=== PATIENT | male | born 1950 | race African-American/Black ===

== ENCOUNTER 2017-03-28 00:32 | Emergency (ER) | payer MEDICARE, MEDICAID ==
[2017-03-28 00:54] LABS: Base Excess-Venous 2.8 mmol/L (-30.0-30.0); Bicarbonate (HCO3v) 31.2 mmol/L (1.0-85.0); CO2 Tension (PvCO2) 63.6 mmHg (41.0-51.0); Calcium, Ionized 1.19 mmol/L (1.12-1.32); Hemoglobin - Calc 14.2 g/dL (12.0-18.0); O2 Tension (PvO2) 17.6 mmHg (35.0-45.0); Potassium 4.2 mmol/L (3.4-4.7); T. Carbon Dioxide 33.1 mmol/L (1.0-85.0); pH (Venous) 7.299 (7.35-7.45); vO2 Saturation-calc 20.4 % (0.0-100.0)
[2017-03-28 01:37] LABS: Eosinophils 2 % (0-10); Hemoglobin 12.5 g/dL (14.0-18.0); Lymphocytes 42 % (21-51); MDiff Complete? YES; Mean Corpuscular HGB CONC 32.1 g/dL (32.0-36.0); Mean Corpuscular Hemoglobin 32.5 pg (27.0-31.0); Mean Platelet Volume 7.3 fL (7.4-10.4); Monocytes 9 % (0-10); Neutrophil 42 % (42-75); PLT Morphology Comment Appears Adequate; Platelet Count 248 thou/uL (130-400); RBC Distribution Width 12.3 % (11.5-14.5); Reactive Lymphocytes 3 % (0-10); Red Blood Cell (RBC) Count 3.85 mill/uL (4.70-6.10); White Blood Cell (WBC) Count 5.9 thou/uL (4.8-10.8)
[2017-03-28 01:38] LABS: ALT (SGPT) 12 U/L (8-55); AST (SGOT) 29 U/L (5-34); Albumin 3.7 g/dL (3.4-4.8); Alkaline Phosphatase 58 U/L (40-150); Anion Gap 12 mmol/L (10-20); BUN (Urea Nitrogen) 11 mg/dL (8.4-25.7); Bilirubin, Total 0.3 mg/dL (0.2-1.2); Calc. Creatinine Clearance 0 mL/min (70-130); Calcium 9.3 mg/dL (7.8-10.44); Carbon Dioxide 26 mmol/L (23-31); Chloride 105 mmol/L (98-107); Estimated GFR-MDRD 77; Glucose 117 mg/dL (80-115); Potassium 4.9 mmol/L (3.5-5.1); Protein, Total 7.7 g/dL (5.8-8.1); Sodium 138 mmol/L (136-145)
[2017-03-28 03:07] LABS: Calcium, Ionized 1.2 mmol/L (1.12-1.30)
[2017-03-28 03:43] LABS: CO2 Tension 47.3 mmHg (35.0-45.0); pH, Arterial 7.38 (7.35-7.45)
[2017-03-28 03:44] LABS: Actual Bicarbonate (HCO3a) 27.4 mEq/L (22-26); Base Excess (BEa) 1.8 mEq/L (0 (+/-) 2.5); Hematocrit-ABG 36.9 % (42.0-52.0); Hemoglobin (Hb) 11.3 g/dL (14.0-18.0)
[2017-03-28 03:45] LABS: ALV-art Gradient 23.555 (0-20); Analyzer IN Cardio ER; Puncture Site RRA
--- NOTE | 2017-03-28 08:23 | RAD ---
FRONTAL AND LATERAL IMAGING OF THE CHEST: Date: 03-28-17 Comparison: 01-07-12 History: Coughing, wheezing. FINDINGS: Mild increased linear interstitial densities are noted, stable. There is mild blunting of the costoph renic angle on the left suggesting small volume pleural fluid and/or pleural scar, a chronic stable f inding. No lobar consolidation or alveolar edema. IMPRESSION: No acute findings. POS: [facility]
== END 2017-03-28 05:37 | disposition home or self-care (01) ==
LOC: ERS 00:32
DX: T59.811A Toxic effect of smoke, accidental (unintentional), initial encounter (principal); J68.9 Unspecified respiratory condition due to chemicals, gases, fumes and vapors; F17.210 Nicotine dependence, cigarettes, uncomplicated
CPT/HCPCS: 71046; 80053; 82330; 82375; 82803; 82805; 85025; 94760; 99406

== ENCOUNTER → 2017-10-12 | Day surgery (SDC) | payer MEDICARE, MEDICAID ==
[2017-10-11 13:11] VITALS: BMI 22.5
[~2017-10-12] MED LIST: EPINEPHrine 1 MG/ML AMP ONE
[2017-10-12 13:53] LABS: Hemoglobin 11.4 g/dL (14.0-18.0)
[2017-10-12 14:09] LABS: Anion Gap 11 mmol/L (10-20); BUN (Urea Nitrogen) 9 mg/dL (8.4-25.7); Calc. Creatinine Clearance 84 mL/min (70-130); Calcium 8.7 mg/dL (7.8-10.44); Carbon Dioxide 25 mmol/L (23-31); Chloride 108 mmol/L (98-107); Estimated GFR-MDRD 90; Glucose 94 mg/dL (80-115); Potassium 3.9 mmol/L (3.5-5.1); Sodium 140 mmol/L (136-145)
--- NOTE | 2017-10-15 23:12 | EKG ---
Test Reason : PREOP Blood Pressure : / mmHG Vent. Rate : 056 BPM Atrial Rate : 056 BPM P-R Int : 238 ms QRS Dur : 100 ms QT Int : 432 ms P-R-T Axes : 030 058 048 degrees QTc Int : 416 ms Sinus bradycardia with 1st degree A-V block Otherwise normal ECG When compared with ECG of 05-NOV-2015 18:44, WI interval has increased Vent. rate has decreased BY 81 BPM QRS duration has increased T wave amplitude has increased in Lateral leads Confirmed by Elsa FERNANDES ([id number]) on 10/15/2017 11:12:17 PM Referred By: VIJI Confirmed By:Elsa FERNANDES
== END ==
LOC: SDC 13:07
PROVIDERS: ATTEND Specialist
DX: J38.3 Other diseases of vocal cords (principal); Z53.09 Procedure and treatment not carried out because of other contraindication
CPT/HCPCS: 80048; 85014; 85018; 93005; 93010; J0171

== ENCOUNTER 2017-10-19 10:53 | Day surgery (SDC) | payer MEDICARE, MEDICAID ==
[2017-10-19] MEDS ORDERED: EPINEPHrine 1 MG/ML AMP ONE (14:07)
[2017-10-19] MEDS ORDERED: Fentanyl 100 MCG/2 ML VIAL ONE (14:15)
[2017-10-19] MEDS ORDERED: PROPOFOL 200 MG/20 ML VIAL ONE (14:19)
[2017-10-19] MEDS ORDERED: Ondansetron HCl/PF 4 MG/2 ML Vial ONE (14:19)
[2017-10-19] MEDS ORDERED: Lidocaine 1% PF 5 ML VIAL ONE (14:19)
--- NOTE | 2017-10-19 14:57 | OP ---
PREOPERATIVE DIAGNOSIS: Right true vocal cord lesion. POSTOPERATIVE DIAGNOSIS: Right true vocal cord lesion. PROCEDURE PERFORMED: Microsuspension laryngoscopy with right true vocal cord biopsy using binocular microscopy. PROCEDURE IN DETAIL: After consent was obtained, the patient was identified, brought to the operatin g room, and placed on the operating table in supine position. The larynx was visualized using an ope rating laryngoscope and the operative microscope was brought into place. Pictures were obtained of t he lesion and biopsy was obtained of the right true vocal cord and sent for permanent histologic eval uation. Topical adrenalin and lidocaine were applied. The patient was awakened, extubated, and take n to recovery room in stable condition prior to discharge home.
== END 2017-10-19 16:26 | disposition home or self-care (01) ==
LOC: SDC 10:53
PROVIDERS: ATTEND Specialist
PROC: 0CBT8ZX Excision of Right Vocal Cord, Via Natural or Artificial Opening Endoscopic, Diagnostic (ICD-10-PCS; principal; 2017-10-19)
DX: D02.0 Carcinoma in situ of larynx (principal); F17.210 Nicotine dependence, cigarettes, uncomplicated; J35.1 Hypertrophy of tonsils
CPT/HCPCS: 88305; 88341; 88342; J0171; J2001; J2405; J2704; J3010

== ENCOUNTER 2018-07-13 08:14 | Outpatient (CLI) | payer MEDICARE, MEDICAID ==
--- NOTE | 2018-07-13 09:02 | CT ---
LOW DOSE CT PULMONARY LUNG SCAN WITHOUT CONTRAST: CLINICAL HISTORY: Nicotine dependence. COMPARISON: Reference is made to an 11/06/2015 exam. FINDINGS: There is multifocal, linear, bilateral parenchymal density of the lungs, most notable within the left lower lobe, which is at the site of the prior area of prominent consolidation on the 11/06/2015 exam, indicative of residual scarring from the prior infectious/inflammatory event. A mild component of nodularity does remain, with a diameter of approximately 2.5 cm, with an ill-defined, irregular margin. Incidental note of hypodensities of the partially imaged left kidney, incompletely evaluated. IMPRESSION: 1. Lung-RADS primary category 3; probably benign. 2. Linear and nodular density of the left lower lobe is favored to reflect residual scar from prior area of pneumonia. 3. Six-month low-dose CT is recommended for continued evaluation. Transcribed Date/Time: 07/13/2018 9:32 AM
== END 2018-07-13 08:15 | disposition home or self-care (01) ==
LOC: CT 08:14
PROVIDERS: ATTEND Internal Medicine Hematology & Oncology
DX: F17.210 Nicotine dependence, cigarettes, uncomplicated (principal)
CPT/HCPCS: G0297

== ENCOUNTER 2018-12-14 10:49 | Outpatient (CLI) | payer MEDICARE, MEDICAID ==
--- NOTE | 2018-12-14 13:36 | RAD ---
2 VIEWS CHEST: Date: 12/14/18 PROVIDED CLINICAL HISTORY: Shortness of breath. FINDINGS: Comparison with 03/28/17. Cardiac and mediastinal silhouette unchanged in appearance. Blunting of left lateral costophrenic ang le appears stable with respect to prior. No focal consolidation, pneumothorax, or right pleural fluid evident. IMPRESSION: Stable radiographic appearance of the chest. POS: [facility]
== END 2018-12-14 10:50 | disposition home or self-care (01) ==
LOC: BICRAD 10:49
PROVIDERS: ATTEND Radiology Radiation Oncology
DX: C32.0 Malignant neoplasm of glottis (principal); R06.02 Shortness of breath
CPT/HCPCS: 71046

== ENCOUNTER 2019-06-19 19:17 | Inpatient (IN) | payer MEDICARE, MEDICAID, OTHER ==
[2019-06-19] MEDS ORDERED: Fentanyl 100 MCG/2 ML VIAL ONE ×2 (19:22→19:59)
[2019-06-19] MEDS ORDERED: Magnesium 2 GM/50 ML BAG (IN WATER) ONE (19:22)
[2019-06-19] MEDS ORDERED: Propofol 1,000 MG/100 ML VIAL IV ONE (19:23)
[2019-06-19] MEDS ORDERED: fentaNYL Citrate/PF 2,000 MCG in Sodium Chloride 0.9% 60 ML IV SCH (19:45)
--- NOTE | 2019-06-19 19:46 | RAD ---
PORTABLE CHEST 06/19/19 PROVIDED CLINICAL HISTORY: Dyspnea. FINDINGS: Comparison is made with the study dated 12/14/18. Cardiac and mediastinal silhouette is within normal limits. Endotracheal tube is noted, the tip of which projects in the region of the thoracic inlet. En teric catheter is noted, the tip of which is not visualized but is below the diaphragm. No focal cons olidation evident. Evaluation for pleural fluid and pneumothorax is limited given the supine nature o f the study, without gross evidence for such. IMPRESSION: 1. Support apparatus as described. 2. No evidence for an acute cardiopulmonary process. POS: [facility]
[2019-06-19 19:49] LABS: Actual Bicarbonate (HCO3a) 26.1 mEq/L (22-28); Analyzer IN Cardio ER; Base Excess (BEa) -0.9 mEq/L (-2.0 to +3.0); CO2 Tension 53.9 mmHg (35.0-45.0); Calcium, Ionized 1.15 mmol/L (1.12-1.30); Carboxyhemoglobin (COHb) 0.5 gm% (0.0-3.0); Hemoglobin (Hb) 11.6 g/dL (14.0-18.0); O2 Tension (PaO2), arterial 463.7 mmHg (> 80.0); Potassium - ABG Lab 3.74 mmol/L (3.70-5.30)
[2019-06-19 19:53] LABS: #Basophils 0.1 thou/uL (0.0-0.2); #Eosinphils 0.2 thou/uL (0.0-0.7); #Lymphocytes 2.8 thou/uL (1.20-3.40); #Monocytes 1.2 thou/uL (0.11-0.59); #Neutrophils 3.9 thou/uL (1.40-6.50); %Basophils 0.9 % (0.0-1.0); %Eosinophils 2.9 % (0.0-10.0); %Lymphocytes 33.8 % (21.0-51.0); %Monocytes 14.4 % (0.0-10.0); %Neutrophils 47.8 % (42.0-75.0); Hemoglobin 12.1 g/dL (14.0-18.0); Mean Corpuscular HGB CONC 31.6 g/dL (32.0-36.0); Mean Corpuscular Hemoglobin 31.3 pg (27.0-31.0); Mean Corpuscular Volume 99.1 fL (78.0-98.0); Mean Platelet Volume 7.2 fL (7.4-10.4); Platelet Count 262 thou/uL (130-400); RBC Distribution Width 12.3 % (11.5-14.5); Red Blood Cell (RBC) Count 3.85 mill/uL (4.70-6.10); White Blood Cell (WBC) Count 8.2 thou/uL (4.8-10.8)
[2019-06-19 19:56] LABS: Puncture Site RRA
[2019-06-19 19:57] LABS: ALV-art Gradient 181.925 (0-20)
[2019-06-19 19:57] LABS: Bacteria/HPF None Seen HPF (None Seen); Bilirubin Negative (Negative); Blood, Urine 1+ (Negative); Clarity Clear (Clear); Glucose, Urine (Dipstick) Normal (Negative); Leukocyte Negative Leu/uL (Negative); Mucous/LPF Rare LPF (<2+); Nitrite Negative (Negative); Protein, Urine (Dipstick) Negative (Neg-Trace); RBC/HPF 0-3 HPF (0-3); Squamous Epithelial 0-3 HPF (0-3); Urobilinogen Normal mg/dL (Less than 2); WBC/HPF 0-3 HPF (0-3)
[2019-06-19 20:15] LABS: ALT (SGPT) 13 U/L (8-55); AST (SGOT) 17 U/L (5-34); Albumin 3.7 g/dL (3.4-4.8); Alkaline Phosphatase 69 U/L (40-110); Anion Gap 10 mmol/L (10-20); BUN (Urea Nitrogen) 12 mg/dL (8.4-25.7); Bilirubin, Total 0.4 mg/dL (0.2-1.2); Calc. Creatinine Clearance 0 mL/min (70-130); Calcium 8.7 mg/dL (7.8-10.44); Carbon Dioxide 29 mmol/L (23-31); Chloride 102 mmol/L (98-107); Estimated GFR-MDRD 79; Glucose 198 mg/dL (80-115); Potassium 4.1 mmol/L (3.5-5.1); Protein, Total 7.7 g/dL (5.8-8.1); Sodium 137 mmol/L (136-145)
--- NOTE | 2019-06-19 20:43 | CT ---
CT BRAIN 06/19/19 PROVIDED CLINICAL HISTORY: Altered mental status. FINDINGS: The ventricular system appears normal in size and morphology. There is no evidence for intracranial h emorrhage or mass effect. There is a right frontal scalp lipoma. There is material of heterogeneous d ensity within the visualized portions of the nasopharynx. IMPRESSION: No evidence for intracranial hemorrhage or mass effect. POS: [facility]
[2019-06-19] MEDS ORDERED: methylPREDNISolone Sod Succ/PF 125 MG/2 ML VIAL ONE (20:53)
[2019-06-19] MEDS ORDERED: Acetaminophen 650 MG Suppository PR PRN (21:26)
[2019-06-19] MEDS ORDERED: PROVENTIL INHALER 6.7 G (200 INHALATIONS) INH PRN (21:26)
[2019-06-19] MEDS ORDERED: Ondansetron ODT 4 MG TAB PO PRN (21:26)
[2019-06-19] MEDS ORDERED: Ipratropium Oral Inhaler INH PRN (21:26)
[2019-06-19] MEDS ORDERED: Ondansetron PF 4 MG/2 ML Vial IVP PRN (21:26)
[2019-06-19] MEDS ORDERED: Albuterol 200 PUFF (6.7GM INHALER) INH PRN (21:45)
--- NOTE | 2019-06-19 22:42 | HP ---
PRIMARY CARE PHYSICIAN: Previously, Dr. Aguirre. CHIEF COMPLAINT: Respiratory distress. 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 The patient was reportedly per his sister has started having some increased shortness of breath 4 days ago. Normally, he does not have respiratory symptoms and has never had COPD or been on inhalers or oxygen. This progressed over the last 4 days. No known fever. No COVID contacts. The patient called EMS today. On arrival, EMS noted the patient to be in severe respiratory distress with diffuse wheezing throughout his lung russell. They did give nebulizers on the scene without any improvement. Attempted to intubate, but were unable to identify landmarks and so put in an LMA. They were able to oxygenate him and brought him to the emergency room here in [place]. In [place], he was found to be not ventilating well with very high CO2 and acidosis and so, he was intubated by Dr. Maher with GlideScope successfully with a size & ET tube. Per Dr. Maher, the patient may have had a little swelling of his arytenoids, but no large masses as local cords appeared normal and after intubation with the ET tube, the patient was able to be ventilated well. Chest x-ray was negative here in the emergency room. He has not had any fevers and no elevated white count. He is being admitted to the ICU. The patient did have a COVID swab done in the emergency room; however, he does not have any known COVID contacts and had at least no criteria at this point for COVID isolation. PAST MEDICAL HISTORY: All history taken from the chart due to the patient's intubated and sedated status. 1. Previous empyema requiring chest tube and decortication. 2. 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 PAST SURGICAL HISTORY: Chest tube placement with decortication in 2010. SOCIAL HISTORY: The patient smokes heavily per his sister, unknown amount. Previously used cocaine and may have been doing that more recently, though the family is not sure. No known heavy alcohol use. The patient is a full code currently. His medical decision maker will be his 2 daughters, contact in computers, Minerva Hong, phone #[phone]. I did try calling her and there was no answer at this time. I did talk to Lor Cervantes, the patient's sister. FAMILY HISTORY: Unable to obtain secondary to the patient's intubated status. ALLERGIES: NO KNOWN DRUG ALLERGIES. CURRENT MEDICATIONS: Unknown. REVIEW OF SYSTEMS: Unable to obtain secondary to the patient's intubated and sedated status. PHYSICAL EXAMINATION: VITAL SIGNS: Blood pressure 100/71, pulse 81, respirations 14 on the vent, temperature 99.3, O2 saturation 100% on the ventilator. GENERAL: This is a well-developed, well-nourished male who is sedated on the ventilator. HEENT: Left pupil round and reactive to light. Right cornea is scarred without any evidence of pupillary response, appears to be an old injury to the eye. ENT; ET tube in place, no bleeding or masses noted. NECK: With a midline trachea. No lymphadenopathy. No masses noted. HEART: Regular rate and rhythm. No murmurs, rubs, or gallops. LUNGS: Clear to auscultation bilaterally. No wheezes, crackles, or rhonchi. ABDOMEN: Soft, nontender to palpation. Normoactive bowel sounds. No hepatosplenomegaly or other masses. EXTREMITIES: No clubbing, cyanosis, or edema. SKIN: No rashes or lesions noted. NEUROLOGICAL: The patient did seem to move his extremities equally with stimulation, but sedated, not following commands right now. LABORATORY DATA: White blood cell count 8.2 with a normal neutrophil and normal lymphocytes. He does have a little bit of elevated monocytes of 14%, hemoglobin 12.1, hematocrit 38.2, platelet count 262. Arterial blood gas initially showed a pH of 7.30 with a pCO2 of 53 and pO2 of 400. Complete metabolic panel is notable for glucose of 198. The rest was normal. Urinalysis showed 1+ blood, but otherwise normal. IMAGING STUDIES: Chest x-ray, I did review the chest x-ray done in the emergency room along with the radiologist's report. This shows ET tube in place. There is no evidence of pneumonia. No infiltrates, no pneumothorax, no acute cardiopulmonary process visualized. CT of the brain done in the emergency room shows no acute intracranial process. ASSESSMENT AND PLAN: 1. Acute respiratory failure with hypoxia and hypercapnia, now intubated. Uncertain the source of this at this time. Differential includes chronic obstructive pulmonary disease exacerbation versus airway obstruction from un-visualized mass. I did discuss the patient's case with Dr. Regalado over the phone. The patient does not meet any criteria for COVID infection, so does not need isolation right now, though the test has been sent just in case. The patient's most likely source would be a chronic obstructive pulmonary disease due to his strong smoking history and wheezing on the scene, so we will give IV steroids. We will give MDIs with albuterol and Atrovent and we will start on IV Levaquin daily. Other possible source would be nonvisualized cancerous mass causing obstruction. At this time, this has been relieved with ET tube placement. The patient may need a CT scan during the hospitalization to further elucidate any possibility of any masses. 2. History of polysubstance abuse. We will get a urine drug screen. 3. Previous pneumonia with parapneumonic effusion. The patient has no evidence of pneumonia at this time. 4. Tobacco abuse. 5. Gastrointestinal prophylaxis. Put the patient on Pepcid twice a day. 6. Deep venous thrombosis prophylaxis. Put the patient on subcu Lovenox and SCDs while on bed on the vent. 7. Code status. The patient is currently a full code. His next of kin would be his daughter, Minerva Hong. . Job ID: [id number]
[2019-06-19 22:53] LABS: Amphetamine Not Detected (NotDetected); Barbiturates Screen Not Detected (NotDetected); Benzodiazepine Screen Not Detected (NotDetected); Cocaine Metabolite Screen Detected (NotDetected); Medtox Reader # READER 4; Methadone Not Detected (NotDetected); Methamphetamine Not Detected (NotDetected); Opiate Screen Not Detected (NotDetected); Oxycodone Screen Not Detected (NotDetected); Phencyclidine (PCP) Not Detected (NotDetected); THC/Cannabinoid Screen Not Detected (NotDetected); Tricyclic Screen Not Detected (NotDetected)
[2019-06-19 22:54] LABS: Medtox Control Line Valid? VALID (VALID)
[2019-06-19] MEDS: methylPREDNISolone Sod Succ 40 MG VIAL IVP SCH (23:09)
[2019-06-20] MEDS ORDERED: Propofol 1,000 MG/100 ML VIAL IV PRN (00:06)
[2019-06-20] MEDS ORDERED: Propofol BOLUS 1,000 MG/100 ML VIAL IV PRN (00:06)
[2019-06-20] MEDS ORDERED: DISCONTINUE PREVIOUS NARCOTIC PAIN MEDICATIONS AND BENZODIAZEPINES FS SCH (00:06)
[2019-06-20] MEDS ORDERED: Morphine 2 MG/ML SYRINGE SLOW IVP PRN (00:06)
[2019-06-20] MEDS ORDERED: Fentanyl BOLUS 250 ML IVPB PRN (00:06)
[2019-06-20] MEDS ORDERED: Ventilator Sedation Protocol 1 EACH FS SCH (00:15)
[2019-06-20] MEDS ORDERED: Sodium Chloride 0.9% 500 ML IV SCH ×2 (00:30→00:45)
[2019-06-20] MEDS ORDERED: Sodium Chloride 0.9% 1,000 ML IV SCH ×2 (01:30→08:15)
[2019-06-20 04:06] LABS: #Lymphocytes 0.8 thou/uL (1.20-3.40); #Monocytes 0.3 thou/uL (0.11-0.59); #Neutrophils 5.9 thou/uL (1.40-6.50); %Basophils 0.1 % (0.0-1.0); %Eosinophils 0.1 % (0.0-10.0); %Lymphocytes 10.9 % (21.0-51.0); %Monocytes 3.9 % (0.0-10.0); Hemoglobin 10.8 g/dL (14.0-18.0); Mean Corpuscular HGB CONC 31.6 g/dL (32.0-36.0); Mean Corpuscular Hemoglobin 31.2 pg (27.0-31.0); Mean Corpuscular Volume 98.6 fL (78.0-98.0); Mean Platelet Volume 7.4 fL (7.4-10.4); Platelet Count 225 thou/uL (130-400); RBC Distribution Width 12.4 % (11.5-14.5); Red Blood Cell (RBC) Count 3.47 mill/uL (4.70-6.10)
[2019-06-20 04:58] LABS: Anion Gap 11 mmol/L (10-20); BUN (Urea Nitrogen) 9 mg/dL (8.4-25.7); Calc. Creatinine Clearance 84 mL/min (70-130); Calcium 8.5 mg/dL (7.8-10.44); Carbon Dioxide 26 mmol/L (23-31); Chloride 105 mmol/L (98-107); Estimated GFR-MDRD Greater than 90; Glucose 161 mg/dL (80-115); Potassium 4.8 mmol/L (3.5-5.1); Sodium 137 mmol/L (136-145)
[2019-06-20] MEDS: methylPREDNISolone Sod Succ 40 MG VIAL IVP SCH ×4 (05:22→23:57)
[2019-06-20 07:57] LABS: Actual Bicarbonate (HCO3a) 24.8 mEq/L (22-28); Base Excess (BEa) 0.5 mEq/L (-2.0 to +3.0); CO2 Tension 38.7 mmHg (35.0-45.0); Calcium, Ionized 1.17 mmol/L (1.12-1.30); Carboxyhemoglobin (COHb) 0.6 gm% (0.0-3.0); Hemoglobin (Hb) 11.2 g/dL (14.0-18.0); O2 Tension (PaO2), arterial 117.3 mmHg (> 80.0); Potassium - ABG Lab 4.52 mmol/L (3.70-5.30); pH, Arterial 7.43 (7.35-7.45)
[2019-06-20 08:02] LABS: ALV-art Gradient 119.525 (0-20); Puncture Site LRA
[2019-06-20] MEDS: Enoxaparin Sodium 40 MG/0.4 ML SYRINGE SC SCH (08:34)
[2019-06-20] MEDS: Famotidine/PF 20 mg/2ml Vial SLOW IVP SCH ×2 (08:34→21:07)
[2019-06-20] MEDS: Sodium Chloride 0.45% 1,000 ML IV SCH ×2 (08:35→21:07)
[2019-06-20] MEDS: Bacteriostatic Water 30 ML VIAL FS PRN ×2 (11:07→18:13)
--- NOTE | 2019-06-20 11:16 | CON ---
DATE OF CONSULTATION: 06/20/2019 HISTORY OF PRESENT ILLNESS: Mr. Mariscal is a 69-year-old male with a history of head and neck cancer. I told he started wheezing yesterday. He presented to the emergency room, was intubated. He was admitted as COVID rule out. Chest x-ray was unremarkable. PAST MEDICAL HISTORY: Remarkable for; 1. Head and neck cancer. 2. History of decortication in the past. 3. History of polysubstance abuse in the past. 4. 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 5. History of tobacco abuse. FAMILY HISTORY: Negative for lung disease in early age. REVIEW OF SYSTEMS: Not obtainable. PHYSICAL EXAMINATION: VITAL SIGNS: Heart rate in the 50s, blood pressure 100/76, respiratory rates in the teens. HEAD AND NECK: Unremarkable. LUNGS: Distant and clear. HEART: Regular rhythm. ABDOMEN: Soft. EXTREMITIES: Without asymmetry or edema. He does not have a long expiratory phase. LABORATORY DATA: Drug screen is positive for cocaine. Electrolytes are normal. White count 7, hemoglobin 10.8, platelets 225. IMPRESSION AND PLAN: 1. Respiratory distress secondary to bronchospasm. 2. Cocaine use. 3. History of squamous-cell carcinoma in situ. 4. History of heavy ongoing tobacco use. Await, keep him in isolation until his COVID status is determined. We will continue with mechanical ventilation for now. Empiric antimicrobial therapy is reasonable. Sedation protocol is in place. Re-evaluate in the morning. Critical care time is 35 minutes. Job ID: [id number] MTDD
[2019-06-20] MEDS: fentaNYL Citrate/PF 2,000 MCG in Sodium Chloride 0.9% 60 ML IV SCH ×2 (11:54→21:10)
--- NOTE | 2019-06-20 14:53 | EKG ---
Test Reason : Blood Pressure : / mmHG Vent. Rate : 098 BPM Atrial Rate : 098 BPM P-R Int : 192 ms QRS Dur : 092 ms QT Int : 364 ms P-R-T Axes : 069 071 069 degrees QTc Int : 464 ms Normal sinus rhythm Normal ECG Confirmed by RAYMOND MENESES, LILIAN Akers ([id number]), fashion editor FLAVIA FAIRBANKS ([id number]) on 06/20/2019 2:53:03 PM Referred By: Confirmed By:LILIAN ANDRADE MD
[2019-06-20] MEDS ORDERED: Prevnar 13-Val Conj/PF 0.5 ML SYRINGE IM ONE (21:00)
--- NOTE | 2019-06-20 21:06 | PDOC.HOSPP ---
- Subjective Encounter Date: 06/20/19 Encounter Time: 11:00 Subjective: Remains intubated. Responsive when off sedation. - Objective Vital Signs & Weight: Vital Signs (12 hours) Temp Pulse Resp BP 06/20/19 19:27 39 L 106/60 06/20/19 18:00 16 06/20/19 16:00 16 06/20/19 14:26 49 L 101/56 L 06/20/19 14:00 16 06/20/19 12:00 98.4 F 16 06/20/19 10:09 50 L 92/57 L 06/20/19 10:00 16 Weight Admit Weight 151 lb Weight 151 lb 10.848 oz Most Recent Monitor Data Heart Rate from ECG 49 NIBP 114/59 NIBP BP-Mean 77 Respiration from ECG 12 SpO2 100 I&O: 06/19/19 06/20/19 06/21/19 06:59 06:59 06:59 Intake Total 1172 1896.3 Output Total 835 575 Balance 337 1321.3 Result Diagrams: 06/20/19 03:43 06/20/19 03:43 Hospitalist ROS - Medication Medications: Active Medications Generic Name Dose Route Start Last Admin Trade Name Freq PRN Reason Stop Dose Admin Enoxaparin Sodium 40 mg 06/20/19 09:00 06/20/19 08:34 Lovenox SC 40 mg 0900 BASSEM Administration Famotidine 20 mg 06/20/19 09:00 06/20/19 08:34 Pepcid SLOW IVP 20 mg Q12HR BASSEM Administration Fentanyl Citrate 2,000 mcg/ 100 mls @ 0 mls/hr 06/20/19 00:06 06/20/19 11:54 Sodium Chloride IV 07/20/19 00:06 100 mls INF BASSEM Administration Protocol Per Protocol Sodium Chloride 1,000 mls @ 80 mls/hr 06/20/19 08:15 06/20/19 08:35 1/2 Normal Saline IV 1,000 mls .[id number] BASSEM Administration Methylprednisolone Sodium Succinate 40 mg 06/19/19 23:59 06/20/19 18:13 Solu-Medrol IVP 40 mg Q6HR BASSEM Administration Sodium Chloride 10 ml 06/20/19 09:00 06/20/19 08:34 Flush - Normal Saline IVF 10 ml Q12HR BASSEM Administration Sterile Water 1 ml 06/19/19 21:47 06/20/19 18:13 Bacteriostatic Water FS 1 ml PRN PRN Administration RECONSTITUTION Hosp A/P (1) Acute and chronic respiratory failure with hypoxia Code(s): J96.21 - ACUTE AND CHRONIC RESPIRATORY FAILURE WITH HYPOXIA Status: Acute (2) Malignant neoplasm of larynx Status: Acute (3) Pneumonia Code(s): J18.9 - PNEUMONIA, UNSPECIFIED ORGANISM Status: Acute (4) COPD (chronic obstructive pulmonary disease) Status: Acute - Plan Pending COVID19 LUIS ENRIQUE TEST. Continue vent management per pulmonology. Continue scheduled nebs, antibiotics and steroids.
[2019-06-20] MEDS: Lorazepam 2 MG/ML VIAL SLOW IVP PRN (22:40)
[2019-06-21] MEDS: Lorazepam 2 MG/ML VIAL SLOW IVP PRN ×6 (00:01→23:31)
[2019-06-21] MEDS: methylPREDNISolone Sod Succ 40 MG VIAL IVP SCH ×4 (05:00→23:20)
[2019-06-21] MEDS: Famotidine/PF 20 mg/2ml Vial SLOW IVP SCH ×2 (07:21→19:46)
[2019-06-21] MEDS: Enoxaparin Sodium 40 MG/0.4 ML SYRINGE SC SCH (07:21)
[2019-06-21] MEDS: fentaNYL Citrate/PF 2,000 MCG in Sodium Chloride 0.9% 60 ML IV SCH ×2 (08:18→20:53)
[2019-06-21] MEDS: Sodium Chloride 0.45% 1,000 ML IV SCH ×2 (09:35→19:47)
--- NOTE | 2019-06-21 15:10 | PRG ---
DATE OF SERVICE: 06/21/2019 SUBJECTIVE: Mr. Mariscal's COVID screen is still not back. His is stable. OBJECTIVE: VITAL SIGNS: His heart rates in the 50s, blood pressure , respiratory rate in the teens. LUNGS: Unchanged. HEART: Unchanged. ABDOMEN: Unchanged. He does not have a long expiratory phase reviewing his flow volume loop on ventilator. LABORATORY DATA: No new lab today. IMPRESSION: 1. Respiratory failure, likely was secondary to his chronic obstructive pulmonary disease exacerbation. 2. History of throat cancer. If his COVID status is negative, it would probably be appropriate to have Ear, Nose, and Throat evaluate his upper airway prior to extubation since he has no history reportedly of prior chronic obstructive pulmonary disease exacerbation. We will decrease his ventilatory support today working towards getting him extubation hours. 3. It is unlikely that he has squamous cell carcinoma in situ of his vocal cords. heavy tobacco use, more likely, this is simply chronic obstructive pulmonary disease exacerbation. Critical care time is 35 minutes. Job ID: [id number] MTDD
--- NOTE | 2019-06-21 20:35 | PDOC.HOSPP ---
- Subjective Encounter Date: 06/21/19 non-verbal Subjective: Remains intubated. Follows commands when off sedation per nursing staff. - Objective Vital Signs & Weight: Vital Signs (12 hours) Pulse Resp BP 06/21/19 19:07 53 L 06/21/19 17:33 12 06/21/19 16:00 22 H 06/21/19 15:03 54 L 105/61 06/21/19 14:00 12 06/21/19 12:00 14 06/21/19 10:24 47 L 96/41 L 06/21/19 10:00 16 Weight Admit Weight 151 lb Weight 156 lb 11.979 oz Most Recent Monitor Data Heart Rate from ECG 59 NIBP 113/64 NIBP BP-Mean 80 Respiration from ECG 13 SpO2 100 I&O: 06/20/19 06/21/19 06/22/19 06:59 06:59 06:59 Intake Total 1172 2797.3 978 Output Total 835 1005 1260 Balance 337 1792.3 -282 Result Diagrams: 06/20/19 03:43 06/20/19 03:43 Hospitalist ROS - Medication Medications: Active Medications Generic Name Dose Route Start Last Admin Trade Name Freq PRN Reason Stop Dose Admin Enoxaparin Sodium 40 mg 06/20/19 09:00 06/21/19 07:21 Lovenox SC 40 mg 0900 BASSEM Administration Famotidine 20 mg 06/20/19 09:00 06/21/19 19:46 Pepcid SLOW IVP 20 mg Q12HR BASSEM Administration Fentanyl Citrate 2,000 mcg/ 100 mls @ 0 mls/hr 06/20/19 00:06 06/21/19 08:18 Sodium Chloride IV 07/20/19 00:06 100 mls INF BASSEM Administration Protocol Per Protocol Sodium Chloride 1,000 mls @ 80 mls/hr 06/20/19 08:15 06/21/19 19:47 1/2 Normal Saline IV 1,000 mls .[id number] BASSEM Administration Levofloxacin 500 mg/ Device 100 mls @ 100 mls/hr 06/20/19 21:00 06/21/19 19: 46 IVPB 100 mls 2100 BASSEM Administration Lorazepam 2 mg 06/20/19 00:06 06/21/19 19:46 Ativan SLOW IVP 07/20/19 00:06 2 mg Q1H PRN Administration Breakthrough agitation Methylprednisolone Sodium Succinate 40 mg 06/19/19 23:59 06/21/19 17:48 Solu-Medrol IVP 40 mg Q6HR BASSEM Administration Sodium Chloride 10 ml 06/20/19 09:00 06/21/19 19:47 Flush - Normal Saline IVF 10 ml Q12HR BASSEM Administration Sterile Water 1 ml 06/19/19 21:47 06/20/19 18:13 Bacteriostatic Water FS 1 ml PRN PRN Administration RECONSTITUTION Hosp A/P (1) Acute and chronic respiratory failure with hypoxia Code(s): J96.21 - ACUTE AND CHRONIC RESPIRATORY FAILURE WITH HYPOXIA Status: Acute (2) Malignant neoplasm of larynx Status: Acute (3) Pneumonia Code(s): J18.9 - PNEUMONIA, UNSPECIFIED ORGANISM Status: Acute (4) COPD (chronic obstructive pulmonary disease) Status: Acute - Plan Pending COVID19 LUIS ENRIQUE TEST. Continue vent management per pulmonology. On scheduled nebs, antibiotics and steroids.
[2019-06-22] MEDS: Lorazepam 2 MG/ML VIAL SLOW IVP PRN (01:48)
[2019-06-22] MEDS: methylPREDNISolone Sod Succ 40 MG VIAL IVP SCH ×3 (04:52→17:46)
[2019-06-22] MEDS: Famotidine/PF 20 mg/2ml Vial SLOW IVP SCH ×2 (09:36→20:41)
[2019-06-22] MEDS: Enoxaparin Sodium 40 MG/0.4 ML SYRINGE SC SCH (09:36)
[2019-06-22] MEDS: Sodium Chloride 0.45% 1,000 ML IV SCH (12:25)
--- NOTE | 2019-06-22 13:03 | PRG ---
DATE OF SERVICE: 06/22/2019 SUBJECTIVE: Brenden Mariscal's COVID screen is negative. He is in no distress. OBJECTIVE: VITAL SIGNS: Blood pressure 133/69, heart rate is in the 60s, respiratory rates in the teens. GENERAL: He is awake and alert. Able to follow commands. LUNGS: Clear. HEART: Regular rhythm. ABDOMEN: Soft. EXTREMITIES: Without edema. Flow volume loop does not show prolonged expiratory phase. Intake and outputs . LABORATORY DATA: No new lab today. IMPRESSION: Respiratory failure secondary to bronchospasm. I have recommended extubation with bronchoscope in place to look at his trachea to make sure he does not have a tracheal obstructing lesion. Given that he had carcinoma in situ 2 years ago, it is unlikely that carcinoma in situ contribute to shortness of breath given that this has been treated. Hopefully, we can extubate him over the bronchoscope later. Critical care time is 35 minutes excluding procedures. Job ID: [id number] MTDD
--- NOTE | 2019-06-22 14:29 | PDOC.HOSPP ---
- Subjective Encounter Date: 06/22/19 Encounter Time: 11:00 Subjective: Patient intubated, non-verbal - Objective Vital Signs & Weight: Vital Signs (12 hours) Temp Pulse Resp BP Pulse Ox 06/22/19 12:00 98 06/22/19 10:28 50 L 104/65 06/22/19 08:00 97.4 F L 11 L 100 06/22/19 07:31 53 L 102/65 06/22/19 06:00 14 06/22/19 04:00 11 L 06/22/19 03:04 56 L Weight Admit Weight 151 lb Weight 156 lb 15.506 oz Most Recent Monitor Data Heart Rate from ECG 91 NIBP 141/100 NIBP BP-Mean 113 Respiration from ECG 14 SpO2 72 I&O: 06/21/19 06/22/19 06/23/19 06:59 06:59 06:59 Intake Total 2797.3 2591.8 0 Output Total 1005 2860 415 Balance 1792.3 -268.2 -415 Result Diagrams: 06/20/19 03:43 06/20/19 03:43 Hospitalist ROS - Review of Systems ROS unobtainable: due to endotracheal tube Constitutional: denies: fever - Medication Medications: Active Medications Generic Name Dose Route Start Last Admin Trade Name Freq PRN Reason Stop Dose Admin Enoxaparin Sodium 40 mg 06/20/19 09:00 06/22/19 09:36 Lovenox SC 40 mg 0900 BASSEM Administration Famotidine 20 mg 06/20/19 09:00 06/22/19 09:36 Pepcid SLOW IVP 20 mg Q12HR BASSEM Administration Fentanyl Citrate 2,000 mcg/ 100 mls @ 0 mls/hr 06/20/19 00:06 06/21/19 20:53 Sodium Chloride IV 07/20/19 00:06 100 mls INF BASSEM Administration Protocol Per Protocol Sodium Chloride 1,000 mls @ 80 mls/hr 06/20/19 08:15 06/22/19 12:25 1/2 Normal Saline IV 1,000 mls .[id number] BASSEM Administration Levofloxacin 500 mg/ Device 100 mls @ 100 mls/hr 06/20/19 21:00 06/21/19 19: 46 IVPB 100 mls 2100 BASSEM Administration Lorazepam 2 mg 06/20/19 00:06 06/22/19 01:48 Ativan SLOW IVP 07/20/19 00:06 2 mg Q1H PRN Administration Breakthrough agitation Methylprednisolone Sodium Succinate 40 mg 06/19/19 23:59 06/22/19 12:25 Solu-Medrol IVP 40 mg Q6HR BASSEM Administration Propofol 1,000 mg 06/20/19 00:06 06/22/19 01:50 Diprivan IV 07/20/19 00:06 1,000 mg INF PRN Administration TO ACHIEVE GOAL RASS Protocol Sodium Chloride 10 ml 06/20/19 09:00 06/22/19 09:36 Flush - Normal Saline IVF 10 ml Q12HR BASSEM Administration Sterile Water 1 ml 06/19/19 21:47 06/20/19 18:13 Bacteriostatic Water FS 1 ml PRN PRN Administration RECONSTITUTION - Exam General Appearance: NAD General - other findings: intubated, sedated Eye: PERRL, anicteric sclera ENT: normocephalic atraumatic, no oropharyngeal lesions Neck: no JVD Heart: RRR, no murmur, no gallops, no rubs Respiratory: CTAB, no wheezes, no rales, no ronchi Gastrointestinal: soft, non-tender, non-distended, normal bowel sounds Extremities: no cyanosis, no clubbing, no edema Skin: normal turgor, no lesions, no rashes Neurological: cranial nerve grossly intact, normal sensation to touch, no focal deficits, no new deficit Musculoskeletal: normal tone, normal strength, no muscle wasting Psychiatric: normal affect, normal behavior, A&O x 3, oriented to person Hosp A/P - Plan CT brain: negative Chest X ray: negative COVID negative This is a 69 year old male with past medical history of laryngeal neoplasm presenting with SOB, hypoxia, wheezing Acute hypoxic respiratory failure secondary to possible COPD exacerbation vs cancer - chest X ray normal - continue levaquin and methylprednisolone - pulmonary plans to do bronchoscopy today and possibly extubate Cocaine use - needs counseling on dc Anemia - Hb 10, stable, will monitor Code status: full code
[2019-06-23] MEDS: Sodium Chloride 0.45% 1,000 ML IV SCH ×2 (01:03→14:18)
[2019-06-23] MEDS: methylPREDNISolone Sod Succ 40 MG VIAL IVP SCH ×4 (01:03→17:40)
[2019-06-23 04:58] LABS: Hemoglobin 11.2 g/dL (14.0-18.0); Mean Corpuscular HGB CONC 33.2 g/dL (32.0-36.0); Mean Corpuscular Hemoglobin 31.8 pg (27.0-31.0); Mean Corpuscular Volume 95.7 fL (78.0-98.0); Platelet Count 251 thou/uL (130-400); RBC Distribution Width 12.2 % (11.5-14.5); Red Blood Cell (RBC) Count 3.53 mill/uL (4.70-6.10); White Blood Cell (WBC) Count 7.3 thou/uL (4.8-10.8)
--- NOTE | 2019-06-23 05:43 | OP ---
DATE OF PROCEDURE: 06/22/2019 PROCEDURE PERFORMED: Fiberoptic bronchoscopy. DESCRIPTION OF PROCEDURE: The bronchoscope was introduced via the endotracheal tube with him awake. His entire tracheobronchial tree was inspected. No endobronchial lesions were seen. With the bronchoscope at the end of the endotracheal tube, the tube was slowly withdrawn. No tracheal obstructing lesions were seen. He began coughing when the scope was withdrawn through his vocal cords. I did not get a great look at his vocal cords, but did not see any obvious lesion. Overall, it appears that this truly was just simply a COPD exacerbation and not secondary to some malignant process. He tolerated the procedure well. Job ID: [id number]
[2019-06-23] MEDS: Famotidine/PF 20 mg/2ml Vial SLOW IVP SCH ×2 (09:14→20:42)
[2019-06-23] MEDS: Enoxaparin Sodium 40 MG/0.4 ML SYRINGE SC SCH (09:14)
[2019-06-23 09:38] LABS: Anion Gap 8 mmol/L (10-20); BUN (Urea Nitrogen) 12 mg/dL (8.4-25.7); Calc. Creatinine Clearance 96 mL/min (70-130); Calcium 8.9 mg/dL (7.8-10.44); Carbon Dioxide 32 mmol/L (23-31); Chloride 101 mmol/L (98-107); Estimated GFR-MDRD Greater than 90; Glucose 125 mg/dL (80-115); Sodium 137 mmol/L (136-145)
--- NOTE | 2019-06-23 10:18 | PDOC.HOSPP ---
- Subjective Encounter Date: 06/23/19 Encounter Time: 10:17 Subjective: Mr. Mariscal was seen today in follow-up of COPD exacerbation. He was extubated today. He is breathing better. He notes a cough which started this AM. No new complaints. - Objective Vital Signs & Weight: Vital Signs (12 hours) Temp 06/23/19 04:00 98.4 F 06/23/19 00:00 98.8 F Weight Admit Weight 151 lb Weight 159 lb 6.307 oz Most Recent Monitor Data Heart Rate from ECG 67 NIBP 112/56 NIBP BP-Mean 74 Respiration from ECG 23 SpO2 92 I&O: 06/22/19 06/23/19 06/24/19 06:59 06:59 06:59 Intake Total 2591.8 2432 Output Total 2860 2700 Balance -268.2 -268 Result Diagrams: 06/23/19 03:40 06/23/19 09:09 Hospitalist ROS - Medication Medications: Active Medications Generic Name Dose Route Start Last Admin Trade Name Freq PRN Reason Stop Dose Admin Enoxaparin Sodium 40 mg 06/20/19 09:00 06/23/19 09:14 Lovenox SC 40 mg 0900 BASSEM Administration Famotidine 20 mg 06/20/19 09:00 06/23/19 09:14 Pepcid SLOW IVP 20 mg Q12HR BASSEM Administration Fentanyl Citrate 2,000 mcg/ 100 mls @ 0 mls/hr 06/20/19 00:06 06/21/19 20:53 Sodium Chloride IV 07/20/19 00:06 100 mls INF BASSEM Administration Protocol Per Protocol Sodium Chloride 1,000 mls @ 80 mls/hr 06/20/19 08:15 06/23/19 01:03 1/2 Normal Saline IV 1,000 mls .[id number] BASSEM Administration Levofloxacin 500 mg/ Device 100 mls @ 100 mls/hr 06/20/19 21:00 06/22/19 20: 41 IVPB 100 mls 2100 BASSEM Administration Lorazepam 2 mg 06/20/19 00:06 06/22/19 01:48 Ativan SLOW IVP 07/20/19 00:06 2 mg Q1H PRN Administration Breakthrough agitation Methylprednisolone Sodium Succinate 40 mg 06/19/19 23:59 06/23/19 05:15 Solu-Medrol IVP 40 mg Q6HR BASSEM Administration Propofol 1,000 mg 06/20/19 00:06 06/22/19 01:50 Diprivan IV 07/20/19 00:06 1,000 mg INF PRN Administration TO ACHIEVE GOAL RASS Protocol Sodium Chloride 10 ml 06/20/19 09:00 06/22/19 20:41 Flush - Normal Saline IVF 10 ml Q12HR BASSEM Administration Sterile Water 1 ml 06/19/19 21:47 06/20/19 18:13 Bacteriostatic Water FS 1 ml PRN PRN Administration RECONSTITUTION - Exam Eye: PERRL, anicteric sclera Heart: RRR, no murmur, no gallops, no rubs, normal peripheral pulses Respiratory: no rales, normal chest expansion (+ rhonchi bilaterally) Gastrointestinal: soft, non-tender, non-distended, normal bowel sounds, no palpable masses, no hepatomegaly, no splenomegaly Extremities: no cyanosis, no clubbing, no edema Hosp A/P (1) COPD exacerbation Code(s): J44.1 - CHRONIC OBSTRUCTIVE PULMONARY DISEASE W (ACUTE) EXACERBATION Status: Acute (2) Malnutrition of moderate degree Code(s): E44.0 - MODERATE PROTEIN-CALORIE MALNUTRITION Status: Acute (3) Acute and chronic respiratory failure with hypoxia Code(s): J96.21 - ACUTE AND CHRONIC RESPIRATORY FAILURE WITH HYPOXIA Status: Acute (4) 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
[2019-06-23] MEDS: Bacteriostatic Water 30 ML VIAL FS PRN (11:26)
--- NOTE | 2019-06-23 16:11 | PRG ---
DATE OF SERVICE: 06/23/2019 SUBJECTIVE: Brenden Mariscal has no new complaints. OBJECTIVE: VITAL SIGNS: Oxygen saturation 90% on room air, blood pressure 148/81, heart rate 67, respiratory rates in the 20s. LUNGS: Clear. HEART: Regular rhythm. ABDOMEN: Soft. He said he had a checkup earlier this month and was told that his vocal cords were clear of cancer. This was supported by my brief exam of his vocal cords yesterday. He is hoarse as expected. LABORATORY DATA: White count 7.3, hemoglobin 11.2, platelets 251. Electrolytes are unremarkable. IMPRESSION: 1. Chronic obstructive pulmonary disease exacerbation leading to intubation. 2. History of vocal cord cancer in situ, status post treatment. We had a discussion about long-term smoking cessation. He is a candidate to move out of Critical Care. 3. He may be a candidate to go home in 24 to 48 hours. Job ID: [id number]
[2019-06-24] MEDS: methylPREDNISolone Sod Succ 40 MG VIAL IVP SCH ×2 (00:20→05:33)
[2019-06-24] MEDS: Sodium Chloride 0.45% 1,000 ML IV SCH ×2 (03:33→14:22)
[2019-06-24] MEDS: Bacteriostatic Water 30 ML VIAL FS PRN (05:38)
[2019-06-24] MEDS: Enoxaparin Sodium 40 MG/0.4 ML SYRINGE SC SCH (09:20)
[2019-06-24] MEDS: Famotidine/PF 20 mg/2ml Vial SLOW IVP SCH ×2 (09:20→20:22)
[2019-06-24] MEDS: predniSONE 20 MG TAB PO SCH (09:20)
[2019-06-24] MEDS: Acetaminophen 325 MG TAB PO PRN ×3 (09:20→20:22)
--- NOTE | 2019-06-24 11:58 | PRG ---
DATE OF SERVICE: 06/24/2019 SUBJECTIVE: Says he is doing reasonably well. We had a long discussion about continuing to smoke. He says he thinks he is afebrile. OBJECTIVE: VITAL SIGNS: Heart rate 67, respiratory rate is 18, oximetry is 94%, blood pressure 136/84. LUNGS: Free of wheezes. HEART: Regular rhythm. ABDOMEN: Soft. IMPRESSION: 1. Chronic obstructive pulmonary disease exacerbation, status post mechanical ventilation. 2. 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 He says with his ear, nose, and throat surgeon revealed no recurrence of his disease. He may be a candidate to go home in 24 hours. Job ID: [id number]
[2019-06-24 14:59] VITALS: BMI 18.5
--- NOTE | 2019-06-24 16:04 | PDOC.HOSPP ---
- Subjective Encounter Date: 06/24/19 Encounter Time: 16:02 Subjective: Mr. Mariscal was seen today in follow-up of COPD exacerbation. He is breathing better, but notes a cough. He denies chest pain. - Objective Vital Signs & Weight: Vital Signs (12 hours) Temp Pulse Resp BP Pulse Ox 06/24/19 11:29 98.5 F 67 18 136/84 94 L 06/24/19 09:15 94 L 06/24/19 08:07 98.1 F 67 20 129/80 94 L 06/24/19 05:00 97.9 F 71 18 147/88 H 94 L Weight Admit Weight 151 lb Weight 149 lb Most Recent Monitor Data Heart Rate from ECG 67 NIBP 148/81 NIBP BP-Mean 103 Respiration from ECG 24 SpO2 99 I&O: 06/23/19 06/24/19 06/25/19 06:59 06:59 06:59 Intake Total 2432 488 Output Total 2700 1950 Balance -268 -5772 Result Diagrams: 06/23/19 03:40 06/23/19 09:09 Hospitalist ROS - Medication Medications: Active Medications Generic Name Dose Route Start Last Admin Trade Name Freq PRN Reason Stop Dose Admin Acetaminophen 650 mg 06/19/19 21:26 06/24/19 14:20 Tylenol PO 650 mg Q4H PRN Administration Headache/Fever/Mild Pain (1-3) Enoxaparin Sodium 40 mg 06/20/19 09:00 06/24/19 09:20 Lovenox SC 40 mg 0900 BASSEM Administration Famotidine 20 mg 06/20/19 09:00 06/24/19 09:20 Pepcid SLOW IVP 20 mg Q12HR BASSEM Administration Sodium Chloride 1,000 mls @ 80 mls/hr 06/20/19 08:15 06/24/19 14:22 1/2 Normal Saline IV 1,000 mls .[id number] BASSEM Administration Prednisone 40 mg 06/24/19 08:00 06/24/19 09:20 Prednisone PO 40 mg QAM-WM BASSEM Administration Sodium Chloride 10 ml 06/20/19 09:00 06/24/19 09:20 Flush - Normal Saline IVF 10 ml Q12HR BASSEM Administration Sterile Water 1 ml 06/19/19 21:47 06/24/19 05:38 Bacteriostatic Water FS 1 ml PRN PRN Administration RECONSTITUTION - Exam Eye: PERRL, anicteric sclera Heart: RRR, no murmur, no gallops, no rubs, normal peripheral pulses Respiratory: rhonchi, wheezes (+ bilateral faint wheezing, no rales, occasional rhonchi) Gastrointestinal: soft, non-tender, non-distended, normal bowel sounds, no palpable masses, no hepatomegaly Extremities: no cyanosis, no edema Hosp A/P (1) COPD exacerbation Code(s): J44.1 - CHRONIC OBSTRUCTIVE PULMONARY DISEASE W (ACUTE) EXACERBATION Status: Acute (2) Malnutrition of moderate degree Code(s): E44.0 - MODERATE PROTEIN-CALORIE MALNUTRITION Status: Acute (3) Acute and chronic respiratory failure with hypoxia Code(s): J96.21 - ACUTE AND CHRONIC RESPIRATORY FAILURE WITH HYPOXIA Status: Acute (4) 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
[2019-06-24] MEDS: guaiFENesin/Codeine Phosphate 200 mg/20 mg 10 ml UD Cup PO PRN ×2 (18:04→23:25)
[2019-06-25] MEDS: Acetaminophen 325 MG TAB PO PRN ×2 (08:13→20:26)
[2019-06-25] MEDS: Famotidine/PF 20 mg/2ml Vial SLOW IVP SCH (08:13)
[2019-06-25] MEDS: Enoxaparin Sodium 40 MG/0.4 ML SYRINGE SC SCH (08:13)
[2019-06-25] MEDS: predniSONE 20 MG TAB PO SCH (08:13)
--- NOTE | 2019-06-25 13:38 | PDOC.HOSPP ---
- Subjective Encounter Date: 06/25/19 Encounter Time: 13:36 Subjective: Mr. Mariscal was seen today in follow-up of COPD exacerbation. He does not have any new complaints. - Objective Vital Signs & Weight: Vital Signs (12 hours) Temp Pulse Resp BP Pulse Ox 06/25/19 10:34 100 06/25/19 07:21 98.2 F 76 18 116/77 100 06/25/19 03:40 98.1 F 84 18 118/69 95 Weight Admit Weight 151 lb Weight 148 lb 1 oz Most Recent Monitor Data Heart Rate from ECG 67 NIBP 148/81 NIBP BP-Mean 103 Respiration from ECG 24 SpO2 99 I&O: 06/24/19 06/25/19 06/26/19 06:59 06:59 06:59 Intake Total 488 1440 500 Output Total 1950 1000 Balance -1462 440 500 Result Diagrams: 06/23/19 03:40 06/23/19 09:09 Hospitalist ROS - Medication Medications: Active Medications Generic Name Dose Route Start Last Admin Trade Name Freq PRN Reason Stop Dose Admin Acetaminophen 650 mg 06/19/19 21:26 06/25/19 08:13 Tylenol PO 650 mg Q4H PRN Administration Headache/Fever/Mild Pain (1-3) Enoxaparin Sodium 40 mg 06/20/19 09:00 06/25/19 08:13 Lovenox SC 40 mg 0900 BASSEM Administration Famotidine 20 mg 06/20/19 09:00 06/25/19 08:13 Pepcid SLOW IVP 20 mg Q12HR BASSEM Administration Guaifenesin/Codeine Phosphate 10 ml 06/24/19 16:07 06/24/19 23:25 Robitussin Ac PO 10 ml Q6H PRN Administration Cough Levofloxacin 500 mg 06/24/19 21:00 06/24/19 20:22 Levaquin PO 500 mg 2100 BASSEM Administration Prednisone 40 mg 06/24/19 08:00 06/25/19 08:13 Prednisone PO 40 mg QAM-WM BASSEM Administration Sodium Chloride 10 ml 06/20/19 09:00 06/25/19 08:14 Flush - Normal Saline IVF 10 ml Q12HR BASSEM Administration Sterile Water 1 ml 06/19/19 21:47 06/24/19 05:38 Bacteriostatic Water FS 1 ml PRN PRN Administration RECONSTITUTION - Exam Eye: PERRL Heart: RRR, no murmur, no gallops, no rubs, normal peripheral pulses Respiratory: CTAB Gastrointestinal: soft, non-tender, non-distended, normal bowel sounds, no palpable masses, no hepatomegaly Extremities: no cyanosis, no edema Hosp A/P (1) COPD exacerbation Code(s): J44.1 - CHRONIC OBSTRUCTIVE PULMONARY DISEASE W (ACUTE) EXACERBATION Status: Acute (2) Malnutrition of moderate degree Code(s): E44.0 - MODERATE PROTEIN-CALORIE MALNUTRITION Status: Acute (3) Acute and chronic respiratory failure with hypoxia Code(s): J96.21 - ACUTE AND CHRONIC RESPIRATORY FAILURE WITH HYPOXIA Status: Acute (4) 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 He is on home oxygen * Squamous Cell Ca- stable
[2019-06-25] MEDS: guaiFENesin/Codeine Phosphate 200 mg/20 mg 10 ml UD Cup PO PRN (14:25)
--- NOTE | 2019-06-25 15:49 | PRG ---
DATE OF SERVICE: 06/25/2019 SUBJECTIVE: Brenden Mariscal's only complaint is a sore throat. He does not have a nebulizer, so I have put an order in to see if mattress spring encaser can get him a nebulizer for home. OBJECTIVE: VITAL SIGNS: He is afebrile, heart rate 76, respiratory rate 18, oximetry is 100% on room air, blood pressure 116/77. LUNGS: Clear. HEART: Regular rhythm. ABDOMEN: Soft and nontender. IMPRESSION: Status post mechanical ventilation for chronic obstructive pulmonary disease exacerbation. He needs a nebulizer at home, ipratropium and albuterol would be ideal for him 3 to 4 times a day. I will be happy to see him in 4 to 6 weeks after his discharge from the hospital. Job ID: [id number]
[2019-06-25] MEDS: Aluminum & Magnesium Hydroxide 60 ML, diphenhydrAMINE 150 MG, Lidocaine 2% Viscous Solu... SSW SCH ×2 (17:32→20:18)
[2019-06-25] MEDS: Famotidine 20 MG TAB PO SCH (20:18)
[2019-06-26] MEDS: guaiFENesin/Codeine Phosphate 200 mg/20 mg 10 ml UD Cup PO PRN (01:16)
[2019-06-26] MEDS: Enoxaparin Sodium 40 MG/0.4 ML SYRINGE SC SCH (07:58)
[2019-06-26] MEDS: Famotidine 20 MG TAB PO SCH (07:58)
[2019-06-26] MEDS: Acetaminophen 325 MG TAB PO PRN (07:58)
[2019-06-26] MEDS: predniSONE 20 MG TAB PO SCH (07:58)
[2019-06-26 08:18] VITALS: BP 103/65; TEMP 98.2
[2019-06-26] MEDS: Aluminum & Magnesium Hydroxide 60 ML, diphenhydrAMINE 150 MG, Lidocaine 2% Viscous Solu... SSW SCH (10:16)
--- NOTE | 2019-06-26 11:40 | DIS ---
DATE OF ADMISSION: 06/19/2019 DATE OF DISCHARGE: 06/26/2019 PRIMARY CARE PHYSICIAN: Currently does not have one. DISCHARGE DISPOSITION: Home. DISCHARGE DIAGNOSES: 1. Acute on chronic respiratory failure with hypoxemia. 2. Chronic obstructive pulmonary disease exacerbation. 3. Squamous cell carcinoma of the vocal cords. 4. Tobacco abuse. DISCHARGE MEDICATIONS: Include; 1. Levaquin 500 mg p.o. daily. 2. Prednisone 20 mg daily for 4 days. 3. Albuterol inhaler q.i.d. 4. DuoNebs every 6 hours as needed. CODE STATUS: Full code. ALLERGIES: NO KNOWN DRUG ALLERGIES. HOSPITAL COURSE: Mr. Mariscal is a pleasant 69-year-old gentleman, who was admitted to the hospital with severe respiratory distress. He was found to have severe COPD exacerbation. He required mechanical intubation. A COVID screen was sent and was negative. The patient was treated and was able to be extubated. He was seen by Pulmonology specialist. The patient quickly improved over the course of the next couple of days and is being discharged home. A nebulizer machine will be ordered for the patient as well as albuterol and this will be delivered prior to his discharge and he is to follow up with his primary care physician in 1 to 2 weeks and also consider outpatient pulmonary evaluation and followup as well. Job ID: [id number]
--- NOTE | 2019-06-26 15:28 | PRG ---
DATE OF SERVICE: 06/26/2019 Brenden Mariscal had his prescription for his nebulizer signed this morning. I wrote a prescription for DuoNeb, use four times a day. He will be discharged home. He should follow up with me in 4 to 6 weeks. He is in no distress at discharge. He is again instructed not to smoke. Job ID: [id number]
== END 2019-06-26 10:15 | disposition home or self-care (01) | DRG 208 ==
LOC: ERS 19:17 → CCU 19:24 → T4-A 06-23 12:02
PROVIDERS: ADMIT Emergency Medicine; ATTEND Emergency Medicine
PROC: 0BH17EZ Insertion of Endotracheal Airway into Trachea, Via Natural or Artificial Opening (ICD-10-PCS; principal; 2019-06-20)
PROC: 5A1945Z Respiratory Ventilation, 24-96 Consecutive Hours (ICD-10-PCS; 2019-06-20)
PROC: 8E0ZXY6 Isolation (ICD-10-PCS; 2019-06-20)
PROC: 0BJ08ZZ Inspection of Tracheobronchial Tree, Via Natural or Artificial Opening Endoscopic (ICD-10-PCS; 2019-06-22)
DX: J96.22 Acute and chronic respiratory failure with hypercapnia (principal); J44.1 Chronic obstructive pulmonary disease with (acute) exacerbation; E44.0 Moderate protein-calorie malnutrition; Z68.1 Body mass index [BMI] 19.9 or less, adult; J96.21 Acute and chronic respiratory failure with hypoxia; R13.10 Dysphagia, unspecified; C32.0 Malignant neoplasm of glottis; C32.9 Malignant neoplasm of larynx, unspecified; F19.10 Other psychoactive substance abuse, uncomplicated; D63.0 Anemia in neoplastic disease; F17.210 Nicotine dependence, cigarettes, uncomplicated; F14.90 Cocaine use, unspecified, uncomplicated; Z87.01 Personal history of pneumonia (recurrent); Z20.828 Contact with and (suspected) exposure to other viral communicable diseases
CPT/HCPCS: 31500; 36415; 51702; 70450; 71045; 80048; 80053; 80306; 81003; 81015; 82607; 82746; 82805; 83605; 85025; 85027; 87086; 87635; 93005; 94002; 94003; 94640; 96365; 96367; 96375; 96376; J1650; J1956; J2060; J2270; J2704; J2920; J2930; J3010; J3475; J3490; J7512; J7620; Q0163; S0028; U0003

== ENCOUNTER 2019-07-01 19:45 | Inpatient (IN) | payer MEDICARE, MEDICAID ==
[2019-07-01] MEDS ORDERED: methylPREDNISolone Sod Succ/PF 125 MG/2 ML VIAL ONE (20:51)
--- NOTE | 2019-07-01 20:58 | RAD ---
SINGLE VIEW OF THE CHEST: Comparison: 06-19-2019 History: Shortness of breath. Patient was admitted two weeks ago and was Covid negative. Symptoms hav e returned. FINDINGS: Single view of the chest shows a normal sized cardiomediastinal silhouette. Hyperexpansion of the anuj gs may be secondary to COPD. There may be a trace left pleural effusion. No focal infiltrates are see n. Degenerative changes are seen in the spine. IMPRESSION: Possible trace left pleural effusion. POS: EAA
[2019-07-01 21:03] LABS: #Eosinphils 0.2 thou/uL (0.0-0.7); #Lymphocytes 1.6 thou/uL (1.20-3.40); #Monocytes 1.3 thou/uL (0.11-0.59); #Neutrophils 7.1 thou/uL (1.40-6.50); %Basophils 0.2 % (0.0-1.0); %Eosinophils 2.4 % (0.0-10.0); %Lymphocytes 15.3 % (21.0-51.0); %Neutrophils 69.1 % (42.0-75.0); Hemoglobin 10.8 g/dL (14.0-18.0); Mean Corpuscular HGB CONC 31.5 g/dL (32.0-36.0); Mean Corpuscular Hemoglobin 31.3 pg (27.0-31.0); Mean Corpuscular Volume 99.1 fL (78.0-98.0); Mean Platelet Volume 6.9 fL (7.4-10.4); Platelet Count 298 thou/uL (130-400); RBC Distribution Width 12.7 % (11.5-14.5); Red Blood Cell (RBC) Count 3.45 mill/uL (4.70-6.10); White Blood Cell (WBC) Count 10.3 thou/uL (4.8-10.8)
[2019-07-01 21:11] LABS: ALT (SGPT) 37 U/L (8-55); AST (SGOT) 14 U/L (5-34); Albumin 3.3 g/dL (3.4-4.8); Alkaline Phosphatase 64 U/L (40-110); Anion Gap 12 mmol/L (10-20); BUN (Urea Nitrogen) 11 mg/dL (8.4-25.7); Bilirubin, Total 0.2 mg/dL (0.2-1.2); Calc. Creatinine Clearance 0 mL/min (70-130); Calcium 8.7 mg/dL (7.8-10.44); Carbon Dioxide 28 mmol/L (23-31); Chloride 102 mmol/L (98-107); Estimated GFR-MDRD Greater than 90; Globulin 2.6 g/dL (2.4-3.5); Glucose 143 mg/dL (80-115); Potassium 4.2 mmol/L (3.5-5.1); Protein, Total 5.9 g/dL (5.8-8.1); Sodium 138 mmol/L (136-145)
[2019-07-01] MEDS ORDERED: Magnesium 2 GM/50 ML BAG (IN WATER) ONE (21:11)
[2019-07-01] MEDS ORDERED: Albuterol Sulfate 2.5 mg/3 ml Neb ONE (21:24)
[2019-07-01] MEDS ORDERED: Ipratropium Bromide 2.5 ml Neb NEB PRN (21:46)
[2019-07-01] MEDS ORDERED: cefTRIAXone\\ROCEPHIN 1 GM in Sodium Chloride 0.9% 100 ML IVPB SCH (22:00)
--- NOTE | 2019-07-01 22:30 | HP ---
CHIEF COMPLAINT: Shortness of breath. HISTORY OF PRESENT ILLNESS: Mr. Mariscal is a 69-year-old male with past medical history of COPD; cigarette smoker; throat, thyroid cancer, treated with radiation; dysphagia; recurrent pneumonia; presents to the emergency room with shortness of breath. The patient was recently admitted to the hospital. At that time, he was in respiratory failure, admitted to intensive care unit, intubated. The patient was discharged last Monday. His COVID test was negative. The patient took all his medications that were prescribed to him. Upon finishing medications, his symptoms have returned. Denies chest pain or shortness of breath. In the emergency room, patient was in respiratory distress, placed on oxygen, bronchodilator, DuoNebs, and IV steroids were given. The patient continued to be in respiratory distress. The patient is going to be admitted to hospital for further management. PAST MEDICAL HISTORY: As mentioned above in history of present illness. PAST SURGICAL HISTORY: Reviewed and not pertinent. SOCIAL HISTORY: The patient is an everyday smoker. He drinks alcohol 5 drinks per day, possible crack/cocaine use as daughter. FAMILY HISTORY: Reviewed and noncontributory. HOME MEDICATIONS: Please see home medication reconciliation form for updated medications. ALLERGIES: NO KNOWN ALLERGIES. REVIEW OF SYSTEMS: Review of 14 systems negative except what is mentioned in history of present illness. PHYSICAL EXAMINATION: GENERAL: The patient is awake, alert, in respiratory distress. VITAL SIGNS: Blood pressure 103/76, respiratory rate is 28, pulse is 118, temperature is 98.8, pulse oximetry is 96% on oxygen. HEAD AND NECK: Normocephalic, atraumatic. NECK: Supple. CHEST: Diffuse expiratory wheeze bilateral. HEART: S1, S2. Regular, tachycardic. ABDOMEN: Soft, nontender. Bowel sounds present. NEUROLOGIC: Awake, alert, oriented, moving extremities. PSYCHIATRIC: Unable to assess. EXTREMITIES: No clubbing, no cyanosis. GENITOURINARY: No suprapubic tenderness. No flank tenderness. DIAGNOSTIC STUDIES: Chest x-ray shows possible trace left pleural effusion, no focal infiltrates. Troponin 0.05. WBC 10.3, hemoglobin 10.8, platelets 298. Sodium 138, potassium 4.2, BUN is 11, creatinine 0.7. ASSESSMENT: 1. Chronic obstructive pulmonary disease with acute exacerbation. 2. Cigarette smoker. 3. History of intubation. 4. History of thyroid/throat cancer. 5. History of radiation therapy. PLAN: 1. Admit. 2. Oxygen to keep saturation more than 92%. 3. Continue bronchodilators scheduled and as needed. 4. IV steroids. 5. Empiric IV antibiotics for now. 6. Reconcile home medications. 7. DVT prophylaxis as appropriate. 8. Expected length of stay, 2 midnights or more. Job ID: [id number]
[2019-07-01] MEDS ORDERED: Azithromycin 500 MG in Sodium Chloride 0.9% 250 ML 250 ML IVPB SCH (23:00)
[2019-07-01] MEDS ORDERED: Ondansetron ODT 4 MG TAB SL PRN (23:22)
[2019-07-01] MEDS ORDERED: Ondansetron PF 4 MG/2 ML Vial IVP PRN (23:22)
[2019-07-01 23:52] VITALS: BMI 18.6
[2019-07-02] MEDS: methylPREDNISolone Sod Succ 40 MG VIAL IVP SCH ×3 (00:08→11:13)
[2019-07-02 00:20] LABS: Troponin I 0.026 ng/mL (< 0.028)
[2019-07-02] MEDS: Ipratropium Bromide 2.5 ml Neb NEB SCH ×5 (00:43→23:45)
[2019-07-02 02:44] LABS: Troponin I 0.029 ng/mL (< 0.028)
[2019-07-02] MEDS: Cepastat Lozenges 1 LOZ PO PRN ×2 (05:31→08:24)
[2019-07-02] MEDS: Famotidine 20 MG TAB PO SCH ×2 (08:19→19:59)
[2019-07-02] MEDS: Enoxaparin Sodium 40 MG/0.4 ML SYRINGE SC SCH (08:19)
--- NOTE | 2019-07-02 10:58 | PDOC.HOSPP ---
- Subjective Encounter Date: 07/02/19 Encounter Time: 10:56 Subjective: Says he feels the same as he did when he was discharged. Says he thought he was ready to go home but wasnt. Says the only difference now is that he has a sore throat and right ear pain. Only coughs when he gets hot. Requests a " pain pill" for his sore throat. Says he is not smoking. - Objective Vital Signs & Weight: Vital Signs (12 hours) Temp Pulse Resp Pulse Ox 07/02/19 08:00 100 07/02/19 07:06 111 H 23 H 97 07/02/19 07:05 97.6 F 07/02/19 03:31 99.1 F 07/02/19 00:43 95 18 99 07/01/19 23:40 95 Weight Weight 148 lb 8 oz Most Recent Monitor Data Heart Rate from ECG 94 NIBP 92/52 NIBP BP-Mean 65 Respiration from ECG 21 SpO2 100 I&O: 07/01/19 07/02/19 07/03/19 06:59 06:59 06:59 Intake Total 220 Output Total 625 Balance -405 Result Diagrams: 07/01/19 20:36 07/01/19 20:36 Hospitalist ROS - Medication Medications: Active Medications Generic Name Dose Route Start Last Admin Trade Name Evgenyq PRN Reason Stop Dose Admin Enoxaparin Sodium 40 mg 07/02/19 09:00 07/02/19 08:19 Lovenox SC 40 mg 0900 BASSEM Administration Famotidine 20 mg 07/02/19 09:00 07/02/19 08:19 Pepcid PO 20 mg BID BASSEM Administration Azithromycin 500 mg/ Sodium 250 mls @ 250 mls/hr 07/01/19 23:00 07/02/19 01: 50 Chloride IVPB 250 mls Q24HR BASSEM Administration Ceftriaxone Sodium 1 gm/ 100 mls @ 200 mls/hr 07/01/19 22:00 07/02/19 00:07 Sodium Chloride IVPB 100 mls Q24HR BASSEM Administration Ipratropium [place] 2.5 ml 07/02/19 01:00 07/02/19 07:06 Atrovent NEB 2.5 ml [id number] BASSEM Administration Methylprednisolone Sodium Succinate 40 mg 07/01/19 23:59 07/02/19 05:32 Solu-Medrol IVP 40 mg Q6HR BASSEM Administration Sodium Chloride 10 ml 07/02/19 09:00 07/02/19 08:19 Flush - Normal Saline IVF 10 ml Q12HR BASSEM Administration Throat Lozenges 1 magen 07/02/19 05:20 07/02/19 08:24 Cepastat Lozenges PO 1 magen Q2H PRN Administration Sore Throat - Exam General Appearance: NAD, awake alert ENT: no oropharyngeal lesions, moist mucosa Heart: RRR, no murmur, no gallops, no rubs, normal peripheral pulses Respiratory: normal chest expansion, no tachypnea, rales (Mild, scattered.) Respiratory - other findings: Diminished diffusely. Gastrointestinal: soft, non-tender, non-distended, normal bowel sounds, no palpable masses, no hepatomegaly, no splenomegaly, no bruit Extremities: no cyanosis, no clubbing, no edema Skin: normal turgor Musculoskeletal: normal tone, normal strength Psychiatric: normal affect, normal behavior, A&O x 3 Hosp A/P (1) Acute and chronic respiratory failure with hypoxia Code(s): J96.21 - ACUTE AND CHRONIC RESPIRATORY FAILURE WITH HYPOXIA Status: Acute (2) COPD exacerbation Code(s): J44.1 - CHRONIC OBSTRUCTIVE PULMONARY DISEASE W (ACUTE) EXACERBATION Status: Acute (3) Malnutrition of moderate degree Code(s): E44.0 - MODERATE PROTEIN-CALORIE MALNUTRITION Status: Acute (4) 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 Sats are very good on 2lpm NC. Can transfer to the floor. Hx of positive UDS for cocaine. Requesting pain pills for a sore throat. Concerning for secondary gain issues. Continue nebs, steroids and Rocephin.
[2019-07-02] MEDS: Acetaminophen 325 MG TAB PO PRN (11:13)
[2019-07-02 12:43] LABS: Amphetamine Not Detected (NotDetected); Barbiturates Screen Not Detected (NotDetected); Benzodiazepine Screen Not Detected (NotDetected); Cocaine Metabolite Screen Not Detected (NotDetected); Medtox Control Line Valid? VALID (VALID); Medtox Reader # READER 1; Methadone Not Detected (NotDetected); Methamphetamine Not Detected (NotDetected); Opiate Screen Not Detected (NotDetected); Oxycodone Screen Not Detected (NotDetected); Phencyclidine (PCP) Not Detected (NotDetected); THC/Cannabinoid Screen Not Detected (NotDetected); Tricyclic Screen Not Detected (NotDetected)
--- NOTE | 2019-07-02 16:04 | CON ---
DATE OF CONSULTATION: 07/02/2019 HISTORY OF PRESENT ILLNESS: Mr. Mariscal returns short of breath. He had a nebulizer at home. He was prescribed nebulizer medication. He was not using his medications in his nebulizer. He told me he was drinking his nebulizer solution. He says he feels better now that he is receiving breathing treatments. PAST MEDICAL HISTORY: Remarkable for: 1. Recent intubation for COPD exacerbation. 2. History of tobacco use. He says he did not pickle pumper a cigarette after he went home. 3. Recent treatment of thyroid cancer and a checkup recently showing that his carcinoma in-situ is still in remission. He is hoarse and is chronically hoarse by his history. 4. Past medical history is otherwise unremarkable. SOCIAL HISTORY: He says he has not smoked since he left the hospital. He is a drinker. FAMILY HISTORY: Negative for lung disease in early age. REVIEW OF SYSTEMS: Otherwise negative. PHYSICAL EXAMINATION: GENERAL: He is in no distress. VITAL SIGNS: Heart rate is in the 70s, blood pressure 107/60, respiratory rate 22, and oximetry is 100%. HEAD AND NECK: Unchanged. LUNGS: Distant clear. HEART: Regular rhythm. ABDOMEN: Soft and nontender. EXTREMITIES: Without clubbing, cyanosis, or edema. LABORATORY DATA: White count 10.3, hemoglobin 10.8, and platelets 298. Electrolytes are normal. Creatinine was normal at 0.73. IMPRESSION AND PLAN: Chronic obstructive pulmonary disease exacerbation secondary to a lack of medication (he was drinking the nebulizer solution instead of inhaling it). He can be switched to prednisone. Continue with nebulized treatments q.i.d. and hopefully be discharged in 24 to 48 hours. I do not feel he needs broad antimicrobial therapy at this point. Chest x-ray was reviewed, it showed nothing suggestive of a pneumonia. This is a 50 min consult with greater than 50% of the time spent on the unit with coordination of care. Job ID: [id number] [facility]
[2019-07-02] MEDS: traMADol HCl 50 MG TAB PO PRN (18:17)
[2019-07-02] MEDS: guaiFENesin/Codeine Phosphate 200 mg/20 mg 10 ml UD Cup PO PRN (20:30)
[2019-07-03] MEDS: guaiFENesin/Codeine Phosphate 200 mg/20 mg 10 ml UD Cup PO PRN (02:52)
[2019-07-03] MEDS: Cepastat Lozenges 1 LOZ PO PRN (02:55)
[2019-07-03] MEDS: Acetaminophen 325 MG TAB PO PRN (06:01)
[2019-07-03] MEDS: traMADol HCl 50 MG TAB PO PRN (06:01)
[2019-07-03] MEDS: Ipratropium Bromide 2.5 ml Neb NEB SCH ×2 (06:40→13:38)
[2019-07-03] MEDS ORDERED: Adenosine 6 MG/2 ML VIAL ONE (07:08)
[2019-07-03] MEDS ORDERED: predniSONE 20 MG TAB PO SCH (08:00)
[2019-07-03] MEDS: Enoxaparin Sodium 40 MG/0.4 ML SYRINGE SC SCH (08:23)
[2019-07-03] MEDS: Famotidine 20 MG TAB PO SCH (08:24)
--- NOTE | 2019-07-03 11:04 | PRG ---
DATE OF SERVICE: 07/03/2019 SUBJECTIVE: Brenden Mariscal has no new complaints. He is afebrile. He says he is ready to go home. OBJECTIVE: VITAL SIGNS: Heart rates in the 70s, respiratory rates in the teens to low 20s, oximetry is 96% on 2 L, blood pressure 114/67. LUNGS: Clear. HEART: Regular rhythm. ABDOMEN: Soft. IMPRESSION: 1. Chronic obstructive pulmonary disease. 2. History of tobacco use until his last admission where he was intubated. 3. History of carcinoma in situ of the vocal cords, clinically in remission after treatment. PLAN: Nebulizer treatments at home, oxygen at home. He was reminded to use his medicine in his nebulizer. His family will need to be reminded of that as well. He is not to drink his nebulizer medicine. I will see him in 4 to 6 weeks in the office. Job ID: [id number]
[2019-07-03 13:42] VITALS: BP 110/72; TEMP 97
--- NOTE | 2019-07-04 08:05 | PQF ---
DONIS PIERRE THOMAS MD [id number]- [id number] CLINICAL DOCUMENTATION CLARIFICATION FORM: POST DISCHARGE Addendum to original discharge summary date: _Acute on chronic respiratory failure Late entry note date: 07/05/2019 DATE:07/04/2019 ATTN:Italo Danielle Please exercise your independent, professional judgment in responding to the clarification form. Clinical indicators are provided on the bottom of this form for your review Please check appropriate box(s) to clarify if the following diagnosis has been ruled in or ruled out: Acute on Chronic Respiratory Failure [ ] Ruled in diagnosis [ ] Continue to treat [ ] Resolved [ ] Ruled out diagnosis [ ] Cannot rule out diagnosis [ ] Other diagnosis [ ] Unable to determine In addition, please specify: Present on Admission (POA): [ ] Yes [ ] No [ ] Unable to determine For continuity of documentation, please document condition throughout progress notes and discharge summary. Thank You. CLINICAL INDICATORS - SIGNS / SYMPTOMS / LABS Vital sign 06/30 BP 103/76, Pulse 118, Resp 32, Temp 98.8 Chest Xray 06/30 Hyperexpansion of the lungs may be secondary to COPD H&P p1 06/30 Dr Llanos Presented with SOB H&P p1 06/30 Dr Llanos recently admitted with hospital and that time he was in respiratory failure H&P p2 06/30 Dr Llanos Chest:Diffuse expiratory wheeze bilateral Hospitalist PN p4 07/01 Acute and chronic Respiratory failure with sore throat RISK FACTORS H&P p1 06/30 69 year-old Male H&P p1 06/30 Cigarette smoker H&P p1 06/30 Hx of Throat and Throid cancer s/p radiation H&P p2 06/30 - COPD exacerbation TREATMENTS MAR 06/30 Ventolin 2.5 nebs Mar 06/30 IV Solumedrol 123mg MAR 06/30 Atrovent 2.5 ml inhaler Respiratory panel 06/30 Oxygen 2L Pulmonology Consult 07/01 Italo Danielle Collected 06/30 Chest Xray (This form is maintained as a part of the permanent medical record) 2014 Original, [employer]. All Rights Reserved [email or web address]
--- NOTE | 2019-07-05 07:00 | PQF ---
DONIS PIERRE THOMAS MD [id number] [id number] CLINICAL DOCUMENTATION CLARIFICATION FORM: POST DISCHARGE Addendum to original discharge summary date: ____ Late entry note date: __ DATE:05/06/2019 ATTN:Italo Danielle Please exercise your independent, professional judgment in responding to the clarification form. Clinical indicators are provided on the bottom of this form for your review In your clinical opinion based on clinical findings below, can you please further clarify documentation of etiology of COPD exacerbation if: Please check appropriate box(s): [ ] Nebulizer solution Toxicity (Wrong route) [ ] Medication noncompliant [ ] Other diagnosis [ ] Unable to determine For continuity of documentation, please document condition throughout progress notes and discharge summary. Thank You. CLINICAL INDICATORS - SIGNS / SYMPTOMS / LABS Vital sign 06/30 BP 103/76, Pulse 118, Resp 32, Temp 98.8 Chest Xray 06/30 Hyperexpansion of the lungs may be secondary to COPD ED Notes p1 06/30 Patient tool all his medication that was prescribed to him, upon finishing medications his symptoms have retuned H&P p1 06/30 Dr Llanos Presented with SOB H&P p1 06/30 Dr Llanos recently admitted with hospital and that time he was in respiratory failure Hospitalist PN p4 07/01 Acute and chronic Respiratory failure with sore throat H&P p2 06/30 Dr Llanos Chest:Diffuse expiratory wheeze bilateral Consult p2 07/01 COPD exacerbation secondary to a lack of medication (he was drinking the nebulizer solution instead of inhaling it) Consult p1 07/01 He was not using his medications in his nebulizer RISK FACTORS H&P p1 06/30 69 year-old Male H&P p1 06/30 Cigarette smoker H&P p1 06/30 Hx of Throat and Throid cancer s/p radiation H&P p1 06/30 Alcohol use H&P p4 06/30 Moderate PCM TREATMENTS MAR 06/30 Ventolin 2.5 nebs Mar 06/30 IV Solumedrol 123mg MAY 14 Atrovent 2.5 ml inhaler Respiratory panel 06/30 Oxygen 2L Pulmonology Consult 07/01 Italo Danielle Collected 06/30 Chest Xray (This form is maintained as a part of the permanent medical record) 2014 [employer]. All Rights Reserved [email or web address] Noncompliant with correct use of medication MTDD
--- NOTE | 2019-07-05 09:15 | DIS ---
DATE OF ADMISSION: 07/01/2019 DATE OF DISCHARGE: 07/03/2019 DISCHARGE DIAGNOSES: 1. Acute on chronic respiratory failure with hypoxia. 2. Chronic obstructive pulmonary disease exacerbation. 3. Malnutrition to moderate degree. 4. 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 5. Sore throat. 6. Noncompliance with medications due to poor healthcare related understanding. HISTORY: This patient is a 69-year-old male, who had been previously admitted on 06/19/2019 with COPD exacerbation and was subsequently discharged. The patient returned to the hospital via the emergency department reporting some shortness of breath. HOSPITAL COURSE: The patient was admitted to the hospital with COPD exacerbation causing acute on chronic respiratory failure. The patient continues to smoke daily, drink alcohol daily and likely some cocaine abuse per family report and prior positive drug screens. The patient was admitted to the hospital for further treatment. He had usual course of steroids, nebulizer treatments, antibiotics. He was seen in consultation by Pulmonology, who in talking to the patient discovered that he was actually drinking his nebulizer liquid rather than nebulizing and inhaling it. The patient appeared to be generally stable and reported some throat discomfort and was requesting pain medications for that. However, given his history of substance abuse, that was very limited. Ultimately, Cardiology felt that the patient was stable for discharge with appropriate treatment at home using his nebulizer treatments properly. PHYSICAL EXAMINATION: VITAL SIGNS: On the day of discharge; temperature is 97, pulse 92, respirations 22, he was saturating 96% to 99% on nasal cannula, and blood pressure was 110/72. HEART: Regular. LUNGS: Diminished, but otherwise clear. ABDOMEN: Benign. EXTREMITIES: No edema. DISPOSITION: The patient was discharged to home in stable condition. MEDICATIONS: Include; 1. Albuterol HFA. 2. Symbicort 80/4.5 one puff four times a day. 3. DuoNeb q.i.d. as needed. DIET: He is to have heart-healthy diet. ACTIVITY: As tolerated. FOLLOWUP: He is to follow up with his PCP and with Dr. Regalado as directed. He can return to the hospital at anytime should he have the need to do so. Time spent in discharge activities was > 30 min. Job ID: [id number] [facility]
--- NOTE | 2019-07-05 14:08 | EKG ---
Test Reason : SOB Blood Pressure : / mmHG Vent. Rate : 112 BPM Atrial Rate : 336 BPM P-R Int : 000 ms QRS Dur : 080 ms QT Int : 314 ms P-R-T Axes : 039 061 070 degrees QTc Int : 428 ms Atrial flutter with 3:1 A-V conduction Abnormal ECG Confirmed by MARCUS LAUREN ([id number]), pictures editor FLAVIA FAIRBANKS ([id number]) on 07/05/2019 2:07:50 PM Referred By: Italo Bonds Confirmed By:MARCUS LAUREN
--- NOTE | 2019-07-08 03:24 | PQF ---
DONIS PIERRE THOMAS MD [id number] CLINICAL DOCUMENTATION CLARIFICATION FORM: POST DISCHARGE Addendum to original discharge summary date: ____// Late entry note date: __ DATE:07/08/2019 ATTN:Italo Danielle Please exercise your independent, professional judgment in responding to the clarification form. Clinical indicators are provided on the bottom of this form for your review Acute on Chronic Respiratpry Failure Please specify: Present on Admission (POA): [ / ] Yes [ ] No [ ] Unable to determine/ For continuity of documentation, please document condition throughout progress notes and discharge summary. Thank You. CLINICAL INDICATORS - SIGNS / SYMPTOMS / LABS Vital sign 06/30 BP 103/76, Pulse 118, Resp 32, Temp 98.8 Chest Xray 06/30 Hyperexpansion of the lungs may be secondary to COPD H&P p1 06/30 Dr Spence Presented with SOB H&P p1 06/30 Dr Spence recently admitted with hospital and that time he was in respiratory failure H&P p2 06/30 Dr Spence Chest:Diffuse expiratory wheeze bilateral Hospitalist PN p4 07/01 Acute and chronic Respiratory failure with sore throat RISK FACTORS H&P p1 06/30 69 year-old Male H&P p1 06/30 Cigarette smoker H&P p1 06/30 Hx of Throat and Throid cancer s/p radiation H&P p2 06/30 - COPD exacerbation TREATMENTS MAR 06/30 Ventolin 2.5 nebs Mar 06/30 IV Solumedrol 123mg MAR 06/30 Atrovent 2.5 ml inhaler Respiratory panel 06/30 Oxygen 2L Pulmonology Consult 07/01 Italo Danielle Collected 06/30 Chest Xray (This form is maintained as a part of the permanent medical record) 2014 [employer]. All Rights Reserved Cecille [email or web address] [email or web address] Acute on chronic respiratory failury present on admission MTDD
== END 2019-07-03 13:28 | disposition home or self-care (01) | DRG 189 ==
LOC: ERS 19:45 → IMCU/EMU 22:06 → T4-B 07-02 13:58
PROVIDERS: ADMIT Internal Medicine; ATTEND Internal Medicine
DX: J96.21 Acute and chronic respiratory failure with hypoxia (principal); J44.1 Chronic obstructive pulmonary disease with (acute) exacerbation; E44.0 Moderate protein-calorie malnutrition; Z68.1 Body mass index [BMI] 19.9 or less, adult; F17.210 Nicotine dependence, cigarettes, uncomplicated; Z85.850 Personal history of malignant neoplasm of thyroid; Z92.3 Personal history of irradiation; Z79.899 Other long term (current) drug therapy; Z79.51 Long term (current) use of inhaled steroids; Z91.19 Patient's noncompliance with other medical treatment and regimen
CPT/HCPCS: 36415; 71045; 80053; 80306; 83605; 83880; 84484; 85025; 93005; 94640; 96365; 96375; J0153; J0456; J0696; J1650; J2920; J2930; J3475; J3490; J7050; J7512; J7611; J7620

== ENCOUNTER 2019-07-04 03:40 | Inpatient (IN) | payer MEDICARE, MEDICAID, OTHER ==
[2019-07-04] MEDS ORDERED: Sodium Chloride For Inhalation 0.9% 3 ML NEB ONE ×2 (03:59→04:02)
[2019-07-04] MEDS ORDERED: Racepinephrine 2.25% 0.5 ML NEB ONE (03:59)
[2019-07-04 04:06] LABS: Actual Bicarbonate (HCO3a) 31.4 mEq/L (22-28); Analyzer IN Cardio ER; Base Excess (BEa) 3.6 mEq/L (-2.0 to +3.0); Calcium, Ionized 1.22 mmol/L (1.12-1.30); Carboxyhemoglobin (COHb) 0.3 gm% (0.0-3.0); Hemoglobin (Hb) 11.7 g/dL (14.0-18.0); Potassium - ABG Lab 4.28 mmol/L (3.70-5.30); pH, Arterial 7.31 (7.35-7.45)
[2019-07-04 04:09] LABS: CO2 Tension 64.6 mmHg (35.0-45.0); Puncture Site LRA
[2019-07-04 04:09] LABS: #Basophils 0.1 thou/uL (0.0-0.2); #Eosinphils 0.1 thou/uL (0.0-0.7); #Lymphocytes 1.8 thou/uL (1.20-3.40); #Monocytes 1.3 thou/uL (0.11-0.59); %Basophils 0.6 % (0.0-1.0); %Eosinophils 0.6 % (0.0-10.0); %Lymphocytes 14.8 % (21.0-51.0); %Monocytes 10.2 % (0.0-10.0); %Neutrophils 73.8 % (42.0-75.0); Mean Corpuscular HGB CONC 30.7 g/dL (32.0-36.0); Mean Corpuscular Hemoglobin 30.6 pg (27.0-31.0); Mean Corpuscular Volume 99.6 fL (78.0-98.0); Mean Platelet Volume 7.2 fL (7.4-10.4); Platelet Count 352 thou/uL (130-400); RBC Distribution Width 12.6 % (11.5-14.5); Red Blood Cell (RBC) Count 3.62 mill/uL (4.70-6.10); White Blood Cell (WBC) Count 12.2 thou/uL (4.8-10.8)
[2019-07-04 04:28] LABS: Amphetamine Not Detected (NotDetected); Barbiturates Screen Not Detected (NotDetected); Benzodiazepine Screen Not Detected (NotDetected); Cocaine Metabolite Screen Not Detected (NotDetected); Medtox Control Line Valid? VALID (VALID); Medtox Reader # READER 4; Methadone Not Detected (NotDetected); Methamphetamine Not Detected (NotDetected); Opiate Screen Not Detected (NotDetected); Oxycodone Screen Not Detected (NotDetected); Phencyclidine (PCP) Not Detected (NotDetected); THC/Cannabinoid Screen Not Detected (NotDetected); Tricyclic Screen Not Detected (NotDetected)
[2019-07-04 04:29] LABS: ALT (SGPT) 29 U/L (8-55); AST (SGOT) 13 U/L (5-34); Albumin 3.5 g/dL (3.4-4.8); Alkaline Phosphatase 68 U/L (40-110); Anion Gap 12 mmol/L (10-20); BUN (Urea Nitrogen) 20 mg/dL (8.4-25.7); Bilirubin, Total 0.2 mg/dL (0.2-1.2); Calc. Creatinine Clearance 0 mL/min (70-130); Calcium 9.1 mg/dL (7.8-10.44); Carbon Dioxide 30 mmol/L (23-31); Chloride 98 mmol/L (98-107); Estimated GFR-MDRD Greater than 90; Globulin 3.4 g/dL (2.4-3.5); Glucose 193 mg/dL (80-115); Potassium 4.3 mmol/L (3.5-5.1); Protein, Total 6.9 g/dL (5.8-8.1); Sodium 136 mmol/L (136-145)
[2019-07-04] MEDS ORDERED: Ondansetron ODT 4 MG TAB PO PRN (04:43)
[2019-07-04] MEDS: methylPREDNISolone Sod Succ 40 MG VIAL IVP SCH ×4 (06:28→23:44)
--- NOTE | 2019-07-04 07:01 | HP ---
CHIEF COMPLAINT: Shortness of breath. HISTORY OF PRESENT ILLNESS: Mr. Mariscal is a 69-year-old male with past medical history of COPD; cigarette smoker; cirrhosis; thyroid cancer, treated with radiation; dysphagia; and recurrent pneumonia, was brought to the emergency room by EMS with shortness of breath. The patient was just hospitalized and discharged from the hospital for shortness of breath and COPD exacerbation. The patient reports he went home yesterday and states his breathing is no different today than he was admitted last time. In the emergency room, the patient was in respiratory distress with increased work of breathing, the patient placed on BiPAP. The patient was given bronchodilators and IV steroids. Chest x-ray, no acute finding. The last time, the patient was tested negative for COVID. The patient is being admitted to the hospital for further management. The patient denies fevers, chills, nausea, vomiting, or abdominal pain. PAST MEDICAL HISTORY: As mentioned above in the history of present illness. PAST SURGICAL HISTORY: Reviewed and not pertinent. SOCIAL HISTORY: The patient is an everyday smoker. He drinks alcohol 5 drinks per day. Possible crack/cocaine use in the past. FAMILY HISTORY: Reviewed and noncontributory. HOME MEDICATIONS: Please see home medication reconciliation form for updated medications. ALLERGIES: NO KNOWN ALLERGIES. REVIEW OF SYSTEMS: Negative except what is mentioned in the history of present illness. PHYSICAL EXAMINATION: GENERAL: The patient is awake and alert, in moderate respiratory distress, on BiPAP. VITAL SIGNS: Blood pressure 160/90, pulse is 107, respiratory rate is 28, temperature is 98.4, and oxygen saturation is 99% on BiPAP. HEAD: Normocephalic and atraumatic. NECK: Supple. No JVD. CHEST: Inspiratory and expiratory wheeze. Respirations are labored. HEART: S1 and S2. Regular and tachycardic. ABDOMEN: Soft and nontender. Bowel sounds present. NEUROLOGIC: Awake, alert, and oriented. No focal deficit. PSYCH: Unable to assess. EXTREMITIES: No clubbing or cyanosis. GENITOURINARY: No suprapubic tenderness. No flank tenderness. LABORATORY DATA: ABG, pH of 7.31, pCO2 of 64, and pO2 of 116, this was done on nasal cannula. Sodium 136, potassium 4.3, BUN is 20, and creatinine 0.8. WBC count 12.2, hemoglobin 11, and platelets 362. IMAGING STUDIES: Chest x-ray, no acute finding. ASSESSMENT: 1. Chronic obstructive pulmonary disease with acute exacerbation. 2. Cigarette smoker. 3. History of intubation. 4. History of thyroid/throat cancer. 5. No history of radiation therapy. PLAN: 1. Admit to IMCU. 2. Continue with BiPAP for now until the patient's respiratory status stabilizes. 3. Continue with bronchodilators as scheduled and as needed. 4. IV steroids. 5. Empiric IV antibiotic. 6. Reconcile home medications. 7. DVT prophylaxis as appropriate. 8. Consider pulmonary consultation in a.m. for evaluation and further recommendations. 9. Expected length of stay, 2 midnights or more. Job ID: [id number]
[2019-07-04 07:22] LABS: Troponin I 0.021 ng/mL (< 0.028)
--- NOTE | 2019-07-04 07:51 | RAD ---
PORTABLE CHEST: DATE: 07/04/2019. PROVIDED CLINICAL HISTORY: Dyspnea. FINDINGS: Comparison 07/01/2019. Cardiac and mediastinal silhouette is unchanged in appearance. Emphysematous changes are redemonstrated. No focal consolidation, pleural fluid, or pneumothorax apparent. IMPRESSION: No evidence for an acute cardiopulmonary process. POS: HEATH
[2019-07-04] MEDS: Acetaminophen 325 MG TAB PO PRN ×2 (08:38→16:06)
[2019-07-04] MEDS ORDERED: Famotidine/PF 20 mg/2ml Vial SLOW IVP SCH (09:00)
[2019-07-04] MEDS ORDERED: Prevnar 13-Val Conj/PF 0.5 ML SYRINGE IM ONE (09:00)
[2019-07-04 10:39] LABS: Troponin I 0.012 ng/mL (< 0.028)
[2019-07-04] MEDS: ALPRAZolam 0.25 MG TAB PO PRN ×2 (10:58→16:05)
--- NOTE | 2019-07-04 14:17 | PDOC.EVN ---
Event Note - Event Note Event Note: Patient was discharged by me yesterday. His niece called after his discharge to say that the patient did not have any of the home meds that were listed at the time of his initial admission. Refills were sent out for those yesterday afternoon. He felt fine at the time, but apparently became much more short of breath last night. Presented back to the ED and had PCO2 in the 60's. He was placed on Bipap and admitted to the [facility]. His exam is not terribly remarkable. His lungs are relatively clear, but a little coarse. Heart exam is normal. Appears to COPD exac. Continue BIPAP, steroids, nebs. Add Dulera. Consult Pulm.
[2019-07-04] MEDS: Mometasone 100 MCG/Formoterol 5 MCG 120 PUFF INHALER INH SCH (18:11)
[2019-07-04] MEDS: Famotidine/PF 20 mg/2ml Vial SLOW IVP SCH (20:50)
[2019-07-04] MEDS: Cepastat Lozenges 1 LOZ PO PRN (23:44)
[2019-07-05] MEDS: Cepastat Lozenges 1 LOZ PO PRN (03:47)
[2019-07-05] MEDS: ALPRAZolam 0.25 MG TAB PO PRN ×2 (03:48→20:09)
[2019-07-05] MEDS: Acetaminophen 325 MG TAB PO PRN ×3 (03:48→20:09)
[2019-07-05] MEDS: methylPREDNISolone Sod Succ 40 MG VIAL IVP SCH ×3 (06:01→17:30)
[2019-07-05] MEDS: Mometasone 100 MCG/Formoterol 5 MCG 120 PUFF INHALER INH SCH ×2 (07:08→18:27)
--- NOTE | 2019-07-05 08:50 | PRG ---
DATE OF SERVICE: 07/04/2019 SUBJECTIVE: Brenden Mariscal's events have been reviewed. He bounced back. He did not fill his prescription for a discharge at last admission. He started wheezing again. He has been on BiPAP, but this has been removed this morning. He appears to be stable now. OBJECTIVE: VITAL SIGNS: He is afebrile, heart rate is 85, respiratory rate is 19, oximetry is 99%, and blood pressure 102/65. LUNGS: Remarkable for diffuse wheezes. HEART: Regular rhythm. ABDOMEN: Soft. IMPRESSION: 1. Chronic obstructive pulmonary disease exacerbation. 2. Acute on chronic respiratory failure. 3. Medical noncompliance secondary to difficult social situation. PLAN: Continue current support. Probably need to stay in the hospital several days on p.o. medicines to document that he is stable. Job ID: [id number] MTDD
[2019-07-05] MEDS: Enoxaparin Sodium 40 MG/0.4 ML SYRINGE SC SCH (09:57)
[2019-07-05] MEDS: Famotidine/PF 20 mg/2ml Vial SLOW IVP SCH ×2 (09:57→20:05)
--- NOTE | 2019-07-05 14:45 | EKG ---
Test Reason : Blood Pressure : / mmHG Vent. Rate : 106 BPM Atrial Rate : 106 BPM P-R Int : 166 ms QRS Dur : 084 ms QT Int : 324 ms P-R-T Axes : 062 062 073 degrees QTc Int : 430 ms Sinus tachycardia Otherwise normal ECG Confirmed by JUAN M MILLER ([id number]), manager editorial FLAVIA FAIRBANKS ([id number]) on 07/05/2019 2:44:57 PM Referred By: Italo Bonds Confirmed By:JUAN M MILLER
--- NOTE | 2019-07-05 15:01 | PDOC.HOSPP ---
- Subjective Encounter Date: 07/05/19 Subjective: Doing ok. Complains of pain in the right ear and his throat. Breathing ok - Objective Vital Signs & Weight: Vital Signs (12 hours) Temp Pulse Resp Pulse Ox 07/05/19 13:03 76 17 98 07/05/19 11:20 97.9 F 07/05/19 08:00 99 07/05/19 07:15 96.9 F L 07/05/19 07:09 85 19 99 07/05/19 07:08 91 16 99 07/05/19 03:39 98.2 F Weight Admit Weight 150 lb 3 oz Weight 150 lb 3 oz Most Recent Monitor Data Heart Rate from ECG 84 NIBP 129/79 NIBP BP-Mean 95 Respiration from ECG 26 SpO2 100 I&O: 07/04/19 07/05/19 07/06/19 06:59 06:59 06:59 Intake Total 340 Output Total 1625 Balance -1285 Result Diagrams: 07/04/19 04:00 07/04/19 04:00 Hospitalist ROS - Medication Medications: Active Medications Generic Name Dose Route Start Last Admin Trade Name Freq PRN Reason Stop Dose Admin Acetaminophen 650 mg 07/04/19 04:43 07/05/19 09:58 Tylenol PO 650 mg Q4H PRN Administration Headache/Fever/Mild Pain (1-3) Albuterol/Ipratropium 3 ml 07/04/19 07:00 07/05/19 13:03 Duoneb NEB 3 ml [id number] BASSEM Administration Alprazolam 0.25 mg 07/04/19 10:51 07/05/19 03:48 Xanax PO 0.25 mg TIDPRN PRN Administration Anxiety Enoxaparin Sodium 40 mg 07/05/19 09:00 07/05/19 09:57 Lovenox SC 40 mg 0900 BASSEM Administration Famotidine 20 mg 07/04/19 21:00 07/05/19 09:57 Pepcid SLOW IVP 20 mg Q12HR BASSEM Administration Levofloxacin 750 mg/ Device 150 mls @ 100 mls/hr 07/04/19 06:00 07/05/19 06: 01 IVPB 150 mls 0600 BASSEM Administration Methylprednisolone Sodium Succinate 40 mg 07/04/19 06:00 07/05/19 13:45 Solu-Medrol IVP 40 mg Q6HR BASSEM Administration Mometasone Furoate/Formoterol Fumar 1 puff 07/04/19 18:30 07/05/19 07:08 Dulera 100 Mcg/5 Mcg Inhaler INH 1 puff BID-RT BASSEM Administration Throat Lozenges 1 magen 07/04/19 23:29 07/05/19 03:47 Cepastat Lozenges PO 1 magen Q2H PRN Administration Sore Throat - Exam General Appearance: NAD, awake alert General - other findings: Thin. ENT: no oropharyngeal lesions Heart: RRR, no murmur, no gallops, no rubs, normal peripheral pulses Respiratory: CTAB, no wheezes, no rales, no ronchi, normal chest expansion, no tachypnea, normal percussion Respiratory - other findings: Diminished air exchange. Gastrointestinal: soft, non-tender, non-distended, normal bowel sounds, no palpable masses, no hepatomegaly, no splenomegaly, no bruit Extremities: no cyanosis, no clubbing, no edema Skin: normal turgor, no lesions, no rashes Neurological: no focal deficits Musculoskeletal: normal tone Psychiatric: normal affect, normal behavior, A&O x 3 Hosp A/P (1) History of throat cancer Code(s): Z85.819 - PRSNL HX OF MALIG NEOPLM OF UNSP SITE LIP,ORAL CAV,& PHARYNX Status: Acute (2) Acute and chronic respiratory failure with hypoxia Code(s): J96.21 - ACUTE AND CHRONIC RESPIRATORY FAILURE WITH HYPOXIA Status: Acute (3) COPD exacerbation Code(s): J44.1 - CHRONIC OBSTRUCTIVE PULMONARY DISEASE W (ACUTE) EXACERBATION Status: Acute (4) Malnutrition of moderate degree Code(s): E44.0 - MODERATE PROTEIN-CALORIE MALNUTRITION Status: Acute (5) Sore throat Code(s): J02.9 - ACUTE PHARYNGITIS, UNSPECIFIED Status: Acute - Plan Continue with the steroids, nebs. Levaquin. Lozenges. Pulm following. Will need to be careful and detailed at discharge to ensure he obtains his meds and can use them properly.
[2019-07-06] MEDS: methylPREDNISolone Sod Succ 40 MG VIAL IVP SCH ×5 (00:59→23:41)
[2019-07-06] MEDS: Acetaminophen 325 MG TAB PO PRN (03:51)
[2019-07-06] MEDS: ALPRAZolam 0.25 MG TAB PO PRN ×2 (05:25→20:02)
[2019-07-06] MEDS: Mometasone 100 MCG/Formoterol 5 MCG 120 PUFF INHALER INH SCH (07:10)
[2019-07-06] MEDS: Famotidine/PF 20 mg/2ml Vial SLOW IVP SCH ×2 (09:20→20:02)
[2019-07-06] MEDS: Enoxaparin Sodium 40 MG/0.4 ML SYRINGE SC SCH (09:20)
[2019-07-06] MEDS ORDERED: Magnesium 2 GM/50 ML 2 GM in Premix Bag 1 BAG IVPB SCH (09:45)
--- NOTE | 2019-07-06 10:13 | PRG ---
DATE OF SERVICE: SUBJECTIVE: This morning, he is still staying on his BiPAP. His x-ray was clear. Still having difficulty breathing, though his sats are on the BiPAP more than adequate at 98. OBJECTIVE: VITAL SIGNS: Temperature 97, respirations 16, blood pressure 127/88. CHEST: Decreased breath sounds. Prolonged expiration. CARDIAC: Normal S1 and S2. No gallops. ABDOMEN: No masses. ASSESSMENT: Severe chronic obstructive pulmonary disease exacerbation, bronchitis, anxiety. PLAN: IV magnesium, Dulera 200 two puffs twice a day. Continue steroids. Hopefully, we can get him off his BiPAP. Job ID: [id number]
[2019-07-06] MEDS: Cepastat Lozenges 1 LOZ PO PRN (11:31)
--- NOTE | 2019-07-06 13:51 | PDOC.HOSPP ---
- Subjective Encounter Date: 07/06/19 Encounter Time: 09:00 Subjective: overnight, continues to use Bipap for shortness of breath though satting high 90s on 2L NC. when asked why using Bipap, responds that it makes him feel better. Otherwise, complains of throat pain. no other complaints. - Objective Vital Signs & Weight: Vital Signs (12 hours) Temp Pulse Resp Pulse Ox 07/06/19 13:19 84 15 98 07/06/19 11:19 98.1 F 07/06/19 07:32 98 07/06/19 07:21 97.8 F 07/06/19 07:10 81 21 H 97 07/06/19 04:09 98.4 F Weight Admit Weight 150 lb 3 oz Weight 150 lb 3 oz Most Recent Monitor Data Heart Rate from ECG 94 NIBP 128/83 NIBP BP-Mean 98 Respiration from ECG 25 SpO2 99 I&O: 07/05/19 07/06/19 07/07/19 06:59 06:59 06:59 Intake Total 340 1330 Output Total 1625 1025 Balance -1285 305 Result Diagrams: 07/04/19 04:00 07/04/19 04:00 Hospitalist ROS - Review of Systems Constitutional: denies: fever, chills, sweats, weakness, malaise, other ENT: reports: throat pain Respiratory: reports: shortness of breath. denies: cough, dry, hemoptysis, SOB with excertion, pleuritic pain, sputum, wheezing, other Cardiovascular: denies: chest pain, palpitations, orthopnea, paroxysmal noc. dyspnea, edema, light headedness Gastrointestinal: denies: nausea, vomiting, abdominal pain, diarrhea, constipation, melena, hematochezia - Medication Medications: Active Medications Generic Name Dose Route Start Last Admin Trade Name Freq PRN Reason Stop Dose Admin Acetaminophen 650 mg 07/04/19 04:43 07/06/19 03:51 Tylenol PO 650 mg Q4H PRN Administration Headache/Fever/Mild Pain (1-3) Albuterol/Ipratropium 3 ml 07/04/19 07:00 07/06/19 13:19 Duoneb NEB 3 ml [id number] BASSEM Administration Alprazolam 0.25 mg 07/04/19 10:51 07/06/19 05:25 Xanax PO 0.25 mg TIDPRN PRN Administration Anxiety Enoxaparin Sodium 40 mg 07/05/19 09:00 07/06/19 09:20 Lovenox SC 40 mg 0900 BASSEM Administration Famotidine 20 mg 07/04/19 21:00 07/06/19 09:20 Pepcid SLOW IVP 20 mg Q12HR BASSEM Administration Levofloxacin 750 mg/ Device 150 mls @ 100 mls/hr 07/04/19 06:00 07/06/19 05: 25 IVPB 150 mls 0600 BASSEM Administration Methylprednisolone Sodium Succinate 40 mg 07/04/19 06:00 07/06/19 11:32 Solu-Medrol IVP 40 mg Q6HR BASSEM Administration Throat Lozenges 1 magen 07/04/19 23:29 07/06/19 11:31 Cepastat Lozenges PO 1 magen Q2H PRN Administration Sore Throat - Exam General Appearance: NAD, awake alert ENT - other findings: coarse voice; no oropharyngeal erythema or edema, thrush Heart: RRR, no murmur, no gallops, no rubs Respiratory: CTAB, no wheezes, no rales, no ronchi Respiratory - other findings: reduced breath sounds througout; satting 99% on 2L NC Extremities: no edema Neurological: cranial nerve grossly intact, no focal deficits Psychiatric: normal affect, normal behavior, A&O x 3 Hosp A/P - Plan #COPD exacerbation -patient continues to use Bipap due to shortness of breath; however, appears to be breathing and satting well on 2L NC; has prolonged expiration and last ABG on day of admission showed hypercapnia but clinically significantly improved since then; may still be retaining. -continue levoflox, solumedrol, duoneb, dulera as per PCCM; attempt to wean off Bipap -BMP in AM to assess bicarb #throat pain -no symptoms or signs of pharyngitis -conitnue cepastat #dysphagia -per speech and swallow, recommend swallow test on Monday; meanwhile continue same diet
[2019-07-06] MEDS: Mometasone 200 MCG/Formoterol 5 MCG 120 PUFF INHALER INH SCH (19:22)
[2019-07-06] MEDS: Aluminum & Magnesium Hydroxide 60 ML, Lidocaine 2% Viscous Solution 30 ML, diphenhydrAM... SSW PRN (20:02)
[2019-07-07 04:24] LABS: Anion Gap 13 mmol/L (10-20); BUN (Urea Nitrogen) 15 mg/dL (8.4-25.7); Calc. Creatinine Clearance 93 mL/min (70-130); Calcium 9.6 mg/dL (7.8-10.44); Carbon Dioxide 35 mmol/L (23-31); Chloride 93 mmol/L (98-107); Estimated GFR-MDRD Greater than 90; Glucose 153 mg/dL (80-115); Magnesium 2.1 mg/dL (1.6-2.6); Potassium 4.6 mmol/L (3.5-5.1); Sodium 136 mmol/L (136-145)
[2019-07-07] MEDS: Aluminum & Magnesium Hydroxide 60 ML, Lidocaine 2% Viscous Solution 30 ML, diphenhydrAM... SSW PRN (05:54)
[2019-07-07] MEDS: methylPREDNISolone Sod Succ 40 MG VIAL IVP SCH ×4 (05:56→23:40)
[2019-07-07] MEDS: Mometasone 200 MCG/Formoterol 5 MCG 120 PUFF INHALER INH SCH ×2 (07:27→18:48)
[2019-07-07 07:33] LABS: Actual Bicarbonate (HCO3v) 32 mEq/L (22-28); Base Excess 9.7 mEq/L (-2.0 to +3.0); Calcium, Ionized 1.01 mmol/L (1.16-1.32); Chloride (ABG LAB) 94 mmol/L (98-106); Hemoglobin (Hb) 12.5 g/dL (12.6-17.4); Potassium - ABG Lab 4.83 mmol/L (3.70-5.30); Sodium 132.9 mmol/L (133-146); pH (venous) 7.58 (7.32-7.43)
--- NOTE | 2019-07-07 07:40 | PDOC.HOSPP ---
- Subjective Encounter Date: 07/07/19 Encounter Time: 09:00 Subjective: Continues to require Bipap. Bicarb elevated likely compensation due to respiratory acidosis due to hypercapnia. Complains of continued sore throat and difficulty eating, increased sputum production. - Objective Vital Signs & Weight: Vital Signs (12 hours) Temp Pulse Resp Pulse Ox 07/07/19 07:27 94 18 97 07/07/19 04:19 98.6 F 07/07/19 00:49 79 19 95 07/07/19 00:48 76 20 94 L 07/06/19 23:37 97.6 F 07/06/19 20:00 98 Weight Admit Weight 150 lb 3 oz Weight 150 lb 3 oz Most Recent Monitor Data Heart Rate from ECG 114 NIBP 128/92 NIBP BP-Mean 104 Respiration from ECG 19 SpO2 93 I&O: 07/06/19 07/07/19 07/08/19 06:59 06:59 06:59 Intake Total 1330 880 Output Total 1025 710 Balance 305 170 Result Diagrams: 07/04/19 04:00 07/07/19 03:23 Hospitalist ROS - Review of Systems Constitutional: denies: fever, chills, sweats, weakness, malaise, other Respiratory: reports: cough, shortness of breath, sputum, wheezing. denies: hemoptysis, pleuritic pain Cardiovascular: denies: chest pain, palpitations, orthopnea, paroxysmal noc. dyspnea, edema Gastrointestinal: denies: nausea, vomiting, abdominal pain, diarrhea, constipation, melena, hematochezia - Medication Medications: Active Medications Generic Name Dose Route Start Last Admin Trade Name Freq PRN Reason Stop Dose Admin Acetaminophen 650 mg 07/04/19 04:43 07/06/19 03:51 Tylenol PO 650 mg Q4H PRN Administration Headache/Fever/Mild Pain (1-3) Albuterol/Ipratropium 3 ml 07/04/19 07:00 07/07/19 07:27 Duoneb NEB 3 ml [id number] BASSEM Administration Alprazolam 0.25 mg 07/04/19 10:51 07/06/19 20:02 Xanax PO 0.25 mg TIDPRN PRN Administration Anxiety Al Hydroxide/Mg Hydroxide 60 0 ml 07/06/19 14:22 07/07/19 05:54 ml/ Lidocaine HCl 30 ml/ SSW 10 ml Diphenhydramine HCl 75 mg Q4H PRN Administration SORE THROAT Enoxaparin Sodium 40 mg 07/05/19 09:00 07/06/19 09:20 Lovenox SC 40 mg 0900 BASSEM Administration Famotidine 20 mg 07/04/19 21:00 07/06/19 20:02 Pepcid SLOW IVP 20 mg Q12HR BASSEM Administration Levofloxacin 750 mg/ Device 150 mls @ 100 mls/hr 07/04/19 06:00 07/07/19 05: 54 IVPB 150 mls 0600 BASSEM Administration Methylprednisolone Sodium Succinate 40 mg 07/04/19 06:00 07/07/19 05:56 Solu-Medrol IVP 40 mg Q6HR BASSEM Administration Mometasone Furoate/Formoterol Fumar 2 puff 07/06/19 18:30 07/07/19 07:27 Dulera 200 Mcg/5 Mcg Inhaler INH 2 puff BID-RT BASSEM Administration - Exam General Appearance: NAD, awake alert Heart: no murmur, no gallops Heart - other findings: regular rhythm, tachycardic in 90-100s Respiratory: no wheezes, no rales, no ronchi, no tachypnea Respiratory - other findings: on Bipap, reduced breath sounds throughout Extremities: no edema Psychiatric: normal affect, normal behavior, A&O x 3 Hosp A/P - Plan #COPD exacerbation -elevated bicarb likely compensation for CO2 retention -VBG taken while patient on Bipap -continue levoflox, solumedrol, duoneb, dulera as per PCCM; attempt to wean off Bipap #throat pain, hoarseness, dysphagia #history of right vocal cord SCC (2018) -no symptoms or signs of pharyngitis -extubated 06/22 -continue magic mouthwash -ENT consulted
[2019-07-07] MEDS: Enoxaparin Sodium 40 MG/0.4 ML SYRINGE SC SCH (09:09)
[2019-07-07] MEDS: Famotidine/PF 20 mg/2ml Vial SLOW IVP SCH ×2 (09:09→20:24)
[2019-07-07] MEDS ORDERED: Iopamidol-370 76% 500 ML 1 ML ONE (09:16)
[2019-07-07] MEDS ORDERED: PROPOFOL 200 MG/20 ML VIAL ONE (10:23)
[2019-07-07] MEDS ORDERED: PHENYLEPHRINE-NS 100 MCG/ML 10 ML SYRINGE ONE (10:23)
[2019-07-07] MEDS ORDERED: Lidocaine 1% PF 5 ML VIAL ONE (10:23)
[2019-07-07] MEDS: Sodium Chloride 0.9% 1,000 ML IV SCH ×2 (10:27→18:50)
--- NOTE | 2019-07-07 10:27 | PRG ---
DATE OF SERVICE: 07/07/2019 SUBJECTIVE: This morning, he is awake, alert, and responsive. He is complaining of dysphagia. ENT has been consulted. OBJECTIVE: VITAL SIGNS: Temperature 97, respirations 18, saturations 90% on 2 L, blood pressure . CHEST: Decreased breath sounds. No wheezing. CARDIAC: Normal S1 and S2. No gallops. ABDOMEN: No masses. LABORATORY DATA: Lytes are normal. The blood gases are done, venous. ASSESSMENT: Respiratory failure, chronic obstructive pulmonary disease, dysphagia. PLAN: Continue steroids, neb treatment. Agree with input from ENT. We will follow. Job ID: [id number]
--- NOTE | 2019-07-07 11:42 | CT ---
CT OF NECK PERFORMED WITH CONTRAST ENHANCEMENT: HISTORY: The patient has been recently extubated related to COPD. History of a thyroid cancer treated with ra diation. Patient having throat pain and difficulty swallowing. The visualized parenchyma is unremarkable. There are normal-appearing parotid and submandibular glan d regions. Parapharyngeal spaces are clear. There are marked edema changes which extend from the vocal cord region superiorly with prominent thic kening and edematous change of the aryepiglottic folds, particularly on the right. This is associate d with a somewhat irregularly shaped fluid collection located anteriorly which does have some air wit hin it. This begins along the inferior border of the hyoid bone in the midline extending slightly to the right of midline. It measures approximately 1.4 cm AP x 2.6 cm transverse and extends inferiorl y by approximately 4.2 cm. It is more right-sided. Some of the air density extends anteriorly to th e right side of the thyroid cartilage and some of the abscess collection is seen deep to the thyroid cartilage. There is fairly pronounced airway narrowing associated with this. IMPRESSION: Evidence of a soft tissue abscess as described above with significant edema change in the aryepiglott ic folds, particularly on the right and swelling to the vocal cord region with airway narrowing. Abs cess is more anterior and right-sided as described above. Findings telephoned to Kristin Pineda, the nurse taking care of the patient. CODE SAL POS: DEREK
[2019-07-07] MEDS: Morphine 2 MG/ML SYRINGE SLOW IVP PRN ×3 (14:00→18:54)
[2019-07-07] MEDS: Clindamycin/D5W 600 MG in Premix Bag 1 BAG IVPB SCH ×2 (14:03→21:12)
[2019-07-07] MEDS ORDERED: Lidocaine 1% w/Epinephrine 1:100K 20 ML VIAL ONE (15:58)
[2019-07-07] MEDS ORDERED: Fentanyl 100 MCG/2 ML VIAL ONE (16:00)
[2019-07-07] MEDS ORDERED: Midazolam HCl 2 mg/2 ml Vial ONE (16:00)
[2019-07-07] MEDS ORDERED: Lidocaine 2% 20 ml MDV INH SCH (16:15)
[2019-07-07] MEDS ORDERED: Lidocaine 4% PF 5 ML AMP NEB SCH (16:30)
--- NOTE | 2019-07-07 19:36 | PDOC.EVN ---
Event Note - Event Note Event Note: CT neck showed severe laryngeal stenosis due to vocal cord and surrounding tissue edema and possible abscess. Dr. Chatman was contacted and patient was taken to the OR for laryngoscopy and tracheostomy placement.
[2019-07-07] MEDS ORDERED: Fentanyl BOLUS 250 ML IVPB PRN (19:44)
[2019-07-07] MEDS ORDERED: Propofol BOLUS 1,000 MG/100 ML VIAL IV PRN (19:44)
[2019-07-07] MEDS ORDERED: fentaNYL Citrate/PF 2,000 MCG in Sodium Chloride 0.9% 60 ML IV SCH (19:44)
[2019-07-07] MEDS ORDERED: DISCONTINUE PREVIOUS NARCOTIC PAIN MEDICATIONS AND BENZODIAZEPINES FS SCH (19:44)
[2019-07-07] MEDS ORDERED: Lorazepam 2 MG/ML VIAL SLOW IVP PRN (19:44)
[2019-07-07] MEDS ORDERED: Morphine 2 MG/ML SYRINGE SLOW IVP PRN (19:44)
[2019-07-07] MEDS ORDERED: Propofol 1,000 MG/100 ML VIAL IV PRN (19:44)
--- NOTE | 2019-07-07 22:19 | CON ---
DATE OF CONSULTATION: 07/07/2019 CHIEF COMPLAINT: I am seeing Mr. Mariscal in consultation for airway evaluation. HISTORY OF PRESENT ILLNESS: The patient is a 69-year-old man, who has a significant history of laryngeal cancer, who completed radiation therapy within the last two years. Over the last few weeks, he has been having worsening problems with breathing, which was complicated by the fact that he has COPD. Apparently a week or so ago, he had a bronchoscopy performed by Dr. Italo Regalado and was found to be clear. The patient has had increasing pain to the point where he has not had anything to eat for the last three days. He was admitted to the hospital and has been in the hospital for few days, but his symptoms have progressively worsened to the point where they called me this morning. A CT scan was obtained of the neck , which showed a compromised airway as well as multiloculated what appears to be abscess. The patient was recently started on clindamycin today. PAST MEDICAL HISTORY: As noted above, COPD, history of larynx cancer. PAST SURGICAL HISTORY: Includes a laryngoscopy with biopsy. He had no surgical treatment of his head and neck cancer. The remaining history and review of systems was reviewed on the patient's admission history and physical dated June 30 and there were no significant changes noted except as noted above. PHYSICAL EXAMINATION: GENERAL: The patient is resting comfortably in his ICU bed, breathing oxygen via nasal cannula and keeping his sats above 95%. BP: 128/69 P: 72 HEENT: Head is normocephalic and atraumatic. He has what appears to be a lipoma over his forehead, but there are no other abnormalities noted. The parotid and submandibular glands are smooth. There is normal facial tone. External ears and nose show no scars, lesions, or masses. Ear canals clear bilaterally, with normal TM's; hearing intact grossly Nasal cavity was examined with flexible endoscopy after spraying the nose with decongestant anesthetic. Septum is unremarkable. Nasal passages are clear bilaterally. Nasopharynx has normal mucosa and anatomy. Oral cavity, there is no trismus. Mucosa is pink and moist. He is missing several teeth, but there is no edema in the floor of mouth, tongue, or airway. Hypopharynx and larynx were examined with a flexible endoscopy and the base of tongue, vallecular and pharyngeal gutters are normal. He does have some swelling over the epiglottis and over the arytenoids bilaterally and the airway is quite narrow with minimal movement of the vocal cords. I am unable to visualize the subglottic space. NECK: There is no mass or thyromegaly. The trachea is midline. There is no stridor at rest of any significance, but when he starts talking or doing any kind of activity, he does have a little bit of stridor. Lymphatics: no BRYN LUNGS: Showed decreased breath sounds bilaterally. HEART: Regular rate and rhythm. IMAGING DATA: Reviewed. The CT scan noted the findings above. LABORATORY DATA: Lab work shows a white count of 13,000, but that was taken several days ago and has not had one since. IMPRESSION: 1. Airway compromise, acute respiratory distress in the background of chronic respiratory failure with a history of chronic obstructive pulmonary disease. 2. History of larynx cancers with treatment of radiation therapy. PLAN: The patient will need to be taken to the operating room for tracheostomy. I will try to intubate the patient and then do a standard trach, but will be standing by for an awake tracheostomy if there are any problems. I explained this to the patient and discussed risks and benefits, and he has given his informed consent and a formal consent was obtained. At the same time of the surgery, I will see if I can identify any obvious abscess and drain that as well. Job ID: [id number] [facility]
[2019-07-08] MEDS: Clindamycin/D5W 600 MG in Premix Bag 1 BAG IVPB SCH ×3 (05:13→21:25)
[2019-07-08] MEDS: methylPREDNISolone Sod Succ 40 MG VIAL IVP SCH ×4 (05:14→23:52)
[2019-07-08] MEDS: Sodium Chloride 0.9% 1,000 ML IV SCH ×2 (05:15→16:52)
[2019-07-08 05:16] LABS: #Lymphocytes 0.8 thou/uL (1.20-3.40); #Monocytes 0.5 thou/uL (0.11-0.59); #Neutrophils 7.5 thou/uL (1.40-6.50); %Lymphocytes 8.6 % (21.0-51.0); %Monocytes 5.8 % (0.0-10.0); %Neutrophils 85.5 % (42.0-75.0); Hemoglobin 9.9 g/dL (14.0-18.0); Mean Corpuscular HGB CONC 31.2 g/dL (32.0-36.0); Mean Corpuscular Hemoglobin 30.8 pg (27.0-31.0); Mean Corpuscular Volume 98.6 fL (78.0-98.0); Mean Platelet Volume 7.1 fL (7.4-10.4); Platelet Count 259 thou/uL (130-400); RBC Distribution Width 12.7 % (11.5-14.5); Red Blood Cell (RBC) Count 3.21 mill/uL (4.70-6.10); White Blood Cell (WBC) Count 8.7 thou/uL (4.8-10.8)
[2019-07-08 05:35] LABS: Anion Gap 13 mmol/L (10-20); BUN (Urea Nitrogen) 18 mg/dL (8.4-25.7); Calc. Creatinine Clearance 78 mL/min (70-130); Calcium 8.7 mg/dL (7.8-10.44); Carbon Dioxide 31 mmol/L (23-31); Chloride 97 mmol/L (98-107); Estimated GFR-MDRD Greater than 90; Glucose 173 mg/dL (80-115); Potassium 4.8 mmol/L (3.5-5.1); Sodium 136 mmol/L (136-145)
[2019-07-08] MEDS ORDERED: Ondansetron PF 4 MG/2 ML Vial SLOW IVP PRN (06:19)
[2019-07-08] MEDS: Mometasone 200 MCG/Formoterol 5 MCG 120 PUFF INHALER INH SCH ×2 (08:17→18:09)
[2019-07-08] MEDS: Enoxaparin Sodium 40 MG/0.4 ML SYRINGE SC SCH (09:17)
[2019-07-08] MEDS: Famotidine/PF 20 mg/2ml Vial SLOW IVP SCH (09:18)
[2019-07-08] MEDS: Morphine 2 MG/ML SYRINGE SLOW IVP PRN ×4 (09:49→23:50)
[2019-07-08] MEDS ORDERED: Pantoprazole 40 MG VIAL IVP SCH (14:00)
--- NOTE | 2019-07-08 14:22 | PRG ---
DATE OF SERVICE: 07/08/2019 SUBJECTIVE: Brenden Mariscal had a tracheostomy placed over the weekend. OBJECTIVE: VITAL SIGNS: Respiratory rates in the 20s, heart rates in the 80s, blood pressure 111/77. LUNGS: Distant, clear. HEART: Regular rhythm. ABDOMEN: Soft. LABORATORY DATA: White count 8.7, hemoglobin 9.9, and platelets 259. Electrolytes are unremarkable. ASSESSMENT AND PLAN: He did not tolerate trach collar earlier today. I suspect a lot of this is anxiety mediated. We will add Precedex and see if we can continue to work on weaning to a trach collar. CRITICAL CARE TIME: 30 minutes. Job ID: [id number]
--- NOTE | 2019-07-08 17:37 | PDOC.HOSPP ---
- Subjective Encounter Date: 07/08/19 Encounter Time: 08:00 Subjective: overnight, trach placed and on mechanical ventilation. this morning, not able to wean to trach collar, shallow breathing. This morning, complains of epigastric pain,burning (difficult to elicit). Has been on high dose steroids so starting pantoprazole IV. - Objective Vital Signs & Weight: Vital Signs (12 hours) Temp Pulse Resp Pulse Ox 07/08/19 16:00 99.4 F 20 98 07/08/19 14:59 81 07/08/19 14:00 28 H 07/08/19 13:14 89 07/08/19 12:00 99.4 F 33 H 07/08/19 10:07 90 07/08/19 10:00 16 07/08/19 08:19 94 07/08/19 08:00 99.2 F 07/08/19 07:42 100 07/08/19 07:39 23 H 07/08/19 06:00 20 Weight Admit Weight 150 lb Weight 138 lb 14.259 oz Most Recent Monitor Data Heart Rate from ECG 81 NIBP 111/79 NIBP BP-Mean 89 Respiration from ECG 26 SpO2 99 I&O: 07/07/19 07/08/19 07/09/19 06:59 06:59 06:59 Intake Total 880 1013 303.5 Output Total 710 710 407 Balance 170 303 -103.5 Result Diagrams: 07/08/19 05:00 07/08/19 05:00 Hospitalist ROS - Review of Systems ROS unobtainable: due to endotracheal tube - Medication Medications: Active Medications Generic Name Dose Route Start Last Admin Trade Name Freq PRN Reason Stop Dose Admin Acetaminophen 650 mg 07/04/19 04:43 07/06/19 03:51 Tylenol PO 650 mg Q4H PRN Administration Headache/Fever/Mild Pain (1-3) Albuterol/Ipratropium 3 ml 07/04/19 07:00 07/08/19 13:14 Duoneb NEB 3 ml [id number] BASSEM Administration Albuterol/Ipratropium 3 ml 07/04/19 04:43 07/07/19 16:51 Duoneb NEB 3 ml [id number] PRN Administration SOB &/or Wheezing Enoxaparin Sodium 40 mg 07/05/19 09:00 07/08/19 09:17 Lovenox SC 40 mg 0900 BASSEM Administration Levofloxacin 750 mg/ Device 150 mls @ 100 mls/hr 07/04/19 06:00 07/08/19 05: 57 IVPB 150 mls 0600 BASESM Administration Sodium Chloride 1,000 mls @ 100 mls/hr 07/07/19 10:30 07/08/19 16:52 Normal Saline 0.9% IV 1,000 mls .Q10H BASSEM Administration Clindamycin Phosphate/Dextrose 50 mls @ 100 mls/hr 07/07/19 14:00 07/08/19 14 :17 600 mg/ Device IVPB 50 mls Q8HR BASSEM Administration Dexmedetomidine HCl 200 mcg/ 50 mls @ 0 mls/hr 07/08/19 13:00 07/08/19 14:17 Sodium Chloride IVPB 50 mls INF BASSEM Administration Protocol Per Protocol Methylprednisolone Sodium Succinate 40 mg 07/04/19 06:00 07/08/19 17:02 Solu-Medrol IVP 40 mg Q6HR BASSEM Administration Mometasone Furoate/Formoterol Fumar 2 puff 07/06/19 18:30 07/08/19 08:17 Dulera 200 Mcg/5 Mcg Inhaler INH 2 puff BID-RT BASSEM Administration Morphine Sulfate 2 mg 07/08/19 09:37 07/08/19 12:17 Morphine SLOW IVP 2 mg Q2H PRN Administration Mild-Moderate Pain (1-5) Ondansetron HCl 4 mg 07/08/19 06:19 07/08/19 06:23 Zofran SLOW IVP 4 mg Q6H PRN Administration Nausea/Vomiting - Exam General Appearance: awake alert General - other findings: appears anxious, labile and gets agitated when asking yes/no question Eye: PERRL, anicteric sclera ENT - other findings: trach in place; no signs of infection Neck: no JVD Heart: RRR, no murmur, no gallops, no rubs Respiratory: normal chest expansion Respiratory - other findings: reduced breath sounds throughout Gastrointestinal: soft, non-tender, non-distended Extremities: no edema Psychiatric: normal affect, A&O x 3 Psychiatric - other findings: labile mood, anxious appearing Hosp A/P - Plan #vocal cord and surrounding edema -POD 1 s/p laryngoscopy with trach placement; Per ENT, no drainable abscess -currently mechanically ventilated; attempting to wean off; -ENT and PCCM onboard -continue clindamycin, steroids -start pantoprazole -continue to wean off mechanical ventilation as per PCCM #COPD exacerbation -elevated bicarb likely compensation for CO2 retention -VBG taken while patient on Bipap -continue levoflox, solumedrol, duoneb, dulera as per PCCM
--- NOTE | 2019-07-08 19:49 | OP ---
DATE OF PROCEDURE: 07/07/2019 PREOPERATIVE DIAGNOSES: 1. Supraglottitis with airway obstruction. 2. History of laryngeal cancer. 3. History of radiation treatment. POSTOPERATIVE DIAGNOSES: 1. Supraglottitis with airway obstruction. 2. History of laryngeal cancer. 3. History of radiation treatment. PROCEDURES PERFORMED: 1. Tracheostomy. 2. Direct laryngoscopy, diagnostic. BABY FORMULA MIXER: None. ANESTHESIA: General endotracheal anesthetic. BLOOD LOSS: 10 mL. FLUIDS: 500 mL. COMPLICATIONS: None. FINDINGS: Some supraglottic edema and external neck induration, but no evidence of abscess collection. INDICATIONS OF PROCEDURE: The patient is a 69-year-old man, who has had persistent sore throat for several days. He has CT scan that shows a supraglottic fluid collection that appears to be infectious with airway obstruction. He has also got a history of laryngeal cancer and has had radiation therapy. He is brought to the operating today for control of his airway. DESCRIPTION OF OPERATION: The patient was brought to the operating room, placed on the operating room table and placed under general endotracheal anesthetic without actually any difficulty with a 6.5 endotracheal tube. The patient was prepped and draped in the usual fashion. A time-out was performed prior to beginning procedure. The area was injected with local anesthetic and allowed to sit for several minutes. A Bovie was used to make an incision overlying the trachea inferior to the cricoid. Dissection was carried down through the layer of the platysma and then the strap muscles were bilaterally down the midline. The fibrotic thyroid gland was and the anterior tracheal wall was easily identified. An incision was made between the second and third tracheal ring. An inferiorly based tracheal flap was created and stay suture put placed through the skin and through the inferior based flap. The endotracheal tube was retracted upwards and the eight Shiley cuffed tracheostomy tube was inserted without difficulty into the airway. The balloon was inflated placed on to the ventilator, and good carbon dioxide and ventilation was evident. The tracheostomy tube was then sutured in place in a four quadrant fashion and trach ties were applied. The table was then turned 90 degrees and laryngoscopy was performed. I palpated the floor of mouth, oral tongue, base of tongue without any evidence of palpable mass. I got a good look with the vallecula scope and there was really only minimal erythema on the epiglottis, nothing of any major significance. I did not see any pointing abscess or anything obviously that would be a source of infection. I then placed a different scope in place and was able to see the supraglottic larynx and although there was some edema and some erythema, I did not see any obvious collection of infection with incising and draining. At this point, the procedure was completed. The patient was turned back over to Anesthesia. The patient was placed on the ICU bed and taken up to the intensive care unit in stable condition. Job ID: [id number]
[2019-07-09] MEDS: Morphine 4 MG/ML VIAL SLOW IVP PRN (04:12)
[2019-07-09] MEDS: Sodium Chloride 0.9% 1,000 ML IV SCH ×3 (04:32→18:14)
[2019-07-09 04:49] LABS: Hemoglobin 9.1 g/dL (14.0-18.0); Mean Corpuscular HGB CONC 31.8 g/dL (32.0-36.0); Mean Corpuscular Hemoglobin 31.3 pg (27.0-31.0); Mean Corpuscular Volume 98.6 fL (78.0-98.0); Mean Platelet Volume 7.5 fL (7.4-10.4); Platelet Count 218 thou/uL (130-400); RBC Distribution Width 12.9 % (11.5-14.5); Red Blood Cell (RBC) Count 2.91 mill/uL (4.70-6.10); White Blood Cell (WBC) Count 10.7 thou/uL (4.8-10.8)
[2019-07-09 05:20] LABS: Chloride 101 mmol/L (98-107); Potassium 4.7 mmol/L (3.5-5.1); Sodium 134 mmol/L (136-145)
[2019-07-09 05:21] LABS: Calcium 8.7 mg/dL (7.8-10.44); Glucose 146 mg/dL (80-115)
[2019-07-09 05:23] LABS: Anion Gap 12 mmol/L (10-20); Carbon Dioxide 26 mmol/L (23-31)
[2019-07-09 05:25] LABS: Band 12 % (5-11); Calc. Creatinine Clearance 81 mL/min (70-130); Estimated GFR-MDRD Greater than 90; Lymphocytes 5 % (21-51); MDiff Complete? YES; Monocytes 8 % (0-10); Neutrophil 75 % (42-75)
[2019-07-09 05:26] LABS: BUN (Urea Nitrogen) 17 mg/dL (8.4-25.7); Magnesium 1.9 mg/dL (1.6-2.6)
[2019-07-09] MEDS: methylPREDNISolone Sod Succ 40 MG VIAL IVP SCH ×3 (05:28→17:16)
[2019-07-09] MEDS: Clindamycin/D5W 600 MG in Premix Bag 1 BAG IVPB SCH ×3 (05:30→21:47)
[2019-07-09] MEDS: Mometasone 200 MCG/Formoterol 5 MCG 120 PUFF INHALER INH SCH ×2 (07:22→18:13)
--- NOTE | 2019-07-09 07:52 | PRG ---
DATE OF SERVICE: 07/09/2019 SUBJECTIVE: Mr. Mariscal is doing well. Apparently the drone pilot tube for his cuff was cut somehow last night, but repair kit is kept there in his cuff. Minute volume is 8 L a minute. He appears calmer on Precedex. OBJECTIVE: LUNGS: Clear. HEART: Regular rhythm. ABDOMEN: Soft. LABORATORY DATA: White count 10.7, hemoglobin 9.1, platelets 218. Electrolytes are unremarkable. IMPRESSION: Upper airway edema of unclear etiology. PLAN: Wean towards a trach collar. Critical care time 30 min. Job ID: [id number] [facility]TDD
[2019-07-09] MEDS: Pantoprazole 40 MG VIAL IVP SCH (08:16)
[2019-07-09] MEDS: Enoxaparin Sodium 40 MG/0.4 ML SYRINGE SC SCH (08:16)
--- NOTE | 2019-07-09 12:30 | PDOC.BPN ---
- Brief Progress Note Progress Note 07/09/2019 S: Patient is more alert and breathing comfortably on spontaneous ventilation, resp therapy is pending removal of ventilatory support, NAEON O: Gen: alert to verbal and tactile stimuli Head/Face: NCAT, right forehead mass unchanged OC/OP: MMM, no signs of infection, no induration, tongue is soft and mobile. Neck: trach tube in place 8.0 cuffed shiley, no purulence expressed, no cellulitis, mild crusting around trach site A/P Continue to wean vent recommend continued antibiotics, there is significant concern for chondroradionecrosis as abscess is in an atypical location with no know inciting event or skin/soft tissue injury continue trach care - recommend clearing with H202 around trach site to remove debris and decrease risk of infection case management consult placed for trach supplies - recommend changing to 6 cuffless trach when off vent and at low risk for need for ventilatory support recommend RAW HIDE TRIMMER consult prior to PO intake as well as PMV only with cuffless trach due to stacking risk
--- NOTE | 2019-07-09 14:30 | CON ---
DATE OF CONSULTATION: CHIEF COMPLAINT: Concerned airway treatment and evaluation. 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 Over the last several weeks, the patient had worsening breathing and presented in respiratory distress. He recently had a bronchoscopy performed by Dr. Regalado that was found to be negative. However, the patient had increased difficulty breathing while he was admitted to the hospital and had decreased p.o. intake and so much so that he was unable to take p.o. for 3 days prior to having a tracheostomy placed. He had an imaging that showed an airway fluid collection concerning for an abscess and at that point, Dr. Chatman performed a tracheostomy and explored the neck to drain any purulent and the patient was placed on antibiotic care. Given the long-term necessity for trach care and for future decannulation , I was consulted for evaluation of his trach examining for potential reaccumulation of an abscess and for possible decannulation in the future. PAST MEDICAL HISTORY: Squamous cell carcinoma, COPD, and treatment with chemoradiation. PAST SURGICAL HISTORY: He had a previous laryngeal biopsy diagnosing his laryngeal cancer, tracheostomy, as well as recent bronchoscopy. CURRENT MEDICATIONS: Please see electronic medical record. ALLERGIES: NO KNOWN DRUG ALLERGIES. SOCIAL HISTORY AND FAMILY HISTORY: Contributory only for history of smoking. REVIEW OF SYSTEMS: Unable to perform review of systems as the patient is currently on the ventilator. Please see electronic medical record. PHYSICAL EXAMINATION: GENERAL: The patient is alert and responsive to simple commands. However, the patient is sedated. HEENT: Head and face; normocephalic and atraumatic. The patient does have a forehead mass, which is soft and mobile and appears to be a lipoma. Otherwise, no facial skin lesions. No maxillary, frontal, parotid, or submandibular gland tenderness. Extraocular movements are grossly normal given patient's sedation. Ears right and left pinna are normal. EAC is clear. No EAC drainage. Nose, external nose is normal. Nasal mucosa is healthy. Turbinates are healthy. No masses or lesions. Oral cavity, mucous membranes are moist. There is no active infection. No erythema or purulence. Tongue was soft and mobile. Floor of mouth is soft to palpation. NECK: No significant lymphadenopathy. Trachea is midline. There is an 8.0 Shiley cuffed trach in place with nylon sutures at the port point as well as a soft collar holding in place attached well to the ventilator. There is no purulence that can be expressed around the tracheostomy site. There is minimal drainage and a small amount of crusting. NEUROLOGIC: Cranial nerves 2 through 12 are grossly intact. However, the exam is somewhat limited given that the patient is on the ventilator. ASSESSMENT AND PLAN: A 69-year-old male patient with a history of squamous cell carcinoma of the larynx, status post chemoradiation with an anterior airway fluid collection and difficulty eating and drinking as well as shortness of breath. Given the patient's location of his fluid collection and the lack of overlying cellulitis and inflammation, there is some concern for a chondroradionecrosis of the larynx and given his previous radiation and chemotherapy treatment, he is currently status post tracheostomy by Dr. Chatman and given his significant lower airway concerns as well as his potential for decreased function of the larynx, recommend that his tracheostomy eventually be changed to a 6 cuffless Shiley. Once the patient is off the vent for significant time to be sure that the patient will not have recurrent airway issues, recommend a Passy-Kittredge valve be placed on the patient as roughly 24-48 hours off the vent with no need and speech and language pathology consultation before patient takes p.o. Given the patient's significant history and possibility for chondroradionecrosis, I would likely recommend that the patient be discharged with tracheostomy supplies and a Case Management consult has been placed to be sure that equipment had discharge and the patient be given an outpatient followup in clinic with Dr. Bonsd or myself for possible decannulation after patient has had a capping trial as well as has been taking p.o. and shown not to have any symptoms of aspiration as well as any evidence of pneumonia or pneumonitis from an aspiration event. Job ID: [id number] MTDD
[2019-07-09] MEDS: Morphine 2 MG/ML SYRINGE SLOW IVP PRN ×3 (14:38→21:51)
--- NOTE | 2019-07-09 16:00 | PDOC.HOSPP ---
- Subjective Encounter Date: 07/09/19 Encounter Time: 08:00 Subjective: no overnight events. This morning, feels better overall and appears less anxious. has no complaints. - Objective Vital Signs & Weight: Vital Signs (12 hours) Temp Pulse Resp BP Pulse Ox 07/09/19 13:05 59 L 22 H 99 07/09/19 12:00 98.5 F 100 07/09/19 08:45 99 07/09/19 08:00 98.7 F 21 H 96 07/09/19 07:23 70 94/63 98 07/09/19 07:22 70 20 99 07/09/19 07:21 73 26 H 98 07/09/19 06:00 16 07/09/19 04:00 98.4 F 19 Weight Admit Weight 150 lb Weight 139 lb 8.842 oz Most Recent Monitor Data Heart Rate from ECG 61 NIBP 104/62 NIBP BP-Mean 76 Respiration from ECG 21 SpO2 100 I&O: 07/08/19 07/09/19 07/10/19 06:59 06:59 06:59 Intake Total 1013 2618.7 150 Output Total 710 882 527 Balance 303 1736.7 -377 Result Diagrams: 07/09/19 04:15 07/09/19 04:15 Hospitalist ROS - Review of Systems Constitutional: denies: fever, chills, sweats, weakness, malaise, other Respiratory: denies: cough, dry, shortness of breath, hemoptysis, SOB with excertion, pleuritic pain, sputum, wheezing, other Cardiovascular: denies: chest pain, palpitations, orthopnea, paroxysmal noc. dyspnea, edema, light headedness, other Gastrointestinal: denies: nausea, vomiting, abdominal pain, diarrhea, constipation, melena, hematochezia, other - Medication Medications: Active Medications Generic Name Dose Route Start Last Admin Trade Name Freq PRN Reason Stop Dose Admin Acetaminophen 650 mg 07/04/19 04:43 07/06/19 03:51 Tylenol PO 650 mg Q4H PRN Administration Headache/Fever/Mild Pain (1-3) Albuterol/Ipratropium 3 ml 07/04/19 07:00 07/09/19 13:05 Duoneb NEB 3 ml [id number] BASSEM Administration Albuterol/Ipratropium 3 ml 07/04/19 04:43 07/07/19 16:51 Duoneb NEB 3 ml [id number] PRN Administration SOB &/or Wheezing Enoxaparin Sodium 40 mg 07/05/19 09:00 07/09/19 08:16 Lovenox SC 40 mg 0900 BASSEM Administration Levofloxacin 750 mg/ Device 150 mls @ 100 mls/hr 07/04/19 06:00 07/09/19 05: 56 IVPB 150 mls 0600 BASSEM Administration Sodium Chloride 1,000 mls @ 100 mls/hr 07/07/19 10:30 07/09/19 13:51 Normal Saline 0.9% IV Not Given .Q10H BASSEM Clindamycin Phosphate/Dextrose 50 mls @ 100 mls/hr 07/07/19 14:00 07/09/19 14 :10 600 mg/ Device IVPB 50 mls Q8HR BASSEM Administration Dexmedetomidine HCl 200 mcg/ 50 mls @ 0 mls/hr 07/08/19 13:00 07/09/19 11:27 Sodium Chloride IVPB 50 mls INF BASSEM Administration Protocol Per Protocol Methylprednisolone Sodium Succinate 40 mg 07/04/19 06:00 07/09/19 11:25 Solu-Medrol IVP 40 mg Q6HR BASSEM Administration Mometasone Furoate/Formoterol Fumar 2 puff 07/06/19 18:30 07/09/19 07:22 Dulera 200 Mcg/5 Mcg Inhaler INH 2 puff BID-RT BASSEM Administration Morphine Sulfate 2 mg 07/08/19 09:37 07/09/19 14:38 Morphine SLOW IVP 2 mg Q2H PRN Administration Mild-Moderate Pain (1-5) Morphine Sulfate 4 mg 07/08/19 09:38 07/09/19 04:12 Morphine SLOW IVP 4 mg Q2H PRN Administration Moderate to Severe Pain (6-10) Ondansetron HCl 4 mg 07/08/19 06:19 07/08/19 06:23 Zofran SLOW IVP 4 mg Q6H PRN Administration Nausea/Vomiting Pantoprazole Sodium 40 mg 07/09/19 09:00 07/09/19 08:16 Protonix IVP 40 mg DAILY BASSEM Administration - Exam General Appearance: NAD, awake alert ENT: normocephalic atraumatic, moist mucosa ENT - other findings: perspiration over forehead and neck Neck - other findings: trach in place, remains mechanically ventilated Heart: RRR, no murmur, no gallops Respiratory: CTAB, no wheezes, no rales, no ronchi Gastrointestinal: soft, non-tender, non-distended, normal bowel sounds Extremities: no edema Psychiatric: normal affect, normal behavior, A&O x 3 Hosp A/P - Plan #chondroradionecrosis -POD 2 s/p laryngoscopy with trach placement; Per ENT, no drainable abscess -currently mechanically ventilated; less anxious today, on precedex, hopefully can wean to trach collar as per PCCM -trach management as per ENT -continue clindamycin, steroids -continue pantoprazole #COPD exacerbation -continue levoflox, solumedrol, duoneb, dulera as per PCCM
[2019-07-10] MEDS: methylPREDNISolone Sod Succ 40 MG VIAL IVP SCH ×4 (00:21→17:16)
[2019-07-10] MEDS: Morphine 2 MG/ML SYRINGE SLOW IVP PRN ×7 (02:30→19:49)
[2019-07-10] MEDS: Sodium Chloride 0.9% 1,000 ML IV SCH ×3 (05:11→22:06)
[2019-07-10] MEDS: Clindamycin/D5W 600 MG in Premix Bag 1 BAG IVPB SCH ×3 (05:11→22:06)
[2019-07-10] MEDS: Mometasone 200 MCG/Formoterol 5 MCG 120 PUFF INHALER INH SCH ×2 (07:27→18:08)
[2019-07-10] MEDS: Pantoprazole 40 MG VIAL IVP SCH (08:43)
[2019-07-10] MEDS: Enoxaparin Sodium 40 MG/0.4 ML SYRINGE SC SCH (08:43)
[2019-07-10 08:47] LABS: Anion Gap 11 mmol/L (10-20); BUN (Urea Nitrogen) 16 mg/dL (8.4-25.7); Calc. Creatinine Clearance 93 mL/min (70-130); Carbon Dioxide 28 mmol/L (23-31); Chloride 102 mmol/L (98-107); Estimated GFR-MDRD Greater than 90; Glucose 137 mg/dL (80-115); Potassium 5.5 mmol/L (3.5-5.1); Sodium 135 mmol/L (136-145)
--- NOTE | 2019-07-10 08:53 | PDOC.HOSPP ---
- Subjective Encounter Date: 07/10/19 Encounter Time: 08:00 Subjective: no overnight events. This morning, feeling better and has no complaints. - Objective Vital Signs & Weight: Vital Signs (12 hours) Temp Pulse Resp Pulse Ox 07/10/19 08:00 98.5 F 07/10/19 07:36 99 07/10/19 07:26 62 25 H 99 07/10/19 04:00 98.3 F 07/10/19 00:00 98.2 F 07/09/19 23:50 56 L 21 H 100 Weight Admit Weight 150 lb Weight 139 lb 5.314 oz Most Recent Monitor Data Heart Rate from ECG 58 NIBP 125/70 NIBP BP-Mean 88 Respiration from ECG 20 SpO2 100 I&O: 07/09/19 07/10/19 07/11/19 06:59 06:59 06:59 Intake Total 2618.7 2627.9 Output Total 882 1642 275 Balance 1736.7 985.9 -275 Result Diagrams: 07/09/19 04:15 07/10/19 13:58 Hospitalist ROS - Review of Systems Constitutional: denies: chills, sweats Respiratory: denies: shortness of breath, hemoptysis, pleuritic pain Cardiovascular: denies: chest pain, palpitations, orthopnea, paroxysmal noc. dyspnea, edema Gastrointestinal: denies: nausea, vomiting, abdominal pain - Medication Medications: Active Medications Generic Name Dose Route Start Last Admin Trade Name Freq PRN Reason Stop Dose Admin Acetaminophen 650 mg 07/04/19 04:43 07/06/19 03:51 Tylenol PO 650 mg Q4H PRN Administration Headache/Fever/Mild Pain (1-3) Albuterol/Ipratropium 3 ml 07/04/19 07:00 07/10/19 07:26 Duoneb NEB 3 ml [id number] BASSEM Administration Albuterol/Ipratropium 3 ml 07/04/19 04:43 07/07/19 16:51 Duoneb NEB 3 ml [id number] PRN Administration SOB &/or Wheezing Enoxaparin Sodium 40 mg 07/05/19 09:00 07/10/19 08:43 Lovenox SC 40 mg 0900 BASSEM Administration Levofloxacin 750 mg/ Device 150 mls @ 100 mls/hr 07/04/19 06:00 07/10/19 05: 11 IVPB 150 mls 0600 BASSEM Administration Sodium Chloride 1,000 mls @ 100 mls/hr 07/07/19 10:30 07/10/19 05:11 Normal Saline 0.9% IV 1,000 mls .Q10H BASSEM Administration Clindamycin Phosphate/Dextrose 50 mls @ 100 mls/hr 07/07/19 14:00 07/10/19 05 :11 600 mg/ Device IVPB 50 mls Q8HR BASSEM Administration Dexmedetomidine HCl 200 mcg/ 50 mls @ 0 mls/hr 07/08/19 13:00 07/09/19 11:27 Sodium Chloride IVPB 50 mls INF BASSEM Administration Protocol Per Protocol Methylprednisolone Sodium Succinate 40 mg 07/04/19 06:00 07/10/19 05:11 Solu-Medrol IVP 40 mg Q6HR BASSEM Administration Mometasone Furoate/Formoterol Fumar 2 puff 07/06/19 18:30 07/10/19 07:27 Dulera 200 Mcg/5 Mcg Inhaler INH 2 puff BID-RT BASSEM Administration Morphine Sulfate 2 mg 07/08/19 09:37 07/10/19 04:42 Morphine SLOW IVP 2 mg Q2H PRN Administration Mild-Moderate Pain (1-5) Morphine Sulfate 4 mg 07/08/19 09:38 07/09/19 04:12 Morphine SLOW IVP 4 mg Q2H PRN Administration Moderate to Severe Pain (6-10) Ondansetron HCl 4 mg 07/08/19 06:19 07/08/19 06:23 Zofran SLOW IVP 4 mg Q6H PRN Administration Nausea/Vomiting Pantoprazole Sodium 40 mg 07/09/19 09:00 07/10/19 08:43 Protonix IVP 40 mg DAILY BASSEM Administration - Exam General Appearance: NAD, awake alert Eye: PERRL Neck: no JVD Heart: no murmur, no gallops, no rubs Heart - other findings: mild bradycardia, sinus on tele Respiratory: no wheezes, no rales, no ronchi Respiratory - other findings: severely diffusely reduced breath sounds, on trach collar FIO2 30% Extremities: no edema Psychiatric: normal affect, normal behavior, A&O x 3 Hosp A/P - Plan #chondroradionecrosis -POD 3 s/p laryngoscopy with trach placement; Per ENT, no drainable abscess -transitioned to trach collar, doing well; pending change of trach by ENT -trach management as per ENT -continue clindamycin, steroids; stop levoflox -continue pantoprazole #COPD exacerbation -severely reduced breath sounds uunchanged despite trach collar; likely has advanced stage COPD -continue solumedrol, duoneb, dulera as per PCCM
[2019-07-10] MEDS ORDERED: Insulin Regular 300 UNITS/3 ML VIAL IVP SCH (09:00)
[2019-07-10] MEDS ORDERED: Dextrose 50% Abboject 50 ML SYRINGE SLOW IVP SCH (09:00)
[2019-07-10] MEDS ORDERED: Sodium Chloride 0.9% 1,000 ML IV SCH (09:04)
[2019-07-10 14:31] LABS: Potassium 4.2 mmol/L (3.5-5.1)
--- NOTE | 2019-07-10 16:20 | PRG ---
DATE OF SERVICE: 07/10/2019 SUBJECTIVE: Brenden Mariscal was successfully weaned from mechanical ventilation. He is on a trach collar. OBJECTIVE: VITAL SIGNS: Heart rate is in 80s, blood pressure 123/72, respiratory rates in the 20s. LUNGS: Clear. HEART: Regular rhythm. ABDOMEN: Soft. I was informed that his trach may be downsized. I would not recommend removing a cuffed trach at this point in time. He has been in the hospital 3 times recently. The first admission when he was intubated, he was extubated with the bronchoscope in place and he had mild upper airway edema and was actually discharged to home in stable condition. He came back 2 more times. The third time, he had more of an upper airway issue than he had the previous two times. I am concerned that he is still having issues with COPD and I am not convinced that all of his issues will be solved with his tracheostomy little longer to downsize his tracheostomy in my opinion. His potassium this morning is 5.5, but on repeat check is 4.2; creatinine is 0.68. Overall, he appears stable. I would recommend that he stay in the Critical Care Unit for now. Job ID: [id number]
[2019-07-11] MEDS: methylPREDNISolone Sod Succ 40 MG VIAL IVP SCH ×3 (00:01→13:38)
[2019-07-11] MEDS: Morphine 2 MG/ML SYRINGE SLOW IVP PRN ×3 (00:23→04:24)
[2019-07-11 04:06] LABS: #Basophils 0.1 thou/uL (0.0-0.2); #Lymphocytes 0.4 thou/uL (1.20-3.40); #Monocytes 0.5 thou/uL (0.11-0.59); #Neutrophils 6.4 thou/uL (1.40-6.50); %Basophils 1.8 % (0.0-1.0); %Eosinophils 0.1 % (0.0-10.0); %Lymphocytes 4.8 % (21.0-51.0); %Monocytes 6.9 % (0.0-10.0); %Neutrophils 86.4 % (42.0-75.0); Hemoglobin 10.2 g/dL (14.0-18.0); Mean Corpuscular HGB CONC 31.6 g/dL (32.0-36.0); Mean Corpuscular Hemoglobin 31.2 pg (27.0-31.0); Mean Corpuscular Volume 98.7 fL (78.0-98.0); Mean Platelet Volume 7.5 fL (7.4-10.4); Platelet Count 258 thou/uL (130-400); RBC Distribution Width 12.6 % (11.5-14.5); Red Blood Cell (RBC) Count 3.28 mill/uL (4.70-6.10); White Blood Cell (WBC) Count 7.4 thou/uL (4.8-10.8)
[2019-07-11 04:27] LABS: Anion Gap 11 mmol/L (10-20); BUN (Urea Nitrogen) 14 mg/dL (8.4-25.7); Calc. Creatinine Clearance 89 mL/min (70-130); Calcium 8.7 mg/dL (7.8-10.44); Carbon Dioxide 26 mmol/L (23-31); Chloride 102 mmol/L (98-107); Estimated GFR-MDRD Greater than 90; Glucose 130 mg/dL (80-115); Potassium 4.7 mmol/L (3.5-5.1); Sodium 134 mmol/L (136-145)
[2019-07-11] MEDS: Clindamycin/D5W 600 MG in Premix Bag 1 BAG IVPB SCH ×3 (05:59→21:03)
[2019-07-11] MEDS: Mometasone 200 MCG/Formoterol 5 MCG 120 PUFF INHALER INH SCH (07:26)
--- NOTE | 2019-07-11 08:34 | PDOC.HOSPP ---
- Subjective Encounter Date: 07/11/19 Encounter Time: 08:00 Subjective: no overnight events. Satting and breathing well and has no complaints. - Objective Vital Signs & Weight: Vital Signs (12 hours) Temp Pulse Resp Pulse Ox 07/11/19 07:26 98 07/11/19 07:23 57 L 19 98 07/11/19 04:00 98.4 F 07/11/19 00:58 100 07/11/19 00:03 91 21 H 94 L 07/11/19 00:00 98.5 F Weight Admit Weight 150 lb Weight 139 lb 5.314 oz Most Recent Monitor Data Heart Rate from ECG 55 NIBP 111/68 NIBP BP-Mean 82 Respiration from ECG 23 SpO2 99 I&O: 07/10/19 07/11/19 07/12/19 06:59 06:59 06:59 Intake Total 2627.9 1888 Output Total 1642 2925 Balance 985.9 -1037 Result Diagrams: 07/11/19 03:50 07/11/19 03:50 Hospitalist ROS - Review of Systems Constitutional: denies: fever, chills, sweats, weakness, malaise, other Respiratory: denies: cough, dry, shortness of breath, hemoptysis, SOB with excertion, pleuritic pain, sputum, wheezing, other Cardiovascular: denies: chest pain, palpitations, orthopnea, paroxysmal noc. dyspnea, edema, light headedness, other Gastrointestinal: denies: nausea, vomiting, abdominal pain, diarrhea, constipation, melena, hematochezia, other - Medication Medications: Active Medications Generic Name Dose Route Start Last Admin Trade Name Freq PRN Reason Stop Dose Admin Acetaminophen 650 mg 07/04/19 04:43 07/06/19 03:51 Tylenol PO 650 mg Q4H PRN Administration Headache/Fever/Mild Pain (1-3) Albuterol/Ipratropium 3 ml 07/04/19 07:00 07/11/19 07:23 Duoneb NEB 3 ml [id number] BASSEM Administration Albuterol/Ipratropium 3 ml 07/04/19 04:43 07/07/19 16:51 Duoneb NEB 3 ml [id number] PRN Administration SOB &/or Wheezing Enoxaparin Sodium 40 mg 07/05/19 09:00 07/10/19 08:43 Lovenox SC 40 mg 0900 BASSEM Administration Clindamycin Phosphate/Dextrose 50 mls @ 100 mls/hr 07/07/19 14:00 07/11/19 05 :59 600 mg/ Device IVPB 50 mls Q8HR BASSEM Administration Dexmedetomidine HCl 200 mcg/ 50 mls @ 0 mls/hr 07/08/19 13:00 07/09/19 11:27 Sodium Chloride IVPB 50 mls INF BASSEM Administration Protocol Per Protocol Sodium Chloride 1,000 mls @ 70 mls/hr 07/10/19 10:13 07/10/19 22:06 Normal Saline 0.9% IV 1,000 mls .[id number] BASSEM Administration Methylprednisolone Sodium Succinate 40 mg 07/04/19 06:00 07/11/19 05:59 Solu-Medrol IVP 40 mg Q6HR BASSEM Administration Mometasone Furoate/Formoterol Fumar 2 puff 07/06/19 18:30 07/11/19 07:26 Dulera 200 Mcg/5 Mcg Inhaler INH 2 puff BID-RT BASSEM Administration Morphine Sulfate 2 mg 07/08/19 09:37 07/11/19 04:24 Morphine SLOW IVP 2 mg Q2H PRN Administration Mild-Moderate Pain (1-5) Morphine Sulfate 4 mg 07/08/19 09:38 07/09/19 04:12 Morphine SLOW IVP 4 mg Q2H PRN Administration Moderate to Severe Pain (6-10) Ondansetron HCl 4 mg 07/08/19 06:19 07/08/19 06:23 Zofran SLOW IVP 4 mg Q6H PRN Administration Nausea/Vomiting Pantoprazole Sodium 40 mg 07/09/19 09:00 07/10/19 08:43 Protonix IVP 40 mg DAILY BASSEM Administration - Exam General Appearance: NAD, awake alert Heart: no murmur, no gallops, normal peripheral pulses Heart - other findings: bradycardic in high 50s, sinus on tele Respiratory: no wheezes, no rales, no ronchi Respiratory - other findings: severely reduced breath sounds throughout, unchanged Gastrointestinal: soft, non-tender, non-distended Extremities: no edema Psychiatric: normal affect, normal behavior, A&O x 3 Hosp A/P - Plan #chondroradionecrosis -POD 4 s/p laryngoscopy with trach placement; Per ENT, no drainable abscess -transitioned to trach collar, doing well; pending change of trach by ENT -trach management as per ENT -continue clindamycin, steroids -continue pantoprazole #COPD exacerbation -severely reduced breath sounds uunchanged despite trach collar; likely has advanced stage COPD -continue solumedrol, duoneb, dulera as per PCCM Disposition: Care level can be deescalated pending PCCM clearance
[2019-07-11] MEDS: Morphine 4 MG/ML VIAL SLOW IVP PRN ×5 (08:47→22:42)
[2019-07-11] MEDS: Pantoprazole 40 MG VIAL IVP SCH (08:47)
[2019-07-11] MEDS: Enoxaparin Sodium 40 MG/0.4 ML SYRINGE SC SCH (08:47)
--- NOTE | 2019-07-11 11:09 | PRG ---
DATE OF SERVICE: 07/11/2019 SUBJECTIVE: Mr. Mariscal did well overnight. He has no complaints. He received some morphine for pain this morning. He is not wheezing. We will decrease his steroid dosing today. OBJECTIVE: HEART: Regular rhythm. ABDOMEN: Soft. ASSESSMENT AND PLAN: 1. Upper airway edema of unclear etiology. 2. Status post tracheostomy for upper airway edema. 3. Chronic obstructive pulmonary disease. 4. 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 We will continue current care. He is to remain in critical care unit for now. Job ID: [id number]
[2019-07-11] MEDS: Sodium Chloride 0.9% 1,000 ML IV SCH (13:45)
--- NOTE | 2019-07-11 14:51 | PRG ---
DATE OF SERVICE: 07/11/2019 SUBJECTIVE: The patient is alert and is on trach collar and is responding appropriately to commands. No acute events overnight. OBJECTIVE: GENERAL: Alert to verbal stimuli and responding appropriately. No acute distress. Breathing comfortably on trach collar. HEENT: Head and face, normocephalic and atraumatic. Right forehead mass unchanged. Oral cavity and oropharynx, mucous membranes are moist. No signs of infection or induration of the tongue, the floor of mouth, or the buccal mucosa. NECK: Trach tube in place with 8.[address] No purulence can be expressed. There is no cellulitis or edema. There is [id number] crusting around the trach site and nylon sutures are in place. ASSESSMENT AND PLAN: Recommend weaning oxygen via trach collar as pulmonary function improves. Recommend continued antibiotics given concern for chondroradionecrosis as well as an abscess of the anterior airway with recent tracheostomy. Recommend continue trach care cleaning gently around the tracheostomy site with hydrogen peroxide to remove debris and to decrease the risk of infection. Case Management has been consulted for trach supplies as well as a DME and order signed and placed in the paper chart when able to switch from an 8 cuffless trach, recommend changing to a 6 cuffless trach from the current 8 cuffed trach and then recommend speech and language consult prior to p.o. intake and recommend Passy- Jamila valve only with a cuffless trach in place. Job ID: [id number] MTDD
--- NOTE | 2019-07-11 15:17 | PRG ---
DATE OF SERVICE: 07/11/2019 SUBJECTIVE: The patient is alert today, sitting up in a chair, on trach collar, spontaneously ventilating, in no acute distress and no acute events overnight and no need for ventilatory support. OBJECTIVE: GENERAL: The patient is alert and oriented x3. HEAD AND FACE: Normocephalic and atraumatic. Right forehead mass is present and unchanged. Oral cavity and oropharynx, mucous membranes are moist. No sign of infection. No induration. Tongue is soft and mobile. Floor of mouth is soft. No sign of infection. NECK: 8.0 cuffed trach tube in place. No purulence expressed from the tracheostomy site. Mild to moderate crusting is in place with nylon sutures in place as well as a soft collar. ASSESSMENT AND PLAN: Continue to wean oxygen via trach collar. Given current pulmonary status, discussed with Dr. Regalado that the patient would need to leave on 8.0 cuffed Shiley trach tube in place and would not be able to change to a smaller cuffed tube. Would recommend the patient return to a diet as recommended by speech and language pathology and continue trach care. Recommend cleaning around the trach with hydrogen peroxide to remove debris and prevent infection. Case management is currently working on supplies for discharge with trach. The patient can follow up with Dr. Regalado and myself for decannulation in the future. Job ID: [id number]
[2019-07-11] MEDS ORDERED: methylPREDNISolone Sod Succ 40 MG VIAL IVP SCH (21:00)
[2019-07-12] MEDS: methylPREDNISolone Sod Succ 40 MG VIAL IVP SCH ×2 (02:03→15:20)
[2019-07-12] MEDS: Morphine 4 MG/ML VIAL SLOW IVP PRN ×5 (03:20→20:35)
[2019-07-12 05:01] LABS: Magnesium 1.9 mg/dL (1.6-2.6); Potassium 4.5 mmol/L (3.5-5.1)
[2019-07-12] MEDS: Sodium Chloride 0.9% 1,000 ML IV SCH (06:01)
[2019-07-12] MEDS: Clindamycin/D5W 600 MG in Premix Bag 1 BAG IVPB SCH ×3 (06:17→22:35)
[2019-07-12] MEDS: Pantoprazole 40 MG VIAL IVP SCH (07:49)
[2019-07-12] MEDS: Enoxaparin Sodium 40 MG/0.4 ML SYRINGE SC SCH (07:49)
--- NOTE | 2019-07-12 08:58 | PDOC.HOSPP ---
- Subjective Encounter Date: 07/12/19 Encounter Time: 07:20 Subjective: no overnight events. this morning, feels well and has no complaints. pending cuff replacement and swallow eval to restart diet - Objective Vital Signs & Weight: Vital Signs (12 hours) Temp Pulse Resp Pulse Ox 07/12/19 06:47 98 07/12/19 06:45 59 L 15 98 07/12/19 04:00 98.3 F 07/12/19 00:01 60 20 98 07/12/19 00:00 98.1 F Weight Admit Weight 150 lb Weight 133 lb 9.602 oz Most Recent Monitor Data Heart Rate from ECG 60 NIBP 108/67 NIBP BP-Mean 80 Respiration from ECG 14 SpO2 97 I&O: 07/11/19 07/12/19 07/13/19 06:59 06:59 06:59 Intake Total 1888 889 Output Total 2920 1996 Balance -1037 -1108 Result Diagrams: 07/11/19 03:50 07/12/19 04:25 Hospitalist ROS - Review of Systems Constitutional: denies: fever, chills, sweats, weakness, malaise, other Respiratory: denies: cough, dry, shortness of breath, hemoptysis, SOB with excertion, pleuritic pain, sputum, wheezing, other Cardiovascular: denies: chest pain, palpitations, orthopnea, paroxysmal noc. dyspnea, edema, light headedness, other Gastrointestinal: denies: nausea, vomiting, abdominal pain, diarrhea, constipation, melena, hematochezia, other - Medication Medications: Active Medications Generic Name Dose Route Start Last Admin Trade Name Freq PRN Reason Stop Dose Admin Acetaminophen 650 mg 07/04/19 04:43 07/06/19 03:51 Tylenol PO 650 mg Q4H PRN Administration Headache/Fever/Mild Pain (1-3) Albuterol/Ipratropium 3 ml 07/04/19 07:00 07/12/19 06:45 Duoneb NEB 3 ml [id number] BASSEM Administration Albuterol/Ipratropium 3 ml 07/04/19 04:43 07/07/19 16:51 Duoneb NEB 3 ml [id number] PRN Administration SOB &/or Wheezing Enoxaparin Sodium 40 mg 07/05/19 09:00 07/12/19 07:49 Lovenox SC 40 mg 0900 BASSEM Administration Clindamycin Phosphate/Dextrose 50 mls @ 100 mls/hr 07/07/19 14:00 07/12/19 06 :17 600 mg/ Device IVPB 50 mls Q8HR BASSEM Administration Sodium Chloride 1,000 mls @ 70 mls/hr 07/10/19 10:13 07/12/19 06:01 Normal Saline 0.9% IV 1,000 mls .[id number] BASSEM Administration Methylprednisolone Sodium Succinate 40 mg 07/11/19 14:00 07/12/19 02:03 Solu-Medrol IVP 40 mg 0200,1400 BASSEM Administration Morphine Sulfate 2 mg 07/08/19 09:37 07/11/19 04:24 Morphine SLOW IVP 2 mg Q2H PRN Administration Mild-Moderate Pain (1-5) Morphine Sulfate 4 mg 07/08/19 09:38 07/12/19 07:49 Morphine SLOW IVP 4 mg Q2H PRN Administration Moderate to Severe Pain (6-10) Ondansetron HCl 4 mg 07/08/19 06:19 07/08/19 06:23 Zofran SLOW IVP 4 mg Q6H PRN Administration Nausea/Vomiting Pantoprazole Sodium 40 mg 07/09/19 09:00 07/12/19 07:49 Protonix IVP 40 mg DAILY BASSEM Administration - Exam General Appearance: NAD, awake alert Neck: no JVD Heart: RRR, no murmur, no gallops, no rubs, normal peripheral pulses Respiratory: no wheezes, no rales, no ronchi, normal chest expansion Respiratory - other findings: lung sounds improved, especially on left Gastrointestinal: soft, non-tender, non-distended, normal bowel sounds Hosp A/P - Plan #chondroradionecrosis -POD 5 s/p laryngoscopy with trach placement; Per ENT, no drainable abscess -transitioned to trach collar, doing well; pending change of trach -continue clindamycin, steroids -continue pantoprazole #COPD exacerbation -improved lung sounds (07/11) -continue steroids, duoneb, dulera as per PCCM Disposition: transfer to medicine floor pending PCCM clearance
--- NOTE | 2019-07-12 16:34 | PDOC.EVN ---
Event Note - Event Note Event Note: notified by speech and swallow that patient should remain NPO. Started on thiamine and supplemented NS with D5W pending swallow reevaluation
[2019-07-12] MEDS: Dextrose 5 % And 0.9 % NaCl 1,000 ML IV SCH (17:26)
--- NOTE | 2019-07-12 17:37 | PRG ---
DATE OF SERVICE: 07/12/2019 SUBJECTIVE: Brenden Mariscal is clinically doing well. He wanted to try to eat some ice cream today. He is to have a speech evaluation later today. I felt this was reasonable to request. OBJECTIVE: VITAL SIGNS: Heart rate 80, respiratory rate 15, oximetry is 99%, blood pressure 120/72. LUNGS: Free of wheezes. HEART: Regular rhythm. ABDOMEN: Soft. LABORATORY DATA: White count 7.4, hemoglobin 10.2, platelets 258. Electrolytes are unremarkable yesterday, potassium is 4.5 today. IMPRESSION: 1. Status post tracheostomy done urgently for stridor. 2. Underlying chronic obstructive pulmonary disease. 3. History of carcinoma in situ. Overall, he appears to be stable. It is unclear when we should switch him to enteral antibiotics. We will see how he does with a swallowing evaluation. Job ID: [id number]
[2019-07-13] MEDS: methylPREDNISolone Sod Succ 40 MG VIAL IVP SCH ×2 (03:23→14:26)
[2019-07-13] MEDS: Dextrose 5 % And 0.9 % NaCl 1,000 ML IV SCH ×2 (05:30→08:25)
[2019-07-13] MEDS: Clindamycin/D5W 600 MG in Premix Bag 1 BAG IVPB SCH ×3 (05:30→20:49)
[2019-07-13] MEDS: Enoxaparin Sodium 40 MG/0.4 ML SYRINGE SC SCH (08:21)
[2019-07-13] MEDS: Pantoprazole 40 MG VIAL IVP SCH (08:21)
[2019-07-13] MEDS: Morphine 2 MG/ML SYRINGE SLOW IVP PRN ×4 (09:22→19:22)
[2019-07-13] MEDS: Thiamine HCl 200 MG/2 ML VIAL SLOW IVP SCH ×2 (10:59→17:25)
--- NOTE | 2019-07-13 11:57 | RAD ---
ABDOMEN ONE VIEW: HISTORY: Dobhoff placement. COMPARISON: Radiograph from 07/04/2019. FINDINGS: A radiograph of the lower chest and upper abdomen demonstrates an enteric tube which is coiled in the lower esophagus with the tip extending craniad. IMPRESSION: Enteric tube coiled within the mid to distal esophagus. Recommend retraction and re-advancement. POS: HOME
--- NOTE | 2019-07-13 12:05 | PRG ---
DATE OF SERVICE: 07/13/2019 Mr. Mariscal did not pass the swallowing evaluation. He is afebrile, still on trach collar oxygen, doing well. Blood pressure 103/68. I have explained to him that he will need a Dobbhoff tube until his swallowing returns. In retrospect, it may be these episodes of dyspnea that are leading to the hospitalizations have been primarily related to aspiration on top of radiation-induced swallowing dysfunction. Hopefully, we will see some significant improvement moving into next week. Otherwise, he will need a PEG placement. I explained all the above to him and he was agreeable to the above. Job ID: [id number]
--- NOTE | 2019-07-13 12:42 | PDOC.HOSPP ---
- Subjective Encounter Date: 07/13/19 Encounter Time: 09:20 Subjective: fragile, fatigued, speech therapist nearby, did not pass Swallow evl. dobhoff placed. - Objective Vital Signs & Weight: Vital Signs (12 hours) Temp Pulse Resp BP Pulse Ox 07/13/19 08:00 97 07/13/19 06:24 86 16 07/13/19 04:00 98.5 F 83 18 103/68 97 Weight Admit Weight 150 lb Weight 133 lb 9.602 oz Most Recent Monitor Data Heart Rate from ECG 89 NIBP 108/82 NIBP BP-Mean 90 Respiration from ECG 17 SpO2 95 I&O: 07/12/19 07/13/19 07/14/19 06:59 06:59 06:59 Intake Total 886 640 Output Total 2234 3613 Balance -1108 -645 Result Diagrams: 07/11/19 03:50 07/12/19 04:25 Additional Labs: Accuchecks 07/12/19 20:38 POC Glucose 139 H Hospitalist ROS - Medication Medications: Active Medications Generic Name Dose Route Start Last Admin Trade Name Freq PRN Reason Stop Dose Admin Acetaminophen 650 mg 07/04/19 04:43 07/06/19 03:51 Tylenol PO 650 mg Q4H PRN Administration Headache/Fever/Mild Pain (1-3) Albuterol/Ipratropium 3 ml 07/04/19 07:00 07/13/19 06:24 Duoneb NEB 3 ml [id number] BASSEM Administration Albuterol/Ipratropium 3 ml 07/04/19 04:43 07/07/19 16:51 Duoneb NEB 3 ml [id number] PRN Administration SOB &/or Wheezing Enoxaparin Sodium 40 mg 07/05/19 09:00 07/13/19 08:21 Lovenox SC 40 mg 0900 BASSEM Administration Clindamycin Phosphate/Dextrose 50 mls @ 100 mls/hr 07/07/19 14:00 07/13/19 05 :30 600 mg/ Device IVPB 50 mls Q8HR BASSEM Administration Dextrose/Sodium Chloride 1,000 mls @ 75 mls/hr 07/12/19 16:45 07/13/19 08:25 D5 0.9% Ns IV 1,000 mls .[id number] BASSEM Administration Methylprednisolone Sodium Succinate 40 mg 07/11/19 14:00 07/13/19 03:23 Solu-Medrol IVP 40 mg 0200,1400 BASSEM Administration Morphine Sulfate 2 mg 07/08/19 09:37 07/13/19 12:24 Morphine SLOW IVP 2 mg Q2H PRN Administration Mild-Moderate Pain (1-5) Morphine Sulfate 4 mg 07/08/19 09:38 07/12/19 20:35 Morphine SLOW IVP 4 mg Q2H PRN Administration Moderate to Severe Pain (6-10) Ondansetron HCl 4 mg 07/08/19 06:19 07/08/19 06:23 Zofran SLOW IVP 4 mg Q6H PRN Administration Nausea/Vomiting Pantoprazole Sodium 40 mg 07/09/19 09:00 07/13/19 08:21 Protonix IVP 40 mg DAILY BASSEM Administration Thiamine HCl 100 mg 07/12/19 17:00 07/13/19 10:59 Thiamine Hcl SLOW IVP Not Given Q24HR BASSEM - Exam General Appearance: NAD, ill appearing Eye: PERRL, anicteric sclera ENT - other findings: big lump in forehead Neck - other findings: trach in place Heart: RRR Respiratory: CTAB, normal chest expansion Gastrointestinal: soft, normal bowel sounds Hosp A/P - Plan #chondroradionecrosis -POD 6 s/p laryngoscopy with trach placement; Per ENT, no drainable abscess -transitioned to trach collar. -continue clindamycin, steroids -continue pantoprazole #COPD exacerbation -continue steroids, duoneb, dulera as per PCCM Dysphagia - s/p Dobhoff on 2nd - nutrition via above - repeat SW likely in 2 days -if not good, plan for eval.. for PEG. Disposition: transfer to medicine floor when more stable- appreciate the help from DR. Regalado.
--- NOTE | 2019-07-13 13:12 | RAD ---
ABDOMEN ONE VIEW: 07/13/19 HISTORY: Dobhoff tube placement. COMPARISON: Radiograph same day. FINDINGS: Again the Dobhoff tube is coiled with the tip at the mid thoracic esophagus. Part of the coiled port ion goes distally to the gastric body. IMPRESSION: Coiled Dobhoff but with tip in the mid thoracic esophagus. Recommend full retraction and readvancemen t. POS: HOME
--- NOTE | 2019-07-13 15:22 | RAD ---
Radiograph abdomen one view: DATE: 07/13/2019 Time: 2:41 PM HISTORY: Readjustment of Dobbhoff feeding tube in 69-year-old male. COMPARISON: 07/13/2019 12:39 PM FINDINGS: The Dobbhoff feeding tube is no longer doubled back on itself, and the distal tip is no longer direct ed cephalad in the mid esophagus. Instead, it is now curled in the fundus of the stomach. IMPRESSION: Dobbhoff feeding tube is now in fundus of stomach.
[2019-07-14] MEDS: Morphine 2 MG/ML SYRINGE SLOW IVP PRN ×2 (00:08→04:22)
[2019-07-14] MEDS: methylPREDNISolone Sod Succ 40 MG VIAL IVP SCH ×2 (00:08→15:03)
[2019-07-14] MEDS: Clindamycin/D5W 600 MG in Premix Bag 1 BAG IVPB SCH ×3 (04:22→21:49)
[2019-07-14] MEDS: Enoxaparin Sodium 40 MG/0.4 ML SYRINGE SC SCH (08:53)
[2019-07-14] MEDS: Dextrose 5 % And 0.9 % NaCl 1,000 ML IV SCH ×2 (08:53→23:52)
[2019-07-14] MEDS: Pantoprazole 40 MG VIAL IVP SCH (08:53)
--- NOTE | 2019-07-14 11:34 | PDOC.HOSPP ---
- Subjective Encounter Date: 07/14/19 Encounter Time: 10:10 Subjective: it appears dobhoff came off, pulled out? Speech nearby. - Objective Vital Signs & Weight: Vital Signs (12 hours) Temp Pulse Resp BP Pulse Ox 07/14/19 08:15 98.6 F 80 18 104/68 95 07/14/19 07:22 97 07/14/19 07:01 77 18 97 Weight Admit Weight 150 lb Weight 133 lb 9.602 oz Most Recent Monitor Data Heart Rate from ECG 89 NIBP 108/82 NIBP BP-Mean 90 Respiration from ECG 17 SpO2 95 I&O: 07/13/19 07/14/19 07/15/19 06:59 06:59 06:59 Intake Total 640 Output Total 1385 Balance -745 Result Diagrams: 07/11/19 03:50 07/12/19 04:25 Hospitalist ROS - Medication Medications: Active Medications Generic Name Dose Route Start Last Admin Trade Name Freq PRN Reason Stop Dose Admin Acetaminophen 650 mg 07/04/19 04:43 07/06/19 03:51 Tylenol PO 650 mg Q4H PRN Administration Headache/Fever/Mild Pain (1-3) Albuterol/Ipratropium 3 ml 07/04/19 07:00 07/14/19 07:01 Duoneb NEB 3 ml [id number] BASSEM Administration Albuterol/Ipratropium 3 ml 07/04/19 04:43 07/07/19 16:51 Duoneb NEB 3 ml [id number] PRN Administration SOB &/or Wheezing Enoxaparin Sodium 40 mg 07/05/19 09:00 07/14/19 08:53 Lovenox SC 40 mg 0900 BASSEM Administration Clindamycin Phosphate/Dextrose 50 mls @ 100 mls/hr 07/07/19 14:00 07/14/19 04 :22 600 mg/ Device IVPB 50 mls Q8HR BASSEM Administration Dextrose/Sodium Chloride 1,000 mls @ 75 mls/hr 07/12/19 16:45 07/14/19 08:53 D5 0.9% Ns IV 1,000 mls .[id number] BASSEM Administration Methylprednisolone Sodium Succinate 40 mg 07/11/19 14:00 07/14/19 00:08 Solu-Medrol IVP 40 mg 0200,1400 BASSEM Administration Morphine Sulfate 2 mg 07/08/19 09:37 07/14/19 04:22 Morphine SLOW IVP 2 mg Q2H PRN Administration Mild-Moderate Pain (1-5) Morphine Sulfate 4 mg 07/08/19 09:38 07/12/19 20:35 Morphine SLOW IVP 4 mg Q2H PRN Administration Moderate to Severe Pain (6-10) Ondansetron HCl 4 mg 07/08/19 06:19 07/08/19 06:23 Zofran SLOW IVP 4 mg Q6H PRN Administration Nausea/Vomiting Pantoprazole Sodium 40 mg 07/09/19 09:00 07/14/19 08:53 Protonix IVP 40 mg DAILY BASSEM Administration Thiamine HCl 100 mg 07/12/19 17:00 07/13/19 17:25 Thiamine Hcl SLOW IVP 100 mg Q24HR BASSEM Administration - Exam General Appearance: NAD, awake alert, ill appearing Eye: PERRL ENT - other findings: trach Neck: supple Heart: RRR Respiratory: CTAB, normal chest expansion Gastrointestinal: soft, normal bowel sounds Neurological: no focal deficits Hosp A/P - Plan Chondroradionecrosis [id number] stridor led to ----s/p laryngoscopy with trach placement; Per ENT, no drainable abscess -transitioned to trach collar which needs to be adjusted, size? -continue clindamycin, steroids -continue pantoprazole #COPD exacerbation -continue steroids, duoneb, dulera as per PCCM Dysphagia - s/p Dobhoff on --- came off. - d5 for maintenance - repeat barium swallow likely in 2 days -he likely be a candidate for PEG. - will d/w Dr. Regalado, and talk to ENT on monday. - pt feels first not sure about PEG, and then said, he is OK w.. PEG. will d/w further -appreciate the help from ST. Emily brown
[2019-07-14] MEDS ORDERED: D5 1/2 NS w/40 mEq KCL 1,000 ML IV SCH (11:45)
[2019-07-14] MEDS: Morphine 4 MG/ML VIAL SLOW IVP PRN ×3 (12:06→23:51)
--- NOTE | 2019-07-14 16:18 | PDOC.EVN ---
Event Note - Event Note Event Note: called to update the famly called twice alva at [phone] - no ans., left a message
[2019-07-14] MEDS: Thiamine HCl 200 MG/2 ML VIAL SLOW IVP SCH (17:52)
--- NOTE | 2019-07-14 19:10 | PRG ---
DATE OF SERVICE: 07/14/2019 Mr. Mariscal is doing well. He pulled out the Dobbhoff tube yesterday. He refused to have another Dobbhoff placed. He is willing to have a PEG placed. He is in no distress. His lungs are clear. I suspect looking back at these admissions. He has been aspirating the entire time. A PEG probably in his best long-term interest. The tracheostomy may be as well. We will probably wait at least two weeks to downsize his trach to a #6 fenestrated. I would like to document that he is stable from a pulmonary standpoint. His steroid dosing will be decreased today. I have placed a consult for Gastroenterology. Job ID: [id number]
[2019-07-15] MEDS: Morphine 4 MG/ML VIAL SLOW IVP PRN ×5 (04:45→21:58)
[2019-07-15] MEDS: Clindamycin/D5W 600 MG in Premix Bag 1 BAG IVPB SCH ×3 (05:38→21:58)
--- NOTE | 2019-07-15 06:21 | CON ---
DATE OF CONSULTATION: 07/14/2019 REASON FOR CONSULTATION: Evaluate the patient for endoscopic gastrostomy tube placement. HISTORY OF PRESENT ILLNESS: The chart has been reviewed. Mr. Brenden Mariscal is an unfortunate 69-year-old male with previous diagnosis of throat cancer, status post chemo-radiation in the past. This was done approximately 2 years ago. The patient has history of COPD with worsening dyspnea. The patient has had tracheostomy done recently. The patient apparently has had Dobhoff feeding as described couple of times. Not eating very well. He is also a very fragile looking male. He appears comfortable. He is not short winded. Does communicate by nodding his head to the questioning. MEDICAL ILLNESSES: 1. Cholangiocarcinoma, status post chemo-radiation. 2. Chronic obstructive pulmonary disease. 3. Status post tracheostomy during this admission by Dr. Chatman. PAST SURGICAL HISTORY: 1. Has had laryngeal biopsy. 2. Tracheostomy. 3. Recent bronchoscopy. ALLERGIES: NONE. SOCIAL HISTORY: He is a chronic smoker, but quit smoking recently. No alcohol or drug abuse. REVIEW OF SYSTEMS: Ten-point system reviewed and unremarkable. No abdominal pain. No nausea or vomiting. No hematochezia or any melena. No chest pain. No dyspnea. PHYSICAL EXAMINATION: GENERAL: Fragile looking male, appears comfortable. He is awake, alert, and communicative but not able to really verbalize. He basically responds to questions by nodding his head. He has soft tissue swelling over the right side of fore head for many years. VITAL SIGNS: Afebrile. Pulse is 80, blood pressure is 104/68. HEENT: Conjunctivae are clear. NECK: Supple. He has a tracheostomy. CARDIOVASCULAR: First and second heart sounds heard. LUNGS: Clear to auscultation. ABDOMEN: Soft. No organomegaly. No tenderness. No masses. Bowel sounds are normal. LABORATORY DATA: The most recent lab data dated 07/11/2019 shows WBC 7400, hemoglobin 10.2, hematocrit 32.3, MCV 98.7, platelet count 268,000, polymorphs 86, lymphocytes 4, monocytes 6. Chemistry panel normal lytes. Glucose 130, BUN is 14, creatinine 0.70, calcium 8.7, magnesium 1.9. CLINICAL IMPRESSION: A 69-year-old male with laryngeal carcinoma, status post chemo-radiation, status post tracheostomy in this admission. The patient is not eating very well and needs long-term nutritional support. I did talk to him at length about having EGD and PEG tube placement. He is agreeable. I will plan for procedure tomorrow. Job ID: [id number] MTDD
[2019-07-15] MEDS ORDERED: Lidocaine 1% PF 5 ML VIAL ONE (09:30)
[2019-07-15] MEDS ORDERED: PROPOFOL 200 MG/20 ML VIAL ONE (09:30)
[2019-07-15] MEDS: Pantoprazole 40 MG VIAL IVP SCH (09:35)
[2019-07-15] MEDS: methylPREDNISolone Sod Succ 40 MG VIAL IVP SCH (09:37)
[2019-07-15] MEDS: Dextrose 5 % And 0.9 % NaCl 1,000 ML IV SCH (10:09)
--- NOTE | 2019-07-15 10:43 | PRG ---
DATE OF SERVICE: 07/15/2019 SUBJECTIVE: Brenden Mariscal has not had new problems reported. His temperature maximum is 100.2, heart rate is 82, respiratory rate is 18, oximetry is 95% on room air, blood pressure is 111/68. Hopefully, he will have a PEG placed. We will check a chest x-ray in the morning. IMPRESSION: 1. Oropharyngeal swallowing dysfunction. 2. Status post aspiration. 3. Status post respiratory failure. 4. Status post trach. PLAN: Continue same. Await PEG placement. Job ID: [id number] MTDD
[2019-07-15] MEDS ORDERED: Clindamycin/D5W 600 mg/50 ml Premix Bag ONE (13:27)
--- NOTE | 2019-07-15 13:56 | PDOC.HOSPP ---
- Subjective Encounter Date: 07/15/19 Encounter Time: 10:45 Subjective: plan for PEG today, pt is little frustrated that he could not talk. otherwise stable. - Objective Vital Signs & Weight: Vital Signs (12 hours) Temp Pulse Resp BP Pulse Ox 07/15/19 11:12 100.6 F H 88 20 97/63 95 07/15/19 09:43 100.2 F H 07/15/19 07:40 99.8 F H 82 18 111/68 95 07/15/19 06:55 83 18 98 07/15/19 03:52 99.1 F 83 18 99/65 95 07/15/19 02:30 96 Weight Admit Weight 150 lb Weight 133 lb 9.602 oz Most Recent Monitor Data Heart Rate from ECG 89 NIBP 108/82 NIBP BP-Mean 90 Respiration from ECG 17 SpO2 95 I&O: 07/14/19 07/15/19 07/16/19 06:59 06:59 06:59 Intake Total 900 Output Total 1850 Balance -950 Result Diagrams: 07/11/19 03:50 07/12/19 04:25 Additional Labs: Accuchecks 07/15/19 11:15 POC Glucose 117 H Hospitalist ROS - Medication Medications: Active Medications Generic Name Dose Route Start Last Admin Trade Name Freq PRN Reason Stop Dose Admin Acetaminophen 650 mg 07/04/19 04:43 07/06/19 03:51 Tylenol PO 650 mg Q4H PRN Administration Headache/Fever/Mild Pain (1-3) Albuterol/Ipratropium 3 ml 07/04/19 07:00 07/15/19 13:12 Duoneb NEB Not Given [id number] BASSEM Albuterol/Ipratropium 3 ml 07/04/19 04:43 07/07/19 16:51 Duoneb NEB 3 ml [id number] PRN Administration SOB &/or Wheezing Enoxaparin Sodium 40 mg 07/05/19 09:00 07/14/19 08:53 Lovenox SC 40 mg 0900 BASSEM Administration Clindamycin Phosphate/Dextrose 50 mls @ 100 mls/hr 07/07/19 14:00 07/15/19 05 :38 600 mg/ Device IVPB 50 mls Q8HR BASSEM Administration Dextrose/Sodium Chloride 1,000 mls @ 75 mls/hr 07/12/19 16:45 07/15/19 10:09 D5 0.9% Ns IV Not Given .[id number] BASSEM Methylprednisolone Sodium Succinate 40 mg 07/15/19 09:00 07/15/19 09:37 Solu-Medrol IVP 40 mg DAILY BASSEM Administration Morphine Sulfate 2 mg 07/08/19 09:37 07/14/19 04:22 Morphine SLOW IVP 2 mg Q2H PRN Administration Mild-Moderate Pain (1-5) Morphine Sulfate 4 mg 07/08/19 09:38 07/15/19 09:34 Morphine SLOW IVP 4 mg Q2H PRN Administration Moderate to Severe Pain (6-10) Ondansetron HCl 4 mg 07/08/19 06:19 07/08/19 06:23 Zofran SLOW IVP 4 mg Q6H PRN Administration Nausea/Vomiting Pantoprazole Sodium 40 mg 07/09/19 09:00 07/15/19 09:35 Protonix IVP 40 mg DAILY BASSEM Administration Thiamine HCl 100 mg 07/12/19 17:00 07/14/19 17:52 Thiamine Hcl SLOW IVP 100 mg Q24HR BASSEM Administration - Exam General Appearance: ill appearing Eye: PERRL ENT: normocephalic atraumatic ENT - other findings: trach Neck: supple Heart: RRR Respiratory: CTAB, normal chest expansion Gastrointestinal: soft, normal bowel sounds Skin - other findings: sig frontal bump - ?lipoma on r..side forehead Hosp A/P - Plan Chondroradionecrosis [id number] stridor led to ----s/p laryngoscopy with trach placement; Per ENT, no drainable abscess -transitioned to trach collar which needs to be adjusted, in 2 weeks -continue clindamycin, steroids -continue pantoprazole #COPD exacerbation -continue steroids, duoneb, dulera as per PCCM Dysphagia - s/p Dobhoff on --- came off. - d5 for maintenance PEg tube today/4th Full code
[2019-07-15] MEDS ORDERED: Ketamine 50 MG/ML (10ML VIAL) ONE (14:05)
[2019-07-15] MEDS ORDERED: Ondansetron HCl/PF 4 MG/2 ML Vial IVP PRN (14:46)
[2019-07-15] MEDS ORDERED: Promethazine HCl 25 MG/ML VIAL IM PRN (14:46)
[2019-07-15] MEDS ORDERED: Promethazine HCl 25 MG/ML VIAL SLOW IVP PRN (14:46)
[2019-07-15] MEDS ORDERED: Pancrelipase DR 12000 1 CAP FS PRN (15:36)
[2019-07-15] MEDS ORDERED: Sodium Bicarbonate Tab 325 MG TAB PER TUBE PRN (15:36)
[2019-07-15] MEDS: Thiamine HCl 200 MG/2 ML VIAL SLOW IVP SCH (17:16)
--- NOTE | 2019-07-15 20:27 | OP ---
DATE OF PROCEDURE: 07/15/2019 PROCEDURE PERFORMED: Esophagogastroduodenoscopy with endoscopic gastrostomy tube placement. PREOPERATIVE DIAGNOSES: Laryngeal cancer, status post chemoradiation, dysphagia. POSTOPERATIVE DIAGNOSES: 1. The patient had short segment of prominent veins in the upper esophagus to lower esophagus. They were not very typical of cellulitis. 2. Normal stomach and duodenum. DESCRIPTION OF PROCEDURE: The patient was placed on his back and was given sedation by Anesthesia Department. The patient was given IV Ancef 2 g before the procedure. A bite block was placed. A Pentax video gastroscope under direct vision was passed down the oropharynx past the GE junction into the stomach and subsequently into the descending duodenum. The patient had short segment of prominent veins from the upper esophagus all the way to the lower esophagus. The vein is very short and not typical of varicoses. The GE junction, no lesions. The fundus, no pathology seen. No gastric varices. The gastric body, gastric antrum, and duodenum, no lesions. A G-tube site was marked by transillumination from within. The site was cleaned and surgically prepped. The site was anesthetized with 1% xylocaine infiltration. Over the site, a size 16 Angiocath was advanced into the stomach. Through the Angiocath, a guidewire was fed into the stomach. The wire was grasped with polypectomy snare and pulled outside of the mouth. To the end of the guidewire protruding outside the mouth, the gastrostomy tube was connected. The wire was pulled back retrograde after incision was made in skin to facilitate the G-tube coming out. The patient was re-scoped again to confirm proper placement of G-tube. No complication noted. The stomach decompressed and the scope removed. RECOMMENDATIONS: May start tube feeding as recommended by dietary department after 6 p.m. today. Job ID: [id number]
[2019-07-16] MEDS: Dextrose 5 % And 0.9 % NaCl 1,000 ML IV SCH ×2 (00:45→10:54)
[2019-07-16] MEDS: Morphine 2 MG/ML SYRINGE SLOW IVP PRN (03:00)
[2019-07-16] MEDS: Clindamycin/D5W 600 MG in Premix Bag 1 BAG IVPB SCH ×2 (05:46→13:34)
[2019-07-16] MEDS: Morphine 4 MG/ML VIAL SLOW IVP PRN ×6 (06:06→23:23)
[2019-07-16 06:14] LABS: #Basophils 0.1 thou/uL (0.0-0.2); #Lymphocytes 0.5 thou/uL (1.20-3.40); #Monocytes 0.4 thou/uL (0.11-0.59); #Neutrophils 6.3 thou/uL (1.40-6.50); %Basophils 0.8 % (0.0-1.0); %Eosinophils 0.2 % (0.0-10.0); %Lymphocytes 7.4 % (21.0-51.0); %Monocytes 5.5 % (0.0-10.0); %Neutrophils 86.1 % (42.0-75.0); Hemoglobin 9.7 g/dL (14.0-18.0); Mean Corpuscular HGB CONC 32.4 g/dL (32.0-36.0); Mean Corpuscular Hemoglobin 31.6 pg (27.0-31.0); Mean Corpuscular Volume 97.4 fL (78.0-98.0); Mean Platelet Volume 6.6 fL (7.4-10.4); Platelet Count 342 thou/uL (130-400); RBC Distribution Width 12.8 % (11.5-14.5); Red Blood Cell (RBC) Count 3.08 mill/uL (4.70-6.10); White Blood Cell (WBC) Count 7.3 thou/uL (4.8-10.8)
[2019-07-16] MEDS: methylPREDNISolone Sod Succ 40 MG VIAL IVP SCH (07:59)
[2019-07-16] MEDS: Enoxaparin Sodium 40 MG/0.4 ML SYRINGE SC SCH (08:00)
[2019-07-16] MEDS: Pantoprazole 40 MG VIAL IVP SCH (08:00)
[2019-07-16] MEDS: Acetaminophen 325 MG TAB PO PRN (08:02)
[2019-07-16 09:07] LABS: Bacteria/HPF None Seen HPF (None Seen); Bilirubin Negative (Negative); Blood, Urine 1+ (Negative); Clarity Clear (Clear); Glucose, Urine (Dipstick) Normal (Negative); Leukocyte Negative Leu/uL (Negative); Nitrite Negative (Negative); Protein, Urine (Dipstick) 10 mg/dL (Neg-Trace); Squamous Epithelial 0-3 HPF (0-3); Urobilinogen Normal mg/dL (Less than 2)
[2019-07-16 09:10] LABS: Urine Culture Reflex Yes Yes
[2019-07-16] MEDS ORDERED: Iopamidol-370 76% 500 ML 1 ML ONE (10:19)
[2019-07-16 11:37] LABS: Anion Gap 11 mmol/L (10-20); BUN (Urea Nitrogen) 8 mg/dL (8.4-25.7); Calc. Creatinine Clearance 81 mL/min (70-130); Calcium 7.8 mg/dL (7.8-10.44); Carbon Dioxide 27 mmol/L (23-31); Chloride 97 mmol/L (98-107); Estimated GFR-MDRD Greater than 90; Glucose 219 mg/dL (80-115); Sodium 131 mmol/L (136-145)
[2019-07-16 11:38] LABS: ALT (SGPT) 43 U/L (8-55); AST (SGOT) 37 U/L (5-34); Albumin 2.4 g/dL (3.4-4.8); Alkaline Phosphatase 70 U/L (40-110); Bilirubin, Direct 0.4 mg/dL (0.1-0.3); Bilirubin, Total 0.7 mg/dL (0.2-1.2); Protein, Total 5.5 g/dL (5.8-8.1)
--- NOTE | 2019-07-16 12:15 | RAD ---
PORTABLE UPRIGHT FRONTAL CHEST: Date: 07/16/2019 COMPARISON: 07/04/2019. HISTORY: Fever. FINDINGS: Tracheostomy tube in place. No pneumothorax noted. No large volume pleural effusion is seen. There is increased density in the medial left base with obscuration of the right hemidiaphragm medially. IMPRESSION: Focal opacity in the medial left base may signify left basilar volume loss or infiltrate. This may be best assessed via CT or follow-up PA and lateral imaging of the chest. POS: [facility]
--- NOTE | 2019-07-16 12:54 | PDOC.HOSPP ---
- Subjective Encounter Date: 07/16/19 Encounter Time: 11:20 Subjective: pt feels ok, TF at 50ml/hr; 2 days of fever, last reading ok, CXR w.. left lobar infilterate vs..? LFT ok. UA looks benign, except trace hematuria? d/w RN. - Objective Vital Signs & Weight: Vital Signs (12 hours) Temp Pulse Resp BP Pulse Ox 07/16/19 11:07 98.7 F 76 18 98/62 97 07/16/19 09:38 100.4 F H 07/16/19 07:30 95 07/16/19 07:27 94 20 95 07/16/19 07:26 101.6 F H 94 18 100/65 95 07/16/19 04:00 99.9 F H 94 18 102/64 95 Weight Admit Weight 150 lb Weight 135 lb 4.8 oz Most Recent Monitor Data Heart Rate from ECG 89 NIBP 108/82 NIBP BP-Mean 90 Respiration from ECG 17 SpO2 95 I&O: 07/15/19 07/16/19 07/17/19 06:59 06:59 06:59 Intake Total 900 477 Output Total 1850 1350 Balance -950 -873 Result Diagrams: 07/16/19 06:02 07/16/19 11:12 Additional Labs: Accuchecks 07/16/19 07/15/19 07/15/19 05:53 19:29 16:49 POC Glucose 160 H 126 H 142 H Hospitalist ROS - Medication Medications: Active Medications Generic Name Dose Route Start Last Admin Trade Name Freq PRN Reason Stop Dose Admin Acetaminophen 650 mg 07/04/19 04:43 07/16/19 08:02 Tylenol PO 650 mg Q4H PRN Administration Headache/Fever/Mild Pain (1-3) Albuterol/Ipratropium 3 ml 07/04/19 07:00 07/16/19 07:27 Duoneb NEB 3 ml [id number] BASSEM Administration Albuterol/Ipratropium 3 ml 07/04/19 04:43 07/07/19 16:51 Duoneb NEB 3 ml [id number] PRN Administration SOB &/or Wheezing Enoxaparin Sodium 40 mg 07/05/19 09:00 07/16/19 08:00 Lovenox SC 40 mg 0900 BASSEM Administration Clindamycin Phosphate/Dextrose 50 mls @ 100 mls/hr 07/07/19 14:00 07/16/19 05 :46 600 mg/ Device IVPB 50 mls Q8HR BASSEM Administration Dextrose/Sodium Chloride 1,000 mls @ 50 mls/hr 07/16/19 11:00 07/16/19 10:54 D5 0.9% Ns IV Not Given .Q20H BASSEM Methylprednisolone Sodium Succinate 40 mg 07/15/19 09:00 07/16/19 07:59 Solu-Medrol IVP 40 mg DAILY BASSEM Administration Morphine Sulfate 2 mg 07/08/19 09:37 07/16/19 03:00 Morphine SLOW IVP 2 mg Q2H PRN Administration Mild-Moderate Pain (1-5) Morphine Sulfate 4 mg 07/08/19 09:38 07/16/19 11:45 Morphine SLOW IVP 4 mg Q2H PRN Administration Moderate to Severe Pain (6-10) Ondansetron HCl 4 mg 07/08/19 06:19 07/08/19 06:23 Zofran SLOW IVP 4 mg Q6H PRN Administration Nausea/Vomiting Pantoprazole Sodium 40 mg 07/09/19 09:00 07/16/19 08:00 Protonix IVP 40 mg DAILY BASSEM Administration Thiamine HCl 100 mg 07/12/19 17:00 07/15/19 17:16 Thiamine Hcl SLOW IVP 100 mg Q24HR BASSEM Administration - Exam General Appearance: NAD, awake alert General - other findings: trach and peg Eye: PERRL ENT: normocephalic atraumatic Neck: supple Heart: RRR Respiratory: CTAB, normal chest expansion Gastrointestinal: soft, normal bowel sounds Neurological: no focal deficits Hosp A/P - Plan Chondroradionecrosis [id number] stridor led to ----s/p laryngoscopy with trach placement; Per ENT, no drainable abscess -transitioned to trach collar which needs to be adjusted, in 2 weeks -continue clindamycin, steroids -continue pantoprazole #COPD exacerbation -continue steroids, duoneb, dulera as per PCC Dysphagia - s/p Dobhoff on 2nd--- came off. - d5 for maintenance PEg tube on 4th -started TF, tolerating it. Fever without leukocytosis - last reading ok - CXR w.. left lobar infilterate vs..? LFT ok. UA looks benign, except trace hematuria? -keep COVID in differential --if contin'd temp, may need to r/o that. -ordered CT chest to define left lobe abnormality - Cr ok. Full code
--- NOTE | 2019-07-16 14:40 | CT ---
CT of chest with IV contrast HISTORY: Chest pain. Infiltrate. Fever. FINDINGS: Complete volume loss of the left lower lobe with air bronchograms and hyperinflation of the left upper lobe. Near complete atelectasis of the right lower lobe, sparing the medial basilar segment, with relative hyperinflation of the upper and middle lobes. Minimal pleural fluid. No eviden ce of pneumothorax. No evidence of mediastinal adenopathy. Tracheostomy appliance in place. Bovine origin of the great vessels at the aortic arch. Old posttraumatic deformities of the left post erolateral ribs and left scapula. Hyperdense material within the dependent portion of the gallbladder lumen may reflect biliary sludge or vicarious excretion of IV contrast. IMPRESSION : Atelectasis resulting in complete volume loss left lower lobe and near complete volume loss right low er lobe. Cause is not evident, as an endobronchial lesion is not visible. No acute abnormalities otherwise demonstrated.
--- NOTE | 2019-07-16 15:46 | PRG ---
DATE OF SERVICE: 07/16/2019 Mr. Mariscal was put on a schedule for PEG yesterday. He had a PEG placed yesterday and did well with this. He had a chest CT done today for temperature elevation. He has no chest x-ray today prior to the CT. Haziness in both bases. I suspect this is all related to aspiration. He very quickly failed swallowing evaluation. Been on Cleocin. Plan to stop this. He will be started on Zosyn for now and re-cultured, although his findings that his lung bases could just be related to simple aspiration and mucus plugging on top of COPD. We will continue to follow. Job ID: [id number]
[2019-07-16] MEDS: Piperacillin/Tazobactam 3.375 GM in Sodium Chloride 0.9% 100 ML IVPB SCH ×2 (16:03→22:18)
[2019-07-16] MEDS: Thiamine HCl 200 MG/2 ML VIAL SLOW IVP SCH (17:54)
--- NOTE | 2019-07-16 23:17 | PRG ---
DATE OF SERVICE: 07/16/2019 SUBJECTIVE: This is a 69-year-old male, underwent EGD and PEG tube placement, done yesterday. The patient had tube feeding. He is tolerating tube feeding. He does not have abdominal pain. He has low-grade fever this morning, but now he is afebrile. The G-tube bumper loosened up. The G-tube dressing is removed. The G-tube site appears very healthy. RECOMMENDATIONS: 1. Continue tube feeding as tolerated. 2. We will sign off and if any new problems, please call us back. Job ID: [id number]
[2019-07-17] MEDS: Piperacillin/Tazobactam 3.375 GM in Sodium Chloride 0.9% 100 ML IVPB SCH ×4 (04:34→21:14)
[2019-07-17] MEDS: Morphine 4 MG/ML VIAL SLOW IVP PRN ×6 (04:35→21:16)
[2019-07-17 05:49] LABS: #Lymphocytes 0.8 thou/uL (1.20-3.40); #Monocytes 0.7 thou/uL (0.11-0.59); #Neutrophils 5.4 thou/uL (1.40-6.50); %Eosinophils 0.4 % (0.0-10.0); %Monocytes 9.9 % (0.0-10.0); %Neutrophils 77.7 % (42.0-75.0); Hemoglobin 9.6 g/dL (14.0-18.0); Mean Corpuscular HGB CONC 30.5 g/dL (32.0-36.0); Mean Corpuscular Hemoglobin 30.2 pg (27.0-31.0); Mean Corpuscular Volume 99.1 fL (78.0-98.0); Mean Platelet Volume 6.7 fL (7.4-10.4); Platelet Count 319 thou/uL (130-400); RBC Distribution Width 12.9 % (11.5-14.5); Red Blood Cell (RBC) Count 3.17 mill/uL (4.70-6.10); White Blood Cell (WBC) Count 6.9 thou/uL (4.8-10.8)
[2019-07-17 06:10] LABS: Anion Gap 11 mmol/L (10-20); BUN (Urea Nitrogen) 8 mg/dL (8.4-25.7); Calc. Creatinine Clearance 101 mL/min (70-130); Calcium 8.1 mg/dL (7.8-10.44); Carbon Dioxide 28 mmol/L (23-31); Chloride 99 mmol/L (98-107); Estimated GFR-MDRD Greater than 90; Glucose 137 mg/dL (80-115); Potassium 3.9 mmol/L (3.5-5.1); Sodium 134 mmol/L (136-145)
[2019-07-17] MEDS: Pantoprazole 40 MG VIAL IVP SCH (09:11)
[2019-07-17] MEDS: methylPREDNISolone Sod Succ 40 MG VIAL IVP SCH (09:20)
[2019-07-17] MEDS: Dextrose 5 % And 0.9 % NaCl 1,000 ML IV SCH (09:25)
[2019-07-17] MEDS: Enoxaparin Sodium 40 MG/0.4 ML SYRINGE SC SCH (09:25)
--- NOTE | 2019-07-17 09:37 | PRG ---
DATE OF SERVICE: 07/17/2019 Mr. Mariscal's vital signs remained stable. He is afebrile now, heart rate in the 70s, respiratory rates in the teens, oximetry is 96. He will probably benefit from placement in a skilled facility for a while. Plan to consider downsizing his trach when he is 10 to 14 days out from his initial tracheostomy, which was done on the . Job ID: [id number]
--- NOTE | 2019-07-17 12:29 | PDOC.HOSPP ---
- Subjective Encounter Date: 07/17/19 Encounter Time: 09:00 Subjective: tolerating the tube feed. has no acute events; will place PT/OT and systems mgr consult for rehab evaluation. - Objective Vital Signs & Weight: Vital Signs (12 hours) Temp Pulse Resp BP Pulse Ox 07/17/19 07:27 98.6 F 84 18 102/62 95 07/17/19 07:04 76 18 96 07/17/19 04:00 98.2 F 72 19 100/61 96 Weight Admit Weight 150 lb Weight 137 lb Most Recent Monitor Data Heart Rate from ECG 89 NIBP 108/82 NIBP BP-Mean 90 Respiration from ECG 17 SpO2 95 I&O: 07/16/19 07/17/19 07/18/19 06:59 06:59 06:59 Intake Total 477 1500 Output Total 1350 1200 Balance -873 300 Result Diagrams: 07/17/19 05:25 07/17/19 05:25 Hospitalist ROS - Medication Medications: Active Medications Generic Name Dose Route Start Last Admin Trade Name Freq PRN Reason Stop Dose Admin Acetaminophen 650 mg 07/04/19 04:43 07/16/19 08:02 Tylenol PO 650 mg Q4H PRN Administration Headache/Fever/Mild Pain (1-3) Albuterol/Ipratropium 3 ml 07/04/19 07:00 07/17/19 07:04 Duoneb NEB 3 ml [id number] BASSEM Administration Albuterol/Ipratropium 3 ml 07/04/19 04:43 07/07/19 16:51 Duoneb NEB 3 ml [id number] PRN Administration SOB &/or Wheezing Enoxaparin Sodium 40 mg 07/05/19 09:00 07/17/19 09:25 Lovenox SC 40 mg 0900 BASSEM Administration Dextrose/Sodium Chloride 1,000 mls @ 50 mls/hr 07/16/19 11:00 07/17/19 09:25 D5 0.9% Ns IV Not Given .Q20H BASSEM Piperacillin Sod/Tazobactam 100 mls @ 200 mls/hr 07/16/19 16:00 07/17/19 09: 16 Sod 3.375 gm/ Sodium Chloride IVPB 100 mls 0400,1000,1600,2200 BASSEM Administration Methylprednisolone Sodium Succinate 40 mg 07/15/19 09:00 07/17/19 09:20 Solu-Medrol IVP 40 mg DAILY BASSEM Administration Morphine Sulfate 2 mg 07/08/19 09:37 07/16/19 03:00 Morphine SLOW IVP 2 mg Q2H PRN Administration Mild-Moderate Pain (1-5) Morphine Sulfate 4 mg 07/08/19 09:38 07/17/19 12:10 Morphine SLOW IVP 4 mg Q2H PRN Administration Moderate to Severe Pain (6-10) Ondansetron HCl 4 mg 07/08/19 06:19 07/08/19 06:23 Zofran SLOW IVP 4 mg Q6H PRN Administration Nausea/Vomiting Pantoprazole Sodium 40 mg 07/09/19 09:00 07/17/19 09:11 Protonix IVP 40 mg DAILY BASSEM Administration Sodium Chloride 10 ml 07/16/19 21:00 07/17/19 09:19 Flush - Normal Saline IVF 10 ml Q12HR BASSEM Administration Thiamine HCl 100 mg 07/12/19 17:00 07/16/19 17:54 Thiamine Hcl SLOW IVP 100 mg Q24HR BASSEM Administration - Exam General Appearance: NAD, awake alert General - other findings: forehead bump ENT: dry oral mucosa ENT - other findings: trach Neck: supple Respiratory: CTAB, normal chest expansion Gastrointestinal: soft, normal bowel sounds Neurological: no focal deficits Hosp A/P - Plan Chondroradionecrosis [id number] stridor led to ----s/p laryngoscopy with trach placement; Per ENT, no drainable abscess -transitioned to trach collar which needs to be adjusted, in 2 weeks -continue clindamycin, steroids -continue pantoprazole #COPD exacerbation -continue steroids, duoneb, dulera as per PCCM Dysphagia - s/p Dobhoff on 2nd--- came off. - d5 for maintenance PEg tube on 4th -started TF, tolerating it. Fever without leukocytosis - last reading ok - CXR w.. left lobar infilterate vs..? LFT ok. UA looks benign, except trace hematuria? -keep COVID in differential --if contin'd temp, may need to r/o that. -ordered CT chest to define left lobe abnormality - Cr ok. Full code 6th tolerating the TF plan for trach resize pn meanwhile pt can go to rehab PT/OT and CM c/s placed for the same.
[2019-07-17] MEDS: Thiamine HCl 200 MG/2 ML VIAL SLOW IVP SCH (16:21)
[2019-07-18] MEDS: Morphine 4 MG/ML VIAL SLOW IVP PRN ×3 (01:26→09:14)
[2019-07-18] MEDS: Dextrose 5 % And 0.9 % NaCl 1,000 ML IV SCH ×2 (03:25→23:29)
[2019-07-18] MEDS: Piperacillin/Tazobactam 3.375 GM in Sodium Chloride 0.9% 100 ML IVPB SCH ×4 (03:25→21:33)
[2019-07-18 05:28] LABS: #Lymphocytes 0.9 thou/uL (1.20-3.40); #Monocytes 0.5 thou/uL (0.11-0.59); #Neutrophils 4.7 thou/uL (1.40-6.50); %Basophils 0.4 % (0.0-1.0); %Eosinophils 0.7 % (0.0-10.0); %Lymphocytes 14.2 % (21.0-51.0); %Monocytes 8.4 % (0.0-10.0); %Neutrophils 76.4 % (42.0-75.0); Hemoglobin 8.3 g/dL (14.0-18.0); Mean Corpuscular HGB CONC 30.1 g/dL (32.0-36.0); Mean Corpuscular Volume 99.8 fL (78.0-98.0); Mean Platelet Volume 6.9 fL (7.4-10.4); Platelet Count 333 thou/uL (130-400); RBC Distribution Width 12.8 % (11.5-14.5); Red Blood Cell (RBC) Count 2.76 mill/uL (4.70-6.10); White Blood Cell (WBC) Count 6.1 thou/uL (4.8-10.8)
[2019-07-18 05:46] LABS: Anion Gap 7 mmol/L (10-20); BUN (Urea Nitrogen) 8 mg/dL (8.4-25.7); Calc. Creatinine Clearance 97 mL/min (70-130); Carbon Dioxide 32 mmol/L (23-31); Chloride 98 mmol/L (98-107); Estimated GFR-MDRD Greater than 90; Glucose 176 mg/dL (80-115); Potassium 3.9 mmol/L (3.5-5.1); Sodium 133 mmol/L (136-145)
[2019-07-18] MEDS: Enoxaparin Sodium 40 MG/0.4 ML SYRINGE SC SCH (08:47)
[2019-07-18] MEDS: methylPREDNISolone Sod Succ 40 MG VIAL IVP SCH (08:47)
[2019-07-18] MEDS: Pantoprazole 40 MG VIAL IVP SCH (08:48)
--- NOTE | 2019-07-18 12:52 | PDOC.HOSPP ---
- Subjective Encounter Date: 07/18/19 Encounter Time: 09:40 Subjective: it appears pt prefers to go home but family would not be able to take care of him, he has sig pain in the trach area and requiring IV morphine, will try to replace the PO as wean off from IV morphine. still plan for rehab. - Objective Vital Signs & Weight: Vital Signs (12 hours) Temp Pulse Resp BP Pulse Ox 07/18/19 12:13 98.3 F 66 18 101/64 95 07/18/19 10:15 102/68 07/18/19 08:00 20 97 07/18/19 07:57 98.3 F 64 20 93/57 L 97 07/18/19 07:27 98 07/18/19 07:26 70 18 99 07/18/19 06:00 98.5 F 71 18 103/67 96 07/18/19 01:16 96 07/18/19 01:15 20 115/67 98 Weight Admit Weight 150 lb Weight 136 lb 3 oz Most Recent Monitor Data Heart Rate from ECG 89 NIBP 108/82 NIBP BP-Mean 90 Respiration from ECG 17 SpO2 95 I&O: 07/17/19 07/18/19 07/19/19 06:59 06:59 06:59 Intake Total 1500 2555 60 Output Total 1200 1175 Balance 300 1380 60 Result Diagrams: 07/18/19 05:03 07/18/19 05:03 Hospitalist ROS - Medication Medications: Active Medications Generic Name Dose Route Start Last Admin Trade Name Freq PRN Reason Stop Dose Admin Acetaminophen 650 mg 07/04/19 04:43 07/16/19 08:02 Tylenol PO 650 mg Q4H PRN Administration Headache/Fever/Mild Pain (1-3) Albuterol/Ipratropium 3 ml 07/04/19 07:00 07/18/19 07:26 Duoneb NEB 3 ml [id number] BASSEM Administration Albuterol/Ipratropium 3 ml 07/04/19 04:43 07/07/19 16:51 Duoneb NEB 3 ml [id number] PRN Administration SOB &/or Wheezing Enoxaparin Sodium 40 mg 07/05/19 09:00 07/18/19 08:47 Lovenox SC 40 mg 0900 BASSEM Administration Dextrose/Sodium Chloride 1,000 mls @ 50 mls/hr 07/16/19 11:00 07/18/19 03:25 D5 0.9% Ns IV 1,000 mls .Q20H BASSEM Administration Piperacillin Sod/Tazobactam 100 mls @ 200 mls/hr 07/16/19 16:00 07/18/19 08: 59 Sod 3.375 gm/ Sodium Chloride IVPB 100 mls 0400,1000,1600,2200 BASSEM Administration Methylprednisolone Sodium Succinate 40 mg 07/15/19 09:00 07/18/19 08:47 Solu-Medrol IVP 40 mg DAILY BASSEM Administration Ondansetron HCl 4 mg 07/08/19 06:19 07/08/19 06:23 Zofran SLOW IVP 4 mg Q6H PRN Administration Nausea/Vomiting Pantoprazole Sodium 40 mg 07/09/19 09:00 07/18/19 08:48 Protonix IVP 40 mg DAILY BASSEM Administration Sodium Chloride 10 ml 07/16/19 21:00 07/18/19 10:08 Flush - Normal Saline IVF 10 ml Q12HR BASSEM Administration Thiamine HCl 100 mg 07/12/19 17:00 07/17/19 16:21 Thiamine Hcl SLOW IVP 100 mg Q24HR BASSEM Administration - Exam General Appearance: NAD, awake alert General - other findings: trach, peg, TF running Eye: PERRL ENT: normocephalic atraumatic Neck: supple Heart: RRR Respiratory: CTAB, normal chest expansion Gastrointestinal: soft, normal bowel sounds Neurological: no focal deficits Psychiatric: normal affect, A&O x 3 Hosp A/P - Plan Chondroradionecrosis rimtrsksku-[id number] stridor led to ----s/p laryngoscopy with trach placement; Per ENT, no drainable abscess -transitioned to trach collar which needs to be adjusted, in 2 weeks -continue clindamycin, steroids -continue pantoprazole #COPD exacerbation -continue steroids, duoneb, dulera as per PCCM Dysphagia - s/p Dobhoff on 2nd--- came off. - d5 for maintenance PEg tube on 4th -started TF, tolerating it. Fever without leukocytosis - last reading ok - CXR w.. left lobar infilterate vs..? LFT ok. UA looks benign, except trace hematuria? -keep COVID in differential --if contin'd temp, may need to r/o that. -ordered CT chest to define left lobe abnormality - Cr ok. Full code 6th tolerating the TF plan for trach resize pn 27th meanwhile pt can go to rehab PT/OT and CM c/s placed for the same. 7th start po opioids for pain control, while wean off IV morphine. plan for rehab, but note pt prefers to go home.
[2019-07-18] MEDS ORDERED: Morphine 10 MG/0.5 ML ORAL SYRINGE SL SCH (13:15)
[2019-07-18] MEDS: Thiamine HCl 200 MG/2 ML VIAL SLOW IVP SCH (17:04)
--- NOTE | 2019-07-18 17:18 | PRG ---
DATE OF SERVICE: 07/18/2019 SUBJECTIVE: Brenden Mariscal is having no problems. Placement is an issue. OBJECTIVE: VITAL SIGNS: He is afebrile, heart rate 67, respiratory rate is 20, oximetry is 100% on trach collar, and blood pressure 93/60. LUNGS: Unchanged. HEART: Unchanged. ABDOMEN: Unchanged. There were no respiratory issues. It was noted that the hospitalist remarked in a note that COVID might need to be ruled out. This has been ruled out on June 18. He probably has not been out of the hospital 48 hours since June 18. There is no reason to suspect a COVID infection in this gentleman, who is clearly aspirating and probably has an aspiration pneumonia. The antimicrobial therapy is adequate at this point. He can be switched to p.o. antimicrobial therapy. At some point in the near future, we will change his trach to a #6. Job ID: [id number]
[2019-07-18] MEDS: Morphine 10 MG/0.5 ML ORAL SYRINGE SL SCH ×2 (18:21→23:29)
[2019-07-19] MEDS: Piperacillin/Tazobactam 3.375 GM in Sodium Chloride 0.9% 100 ML IVPB SCH (03:33)
[2019-07-19] MEDS: Morphine 10 MG/0.5 ML ORAL SYRINGE SL SCH ×4 (05:22→23:10)
[2019-07-19 06:16] LABS: Anion Gap 7 mmol/L (10-20); BUN (Urea Nitrogen) 8 mg/dL (8.4-25.7); Calc. Creatinine Clearance 95 mL/min (70-130); Calcium 8.1 mg/dL (7.8-10.44); Carbon Dioxide 35 mmol/L (23-31); Chloride 99 mmol/L (98-107); Estimated GFR-MDRD Greater than 90; Glucose 122 mg/dL (80-115); Sodium 137 mmol/L (136-145)
[2019-07-19] MEDS: Pantoprazole 40 MG VIAL IVP SCH (08:21)
[2019-07-19] MEDS: methylPREDNISolone Sod Succ 40 MG VIAL IVP SCH (08:21)
[2019-07-19] MEDS: Enoxaparin Sodium 40 MG/0.4 ML SYRINGE SC SCH (08:21)
[2019-07-19] MEDS ORDERED: Amoxicillin/Potassium Clav 875 MG TAB PO SCH (09:30)
--- NOTE | 2019-07-19 09:32 | PRG ---
DATE OF SERVICE: 07/19/2019 SUBJECTIVE: Brenden Mariscal notes no complaints. He wants to go home, but he is being evaluated for his new placement. OBJECTIVE: VITAL SIGNS: He is afebrile, heart rate is 71, respiratory rate is . He has clear secretions around his trach. LUNGS: He is not wheezing. HEART: Regular rhythm. ABDOMEN: Soft. IMPRESSION: 1. Status post multiple admissions for aspiration. 2. Status post trach for upper airway edema? Infection. 3. Status post percutaneous endoscopic gastrostomy. 4. 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 5. Underlying chronic obstructive pulmonary disease with infrequent exacerbations prior to recent. This leads me to believe that all of his problems were aspiration related. Zosyn will be discontinued. He will be placed on Augmentin via his PEG. Job ID: [id number] MTDD
[2019-07-19 12:17] VITALS: BMI 17.0
--- NOTE | 2019-07-19 13:07 | PDOC.HOSPP ---
- Subjective Encounter Date: 07/19/19 Encounter Time: 11:40 Subjective: stable, pt shows sign that he is doing ok. tolerating the TF, will dc D5. - Objective Vital Signs & Weight: Vital Signs (12 hours) Temp Pulse Resp BP Pulse Ox 07/19/19 08:00 98.2 F 71 18 91/51 L 100 07/19/19 06:50 64 16 96 07/19/19 04:00 97.8 F 62 20 100/61 98 Weight Admit Weight 150 lb Weight 136 lb 8 oz Most Recent Monitor Data Heart Rate from ECG 89 NIBP 108/82 NIBP BP-Mean 90 Respiration from ECG 17 SpO2 95 I&O: 07/18/19 07/19/19 07/20/19 06:59 06:59 06:59 Intake Total 2555 2904 Output Total 1175 2300 Balance 1380 604 Result Diagrams: 07/18/19 05:03 07/19/19 05:40 Hospitalist ROS - Medication Medications: Active Medications Generic Name Dose Route Start Last Admin Trade Name Freq PRN Reason Stop Dose Admin Acetaminophen 650 mg 07/04/19 04:43 07/16/19 08:02 Tylenol PO 650 mg Q4H PRN Administration Headache/Fever/Mild Pain (1-3) Albuterol/Ipratropium 3 ml 07/04/19 07:00 07/19/19 06:50 Duoneb NEB 3 ml [id number] BASSEM Administration Albuterol/Ipratropium 3 ml 07/04/19 04:43 07/07/19 16:51 Duoneb NEB 3 ml [id number] PRN Administration SOB &/or Wheezing Enoxaparin Sodium 40 mg 07/05/19 09:00 07/19/19 08:21 Lovenox SC 40 mg 0900 BASSEM Administration Methylprednisolone Sodium Succinate 40 mg 07/15/19 09:00 07/19/19 08:21 Solu-Medrol IVP 40 mg DAILY BASSEM Administration Morphine Sulfate 10 mg 07/18/19 18:00 07/19/19 11:17 Roxanol Solution SL 10 mg Q6HR BASSEM Administration Ondansetron HCl 4 mg 07/08/19 06:19 07/08/19 06:23 Zofran SLOW IVP 4 mg Q6H PRN Administration Nausea/Vomiting Sodium Chloride 10 ml 07/16/19 21:00 07/19/19 08:21 Flush - Normal Saline IVF Not Given Q12HR BASSEM - Exam General Appearance: NAD, awake alert General - other findings: s/p trach and peg Eye: PERRL ENT: normocephalic atraumatic Neck: supple Heart: RRR Respiratory: CTAB, normal chest expansion Gastrointestinal: soft, normal bowel sounds Neurological: no focal deficits Psychiatric: A&O x 3 Hosp A/P - Plan Chondroradionecrosis [id number] stridor led to ----s/p laryngoscopy with trach placement; Per ENT, no drainable abscess -transitioned to trach collar which needs to be adjusted, in 2 weeks -continue clindamycin, steroids -continue pantoprazole #COPD exacerbation -continue steroids, duoneb, dulera as per [facility] Dysphagia - s/p Dobhoff on 2nd--- came off. - d5 for maintenance PEg tube on 4th -started TF, tolerating it. Fever without leukocytosis----->resolved - last reading ok - CXR w.. left lobar infilterate vs..? LFT ok. UA looks benign, except trace hematuria? -keep COVID in differential --if contin'd temp, may need to r/o that. -ordered CT chest to define left lobe abnormality - Cr ok. -------------> no acute abn.. noted. tolerating the TF plan for trach resize pn 27th meanwhile pt can go to rehab started po opioids for pain control, while wean off IV morphine. plan for rehab, but note pt prefers to go home. family not able to take care of him. so pending placement. on augmentin via PEG. Full code
[2019-07-19] MEDS: Amoxicillin/Potassium Clav 875 MG TAB PO SCH (20:03)
[2019-07-19] MEDS: Acetaminophen 325 MG TAB PO PRN (20:04)
[2019-07-20] MEDS: Morphine 10 MG/0.5 ML ORAL SYRINGE SL SCH ×4 (05:32→23:30)
[2019-07-20] MEDS: Acetaminophen 325 MG TAB PO PRN ×2 (08:18→21:11)
[2019-07-20] MEDS: methylPREDNISolone Sod Succ 40 MG VIAL IVP SCH (08:18)
[2019-07-20] MEDS: Enoxaparin Sodium 40 MG/0.4 ML SYRINGE SC SCH (08:18)
[2019-07-20] MEDS: Amoxicillin/Potassium Clav 875 MG TAB PO SCH ×2 (08:18→21:11)
[2019-07-20] MEDS: Thiamine 100 MG TAB PO SCH (08:18)
[2019-07-20 14:07] LABS: Hemoglobin 9.7 g/dL (14.0-18.0); Mean Corpuscular HGB CONC 31.3 g/dL (32.0-36.0); Mean Corpuscular Volume 99.3 fL (78.0-98.0); Platelet Count 364 thou/uL (130-400); RBC Distribution Width 12.8 % (11.5-14.5); Red Blood Cell (RBC) Count 3.11 mill/uL (4.70-6.10); White Blood Cell (WBC) Count 6.3 thou/uL (4.8-10.8)
[2019-07-20 14:30] LABS: ALT (SGPT) 79 U/L (8-55); AST (SGOT) 28 U/L (5-34); Albumin 2.7 g/dL (3.4-4.8); Alkaline Phosphatase 70 U/L (40-110); Anion Gap 13 mmol/L (10-20); BUN (Urea Nitrogen) 10 mg/dL (8.4-25.7); Bilirubin, Total 0.3 mg/dL (0.2-1.2); Calc. Creatinine Clearance 96 mL/min (70-130); Calcium 8.6 mg/dL (7.8-10.44); Carbon Dioxide 31 mmol/L (23-31); Chloride 97 mmol/L (98-107); Estimated GFR-MDRD Greater than 90; Globulin 3.4 g/dL (2.4-3.5); Glucose 211 mg/dL (80-115); Potassium 4.7 mmol/L (3.5-5.1); Protein, Total 6.1 g/dL (5.8-8.1); Sodium 136 mmol/L (136-145)
--- NOTE | 2019-07-20 16:42 | PDOC.HOSPP ---
- Subjective Encounter Date: 07/20/19 Encounter Time: 11:30 Subjective: The patient is doing okay overall. Complains of some abdominal pain near his PEG tube site. Also has been coughing some phlegm up requiring suctioning. Does not feel that short of breath. He has gotten out of bed and walked only two steps so far. Patient interested in going home but discussed that he would likely need a higher level of care. Per case management, they will start looking into LTAC facility - Objective Vital Signs & Weight: Vital Signs (12 hours) Temp Pulse Resp BP Pulse Ox 07/20/19 13:45 82 16 96 07/20/19 11:44 98.3 F 93 22 H 102/64 95 07/20/19 07:38 98.0 F 71 22 H 102/64 93 L 07/20/19 06:54 81 16 95 Weight Admit Weight 150 lb Weight 137 lb 11.2 oz Most Recent Monitor Data Heart Rate from ECG 89 NIBP 108/82 NIBP BP-Mean 90 Respiration from ECG 17 SpO2 95 I&O: 07/19/19 07/20/19 07/21/19 06:59 06:59 06:59 Intake Total 2904 1030 Output Total 2300 750 750 Balance 604 280 -750 Result Diagrams: 07/20/19 13:58 07/20/19 13:58 Hospitalist ROS - Review of Systems Constitutional: denies: fever, chills - Medication Medications: Active Medications Generic Name Dose Route Start Last Admin Trade Name Freq PRN Reason Stop Dose Admin Acetaminophen 650 mg 07/04/19 04:43 07/20/19 08:18 Tylenol PO 650 mg Q4H PRN Administration Headache/Fever/Mild Pain (1-3) Albuterol/Ipratropium 3 ml 07/04/19 07:00 07/20/19 13:45 Duoneb NEB 3 ml [id number] BASSEM Administration Albuterol/Ipratropium 3 ml 07/04/19 04:43 07/07/19 16:51 Duoneb NEB 3 ml [id number] PRN Administration SOB &/or Wheezing Amoxicillin/Clavulanate Potassium 875 mg 07/19/19 21:00 07/20/19 08:18 Augmentin PO 875 mg Q12HR BASSEM Administration Enoxaparin Sodium 40 mg 07/05/19 09:00 07/20/19 08:18 Lovenox SC 40 mg 0900 BASSEM Administration Methylprednisolone Sodium Succinate 40 mg 07/15/19 09:00 07/20/19 08:18 Solu-Medrol IVP 40 mg DAILY BASSEM Administration Morphine Sulfate 10 mg 07/18/19 18:00 07/20/19 11:43 Roxanol Solution SL 10 mg Q6HR BASSEM Administration Ondansetron HCl 4 mg 07/08/19 06:19 07/08/19 06:23 Zofran SLOW IVP 4 mg Q6H PRN Administration Nausea/Vomiting Pantoprazole Sodium 40 mg 07/20/19 09:00 07/20/19 08:18 Protonix PO 40 mg DAILY BASSEM Administration Sodium Chloride 10 ml 07/16/19 21:00 07/20/19 08:19 Flush - Normal Saline IVF 10 ml Q12HR BASSEM Administration Thiamine HCl 100 mg 07/20/19 09:00 07/20/19 08:18 Thiamine PO 100 mg DAILY BASSEM Administration - Exam General Appearance: NAD, awake alert Eye: PERRL, anicteric sclera ENT: normocephalic atraumatic, no oropharyngeal lesions ENT - other findings: trach in place Neck: no JVD Heart: RRR, no murmur, no gallops, no rubs Respiratory - other findings: mild rales at the bases Gastrointestinal: soft, non-tender, non-distended, normal bowel sounds Extremities: no cyanosis, no clubbing, no edema Skin: normal turgor, no lesions, no rashes Neurological: cranial nerve grossly intact, normal sensation to touch, no focal deficits, no new deficit Hosp A/P - Plan Consults: Hospice CT chest: complete atelectasis of lungs on both sides This is a 69 year old male with past medical history of cirrhosis, laryngeal cancer s/p radiation who presented to the ER with shortness of breath and was admitted for COPd exacerbation #Acute hypoxic respiratory failure secondary to aspiration pneumonia s/p tracheostomy #Supraglottitis #History of laryngeal cancer s/p radiation treatment -CT chest shows bilateral atelectasis. Started on augmentin on 07/18 through PEG tube. Will continue - patient is s/p bronchoscopy on 06/21 with no evidence of malignancy. He underwent trachoeostomy on 07/06, was found to have supraglottitis with airway obstruction - continue IV steroids 40 mg daily - continue duonebs #Dysphagia - s/p PEG tube placement on 07/14 - he is tolerating tube feeds slightly - continue to monitor Dispo: case management to look into LTAC facility DVT prophylaxis: lovenox Code status: full code
[2019-07-21] MEDS: Acetaminophen 325 MG TAB PO PRN (01:22)
[2019-07-21] MEDS: Morphine 10 MG/0.5 ML ORAL SYRINGE SL SCH ×3 (05:34→18:06)
[2019-07-21] MEDS: Thiamine 100 MG TAB PO SCH (08:58)
[2019-07-21] MEDS: methylPREDNISolone Sod Succ 40 MG VIAL IVP SCH (08:58)
[2019-07-21] MEDS: Amoxicillin/Potassium Clav 875 MG TAB PO SCH ×2 (08:58→20:21)
[2019-07-21] MEDS: Enoxaparin Sodium 40 MG/0.4 ML SYRINGE SC SCH (08:58)
[2019-07-21] MEDS ORDERED: Iopamidol-370 76% 500 ML 1 ML ONE (09:18)
[2019-07-21] MEDS ORDERED: methylPREDNISolone Sod Succ 40 MG VIAL IVP SCH (13:08)
[2019-07-21] MEDS ORDERED: Bacteriostatic Water 30 ML VIAL FS PRN (13:13)
--- NOTE | 2019-07-21 13:44 | PRG ---
DATE OF SERVICE: 07/21/2019 SUBJECTIVE: He is sitting in his room, comfortable, and has no complaints. OBJECTIVE: VITAL SIGNS: Temperature 98.6, pulse 70, respirations 16, O2 saturations 97%, blood pressure 110/64. HEENT: Clear. NECK: Has tracheostomy with clear secretions. LUNGS: Clear. CARDIAC: S1 and S2, regular. ABDOMEN: Soft. EXTREMITIES: No edema. ASSESSMENT: 1. Chronic obstructive pulmonary disease. 2. History of trach. PLAN: Clinically stable. Continue Augmentin and nebulization treatments. Job ID: [id number]
--- NOTE | 2019-07-21 15:09 | PDOC.HOSPP ---
- Subjective Subjective: The patient reports 8/10 pain in his abdomen in LUQ and epigastric area where PEG tube is. He also reports neck pain with the trach collar. He states IV morphine helps his pain but the sublingual morphine does not help. He denies constipation or diarrhea. Case management looking into LTAC facility - Objective Vital Signs & Weight: Vital Signs (12 hours) Temp Pulse Resp BP Pulse Ox 07/21/19 13:52 70 12 07/21/19 11:44 98.6 F 70 16 110/64 97 07/21/19 08:04 97 07/21/19 08:00 98 07/21/19 07:37 98.3 F 73 16 92/58 L 98 07/21/19 07:05 76 16 07/21/19 05:00 97.5 F L 68 16 93/57 L 97 Weight Admit Weight 150 lb Weight 138 lb 13.554 oz Most Recent Monitor Data Heart Rate from ECG 89 NIBP 108/82 NIBP BP-Mean 90 Respiration from ECG 17 SpO2 95 I&O: 07/20/19 07/21/19 07/22/19 06:59 06:59 06:59 Intake Total 1030 1020 30 Output Total 750 1950 Balance 280 -930 30 Result Diagrams: 07/20/19 13:58 07/20/19 13:58 Hospitalist ROS - Review of Systems Constitutional: denies: fever, chills - Medication Medications: Active Medications Generic Name Dose Route Start Last Admin Trade Name Freq PRN Reason Stop Dose Admin Acetaminophen 650 mg 07/04/19 04:43 07/21/19 01:22 Tylenol PO 650 mg Q4H PRN Administration Headache/Fever/Mild Pain (1-3) Albuterol/Ipratropium 3 ml 07/04/19 07:00 07/21/19 13:52 Duoneb NEB 3 ml [id number] BASSEM Administration Albuterol/Ipratropium 3 ml 07/04/19 04:43 07/07/19 16:51 Duoneb NEB 3 ml [id number] PRN Administration SOB &/or Wheezing Amoxicillin/Clavulanate Potassium 875 mg 07/19/19 21:00 07/21/19 08:58 Augmentin PO 875 mg Q12HR BASSEM Administration Enoxaparin Sodium 40 mg 07/05/19 09:00 07/21/19 08:58 Lovenox SC 40 mg 0900 BASSEM Administration Morphine Sulfate 10 mg 07/18/19 18:00 07/21/19 12:06 Roxanol Solution SL 10 mg Q6HR BASSEM Administration Ondansetron HCl 4 mg 07/08/19 06:19 07/08/19 06:23 Zofran SLOW IVP 4 mg Q6H PRN Administration Nausea/Vomiting Pantoprazole Sodium 40 mg 07/20/19 09:00 07/21/19 08:58 Protonix PO 40 mg DAILY BASSEM Administration Sodium Chloride 10 ml 07/16/19 21:00 07/21/19 08:59 Flush - Normal Saline IVF 10 ml Q12HR BASSEM Administration Thiamine HCl 100 mg 07/20/19 09:00 07/21/19 08:58 Thiamine PO 100 mg DAILY BASSEM Administration - Exam General Appearance: NAD, awake alert Eye: PERRL, anicteric sclera ENT: normocephalic atraumatic, no oropharyngeal lesions Neck: supple, no JVD Heart: RRR, no murmur, no gallops, no rubs Respiratory: CTAB, no wheezes, no rales, no ronchi, no tachypnea Gastrointestinal: soft, non-tender, non-distended, normal bowel sounds Extremities: no cyanosis, no clubbing, no edema Skin: normal turgor, no lesions, no rashes Neurological: cranial nerve grossly intact, normal sensation to touch, no focal deficits, no new deficit Hosp A/P - Plan CT chest: complete atelectasis of lungs on both sides This is a 69 year old male with past medical history of cirrhosis, laryngeal cancer s/p radiation who presented to the ER with shortness of breath and was admitted for COPd exacerbation #Acute hypoxic respiratory failure secondary to aspiration pneumonia s/p tracheostomy #Supraglottitis #History of laryngeal cancer s/p radiation treatment -CT chest shows bilateral atelectasis. Started on augmentin on 07/18 through PEG tube. Will continue - patient is s/p bronchoscopy on 06/21 with no evidence of malignancy. He underwent trachoeostomy on 07/06, was found to have supraglottitis with airway obstruction - pulmonary weaned steroids to 20 mg daily - continue duonebs #Neck pain - likely just from trach collar - will check neck Xray #Abdominal pain #Dysphagia - s/p PEG tube placement on 07/14 - he is tolerating tube feeds slightly - will check abd X ray to evaluate tube placement Dispo: case management to look into LTAC facility DVT prophylaxis: lovenox Code status: full code
--- NOTE | 2019-07-21 16:13 | RAD ---
Soft tissues 2 views HISTORY: Pain at tracheostomy appliance. FINDINGS: Tracheostomy appliance overlies the upper tracheal air column. At the C7 level. No malposit ion is evident. Degenerative changes of the cervical spine with osteophytosis and straightening of the normal lordoti c curvature. No radiopaque foreign bodies are otherwise evident. IMPRESSION : Tracheostomy appliance is in good radiographic position without evidence of complication.
--- NOTE | 2019-07-21 16:14 | RAD ---
Abdomen one view HISTORY: Evaluate tube placement. COMPARISON: 07/13/2019. FINDINGS: Bowel gas pattern is nonspecific. Gas throughout the colon. Lucent circular device over the left upper quadrant has the appearance of a percutaneous gastrostomy feeding catheter that overlies the greater curvature of the gastric body. Dystrophic calcification over the prostate gland. Degenerative changes of lumbar spine and hips. IMPRESSION : Nonspecific bowel gas pattern. Opaque feeding tube with left upper quadrant is in good radiographic position.
--- NOTE | 2019-07-21 17:42 | CT ---
CT abdomen and pelvis with IV contrast HISTORY: Abdominal pain around percutaneous feeding catheter. FINDINGS: Small amount of left pleural fluid. Dependent atelectasis at each lung is significantly les s than on the CT chest from 07/16/2019. Peg left upper quadrant enters the stomach. No abnormalities are present around the tubing. No eviden ce of bowel obstruction or inflammation. A 1.4 cm cyst is present within the posterior dome of the right liver lobe. Cysts also arise from eac h kidney, measuring up to 2.9 cm at the lateral cortex of the left kidney. No evidence of urinary tract obstruction. Urinary bladder is partially compressed by Colmenares catheter and contains a small roney unt of gas. Small pocket of gas within the subcutaneous tissue at the anterior abdomen is likely related to recen t injection. Prominent calcification throughout the arterial structures. At the L2-3 level of the lumbar spine, there is disc space narrowing and prominent posterior disc pro trusion. IMPRESSION : Gastrostomy feeding catheter in good position without evidence of complication. Interval decrease in bibasilar lung atelectasis. Small left pleural effusion. Prominent posterior intervertebral disc protrusion at the L2-3 level. Atherosclerosis. Incidental chronic-type findings as detailed above.
[2019-07-21] MEDS ORDERED: Acetaminophen 650 MG/20.3 ML UDCUP PER TUBE PRN (20:44)
[2019-07-21] MEDS: Morphine 4 MG/ML VIAL SLOW IVP PRN (20:50)
[2019-07-21] MEDS: Amoxicillin/Potassium Clav 875 MG TAB PER TUBE SCH (20:53)
[2019-07-22] MEDS: Morphine 10 MG/0.5 ML ORAL SYRINGE PER TUBE SCH ×4 (00:22→17:45)
[2019-07-22 06:50] LABS: Hemoglobin 9.4 g/dL (14.0-18.0); Mean Corpuscular HGB CONC 30.2 g/dL (32.0-36.0); Mean Corpuscular Hemoglobin 30.1 pg (27.0-31.0); Mean Corpuscular Volume 99.6 fL (78.0-98.0); Platelet Count 368 thou/uL (130-400); RBC Distribution Width 13.6 % (11.5-14.5); Red Blood Cell (RBC) Count 3.13 mill/uL (4.70-6.10); White Blood Cell (WBC) Count 4.2 thou/uL (4.8-10.8)
[2019-07-22 07:02] LABS: ALT (SGPT) 69 U/L (8-55); AST (SGOT) 25 U/L (5-34); Albumin 2.8 g/dL (3.4-4.8); Alkaline Phosphatase 69 U/L (40-110); Anion Gap 10 mmol/L (10-20); BUN (Urea Nitrogen) 14 mg/dL (8.4-25.7); Bilirubin, Direct 0.2 mg/dL (0.1-0.3); Bilirubin, Total 0.2 mg/dL (0.2-1.2); Calc. Creatinine Clearance 89 mL/min (70-130); Calcium 8.7 mg/dL (7.8-10.44); Carbon Dioxide 34 mmol/L (23-31); Chloride 94 mmol/L (98-107); Estimated GFR-MDRD Greater than 90; Glucose 178 mg/dL (80-115); Potassium 4.3 mmol/L (3.5-5.1); Protein, Total 6.2 g/dL (5.8-8.1); Sodium 134 mmol/L (136-145)
[2019-07-22 07:26] LABS: Thyroid Stimulating Hormone 13.6979 uIU/mL (0.35-4.94)
[2019-07-22] MEDS: Thiamine 100 MG TAB PER TUBE SCH (08:17)
[2019-07-22] MEDS: Pantoprazole 40 MG GRANULES PACKET PER TUBE SCH (08:17)
[2019-07-22] MEDS: Amoxicillin/Potassium Clav 875 MG TAB PER TUBE SCH ×2 (08:17→21:25)
[2019-07-22] MEDS: Enoxaparin Sodium 40 MG/0.4 ML SYRINGE SC SCH (08:18)
[2019-07-22] MEDS ORDERED: methylPREDNISolone Sod Succ 40 MG VIAL IVP SCH (09:00)
[2019-07-22] MEDS: Morphine 4 MG/ML VIAL SLOW IVP PRN ×2 (10:34→18:14)
--- NOTE | 2019-07-22 15:28 | PDOC.HOSPP ---
- Subjective Encounter Date: 07/22/19 Encounter Time: 11:30 Subjective: Patient is doing well today, denies SOB, chest pain or cough . He has no abdominal pain. Neck X ray showed no acute abnormality. CT abdomen unremarkable The patient is being screened by [facility] rehab today, he has been accepted tomorrow - Objective Vital Signs & Weight: Vital Signs (12 hours) Temp Pulse Resp BP Pulse Ox 07/22/19 13:02 85 16 98 07/22/19 07:55 98.0 F 77 20 94/61 98 07/22/19 06:34 82 16 99 07/22/19 04:00 98.1 F 76 18 97/63 96 Weight Admit Weight 150 lb Weight 138 lb 13.554 oz Most Recent Monitor Data Heart Rate from ECG 89 NIBP 108/82 NIBP BP-Mean 90 Respiration from ECG 17 SpO2 95 I&O: 07/21/19 07/22/19 07/23/19 06:59 06:59 06:59 Intake Total 1020 1215 180 Output Total 1950 1750 Balance -930 -535 180 Result Diagrams: 07/22/19 06:19 07/22/19 06:19 Hospitalist ROS - Review of Systems Constitutional: denies: fever, chills - Medication Medications: Active Medications Generic Name Dose Route Start Last Admin Trade Name Freq PRN Reason Stop Dose Admin Albuterol/Ipratropium 3 ml 07/04/19 07:00 07/22/19 13:02 Duoneb NEB 3 ml [id number] BASSEM Administration Albuterol/Ipratropium 3 ml 07/04/19 04:43 07/07/19 16:51 Duoneb NEB 3 ml [id number] PRN Administration SOB &/or Wheezing Amoxicillin/Clavulanate Potassium 875 mg 07/21/19 21:00 07/22/19 08:17 Augmentin PER TUBE 875 mg Q12HR BASSEM Administration Enoxaparin Sodium 40 mg 07/05/19 09:00 07/22/19 08:18 Lovenox SC 40 mg 0900 BASSEM Administration Methylprednisolone Sodium Succinate 20 mg 07/22/19 09:00 07/22/19 08:18 Solu-Medrol IVP 20 mg DAILY BASSEM Administration Morphine Sulfate 4 mg 07/18/19 11:34 07/22/19 10:34 Morphine SLOW IVP 4 mg Q3H PRN Administration Pain Morphine Sulfate 10 mg 07/21/19 23:59 07/22/19 12:02 Roxanol Solution PER TUBE Not Given Q6HR [facility] Ondansetron HCl 4 mg 07/08/19 06:19 07/08/19 06:23 Zofran SLOW IVP 4 mg Q6H PRN Administration Nausea/Vomiting Pantoprazole Sodium 40 mg 07/22/19 09:00 07/22/19 08:17 Protonix PER TUBE 40 mg DAILY BASSEM Administration Sodium Chloride 10 ml 07/16/19 21:00 07/22/19 08:18 Flush - Normal Saline IVF 10 ml Q12HR BASSEM Administration Thiamine HCl 100 mg 07/22/19 09:00 07/22/19 08:17 Thiamine PER TUBE 100 mg DAILY BASSEM Administration - Exam General Appearance: NAD, awake alert Eye: PERRL, anicteric sclera ENT: normocephalic atraumatic, no oropharyngeal lesions ENT - other findings: trach in place Heart: RRR, no murmur, no gallops, no rubs Respiratory: CTAB, no wheezes, no rales, no ronchi Gastrointestinal: soft Gastrointestinal - other findings: mild tenderness near PEG tube Extremities: no cyanosis, no clubbing, no edema Skin: normal turgor, no lesions, no rashes Neurological: cranial nerve grossly intact, normal sensation to touch Hosp A/P - Plan CT chest: complete atelectasis of lungs on both sides Abd X ray 07/20: nonspecific bowel gas pattern. Feeding tube in good position Soft tissue nec 07/20: no complication with trach appliance CT abdomen 07/20: feeding tube in good position. Decrease in lung atelectasis. Small left pleural effusion This is a 69 year old male with past medical history of cirrhosis, laryngeal cancer s/p radiation who presented to the ER with shortness of breath and was admitted for COPd exacerbation #Acute hypoxic respiratory failure secondary to aspiration pneumonia s/p tracheostomy #Supraglottitis #History of laryngeal cancer s/p radiation treatment -CT chest shows bilateral atelectasis. Started on augmentin on 07/18 through PEG tube. Will continue until 07/23 - patient is s/p bronchoscopy on 06/21 with no evidence of malignancy. He underwent trachoeostomy on 07/06, was found to have supraglottitis with airway obstruction - pulmonary weaned steroids to 20 mg daily. Will switch to oral tomorrow - continue duonebs #Neck pain - resolving. Neck Xray showed no pathology - likely just from trach collar #Abdominal pain #Dysphagia - s/p PEG tube placement on 07/14 - he is tolerating tube feeds slightly -CT abdomen shows no acute abdominal pathology Dispo: will go to rehab tomorrow DVT prophylaxis: lovenox Code status: full code
[2019-07-22 15:33] LABS: Free T4 (Free Thyroxine) 0.82 ng/dL (0.70-1.48)
--- NOTE | 2019-07-22 16:33 | PRG ---
DATE OF SERVICE: 07/22/2019 Brenden Mariscal is in no distress. He is tentatively on the schedule to go to rehab tomorrow. We will change his trach prior to transfer. Job ID: [id number]
[2019-07-22 20:31] VITALS: TEMP 98.3
[2019-07-23] MEDS: Morphine 10 MG/0.5 ML ORAL SYRINGE PER TUBE SCH ×3 (00:40→11:56)
[2019-07-23 06:34] LABS: ALT (SGPT) 67 U/L (8-55); AST (SGOT) 23 U/L (5-34); Albumin 2.8 g/dL (3.4-4.8); Alkaline Phosphatase 69 U/L (40-110); Anion Gap 8 mmol/L (10-20); BUN (Urea Nitrogen) 13 mg/dL (8.4-25.7); Bilirubin, Total 0.3 mg/dL (0.2-1.2); Calc. Creatinine Clearance 85 mL/min (70-130); Calcium 8.9 mg/dL (7.8-10.44); Carbon Dioxide 37 mmol/L (23-31); Chloride 93 mmol/L (98-107); Estimated GFR-MDRD Greater than 90; Globulin 3.4 g/dL (2.4-3.5); Glucose 147 mg/dL (80-115); Protein, Total 6.2 g/dL (5.8-8.1); Sodium 134 mmol/L (136-145)
[2019-07-23 06:39] LABS: Hemoglobin 9.5 g/dL (14.0-18.0); Mean Corpuscular HGB CONC 30.1 g/dL (32.0-36.0); Mean Corpuscular Hemoglobin 29.9 pg (27.0-31.0); Mean Corpuscular Volume 99.3 fL (78.0-98.0); Platelet Count 350 thou/uL (130-400); RBC Distribution Width 13.9 % (11.5-14.5); Red Blood Cell (RBC) Count 3.17 mill/uL (4.70-6.10); White Blood Cell (WBC) Count 4.8 thou/uL (4.8-10.8)
[2019-07-23 07:39] VITALS: BP 95/63
[2019-07-23] MEDS ORDERED: predniSONE 20 MG TAB PO SCH (08:00)
[2019-07-23] MEDS: Enoxaparin Sodium 40 MG/0.4 ML SYRINGE SC SCH (08:25)
[2019-07-23] MEDS: Pantoprazole 40 MG GRANULES PACKET PER TUBE SCH (08:25)
[2019-07-23] MEDS: Thiamine 100 MG TAB PER TUBE SCH (08:25)
[2019-07-23] MEDS: Amoxicillin/Potassium Clav 875 MG TAB PER TUBE SCH (08:25)
[2019-07-23] MEDS: Morphine 4 MG/ML VIAL SLOW IVP PRN (10:08)
--- NOTE | 2019-07-23 13:01 | DIS ---
DATE OF ADMISSION: 07/04/2019 DATE OF DISCHARGE: 07/23/2019 DISCHARGE DIAGNOSES: 1. Acute hypoxic respiratory failure secondary to aspiration pneumonia 2. Status post tracheostomy 3. Supraglottitis 4. Dysphagia s/p PEG 5. Hyponatremia, 6. Transaminitis 7. Subclinical hypothyroidism. SECONDARY DISCHARGE DIAGNOSIS: History of laryngeal cancer, status post radiation treatment. CONSULTANTS: 1. Dr. Italo Regalado with Pulmonary. 2. Dr. Jelani Tom with GI. 3. Dr. Derrick Ratliff with ENT. PROCEDURES: Bronchoscopy on 06/21, tracheostomy on 07/06, PEG tube placement on 07/14, tracheostomy change on 07/22. BRIEF HISTORY OF PRESENT ILLNESS: This is a 69-year-old male with a past medical history of laryngeal cancer status post radiation treatment, who had presented to the emergency room with shortness of breath. He was recently admitted for COPD exacerbation and discharged. In the emergency room, he was placed on BiPAP due to shortness of breath. He was previously tested for marquez virus and tested negative. He was admitted to the ICU initially and started on BiPAP, bronchodilators, IV steroids and antibiotics. HOSPITAL COURSE: Acute hypoxic respiratory failure secondary to recurrent aspiration pneumonia, supraglottitis: The patient was treated with IV steroids, bronchodilators and IV Levaquin. The patient had complained of neck and ear pain on 07/06. A CT scan of his neck showed evidence of a soft tissue abscess with significant edema in the epiglottic folds. ENT was then consulted and he was taken to the operating room for a tracheostomy. During tracheostomy, no abscess was found. However, patient was found to have supraglottitis with airway obstruction. He was eventually transferred to the medical floor. He did spike a fever on 07/[address] performed at the time showed complete volume loss in his left lower lobe and right lower lobe. He was started on Augmentin for possible aspiration pneumonia. He will be continued on this until . He was also on IV steroids , which have been discontinued as of today. On discharge, he will continue his breathing treatments including scheduled DuoNeb. He should follow up with Dr. Regalado within 2 weeks. Neck pain: The patient did report some neck pain where his trach was. He had a soft tissue x-ray done on the , which showed no pathology. His tracheostomy was changed on . The patient does report some improvement in his neck pain. Dysphagia: The patient did undergo PEG tube placement on the . He does have some mild soreness near his PEG tube site, but is tolerating his tube feeds. He had a repeat CT scan of his abdomen done on , which showed no acute pathology. He was discharged with protonix 40 mg and pancrelipase prn. Physical deconditioning: The patient reports for the past three days he has not been able to ambulate well. He was seen by Physical Therapy who recommended rehab. He is currently using a walker. He was accepted to [facility]. Transaminitis: The patient did have a slightly elevated ALT of 79, which is downtrended to 67. He can have repeat LFTs done in a week. He was discharged on thiamine due to history of alcoholism. Subclinical hypothyroidism: The patient was noted to have TSH of 13.6. However , his free T4 and T3 are normal. Therefore, no thyroid treatment was started. This can be repeated as an outpatient. DISCHARGE PHYSICAL EXAMINATION: VITAL SIGNS: Temperature 98.5, HR 84, RR 20, O2 saturation 99% on 5 L trach collar, and blood pressure 95/63. GENERAL: The patient is alert, awake, oriented x3. HEAD: The patient has a large cyst on his forehead. ENT: The patient has a trach collar on. He has no pharyngeal erythema. CVS: Regular rate and rhythm with no murmurs, rubs, or gallops. LUNGS: Clear to auscultation bilaterally. ABDOMEN: The patient has mild tenderness around his PEG tube site. There are no signs of infection. His abdomen is nondistended. EXTREMITIES: No edema. EYES: The patient is blind in his right eye. LABORATORY DATA: CBC 07/22: White count 4.8, hemoglobin 9.5, hematocrit 31.5, platelet count 350. BMP 07/22: Unremarkable except for sodium of 134 and carbon dioxide of 37. LFTs: AST 23, ALT 67, alkaline phosphatase 69. Vitamin B12: 764. TSH: 13.69. Free T3: 2. Free T4: 0.82. PERTINENT IMAGING: Chest X ray 07/03: no acute disease CT neck 07/06: soft tissue abscess with significant edema in the aryepiglottic folds particularly on the right and swelling to the vocal cord region with airway narrowing. Abscess is more anterior. Chest X ray 07/15: focal opacity in medial left base may signify left basilar volume loss or infiltrate. CT chest 07/15: complete atelectasis of lungs on both sides Abd X ray 07/12: dobhoff feeding tube in fundus of stomach Abd X ray 07/20: nonspecific bowel gas pattern. Feeding tube in good position Soft tissue nec 07/20: no complication with trach appliance CT abdomen 07/20: feeding tube in good position. Decrease in lung atelectasis. Small left pleural effusion DISCHARGE CONDITION: Stable for discharge to rehab. ACTIVITY: As tolerated. DIET: PEG tube with standard 1.5 kcal/mL with fiber formula at a rate of 70 mL/ h. DISCHARGE MEDICATIONS: New prescriptions: 1. Augmentin 875 q.12 for 3 tablets. 2. Pancrelipase 12,000 units p.r.n. for tube occlusion. 3. Protonix 40 mg p.o. daily. 4. Thiamine 100 mg p.o. daily. 5. All other home medications were resumed. DISCHARGE INSTRUCTIONS: The patient to follow up with his PCP in a week and with Dr. Regalado in 2 weeks. He should consider getting a repeat chest x-ray in two weeks to assess for resolution of atelectasis. Job ID: [id number] [facility]
== END 2019-07-23 15:15 | DRG 4 ==
LOC: ERS 03:40 → IMCU/EMU 04:47 → CCU 07-07 18:14 → T4-B 07-12 19:03
PROVIDERS: ADMIT Internal Medicine; ATTEND Internal Medicine
PROC: 5A09457 Assistance with Respiratory Ventilation, 24-96 Consecutive Hours, Continuous Positive Airway Pressure (ICD-10-PCS; 2019-07-04)
PROC: 0B113F4 Bypass Trachea to Cutaneous with Tracheostomy Device, Percutaneous Approach (ICD-10-PCS; principal; 2019-07-07)
PROC: 5A1945Z Respiratory Ventilation, 24-96 Consecutive Hours (ICD-10-PCS; 2019-07-07)
PROC: 0DH63UZ Insertion of Feeding Device into Stomach, Percutaneous Approach (ICD-10-PCS; 2019-07-15)
PROC: 0DJ08ZZ Inspection of Upper Intestinal Tract, Via Natural or Artificial Opening Endoscopic (ICD-10-PCS; 2019-07-15)
DX: J69.0 Pneumonitis due to inhalation of food and vomit (principal); J96.01 Acute respiratory failure with hypoxia; J04.31 Supraglottitis, unspecified, with obstruction; J44.1 Chronic obstructive pulmonary disease with (acute) exacerbation; E44.0 Moderate protein-calorie malnutrition; Z68.1 Body mass index [BMI] 19.9 or less, adult; E87.1 Hypo-osmolality and hyponatremia; E02 Subclinical iodine-deficiency hypothyroidism; Z20.828 Contact with and (suspected) exposure to other viral communicable diseases; M54.2 Cervicalgia; C73 Malignant neoplasm of thyroid gland; F41.9 Anxiety disorder, unspecified; T66.XXXA Radiation sickness, unspecified, initial encounter; K74.60 Unspecified cirrhosis of liver; Z87.891 Personal history of nicotine dependence; Z79.890 Hormone replacement therapy; Z79.51 Long term (current) use of inhaled steroids; Z79.52 Long term (current) use of systemic steroids; Z91.14 Patient's other noncompliance with medication regimen
CPT/HCPCS: 36415; 36416; 70360; 70491; 71045; 71260; 74018; 74177; 80048; 80053; 80076; 80306; 81001; 82607; 82746; 82805; 83735; 83880; 84132; 84439; 84443; 84481; 84484; 85025; 85027; 87086; 90471; 90670; 93005; 94002; 94003; 94640; 94660; 94760; C9113; G0009; J0690; J1650; J1815; J1956; J2001; J2250; J2270; J2405; J2543; J2704; J2920; J3010; J3411; J3475; J3480; J3490; J7620; Q0163; Q9967; S0028

== ENCOUNTER 2019-08-19 11:06 | Emergency (ER) | payer MEDICARE, OTHER ==
--- NOTE | 2019-08-19 11:42 | RAD ---
RADIOGRAPH CHEST 1 VIEW: DATE: 08/19/2019 HISTORY: 69-year-old male with dyspnea FINDINGS: There are no airspace densities, pulmonary edema, pneumothorax, or cardiomegaly. The lateral costophr enic angles are sharp. There is a tracheostomy tube with distal tip approximately 5.9 cm superior to the filiberto. Mild subsegmental atelectasis versus scar at right base. IMPRESSION: 1. No acute cardiopulmonary findings. 2. Tracheostomy tube
[2019-08-19 12:56] LABS: #Eosinphils 0.2 thou/uL (0.0-0.7); #Lymphocytes 1.6 thou/uL (1.20-3.40); #Monocytes 0.8 thou/uL (0.11-0.59); %Basophils 0.3 % (0.0-1.0); %Monocytes 13.5 % (0.0-10.0); %Neutrophils 53.2 % (42.0-75.0); Hemoglobin 9.7 g/dL (14.0-18.0); Mean Corpuscular HGB CONC 30.9 g/dL (32.0-36.0); Mean Corpuscular Hemoglobin 30.9 pg (27.0-31.0); Mean Platelet Volume 7.3 fL (7.4-10.4); Platelet Count 249 thou/uL (130-400); RBC Distribution Width 14.9 % (11.5-14.5); Red Blood Cell (RBC) Count 3.14 mill/uL (4.70-6.10); White Blood Cell (WBC) Count 5.6 thou/uL (4.8-10.8)
[2019-08-19 13:38] LABS: ALT (SGPT) 26 U/L (8-55); AST (SGOT) 22 U/L (5-34); Albumin 3.3 g/dL (3.4-4.8); Alkaline Phosphatase 67 U/L (40-110); Anion Gap 10 mmol/L (10-20); BUN (Urea Nitrogen) 6 mg/dL (8.4-25.7); Bilirubin, Total 0.2 mg/dL (0.2-1.2); Calc. Creatinine Clearance 0 mL/min (70-130); Calcium 8.9 mg/dL (7.8-10.44); Carbon Dioxide 27 mmol/L (23-31); Chloride 109 mmol/L (98-107); Estimated GFR-MDRD Greater than 90; Glucose 93 mg/dL (80-115); Potassium 3.8 mmol/L (3.5-5.1); Protein, Total 6.3 g/dL (5.8-8.1); Sodium 142 mmol/L (136-145)
[2019-08-19] MEDS ORDERED: HYDROcodone/Acetaminophen 10/325 mg Tablet ONE (13:56)
== END 2019-08-19 14:06 | disposition home or self-care (01) ==
LOC: ERS 11:06
DX: J95.03 Malfunction of tracheostomy stoma (principal); Z87.891 Personal history of nicotine dependence
CPT/HCPCS: 71045; 80053; 84484; 85025; 93005; 94760

== ENCOUNTER 2019-09-05 13:55 | Observation (INO) | payer MEDICARE, MEDICAID, OTHER ==
--- NOTE | 2019-09-05 15:23 | RAD ---
EXAM: Single view of the chest HISTORY: Cough COMPARISON: 08/19/2019 FINDINGS: Single view of the chest shows a normal sized cardiomediastinal silhouette. A tracheostomy is seen with its tip in good position in the trachea. There is no evidence of consolidation, mass, or pleural effusion. Degenerative changes are seen in the spine. IMPRESSION: No evidence of acute cardiopulmonary disease
[2019-09-05 15:39] LABS: #Basophils 0.1 thou/uL (0.0-0.2); #Eosinphils 0.2 thou/uL (0.0-0.7); #Lymphocytes 1.6 thou/uL (1.20-3.40); #Monocytes 0.9 thou/uL (0.11-0.59); #Neutrophils 3.9 thou/uL (1.40-6.50); %Basophils 0.9 % (0.0-1.0); %Eosinophils 3.3 % (0.0-10.0); %Monocytes 13.7 % (0.0-10.0); %Neutrophils 58.1 % (42.0-75.0); Hemoglobin 12.3 g/dL (14.0-18.0); Mean Corpuscular HGB CONC 30.7 g/dL (32.0-36.0); Mean Corpuscular Hemoglobin 30.2 pg (27.0-31.0); Mean Corpuscular Volume 98.4 fL (78.0-98.0); Platelet Count 376 thou/uL (130-400); RBC Distribution Width 14.7 % (11.5-14.5); Red Blood Cell (RBC) Count 4.08 mill/uL (4.70-6.10); White Blood Cell (WBC) Count 6.7 thou/uL (4.8-10.8)
[2019-09-05 16:00] LABS: ALT (SGPT) 18 U/L (8-55); AST (SGOT) 16 U/L (5-34); Albumin 3.8 g/dL (3.4-4.8); Alkaline Phosphatase 82 U/L (40-110); Anion Gap 10 mmol/L (10-20); BUN (Urea Nitrogen) 15 mg/dL (8.4-25.7); Bilirubin, Total 0.2 mg/dL (0.2-1.2); Calc. Creatinine Clearance 0 mL/min (70-130); Calcium 9.5 mg/dL (7.8-10.44); Carbon Dioxide 30 mmol/L (23-31); Chloride 101 mmol/L (98-107); Estimated GFR-MDRD Greater than 90; Glucose 116 mg/dL (80-115); Potassium 4.4 mmol/L (3.5-5.1); Protein, Total 7.8 g/dL (5.8-8.1); Sodium 137 mmol/L (136-145)
[2019-09-05] MEDS ORDERED: Calcium Carbonate 500 MG ChewTAB PO PRN (16:31)
[2019-09-05] MEDS ORDERED: Ondansetron ODT 4 MG TAB PO PRN (16:31)
[2019-09-05] MEDS ORDERED: Cefepime 2 GM VIAL ONE (16:32)
[2019-09-05] MEDS ORDERED: Pancrelipase DR 12000 1 CAP FS PRN (16:39)
--- NOTE | 2019-09-05 16:47 | PDOC.FPRHP ---
- History of Present Illness Chief Complaint: Sputum production History of Present Illness: 69yo M presents to the ED with complaints of 1-2 days of increased sputum production from his tracheostomy. 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 Pt has been following with Dr. Regalado ever since. States that along with the increased sputum over the last couple days he has also experienced pain surrounding his tracheostomy site. Pt denies any fevers, chills, or coughing. He did note that he has had some shortness of breath but this was much better after he had his trach tube suctioned. Pt does not have a PCP. Denies any other medical history. ED Course: Recieved 1L NS, Cefepime, Vanc - Allergies/Adverse Reactions Allergies Allergy/AdvReac Type Severity Reaction Status Date / Time No Known Drug Allergies Allergy Verified 07/02/19 02:23 - Home Medications Medication Instructions Recorded Confirmed Type Budesonide-Formoterol [Symbicort 1 puff QID PRN 07/02/19 09/05/19 History 80-4.5] Ipratropium/Albuterol Sulfate 3 ml NEB QID PRN 07/02/19 09/05/19 History [DuoNeb] Albuterol Sulfate [Albuterol 8.5 gm IH QID PRN #1 hfa.aer.ad 07/03/19 09/05/19 Rx Sulfate Hfa] Pancrelipase 95046 [Creon DR 1 cap FS .PER PROTOCOL PRN #30 cap 07/22/19 Rx 12,000 Units] Pantoprazole [Protonix] 40 mg PER TUBE DAILY #30 pk 07/22/19 09/05/19 Rx Thiamine 100 mg PER TUBE DAILY #30 tab 07/22/19 09/05/19 Rx - History PMHx: Acute hypoxic respiratory failure PSHx: Tracheostomy, chest tube, feeding tube (reversed) FHx: Non contributory Social: 30 year ppd smoker (former), 2 beers per week, denies drug use - Review of Systems General: denies: fever/chills, weight/appetite/sleep changes ENT: denies: nasal congestion, rhinorrhea Respiratory: reports: congestion (sputum production), shortness of breath. denies: cough Cardiovascular: denies: chest pain, palpitation Gastrointestinal: denies: nausea, vomiting, diarrhea Genitourinary: denies: dysuria, polyuria Skin: denies: rashes, lesions Musculoskeletal: denies: pain, tenderness Neurological: denies: numbness, weakness - Vital signs BP: 100/71, MAP: 80, Pulse: 121, Resp: 24, Temp: 99.7 (Oral), Pain: 0, O2 sat: 98 on (Room Air), Wt: 61kg - Physical Exam Constitutional: NAD, awake, alert and oriented HEENT: MMM -HEENT: Right eye with cataract white out, exotropia -Neck: Midline trach in place, CDI, currently clear of secretions Heart: no murmurs/rubs/gallops -Heart: Tachycardic -Lungs: Scattered rhonci, no wheezes, good air movement Abdomen: soft, non-tender Musculoskeletal: ROM grossly normal Neurological: no focal deficit Skin: no rash/lesions Psychiatric: normal mood and affect, good judgment and insight, intact recent and remote memory FMR H&P: Results - Labs Result Diagrams: 09/05/19 15:19 09/05/19 15:19 Lab results: WBC 6.7 thou/uL (4.8-10.8) 09/05/19 15:19 Hgb 12.3 g/dL (14.0-18.0) L 09/05/19 15:19 Hct 40.2 % (42.0-52.0) L 09/05/19 15:19 MCV 98.4 fL (78.0-98.0) H 09/05/19 15:19 Plt Count 376 thou/uL (130-400) 09/05/19 15:19 Neutrophils % 58.1 % (42.0-75.0) 09/05/19 15:19 Sodium 137 mmol/L (136-145) 09/05/19 15:19 Potassium 4.4 mmol/L (3.5-5.1) 09/05/19 15:19 Chloride 101 mmol/L (98-107) 09/05/19 15:19 Carbon Dioxide 30 mmol/L (23-31) 09/05/19 15:19 BUN 15 mg/dL (8.4-25.7) 09/05/19 15:19 Creatinine 0.93 mg/dL (0.7-1.3) 09/05/19 15:19 Glucose 116 mg/dL (80-115) H 09/05/19 15:19 Lactic Acid 1.5 mmol/L (0.5-2.2) 09/05/19 15:19 Calcium 9.5 mg/dL (7.8-10.44) 09/05/19 15:19 Total Bilirubin 0.2 mg/dL (0.2-1.2) 09/05/19 15:19 AST 16 U/L (5-34) 09/05/19 15:19 ALT 18 U/L (8-55) 09/05/19 15:19 Alkaline Phosphatase 82 U/L (40-110) 09/05/19 15:19 Serum Total Protein 7.8 g/dL (5.8-8.1) 09/05/19 15:19 Albumin 3.8 g/dL (3.4-4.8) 09/05/19 15:19 - Radiology Interpretation Chest x-ray Status: report reviewed by me (No acute process) FMR H&P: A/P - Plan Tracheobronchitis - Resp culture and GS - Received vanc and cefepime in the ED - Transitioned to zosyn, will plan for augmentin PO on DC - Will further direct IV abx per GS results as needed - COVID swabbed in the ED - low suspicion for this - O2 monitoring, goal >92% - CXR: no acute process - Plan for consulting Dr. Regalado tomorrow VTE: Lovenox Diet: Regular IVF: SL Code: Full Dispo: Admit to medical obs for IV abx. ELOS <48hr PCP: No Doc FMR H&P: Upper Level - Plan Date/Time: 09/05/19 1647 Addendum - Attending - Attending Attestation Date/Time: 09/05/19 1900 I personally evaluated the patient and discussed the management with Dr. Wing I agree with the History, Examination, Assessment and Plan documented above with any addition or exceptions noted below. 69 yo male with past medical hx of laryngeal CA s/p radiation now with tracheostomy presents to ER for evaluation of SOB. Patient is poor historian. Notes increased secretions and SOB. Patient with recurrent hx of aspiration pneumonitis and supraglotitis with recent admission in June to July. Patient also with longstanding history of COPD and tobacco use. During admission in July required prolonged mechanical ventilation that was complicated by airway obstruction and therefore received trach placement. Patient reports he dose not know how to perform any of his trach care. Has a daughter that helps him. Could not tell me regiment. States no way of suctioning at home. Recently underwent Barium swallow due to dysphagia and recurrent aspiration. Positive for liquids. Patient denies fever or chills. Does not attempt to cough due to secretions. VS, labs, imaging reviewed. - acute respiratory failure: Hypoxic. Now improved with supplemental O2 and trach suctioning. No home care at this time. Will admit for obs. - poor trach care: Patient unsure of care. Will need to speak with daughter. No suction at home. Low suspicion for tracheititis but work up pending. Patient's secretions complicated by dysphasia due to radiation therapy. Will continue to suction while in house. Start anticholinergic to help secretions. Notify Leslee of admission. - COPD: Continue home meds - Dysphasia: Need to determine dietary needs. +Barium study in July. - Tobacco use - PPX: SCDs. Ambulation. GI as indicated. - Notify Leslee due to admission. [place]
[2019-09-05] MEDS ORDERED: Vancomycin 1.5 GRAM/300 ML BAG 1.5 GM in Premix Bag 1 BAG IVPB SCH (17:45)
[2019-09-05] MEDS ORDERED: Albuterol 200 PUFF (6.7GM INHALER) INH PRN (18:00)
[2019-09-05] MEDS ORDERED: Piperacillin/Tazobactam 4.5 GM in Sodium Chloride 0.9% 100 ML IVPB SCH (18:00)
[2019-09-05 21:50] VITALS: BMI 24.0
[2019-09-05] MEDS ORDERED: Scopolamine 1.5 mg/72 hour Patch TD SCH (23:00)
[2019-09-05] MEDS: Mometasone 100 MCG/Formoterol 5 MCG 120 PUFF INHALER INH SCH (23:30)
[2019-09-06] MEDS: Piperacillin/Tazobactam 4.5 GM in Sodium Chloride 0.9% 100 ML IVPB SCH ×3 (00:02→11:43)
[2019-09-06] MEDS: Acetaminophen 325 MG TAB PO PRN ×2 (00:03→20:40)
[2019-09-06 06:21] LABS: Mean Corpuscular HGB CONC 30.5 g/dL (32.0-36.0); Mean Corpuscular Hemoglobin 29.9 pg (27.0-31.0); Mean Corpuscular Volume 98.3 fL (78.0-98.0); Mean Platelet Volume 7.5 fL (7.4-10.4); Platelet Count 307 thou/uL (130-400); RBC Distribution Width 14.7 % (11.5-14.5); Red Blood Cell (RBC) Count 3.67 mill/uL (4.70-6.10); White Blood Cell (WBC) Count 6.9 thou/uL (4.8-10.8)
[2019-09-06 06:32] LABS: MDiff Complete? YES
[2019-09-06 06:33] LABS: Band 3 % (5-11); Eosinophils 3 % (0-10); Hypochromia SLIGHT = 6-15 cells (100X) (0-5/hpf); Lymphocytes 24 % (21-51); Monocytes 15 % (0-10); Neutrophil 55 % (42-75); Platelet Morphology Comment Appears Adequate
[2019-09-06 06:40] LABS: Anion Gap 12 mmol/L (10-20); BUN (Urea Nitrogen) 12 mg/dL (8.4-25.7); Calc. Creatinine Clearance 81 mL/min (70-130); Calcium 8.8 mg/dL (7.8-10.44); Carbon Dioxide 24 mmol/L (23-31); Chloride 107 mmol/L (98-107); Estimated GFR-MDRD Greater than 90; Glucose 109 mg/dL (80-115); Potassium 4.1 mmol/L (3.5-5.1); Sodium 139 mmol/L (136-145)
--- NOTE | 2019-09-06 07:24 | PDOC.FM ---
- Subjective Subjective: States he is feeling better, area around trach feels better, still has mild sore throat. breathing is much better with proper trach cares and suctioning. Denies fevers/chills. Instructed him to pay attention to how nurses care for his trach and ask any questions he has about proper trach care while he is here. Nurses to educate. - Objective Vital Signs & Weight: Vital Signs (12 hours) Temp Pulse Resp BP BP Pulse Ox 09/06/19 04:00 98.5 F 96 18 109/73 99 09/06/19 00:00 99.3 F 106 H 18 107/63 99 09/05/19 21:00 99.4 F 101 H 18 122/80 99 09/05/19 20:31 99.4 F 101 H 19 122/80 99 09/05/19 20:25 99.4 F 101 H 19 122/80 99 09/05/19 19:43 99 Weight Weight 67.721 kg Result Diagrams: 09/06/19 06:06 09/06/19 06:06 Phys Exam - Physical Examination Constitutional: NAD HEENT: moist MMs, sclera anicteric Neck: full ROM Trach in place with T collar on, CDI Respiratory: clear to auscultation bilateral Cardiovascular: RRR Gastrointestinal: soft, non-tender Musculoskeletal: no edema Neurological: moves all 4 limbs Psychiatric: A&O x 3 Dx/Plan - Plan Plan: Tracheobronchitis - Resp GS showing moderate G+ and few G- - Received vanc and cefepime in the ED - Transitioned to zosyn, will transition to augmentin today - COVID swabbed in the ED - low suspicion for this, results pending - O2 monitoring, goal >92% - Plan to notify Dr. Regalado today of patient's admission Trach Care - Pt and daughter express poor understanding of proper trach care - No suction at home Dysphagia - Positive findings on barium swallow in July - Will consult ST for dietary recs VTE: Lovenox Diet: Regular IVF: SL Code: Full Dispo: Admit to medical obs for IV abx. ELOS <48hr PCP: No Doc Addendum - Attending - Attending Attestation Date/Time: 09/06/19 1012 I personally evaluated the patient and discussed the management with Dr. Wing. I agree with the History, Examination, Assessment and Plan documented above with any addition or exceptions noted below.
[2019-09-06] MEDS: Enoxaparin Sodium 40 MG/0.4 ML SYRINGE SC SCH (09:29)
[2019-09-06] MEDS: Mometasone 100 MCG/Formoterol 5 MCG 120 PUFF INHALER INH SCH ×2 (10:30→19:59)
[2019-09-06] MEDS: Thiamine 100 MG TAB PER TUBE SCH (10:52)
[2019-09-06] MEDS: Pantoprazole 40 MG GRANULES PACKET PER TUBE SCH (10:53)
[2019-09-06 12:19] LABS: SARS-CoV-2 MS2 Positive; SARS-CoV-2 N Gene Negative; SARS-CoV-2 S Gene Negative; SARS-CoV-2 orf1ab Negative
[2019-09-06] MEDS ORDERED: Diabetic Tussin 200 MG/10 ML UDCUP PO PRN (12:30)
--- NOTE | 2019-09-06 17:22 | CON ---
DATE OF CONSULTATION: HISTORY OF PRESENT ILLNESS: Brenden Mariscal is a 69-year-old male, patient of Dr. Regalado's, trach in place, who presented to the hospital yesterday evening with issues with secretions and tracheal problem, his chest x-ray is completely normal. He was just recently discharged from the hospital, had apparently trach change at that time. PAST MEDICAL HISTORY: Pertinent for head and neck cancer, status post radiation, dysphagia, recurrent aspiration, previous surgeries for trach and PEG. SOCIAL HISTORY: No alcohol. Former smoker. No drug abuse. Lives at home. HOME MEDICATIONS: Include; 1. Thiamine. 2. Protonix. 3. DuoNeb. 4. Albuterol inhaler. ALLERGIES: NONE. REVIEW OF SYSTEMS: Ten-point negative. PHYSICAL EXAMINATION: VITAL SIGNS: Saturations are 98 on a trach collar. Respiratory rate 18, blood pressure , temperature 98, pulse 93. CHEST: No wheezing or crackles. CARDIAC: Normal S1, normal S2. No gallops. ABDOMEN: No masses. Abdomen is soft. LABORATORY DATA: White count 6000. Lytes are normal. Swab was done for virus, pending. ASSESSMENT AND PLAN: 1. Retained secretions, chronic obstructive pulmonary disease, cachexia. 2. cancer. I have added low-dose steroids to his present regimes, though it appears his x-rays is really unremarkable. Hopefully, once the coronavirus test is negative, he could be discharged home on oral antibiotics and low-dose steroids for few days. Consultation note, 70 minutes, 50% direct patient care. Job ID: [id number]
[2019-09-06] MEDS: Amoxicillin/Potassium Clav 875 MG TAB PO SCH (20:39)
[2019-09-06] MEDS: methylPREDNISolone Sod Succ 40 MG VIAL IVP SCH (20:40)
[2019-09-07] MEDS: Acetaminophen 325 MG TAB PO PRN (03:40)
--- NOTE | 2019-09-07 05:50 | PDOC.FM ---
- Subjective Subjective: Patient was resting comfortably in his bed, watching TV and eating breakfast, at the time of evaluation. He denied any acute overnight events, particularly with regard to fever, chills or worsening cough. - Objective Vital Signs & Weight: Vital Signs (12 hours) Temp Pulse Resp BP Pulse Ox 09/07/19 04:00 98.0 F 69 20 102/63 100 09/06/19 23:48 98.5 F 86 20 112/75 100 09/06/19 23:37 98 09/06/19 20:01 99 09/06/19 19:59 16 96 09/06/19 19:12 98.6 F 99 20 121/72 94 L Weight Weight 67.721 kg Result Diagrams: 09/06/19 06:06 09/06/19 06:06 Phys Exam - Physical Examination Constitutional: NAD HEENT: moist MMs, oral pharynx no lesions Neck: supple, full ROM Respiratory: no wheezing, no rales, no rhonchi, clear to auscultation bilateral Cardiovascular: RRR, no significant murmur, no rub Gastrointestinal: soft, non-tender, no distention, positive bowel sounds Musculoskeletal: no edema, pulses present Neurological: non-focal, moves all 4 limbs Dx/Plan (1) COPD (chronic obstructive pulmonary disease) Status: Acute (2) History of throat cancer Code(s): Z85.819 - PRSNL HX OF MALIG NEOPLM OF UNSP SITE LIP,ORAL CAV,& PHARYNX Status: Acute (3) Sore throat Code(s): J02.9 - ACUTE PHARYNGITIS, UNSPECIFIED Status: Acute (4) Tracheobronchitis Code(s): J40 - BRONCHITIS, NOT SPECIFIED ACUTE OR CHRONIC Status: Acute - Plan Plan: Patient is a 69 y/o male with a recently placed tracheostomy due to Acute Hypoxic Respiratory Failure that required long-term intubation who presented to the ED for evaluation of worsening cough and sputum production, as well as increased pain at the tracheostomy site. 1. Tracheobronchitis - Gm Stain / Cx (Respiratory): Serratia marcescens, resistant to Cefoxitim - s/p Vanc and Cefepime in ED, subsequently transitioned to Zosyn and then de- escalated to Augmentin - COVID-19: Negative, swabbed in ED - Continuous O2 Monitoring - Goal: > 92% - Dr. Jaramillo ([facility]): Consulted, recs appreciated - Dr. Regalado ([facility]) notified of admission, will ensure outpatient follow-up 2. Trach Care - Patient and daughter expressed poor understanding of proper tracheostomy care during initial evaluation - Patient states that he now has suction device at home - Patient and daughter re-educated by Nursing 3. Dysphagia - Positive findings on Barium Swallow Study in 07/30 - Speech Therapy: Consulted, recs appreciated PCP: CC Code: Full Activity: Ad ragini Diet: Soft w/ Gravy VTE PPx: Lovenox Dispo: Patient is currently stable and admitted to the Medical Floor for ongoing management of Tracheobronchitis. Will likely plan to DC today w/ PO Augmentin, s/p patient education on proper tracheostomy. Will ensure close follow-up with Dr. Regalado ([facility]) for for evaluation of tracheostomy and likely removal. Expected LOS < 24H.
[2019-09-07] MEDS: Mometasone 100 MCG/Formoterol 5 MCG 120 PUFF INHALER INH SCH (08:13)
[2019-09-07] MEDS: Enoxaparin Sodium 40 MG/0.4 ML SYRINGE SC SCH (08:40)
[2019-09-07] MEDS: Pantoprazole 40 MG GRANULES PACKET PER TUBE SCH (08:40)
[2019-09-07] MEDS: Thiamine 100 MG TAB PER TUBE SCH (08:40)
[2019-09-07] MEDS: Amoxicillin/Potassium Clav 875 MG TAB PO SCH (08:40)
[2019-09-07] MEDS: methylPREDNISolone Sod Succ 40 MG VIAL IVP SCH (08:40)
[2019-09-07 11:17] VITALS: BP 120/75; TEMP 98.3
--- NOTE | 2019-09-07 14:04 | PRG ---
DATE OF SERVICE: 09/07/2019 Please see note from Dr. Pierre, for which, I agree. The patient was seen, evaluated, and discussed with the residents and examined with the residents by bedside. Here for tracheitis, is improved. Breathing okay. Had a swallowing study and has Speech Therapy's recommendations as far as safe diet to prevent aspiration. He will be sent out on Augmentin for another week to treat the Serratia and is to follow up with Dr. Regalado. Job ID: [id number]
--- NOTE | 2019-09-08 08:32 | DIS ---
DATE OF ADMISSION: 09/05/2019 DATE OF DISCHARGE: 09/07/2019 RESIDENT: Lyle Pierre MD ADMITTING ATTENDING: Halina Dial MD DISCHARGE ATTENDING: Jose Hilton MD CONSULTS: Prabhjot Jaramillo MD, Pulmonology. PROCEDURES: Chest x-ray performed on 09/05/2019, which revealed no evidence of acute cardiopulmonary disease. PRIMARY DIAGNOSIS: Tracheobronchitis. 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 DISCHARGE MEDICATIONS: 1. Augmentin 875 mg p.o. b.i.d. for 6 days. 2. Prednisone 40 mg p.o. q.a.m. for 5 days. 3. Albuterol sulfate HFA inhaler. 4. Symbicort 80/4.5 mg. 5. Ipratropium/albuterol sulfate 3 mL nebulizer. 6. Pancrelipase DR 12,000. 7. Pantoprazole 40 mg daily. 8. Thiamine 100 mg daily. DISCONTINUED MEDICATIONS: None. HISTORY OF PRESENT ILLNESS/HOSPITAL COURSE: The patient is a 69-year-old male, presents to the emergency department with complaint of 1 to 2 days of increased sputum production from his tracheostomy. The patient had a tracheostomy placed 2 months prior after an episode of acute hypoxic respiratory failure secondary to aspiration pneumonia that required long-term intubation. The patient had been following Dr. Regalado, Pulmonology ever since. The patient states that along with increased sputum production over the past several days, he had also experienced pain surrounding his tracheostomy site, but the patient denied fevers, chills, or coughing. The patient did note that he has had some shortness of breath, but this is much better after he received suction in the ED through his tracheostomy. The patient states that he does not have a PCP and admits to poor intermittent care of his tracheostomy at home. The patient was given 1 L bolus of normal saline and started on cefepime and vancomycin, and subsequently transferred to the medical floor. Respiratory cultures were taken from the patient's tracheostomy site, which grew back Serratia marcescens resistant only to cefoxitin, as such, the patient' s antibiotic regimen was subsequently de-escalated from vancomycin and cefepime to Zosyn and subsequently to Augmentin 875 mg p.o. b.i.d. The patient's respiratory status improved greatly during his hospitalization as he was able to receive intermittent suction and appropriate care for his tracheostomy site. The patient as well as the patient's daughter were educated on proper tracheostomy site maintenance and cleaning and were as such provided with a suction device for home use prior to discharge. As the patient's respiratory status continued to improve with increased care of the patient's tracheostomy site, he was subsequently prepped for discharge. Prior to discharge, the patient's vital signs were recorded as temperature 98.4, pulse 88 beats per minute, respirations 16 per minute, oxygen saturations 96% on 5 L of blow-by via trach collar, blood pressure was 104/69. LABORATORY ANALYSIS: Revealed a white blood cell count of 6.9, hemoglobin of 11 , hematocrit 36.1, platelet count 307. Coag panel revealed an elevated D-dimer of 0.49. Chem panel revealed a sodium of 139, potassium 4.1, chloride 107, carbon dioxide 24, BUN 12, creatinine 0.84, glucose 109, lactic acid 1.5, calcium 8.8, total bilirubin 0.2, AST 16, ALT 18, alkaline phosphatase 82. Troponins 0.01. The patient was also COVID swabbed in the emergency department, although, the suspicion for COVID infection was relatively low. COVID swab was confirmed to be negative prior to discharge. Flu swabs for influenza A and B were also negative and blood cultures taken from the patient's left arm have not shown growth to date prior to discharge. DISPOSITION: Stable. DISCHARGE INSTRUCTIONS: 1. Location: Home. 2. Diet: Heart healthy. 3. Activity: No restrictions. 4. Followup: The patient was encouraged to follow up with his previously established primary care provider, Dr. Regalado, Pulmonology within 1 to 2 weeks in order to discuss the most recent hospitalization as well as establish a plan for reducing the patient's tracheostomy site as this was currently unknown to the patient. The patient was encouraged to continue appropriate tracheostomy site maintenance as well as intermittent suctioning as instructed by the resident day team. The patient' s daughter was also educated on this as well. Job ID: [id number] [facility]
== END 2019-09-07 16:48 | disposition home or self-care (01) ==
LOC: ERS 13:55 → T4-A 16:34
PROVIDERS: ADMIT Student in an Organized Health Care Education/Training Program; ATTEND Student in an Organized Health Care Education/Training Program
DX: J40 Bronchitis, not specified as acute or chronic (principal); J44.9 Chronic obstructive pulmonary disease, unspecified; R13.10 Dysphagia, unspecified; J02.9 Acute pharyngitis, unspecified; J96.01 Acute respiratory failure with hypoxia; E46 Unspecified protein-calorie malnutrition; Z68.24 Body mass index [BMI] 24.0-24.9, adult; Z20.828 Contact with and (suspected) exposure to other viral communicable diseases; Z85.21 Personal history of malignant neoplasm of larynx; Z87.891 Personal history of nicotine dependence; Z79.899 Other long term (current) drug therapy; Z93.0 Tracheostomy status
CPT/HCPCS: 71045; 80048; 80053; 83605; 84484; 85025 ×2; 85379; 87040; 87070; 87077; 87186; 87205; 87804 ×2; 93005; 94640 ×8; 96365; 96366; 96367; 99285; U0003; 36415; 87635; 96372; 96375; 96376; G0378; J0692; J1650; J2543; J2920; J3370; J3490; J7620

== ENCOUNTER 2019-10-13 14:30 | Emergency (ER) | payer MEDICARE, OTHER | END 2019-10-13 16:52 | disposition home or self-care (01) | LOC: ERS 14:30 | DX: Z43.0 Encounter for attention to tracheostomy (principal); Z87.891 Personal history of nicotine dependence | CPT/HCPCS: 31502 ==

== ENCOUNTER 2019-10-14 08:07 | Emergency (ER) | payer MEDICARE, OTHER | END 2019-10-14 09:17 | disposition home or self-care (01) | LOC: ERS 08:07 | DX: J95.03 Malfunction of tracheostomy stoma (principal); Z87.891 Personal history of nicotine dependence; Z87.01 Personal history of pneumonia (recurrent); Z85.850 Personal history of malignant neoplasm of thyroid | CPT/HCPCS: 99283 ==

== ENCOUNTER 2019-11-24 09:40 | Emergency (ER) | payer MEDICARE, OTHER ==
--- NOTE | 2019-11-24 10:51 | RAD ---
Chest one view HISTORY: Dyspnea. Complications with tracheostomy appliance. COMPARISON: 10/16/2019. FINDINGS: Cardiac silhouette is magnified by projection. Pulmonary vasculature is unremarkable. Mediastinum is midline. Tracheostomy appliance overlies the upper trachea. Lungs remain slightly hyperinflated with scattered areas of mild scarring. No lobar consolidation or evidence of pneumothorax. IMPRESSION : Tracheostomy appliance in good position. Chronic-type findings are stable. No acute abnormalities are demonstrated.
== END 2019-11-24 11:59 | disposition home or self-care (01) ==
LOC: ERS 09:40
DX: J95.03 Malfunction of tracheostomy stoma (principal); Z87.891 Personal history of nicotine dependence; Z85.850 Personal history of malignant neoplasm of thyroid; Z79.899 Other long term (current) drug therapy; Z79.51 Long term (current) use of inhaled steroids
CPT/HCPCS: 71045

== ENCOUNTER 2019-11-24 13:02 | Emergency (ER) | payer MEDICARE, OTHER ==
[2019-11-24] MEDS ORDERED: Dexamethasone 10 MG/ML VIAL ONE (13:33)
== END 2019-11-24 14:42 | disposition home or self-care (01) ==
LOC: ERS 13:02
DX: J02.9 Acute pharyngitis, unspecified (principal); J44.9 Chronic obstructive pulmonary disease, unspecified; Z87.891 Personal history of nicotine dependence; Z93.0 Tracheostomy status; Z85.21 Personal history of malignant neoplasm of larynx; Z79.899 Other long term (current) drug therapy; Z79.51 Long term (current) use of inhaled steroids
CPT/HCPCS: 71045; 87081; 87430; 99283; J1100

== ENCOUNTER 2019-12-04 14:17 | Emergency (ER) | payer MEDICARE, OTHER ==
[2019-12-04] MEDS ORDERED: Acetaminophen 500 MG TAB ONE (15:21)
== END 2019-12-04 15:17 | disposition home or self-care (01) ==
LOC: ERS 14:17
DX: H73.891 Other specified disorders of tympanic membrane, right ear (principal); K02.9 Dental caries, unspecified
CPT/HCPCS: 99281

== ENCOUNTER 2020-01-01 22:20 | Emergency (ER) | payer MEDICARE, MEDICAID | END 2020-01-02 00:24 | disposition home or self-care (01) | LOC: ERS 22:20 | DX: Z43.0 Encounter for attention to tracheostomy (principal); Z87.891 Personal history of nicotine dependence; Z79.899 Other long term (current) drug therapy | CPT/HCPCS: 99283 ==

== ENCOUNTER 2020-01-06 07:58 | Outpatient (CLI) | payer MEDICARE, OTHER ==
[2020-01-06 18:28] LABS: Anion Gap 15 mmol/L (10-20); BUN (Urea Nitrogen) 17 mg/dL (8.4-25.7); Calc. Creatinine Clearance 0 mL/min (70-130); Calcium 8.9 mg/dL (7.8-10.44); Carbon Dioxide 27 mmol/L (23-31); Chloride 100 mmol/L (98-107); Estimated GFR-MDRD Greater than 90; Glucose 114 mg/dL (80-115); Potassium 4.9 mmol/L (3.5-5.1); Sodium 137 mmol/L (136-145)
[2020-01-07 11:07] LABS: SARS-CoV-2 MS2 Positive; SARS-CoV-2 N Gene Negative; SARS-CoV-2 S Gene Negative; SARS-CoV-2 by NAA Not Detected (NotDetected); SARS-CoV-2 orf1ab Negative
== END 2020-01-06 07:59 | disposition home or self-care (01) ==
LOC: LABBT 07:58
PROVIDERS: ATTEND Specialist
DX: Z01.818 Encounter for other preprocedural examination (principal); Z20.828 Contact with and (suspected) exposure to other viral communicable diseases; J02.9 Acute pharyngitis, unspecified; Z85.21 Personal history of malignant neoplasm of larynx
CPT/HCPCS: 80048; 85014; 85018; 93005; U0003; 87635; 93010

== ENCOUNTER 2020-01-09 08:23 | Day surgery (SDC) | payer MEDICARE, MEDICAID ==
[2020-01-08 10:02] VITALS: BMI 17.4
[2020-01-09] MEDS ORDERED: Fentanyl 100 MCG/2 ML VIAL ONE ×2 (08:37→10:03)
[2020-01-09] MEDS ORDERED: Ondansetron PF 4 MG/2 ML Vial ONE (10:26)
[2020-01-09] MEDS ORDERED: PROPOFOL 200 MG/20 ML VIAL ONE (10:26)
[2020-01-09] MEDS ORDERED: Succinylcholine 200 MG/10 ml SYRINGE FS ONE (10:26)
[2020-01-09] MEDS ORDERED: PHENYLEPHRINE-NS 100 MCG/ML 10 ML SYRINGE ONE (10:26)
[2020-01-09] MEDS ORDERED: Dexamethasone 20 MG/5 ML VIAL ONE (10:26)
--- NOTE | 2020-01-09 13:58 | CT ---
Exam: Postcontrast soft tissue neck CT HISTORY: Status post laryngoscopy. Thyroid and vocal cord cancer. Tracheostomy replacement. COMPARISON: 10/16/2019, 07/07/2019. CORRELATION: Head CT 06/19/2019. FINDINGS: There is appropriate enhancement of the visualized brain parenchyma. There is abnormal hyperdensity involving the right globe, incompletely evaluated. Hyperdensity is not ed on a CT from 06/19/2019. Correlate for possible previous retinal detachment. There is calcification of the right lens. There is adequate aeration of the visualized paranasal sinuses. Jimenez te right lamina papyracea fracture. No obvious mucosal abnormality of the nasopharynx. The anterior oral cavity has a normal appearance. No obvious masses. Midline fatty raphae of the tongue is preserved. Epiglottis is thickened. There is edema involving the supraglottic, glottic and subglottic larynx. There is a fluid collection with air and peripheral enhancement involving the subglottic larynx with extension into the anterior right subglottic region. This fluid is adjacent to the thyroid cartilage and inferior to the hyoid margie ne. The largest component of fluid and air measures 2.7 x 1.4 cm. There is a smaller contiguous focus just posterior to the right hyoid bone measuring 1.5 x 0.9 cm. Abnormal enhancement and fluid a ttenuation appears to also involve the false and true vocal cords, right greater than left. Tracheostomy is identified. Position is appropriate. Upper mediastinum and lung apices: Nonenlarged right paratracheal lymph node. Cervical spine: Stable degenerative changes throughout the cervical spine. There is severe degenerati ve disc disease at C3-C4 and C6-C7. No evidence of lymphadenopathy by size criteria. Upper normal right level 5 lymph node measures 1.2 x 0.6 cm. Symmetric attenuation of the parotid and submandibular glands Unremarkable thyroid gland. IMPRESSION: 1. Extensive edematous changes involving the epiglottis, supraglottic, glottic and subglottic larynx. 2. Redemonstration of a fluid collection with air attenuation and peripheral enhancement compatible w ith a soft tissue neck abscess. This abscess is predominantly inferior to the hyoid bone, courses along the tracheal cartilage and is noted along the anterior left and right aspect of the supraglotti c, glottic larynx. When compared to the previous examination, the area of infected fluid has increased. 3. Presumed chronic changes involving the right globe. Clinical correlation is recommended. 4. Interval placement of a tracheostomy which appears be appropriately positioned. Transcribed Date/Time: 01/09/2020 2:10 PM
[2020-01-09] MEDS ORDERED: Iopamidol-370 76% 500 ML 1 ML ONE (14:18)
--- NOTE | 2020-01-10 14:15 | OP ---
DATE OF PROCEDURE: 01/09/2020 PREOPERATIVE DIAGNOSES: 1. Upper airway obstruction. 2. Personal history of laryngeal cancer. POSTOPERATIVE DIAGNOSES: 1. Upper airway obstruction. 2. Personal history of laryngeal cancer. PROCEDURES PERFORMED: 1. Microsuspension laryngoscopy with laryngeal biopsy. 2. Rigid tracheoscopy. PROCEDURE IN DETAIL: The patient was identified, brought to the operating room, placed on the operating room table in supine position. General endotracheal anesthesia was obtained via the tracheostomy tube. The patient was placed under anesthesia. The position of the patient for laryngeal evaluation. There was diffuse radiation changes encountered in the oral cavity, oropharynx, hypopharynx, and larynx. There were grossly excoriated tissues, which were photographed. Biopsies were obtained of the false cord region and arytenoid region, sent for histologic evaluation. No true abscesses were encountered; however, there was a fair amount of radionecrotic tissue. We then removed the tracheostomy tube and performed rigid tracheostomy to the obstructive larynx. The subglottic space beyond the tracheostomy tube was normal all the way down to the filiberto and both right and left mainstem appeared normal. There was also seemed to be adequate mucosa in the posterior aspect of the esophageal inlet, which would suggest surgical resection being possible. The patient was then awakened and taken to recovery room in a stable condition prior to discharge home. Job ID: [id number]
== END 2020-01-09 14:25 | disposition home or self-care (01) ==
LOC: SDC 08:23
PROVIDERS: ATTEND Specialist
PROC: 0CBS8ZX Excision of Larynx, Via Natural or Artificial Opening Endoscopic, Diagnostic (ICD-10-PCS; principal; 2020-01-09)
PROC: 0BB18ZX Excision of Trachea, Via Natural or Artificial Opening Endoscopic, Diagnostic (ICD-10-PCS; 2020-01-09)
DX: J98.8 Other specified respiratory disorders (principal); J02.9 Acute pharyngitis, unspecified; F17.210 Nicotine dependence, cigarettes, uncomplicated; Z85.21 Personal history of malignant neoplasm of larynx
CPT/HCPCS: 70491; 88305; J1100; J2405; J2704; J3010; Q9967

== ENCOUNTER 2020-01-12 18:35 | Inpatient (IN) | payer MEDICARE, MEDICAID ==
[2020-01-12 19:05] LABS: #Eosinphils 0.1 thou/uL (0.0-0.7); #Lymphocytes 1.1 thou/uL (1.20-3.40); #Neutrophils 8.9 thou/uL (1.40-6.50); %Basophils 0.3 % (0.0-1.0); %Eosinophils 0.6 % (0.0-10.0); %Lymphocytes 9.6 % (21.0-51.0); %Monocytes 9.2 % (0.0-10.0); %Neutrophils 80.3 % (42.0-75.0); Hemoglobin 10.3 g/dL (14.0-18.0); Mean Corpuscular Hemoglobin 29.7 pg (27.0-31.0); Mean Corpuscular Volume 92.8 fL (78.0-98.0); Platelet Count 349 thou/uL (130-400); RBC Distribution Width 14.5 % (11.5-14.5); Red Blood Cell (RBC) Count 3.47 mill/uL (4.70-6.10); White Blood Cell (WBC) Count 11.1 thou/uL (4.8-10.8)
[2020-01-12] MEDS ORDERED: cefTRIAXone\\ROCEPHIN 2 GM VIAL ONE (19:11)
[2020-01-12] MEDS ORDERED: Acetaminophen 650 MG Suppository ONE (19:13)
--- NOTE | 2020-01-12 19:22 | RAD ---
Chest AP view INDICATION: Shortness of breath and tachycardia COMPARISON: Prior exam dated November 24, 2019 FINDINGS: Lungs: There is airspace consolidation the right lower lobe which is new. Left lung is clear. Cardiac silhouette: Mild cardiomegaly is stable. Pulmonary vasculature: Normal Pleural spaces: No pleural effusion or pneumothorax is demonstrated. Upper abdomen: No abnormality seen. Osseous structures: No acute osseous abnormality. Additional findings: None. IMPRESSION: Right lower lobe pneumonia.
[2020-01-12 19:29] LABS: ALT (SGPT) 25 U/L (8-55); AST (SGOT) 18 U/L (5-34); Albumin 3.2 g/dL (3.4-4.8); Alkaline Phosphatase 63 U/L (40-110); Anion Gap 15 mmol/L (10-20); BUN (Urea Nitrogen) 15 mg/dL (8.4-25.7); Bilirubin, Total 0.3 mg/dL (0.2-1.2); Calc. Creatinine Clearance 0 mL/min (70-130); Calcium 8.7 mg/dL (7.8-10.44); Carbon Dioxide 26 mmol/L (23-31); Chloride 98 mmol/L (98-107); Estimated GFR-MDRD Greater than 90; Globulin 3.3 g/dL (2.4-3.5); Glucose 134 mg/dL (80-115); Lipase 10 U/L (8-78); Potassium 5.1 mmol/L (3.5-5.1); Protein, Total 6.5 g/dL (5.8-8.1); Sodium 134 mmol/L (136-145)
[2020-01-12 19:42] LABS: Bacteria/HPF None Seen HPF (None Seen); Bilirubin Negative (Negative); Blood, Urine Negative (Negative); Clarity Clear (Clear); Glucose, Urine (Dipstick) Normal (Negative); Ketone, Urine Negative (Negative); Leukocyte Negative Leu/uL (Negative); Mucous/LPF 1+ LPF (<2+); Nitrite Negative (Negative); Protein, Urine (Dipstick) 30 mg/dL (Neg-Trace); Specific Gravity, Urine 1.026 (1.002-1.036); Squamous Epithelial None Seen HPF (0-3); Urobilinogen 3 mg/dL (Less than 2); WBC/HPF 0-3 HPF (0-3); pH, Urine 6.5 (5.0-9.0)
[2020-01-12 19:49] LABS: CKMB 0.8 ng/mL (0-6.6)
[2020-01-12] MEDS ORDERED: Ibuprofen 100 MG/5 ML UDCUP ONE (20:33)
--- NOTE | 2020-01-12 20:34 | PDOC.FPRHP ---
- History of Present Illness Chief Complaint: SOB History of Present Illness: This is a 69yo M who was transported from home by EMS for 2-3 days of worsening fever, cough, and SOB. Patient has a trach and is unable to speak. He is able to answer yes/no questions appropriately. He denies any chest pain, palpitations, abd pain. He reports fever. He endorses blurry vision. Reports difficulty breathing and SOB. Reports coughing with white phlegm. He denies NVD or urinary issues. EMS states measured fever of 102F at home. Patient is not normally on O2. - Allergies/Adverse Reactions Allergies Allergy/AdvReac Type Severity Reaction Status Date / Time No Known Drug Allergies Allergy Verified 01/08/20 10:06 - Home Medications Medication Instructions Recorded Confirmed Type Budesonide-Formoterol [Symbicort 1 puff IH QID PRN 07/02/19 01/08/20 History 80-4.5] Ipratropium/Albuterol Sulfate 3 ml NEB QID PRN 07/02/19 01/08/20 History [DuoNeb] Pantoprazole [Protonix] 40 mg PO BID #60 tab 10/31/19 01/08/20 Rx ALPRAZolam [Alprazolam] 0.25 mg PO BID PRN 01/08/20 01/08/20 History Acetaminophen With Codeine 1 tablet PO Q6HR PRN 01/08/20 01/08/20 History [Tylenol with Codeine #3] Albuterol Sulfate [Albuterol 2 puff INH QID PRN 01/08/20 01/08/20 History Sulfate Hfa] traMADol HCl [Tramadol HCl] 1 - 2 tab PO Q4HR PRN 01/08/20 01/08/20 History traZODone HCl [Trazodone HCl] 50 mg PO HS 01/08/20 01/08/20 History - History PMHx: PSHx: FHx: Social: - Review of Systems General: reports: fever/chills, fatigue. denies: weight/appetite/sleep changes, night sweats Eyes: reports: vision changes (blurry vision) ENT: denies: nasal congestion, rhinorrhea Respiratory: reports: cough (white phlegm), congestion, shortness of breath, exercise intolerance Cardiovascular: denies: chest pain, palpitation, edema Gastrointestinal: denies: nausea, vomiting, diarrhea, constipation, abdominal pain Genitourinary: denies: dysuria Skin: denies: rashes Musculoskeletal: denies: pain, stiffness, swelling Neurological: reports: weakness (and lightheaded) - Vital signs BP: 93/63, MAP: 73, Pulse: 100, Resp: 24, Temp: 101.3 (Rectal), Pain: 8, O2 sat: 100 on (Non Rebreather), Time: 01/12/2020 20:30. Weight 82kg BP: 98/59, MAP: 72, Pulse: 109, Resp: 33, Temp: 103.4 (Rectal), Pain: 10, O2 sat: 93 on (Room Air), Time: 01/12/2020 18:45 FMR H&P: Results - Labs Result Diagrams: 01/12/20 18:55 01/12/20 18:55 Lab results: WBC 11.1 thou/uL (4.8-10.8) H 01/12/20 18:55 Hgb 10.3 g/dL (14.0-18.0) L 01/12/20 18:55 Hct 32.2 % (42.0-52.0) L 01/12/20 18:55 MCV 92.8 fL (78.0-98.0) 01/12/20 18:55 Plt Count 349 thou/uL (130-400) 01/12/20 18:55 Neutrophils % 80.3 % (42.0-75.0) H 01/12/20 18:55 Sodium 134 mmol/L (136-145) L 01/12/20 18:55 Potassium 5.1 mmol/L (3.5-5.1) 01/12/20 18:55 Chloride 98 mmol/L (98-107) 01/12/20 18:55 Carbon Dioxide 26 mmol/L (23-31) 01/12/20 18:55 BUN 15 mg/dL (8.4-25.7) 01/12/20 18:55 Creatinine 0.80 mg/dL (0.7-1.3) 01/12/20 18:55 Glucose 134 mg/dL (80-115) H 01/12/20 18:55 Lactic Acid 1.0 mmol/L (0.5-2.2) 01/12/20 18:55 Calcium 8.7 mg/dL (7.8-10.44) 01/12/20 18:55 Total Bilirubin 0.3 mg/dL (0.2-1.2) 01/12/20 18:55 AST 18 U/L (5-34) 01/12/20 18:55 ALT 25 U/L (8-55) 01/12/20 18:55 Alkaline Phosphatase 63 U/L (40-110) 01/12/20 18:55 CK-MB (CK-2) 0.8 ng/mL (0-6.6) 01/12/20 18:55 B-Natriuretic Peptide 54.2 pg/mL (0-100) 01/12/20 18:55 Serum Total Protein 6.5 g/dL (5.8-8.1) 01/12/20 18:55 Albumin 3.2 g/dL (3.4-4.8) L 01/12/20 18:55 Lipase 10 U/L (8-78) 01/12/20 18:55 Urine Ketones Negative mg/dL (Negative) 01/12/20 19:15 Urine Blood Negative (Negative) 01/12/20 19:15 Urine Nitrite Negative (Negative) 01/12/20 19:15 Ur Leukocyte Esterase Negative Angie/uL (Negative) 01/12/20 19:15 Urine RBC 4-6 HPF (0-3) A 01/12/20 19:15 Urine WBC 0-3 HPF (0-3) 01/12/20 19:15 Ur Squamous Epith Cells None Seen HPF (0-3) 01/12/20 19:15 Urine Bacteria None Seen HPF (None Seen) 01/12/20 19:15 FMR H&P: Upper Level - Plan Date/Time: 01/12/202033 I, [], have evaluated this patient and agree with findings/plan as outlined by sports management internship resident. Pertinent changes/additions are listed here.
[2020-01-12] MEDS ORDERED: Glycopyrrolate 0.2 MG/ML 5 ML SYRINGE SLOW IVP SCH (22:15)
[2020-01-12] MEDS ORDERED: methylPREDNISolone Sod Succ/PF 125 MG/2 ML VIAL ONE (22:59)
[2020-01-12] MEDS ORDERED: Atropine Sulfate 1 mg/10 ml Syringe ONE (23:15)
[2020-01-12] MEDS ORDERED: Atropine Sulfate 1 mg/10 ml Syringe IVP SCH (23:15)
[2020-01-12] MEDS ORDERED: Scopolamine 1.5 mg/72 hour Patch TOP SCH (23:15)
[2020-01-12] MEDS ORDERED: Acetaminophen 650 MG Suppository PR PRN (23:30)
[2020-01-12] MEDS ORDERED: Guaifenesin DM 100-10/5 ML UDCUP PO PRN (23:30)
[2020-01-12] MEDS ORDERED: Ondansetron PF 4 MG/2 ML Vial IVP PRN (23:30)
[2020-01-12] MEDS ORDERED: Calcium Carbonate 500 MG ChewTAB PO PRN (23:30)
[2020-01-12] MEDS ORDERED: Ondansetron ODT 4 MG TAB PO PRN (23:30)
--- NOTE | 2020-01-12 23:38 | PDOC.HHP ---
Hospitalist HPI - History of Present Illness dyspnea History of Present Illness: history is limited patient with tracheostomy, no family members present at the moment of my evaluation. most information obtain from ems and emr records Case of an 69y/o male with pmhx of laryngeal CA in remission with tracheostomy / PEG and hx of recurrent PNAs who comes to hospital due to dyspnea. Apparently patient was on his usual state of health until 2-3 days when he started with gradually worsening fever, chills, coughing, and shortness of breath. He is able to answer yes/no questions, denies chest pain, abdominal pain, diarrhea, vomiting, or dysura. at arrival patient was noted to be on sepsis and bundles were started. hospitalist was called for further evaluation and management. of note while in route patient with hypotension for which ivfs had to be administered Hospitalist ROS - Review of Systems ROS unobtainable: due to endotracheal tube Hospitalist History - Past Surgical History Other Surgical History: peg tracheostomy - Family History Family History: reports: no pertinent history - Social History Smoking Status: Former smoker Alcohol: reports: None Drugs: reports: none - Exam General Appearance: ill appearing Eye: PERRL, anicteric sclera ENT: normocephalic atraumatic, no oropharyngeal lesions Neck: supple, symmetric, no JVD Heart - other findings: tachycadria Respiratory: rhonchi, tachypneic Respiratory - other findings: yellowish sputum from trach Gastrointestinal: soft, non-tender, non-distended Extremities: no cyanosis, no clubbing, no edema Skin: normal turgor, no lesions, no rashes Neurological: cranial nerve grossly intact, normal sensation to touch Musculoskeletal: normal tone, normal strength Psychiatric: normal affect, normal behavior Hospitalist Results - Labs Result Diagrams: 01/12/20 18:55 01/12/20 18:55 Lab results: WBC 11.1 thou/uL (4.8-10.8) H 01/12/20 18:55 Hgb 10.3 g/dL (14.0-18.0) L 01/12/20 18:55 Hct 32.2 % (42.0-52.0) L 01/12/20 18:55 MCV 92.8 fL (78.0-98.0) 01/12/20 18:55 Plt Count 349 thou/uL (130-400) 01/12/20 18:55 Neutrophils % 80.3 % (42.0-75.0) H 01/12/20 18:55 Sodium 134 mmol/L (136-145) L 01/12/20 18:55 Potassium 5.1 mmol/L (3.5-5.1) 01/12/20 18:55 Chloride 98 mmol/L (98-107) 01/12/20 18:55 Carbon Dioxide 26 mmol/L (23-31) 01/12/20 18:55 BUN 15 mg/dL (8.4-25.7) 01/12/20 18:55 Creatinine 0.80 mg/dL (0.7-1.3) 01/12/20 18:55 Glucose 134 mg/dL (80-115) H 01/12/20 18:55 Lactic Acid 1.0 mmol/L (0.5-2.2) 01/12/20 18:55 Calcium 8.7 mg/dL (7.8-10.44) 01/12/20 18:55 Total Bilirubin 0.3 mg/dL (0.2-1.2) 01/12/20 18:55 AST 18 U/L (5-34) 01/12/20 18:55 ALT 25 U/L (8-55) 01/12/20 18:55 Alkaline Phosphatase 63 U/L (40-110) 01/12/20 18:55 CK-MB (CK-2) 0.8 ng/mL (0-6.6) 01/12/20 18:55 Troponin I 0.196 ng/mL (< 0.028) H 01/12/20 18:55 B-Natriuretic Peptide 54.2 pg/mL (0-100) 01/12/20 18:55 Serum Total Protein 6.5 g/dL (5.8-8.1) 01/12/20 18:55 Albumin 3.2 g/dL (3.4-4.8) L 01/12/20 18:55 Lipase 10 U/L (8-78) 01/12/20 18:55 Urine Ketones Negative mg/dL (Negative) 01/12/20 19:15 Urine Blood Negative (Negative) 01/12/20 19:15 Urine Nitrite Negative (Negative) 01/12/20 19:15 Ur Leukocyte Esterase Negative Angie/uL (Negative) 01/12/20 19:15 Urine RBC 4-6 HPF (0-3) A 01/12/20 19:15 Urine WBC 0-3 HPF (0-3) 01/12/20 19:15 Ur Squamous Epith Cells None Seen HPF (0-3) 01/12/20 19:15 Urine Bacteria None Seen HPF (None Seen) 01/12/20 19:15 Hospitalist H&P A/P - Problem (1) Sepsis Code(s): A41.9 - SEPSIS, UNSPECIFIED ORGANISM Status: Acute (2) Pneumonia Code(s): J18.9 - PNEUMONIA, UNSPECIFIED ORGANISM Status: Acute (3) Hx of laryngeal cancer Code(s): Z85.21 - PERSONAL HISTORY OF MALIGNANT NEOPLASM OF LARYNX Status: Acute (4) Elevated troponin Code(s): R77.8 - OTHER SPECIFIED ABNORMALITIES OF PLASMA PROTEINS Status: Acute - Plan Plan: Case of an 69y/o male with the stated pmhx who presents with sepsis secondary to RLL pneumonia sepsis / rll penumonia - elevated wbc, febrile + tachycardic with a cxr consistent with pneumonia - sepsis bundles were started ivfs were given, cultures were taken and pt started on broad spectrum abx - on levaquin on vancomycin - evaluation of previous cultures showd serratia suceptible to levaquin - also covered for mrsa, recent hospitalization. mrsa swap sent. adjust abx as needed - continue ivfs - normal LA elevated troponin - likely due to demand ischemia due to sepsis - will trend
[2020-01-13 00:08] LABS: SARS-CoV-2 NAA Rapid Test Not Detected (NotDetected)
[2020-01-13 00:20] VITALS: BMI 18.1
[2020-01-13 00:24] LABS: Troponin I 0.361 ng/mL (< 0.028)
[2020-01-13] MEDS: HYDROcodone/Acetaminophen 5/325 mg Tablet PO PRN ×2 (01:40→05:14)
[2020-01-13] MEDS ORDERED: Vancomycin 1.5 GRAM/300 ML BAG 1.5 GM in Premix Bag 1 BAG IVPB SCH (02:00)
[2020-01-13] MEDS: Sodium Chloride 0.9% 1,000 ML IV SCH ×3 (02:16→20:29)
[2020-01-13 02:56] LABS: Band 10 % (5-11); Hemoglobin 9.3 g/dL (14.0-18.0); Lymphocytes 5 % (21-51); MDiff Complete? YES; Mean Corpuscular HGB CONC 32.1 g/dL (32.0-36.0); Mean Corpuscular Volume 93.3 fL (78.0-98.0); Mean Platelet Volume 6.8 fL (7.4-10.4); Monocytes 2 % (0-10); Neutrophil 83 % (42-75); Nucleated RBC 1 % (0); Platelet Count 328 thou/uL (130-400); Platelet Morphology Comment Appears Adequate; RBC Distribution Width 14.5 % (11.5-14.5); Red Blood Cell (RBC) Count 3.09 mill/uL (4.70-6.10); White Blood Cell (WBC) Count 9.4 thou/uL (4.8-10.8)
[2020-01-13 03:05] LABS: Troponin I 0.245 ng/mL (< 0.028)
[2020-01-13 03:06] LABS: ALT (SGPT) 20 U/L (8-55); AST (SGOT) 14 U/L (5-34); Albumin 2.8 g/dL (3.4-4.8); Alkaline Phosphatase 53 U/L (40-110); Anion Gap 15 mmol/L (10-20); BUN (Urea Nitrogen) 11 mg/dL (8.4-25.7); Bilirubin, Total 0.3 mg/dL (0.2-1.2); Calc. Creatinine Clearance 94 mL/min (70-130); Calcium 8.4 mg/dL (7.8-10.44); Carbon Dioxide 19 mmol/L (23-31); Chloride 105 mmol/L (98-107); Estimated GFR-MDRD Greater than 90; Globulin 3.4 g/dL (2.4-3.5); Glucose 143 mg/dL (80-115); Potassium 4.1 mmol/L (3.5-5.1); Protein, Total 6.2 g/dL (5.8-8.1); Sodium 135 mmol/L (136-145)
[2020-01-13] MEDS ORDERED: Enoxaparin Sodium 40 MG/0.4 ML SYRINGE SC SCH (09:00)
[2020-01-13] MEDS ORDERED: Propofol 1,000 MG/100 ML VIAL IV ONE (10:34)
[2020-01-13] MEDS ORDERED: Midazolam HCl 2 mg/2 ml Vial ONE (10:40)
[2020-01-13] MEDS ORDERED: Norepinephrine 8 MG/0.9% NS 250 ML ONE (10:43)
[2020-01-13] MEDS ORDERED: Sterile Water 10 ML ONE (10:52)
[2020-01-13] MEDS ORDERED: Vecuronium 10 MG VIAL ONE ×2 (10:52→11:36)
--- NOTE | 2020-01-13 11:34 | RAD ---
RADIOGRAPH CHEST 1 VIEW: DATE: 01/13/2020 TIME: 11:18 AM HISTORY: Status post intubation 69-year-old male.. At 11:29 AM 01/13/2020 Dr. Washington reported the position of the endotracheal tube by telephone to CCU nurs quinten Myles RN. COMPARISON: 01/12/2020 FINDINGS: There is a new endotracheal tube deep in the right mainstem bronchus and possibly in a proximal branc h, distance of approximate 5.5 cm distal to the filiberto. New finding of volume loss in the left lung demonstrated by elevation of the left hemidiaphragm, shif t of the trachea, mediastinum, and heart to the left, and mild haziness of the left lung diffusely. Interval resolution of the focal consolidation at right lung base. New infiltrate-like opacity at right upper lung zone. New hyperinflation of the right lung. Lung apices excluded from [id number]. IMPRESSION: 1) status post intubation deep into the right mainstem bronchus, resulting in atelectasis of the left lung. The endotracheal tube should be retracted approximately 7 or 8 cm. A follow-up repeat chest radiograph is recommended after repositioning of the endotracheal tube. 2) new increased opacification of right lung apex may represent either atelectasis or aspiration.
--- NOTE | 2020-01-13 11:43 | RAD ---
EXAM: CHEST ONE VIEW HISTORY: Endotracheal tube placement. COMPARISON: 01/13/2020 at 1118 hours. FINDINGS: Endotracheal tube has been withdrawn. The tip now overlies the filiberto near the origin of the right ma instem bronchus. Endotracheal tube should be again be slightly withdrawn. There has been improved aeration in the right upper lobe likely related to prominent volume loss and collapse of the right up per lobe. Persistent mild interstitial densities are seen in the right upper lung zone probably due to residual volume loss. Linear densities are also seen at the left lung base probably attributable t o volume loss. Cardiac silhouette and pulmonary vasculature are within normal limits. No other interval change. IMPRESSION: 1. Endotracheal tube has been withdrawn when compared to prior study, but the tip overlies the region of the filiberto and near the origin of the right mainstem bronchus. Endotracheal tube should again be slightly withdrawn with follow-up radiograph obtained. 2. Improved aeration right upper lobe likely related to improvement in atelectasis due to intubation right mainstem bronchus on prior study.
[2020-01-13] MEDS ORDERED: Lidocaine 1% w/Epinephrine 1:100K 20 ML VIAL ONE (11:47)
[2020-01-13] MEDS ORDERED: Vecuronium 10 MG VIAL IV PRN (12:04)
[2020-01-13] MEDS ORDERED: Propofol BOLUS 1,000 MG/100 ML VIAL IV PRN (13:00)
[2020-01-13] MEDS ORDERED: DISCONTINUE PREVIOUS NARCOTIC PAIN MEDICATIONS AND BENZODIAZEPINES FS SCH (13:00)
[2020-01-13] MEDS ORDERED: Propofol 1,000 MG/100 ML VIAL IV PRN (13:00)
[2020-01-13] MEDS ORDERED: Fentanyl BOLUS 250 ML IVPB PRN (13:00)
[2020-01-13] MEDS ORDERED: Vancomycin 1 GM in Premix Bag 1 BAG IVPB SCH (14:00)
[2020-01-13 14:07] LABS: Actual Bicarbonate (HCO3a) 18.7 mEq/L (22-28); CO2 Tension 26.1 mmHg (35.0-45.0); Calcium, Ionized (arterial) 1.16 mmol/L (1.12-1.30); Carboxyhemoglobin (COHb) 0.3 gm% (0.0-3.0); Hemoglobin (Hb) 9.5 g/dL (14.0-18.0); Potassium - ABG Lab 3.97 mmol/L (3.70-5.30); pH, Arterial 7.47 (7.35-7.45)
[2020-01-13 14:09] LABS: ALV-art Gradient 155.475 mmHg (0-20); Puncture Site RRA
[2020-01-13] MEDS: fentaNYL Citrate/PF 2,000 MCG in Sodium Chloride 0.9% 60 ML IV SCH (15:40)
[2020-01-13] MEDS ORDERED: Sodium Chloride 0.9% 1,000 ML IV SCH (18:30)
[2020-01-13] MEDS ORDERED: Norepinephrine 8 MG/0.9% NS 250 ML IVPB SCH (18:30)
[2020-01-13] MEDS: Tamsulosin HCl 0.4 MG CAP PO SCH (18:41)
[2020-01-13] MEDS: Enoxaparin Sodium 40 MG/0.4 ML SYRINGE SC SCH (20:30)
--- NOTE | 2020-01-13 20:32 | PDOC.HOSPP ---
- Subjective Encounter Date: 01/13/20 Encounter Time: 18:40 Subjective: f/u for resp failure after dislodged trach [facility] Receiving Levaquin currently. - Objective Vital Signs & Weight: Vital Signs (12 hours) Temp Pulse Resp BP Pulse Ox 01/13/20 20:00 98.0 F 20 01/13/20 19:45 100 01/13/20 18:31 77 111/78 01/13/20 18:00 20 01/13/20 14:00 98.3 F 01/13/20 13:30 99 114/62 01/13/20 12:00 25 H 01/13/20 11:00 25 H 01/13/20 10:47 118 H 01/13/20 09:00 66 Weight Admit Weight 145 lb Weight 145 lb Most Recent Monitor Data Heart Rate from ECG 85 NIBP 106/79 NIBP BP-Mean 88 Respiration from ECG 20 SpO2 100 I&O: 01/12/20 01/13/20 01/14/20 06:59 06:59 06:59 Intake Total 706 805.2 Output Total 0 1994 Balance 706 -1189.8 Result Diagrams: 01/13/20 02:36 01/13/20 02:36 Additional Labs: Microbiology 01/13/20 00:45 Nasal swab Influenza Types A,B Direct EIA - Final 01/13/20 10:50 Sputum Respiratory Culture - Preliminary 01/12/20 18:55 Venous blood - Right Arm Blood Culture - Preliminary Specimen has been received and culture in progress. No Growth to date. 01/12/20 18:55 Venous blood - Left Arm Blood Culture - Preliminary Specimen has been received and culture in progress. No Growth to date. Laboratory Tests 01/12/20 01/12/20 01/12/20 18:55 18:55 18:55 WBC 11.1 H Hgb 10.3 L Neutrophils % 80.3 H Neutrophils % (Manual) Lactic Acid Troponin I 0.196 H B-Natriuretic Peptide 54.2 SARS-CoV-2 Rap RNA(RT-PCR) 01/12/20 01/12/20 01/12/20 18:55 21:50 23:44 WBC Hgb Neutrophils % Neutrophils % (Manual) Lactic Acid 1.0 Troponin I 0.361 H* B-Natriuretic Peptide SARS-CoV-2 Rap RNA(RT-PCR) Not Detected 01/13/20 01/13/20 02:36 02:36 WBC Hgb Neutrophils % Neutrophils % (Manual) 83 H Lactic Acid Troponin I 0.245 H B-Natriuretic Peptide SARS-CoV-2 Rap RNA(RT-PCR) Radiology Reviewed by me: Yes (PCXR - improved placement of ETT ) EKG Reviewed by me: Yes (Tele - SR) Hospitalist ROS - Medication Medications: Active Medications Generic Name Dose Route Start Last Admin Trade Name Freq PRN Reason Stop Dose Admin Albuterol/Ipratropium 3 ml 01/13/20 18:30 01/13/20 18:30 Ipratropium/Albuterol Sulfate 3 Ml Neb NEB 3 ml [id number] BASSEM Administration Sodium Chloride 1,000 mls @ 100 mls/hr 01/12/20 23:30 01/13/20 16:28 Normal Saline 0.9% IV 1,000 mls .Q10H BASSEM Administration Fentanyl Citrate 2,000 mcg/ 100 mls @ 0 mls/hr 01/13/20 13:00 01/13/20 15:40 Sodium Chloride IV 02/12/20 13:00 100 mls INF BASSEM Administration Protocol Per Protocol Tamsulosin HCl 0.4 mg 01/13/20 09:00 01/13/20 18:41 Tamsulosin Hcl 0.4 Mg Cap PO Not Given DAILY BASSEM Vecuronium [place] 10 mg 01/13/20 12:04 01/13/20 13:42 Vecuronium 10 Mg Vial IV 10 mg Q10MIN PRN Administration VENTILATION - Exam General Appearance: ill appearing General - other findings: sedate on mech ventilation Eye: PERRL, anicteric sclera ENT: normocephalic atraumatic, no oropharyngeal lesions Neck - other findings: ETT in place in trach site Heart: RRR, no gallops, no rubs, normal peripheral pulses Respiratory: CTAB Respiratory - other findings: diminished bilat, scattered rhonchi Gastrointestinal: soft, non-tender, non-distended, normal bowel sounds, no palpable masses Extremities: no cyanosis, no clubbing Skin: normal turgor, no lesions Musculoskeletal: generalized weakness Psychiatric: somnolent, lethargic Hosp A/P (1) Acute and chronic respiratory failure with hypoxia Code(s): J96.21 - ACUTE AND CHRONIC RESPIRATORY FAILURE WITH HYPOXIA Status: Acute Plan: s/p ETT placement on mech ventilation, will need trach placement (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 Code(s): C32.0 - MALIGNANT NEOPLASM OF GLOTTIS Status: Chronic Plan: Advanced malignancy, consider Hospice evaluation (3) Malnutrition of moderate degree Code(s): E44.0 - MODERATE PROTEIN-CALORIE MALNUTRITION Status: Chronic Plan: Consult Dietitian services (4) Type 2 myocardial infarction Code(s): I21.A1 - MYOCARDIAL INFARCTION TYPE 2 Status: Acute Plan: Secondary to demand ischemia, medical mgmt - Plan continue antibiotics, social sciences chair, speech therapy, respiratory therapy, DVT proph w/SCDs Continue pulmonary supportive mgmt Mech ventilation with SIMV Continue Levaquin Nutritional support with TF's Dietitian consult CM for SNF options AM lab: BMP, CBC
--- NOTE | 2020-01-14 00:52 | CON ---
DATE OF CONSULTATION: 01/13/2020 HISTORY OF PRESENT ILLNESS: Mr. Mariscal is a gentleman, who is well known to me. Reviewing recent records, it appears that he was just in the hospital and underwent a laryngoscopy with a biopsy. I do not see an operative note. I was consulted by the nurse taking care of Mr. Mariscal because of respiratory distress this morning. Apparently, he had spent the day and part of the night in the emergency department. I asked him to start BiPAP until I could arrive. We got the bronchoscope up to perform the bronchoscopy and was unable to get an airway from above because of a pale mass almost completely obstructing his airway. His tracheostomy tube apparently had come out a few days prior and as this hole closed, he became more short of breath, it appears. I was able to get the bronchoscope into his tracheostomy orifice and into his trachea. I was then able to just blindly pass a 6-0 endotracheal tube in there. He had an 8 Shiley in prior and has shown in the past that he does not ventilate as well with a 6 as he does with an 8 when he is breathing on his own. This eventually will have to be replaced. PAST MEDICAL HISTORY: Remarkable for: 1. Chronic obstructive pulmonary disease. 2. History of multiple intubations associated with COPD and his throat cancer. He had a PEG and this was removed. We had removed his tracheostomy in the past. Both of these have been replaced and I explained to him last visit he would have a tracheostomy tube and a PEG for ever. It appears that by biopsies done on 01/09/2020 his cancer has recurred. There is also a CT scan showing a fluid collection with air in it suggestive of a neck abscess. This was noticed when he was seen in the last time he was in the hospital, I believe Dr. Ratliff, it is unclear to me whether or not he felt this was an infection, but this has gotten bigger, so I am wondering if this abscess. FAMILY HISTORY: Negative for lung disease in early age. REVIEW OF SYSTEMS: Not obtainable. PHYSICAL EXAMINATION: GENERAL: He is in significant respiratory distress at this time, could not talk. BiPAP did help him, but as soon as BiPAP was removed, he became markedly distressed. LUNGS: Free of wheezes. HEART: Regular rhythm. ABDOMEN: Soft. Once I passed an endotracheal tube into his trachea, copious foul-smelling secretions were obtained. IMPRESSION: 1. Recurrent head and neck cancer. 2. Probable anaerobic aspiration pneumonia. Chest radiograph shows right lower lobe alveolar infiltrate. 3. Chronic obstructive pulmonary disease. 4. Swallowing dysfunction. 5. Past history of heavy tobacco and alcohol use. 6. He will be mechanically ventilated. At some point, he will need an 8 Shiley placed, but with his pneumonia, I do not feel he will be able to ventilate effectively on his own even with his #6 in until he has had a few days of antibiotics, steroids, and nebulized treatments. Critical care time 30 min excluding procedure. Job ID: [id number] MTDD
[2020-01-14 04:22] LABS: #Lymphocytes 1.5 thou/uL (1.20-3.40); #Monocytes 0.8 thou/uL (0.11-0.59); #Neutrophils 6.4 thou/uL (1.40-6.50); %Basophils 0.2 % (0.0-1.0); %Eosinophils 0.3 % (0.0-10.0); %Monocytes 9.3 % (0.0-10.0); %Neutrophils 73.2 % (42.0-75.0); Hemoglobin 7.6 g/dL (14.0-18.0); Mean Corpuscular HGB CONC 31.6 g/dL (32.0-36.0); Mean Corpuscular Hemoglobin 29.2 pg (27.0-31.0); Mean Corpuscular Volume 92.3 fL (78.0-98.0); Platelet Count 362 thou/uL (130-400); RBC Distribution Width 14.6 % (11.5-14.5); Red Blood Cell (RBC) Count 2.61 mill/uL (4.70-6.10); White Blood Cell (WBC) Count 8.7 thou/uL (4.8-10.8)
[2020-01-14 04:45] LABS: Anion Gap 13 mmol/L (10-20); BUN (Urea Nitrogen) 11 mg/dL (8.4-25.7); Calc. Creatinine Clearance 98 mL/min (70-130); Calcium 8.1 mg/dL (7.8-10.44); Carbon Dioxide 21 mmol/L (23-31); Chloride 105 mmol/L (98-107); Estimated GFR-MDRD Greater than 90; Glucose 152 mg/dL (80-115); Potassium 3.7 mmol/L (3.5-5.1); Sodium 135 mmol/L (136-145)
[2020-01-14] MEDS: Sodium Chloride 0.9% 1,000 ML IV SCH ×3 (06:08→19:23)
[2020-01-14] MEDS: Tamsulosin HCl 0.4 MG CAP PO SCH (08:16)
--- NOTE | 2020-01-14 09:53 | OP ---
DATE OF PROCEDURE: 01/13/2020 PROCEDURE PERFORMED: Fiberoptic bronchoscopy, attempted intubation fiberoptically, eventual intubation via his tracheostomy orifice. DESCRIPTION OF PROCEDURE: Bronchoscope was introduced into his upper airway. I could not find a passable entry into his trachea. He had copious amounts of dried mucus as well as a lot of baumann tissue in his upper airway that I am sure is his recurrent malignancy. Was able to pass a bronchoscope through his tracheostomy orifice in his neck once the scab was cleaned off of it. His tracheobronchial tree was quickly inspected, purulent foul-smelling secretions were noted coming out of his right lower lobe. A 6 endotracheal tube was inserted and secured and then eventually replaced to a #[address] Perez. At some point in time, he will need a #8 placed again. He was sedated and paralyzed after this to facilitate ventilation. Job ID: [id number]
[2020-01-14] MEDS: Lorazepam 2 MG/ML VIAL SLOW IVP PRN (10:48)
[2020-01-14] MEDS: fentaNYL Citrate/PF 2,000 MCG in Sodium Chloride 0.9% 60 ML IV SCH (11:13)
--- NOTE | 2020-01-14 16:53 | PRG ---
DATE OF SERVICE: 01/14/2020 SUBJECTIVE: Mr. Mariscal is mechanically ventilated. He says he feels much better than he felt yesterday. OBJECTIVE: VITAL SIGNS: His heart rate is 92, blood pressure 100/64, respiratory rates in the teens. LUNGS: Remarkable for mild rhonchi. HEART: Regular rhythm. ABDOMEN: Soft. LABORATORY DATA: Gram-stain sputums suggest polymicrobial ezequiel, which one would expect with aspiration. White count 8.7, hemoglobin 7.6, and platelets 362. Sodium 135, potassium 3.7, chloride 105, bicarb 21, BUN 11, and creatinine 0.67. IMPRESSION: 1. Respiratory failure associated with upper airway obstruction, associated with recurrent laryngeal cancer. 2. Status post emergent recannulization with tracheostomy tract with a 6.0 endotracheal tube followed by a 6 Shiley in the past, he has done better with 8.0 Shiley tracheostomy tube, so hopefully this will be facilitated by Nose and Throat Surgery in the next day or two. 3. Deconditioning. 4. Chronic obstructive pulmonary disease. Once he has a larger trach, then we will start working towards weaning again. Critical care time 30 min. Job ID: [id number] MTDD
--- NOTE | 2020-01-14 20:22 | PDOC.HOSPP ---
- Subjective Encounter Date: 01/14/20 Encounter Time: 19:35 Subjective: [facility] Remains sedate on Propofol and receiving Levaquin/IVF's. - Objective Vital Signs & Weight: Vital Signs (12 hours) Temp Pulse Resp BP 01/14/20 18:00 13 01/14/20 17:00 98.3 F 01/14/20 16:00 11 L 01/14/20 14:15 68 105/65 01/14/20 14:00 14 01/14/20 12:00 97.8 F 15 01/14/20 10:18 67 82/54 L 01/14/20 10:16 98.4 F 01/14/20 10:00 14 01/14/20 09:00 98.4 F 01/14/20 08:39 59 L 104/63 Weight Admit Weight 145 lb Weight 145 lb Most Recent Monitor Data Heart Rate from ECG 54 NIBP 96/59 NIBP BP-Mean 71 Respiration from ECG 16 SpO2 100 I&O: 01/13/20 01/14/20 01/15/20 06:59 06:59 06:59 Intake Total 706 2955.4 1849.4 Output Total 0 2905 1525 Balance 706 50.4 324.4 Result Diagrams: 01/14/20 04:05 01/14/20 04:05 Additional Labs: Microbiology 01/13/20 00:45 Nasal swab Influenza Types A,B Direct EIA - Final 01/13/20 10:50 Sputum Respiratory Culture - Preliminary 01/12/20 18:55 Venous blood - Right Arm Blood Culture - Preliminary Specimen has been received and culture in progress. No Growth to date. 01/12/20 18:55 Venous blood - Left Arm Blood Culture - Preliminary Specimen has been received and culture in progress. No Growth to date. Laboratory Tests 01/12/20 01/12/20 01/12/20 18:55 18:55 18:55 WBC 11.1 H Hgb 10.3 L Neutrophils % 80.3 H Neutrophils % (Manual) Lactic Acid Troponin I 0.196 H B-Natriuretic Peptide 54.2 SARS-CoV-2 Rap RNA(RT-PCR) 01/12/20 01/12/20 01/12/20 18:55 21:50 23:44 WBC Hgb Neutrophils % Neutrophils % (Manual) Lactic Acid 1.0 Troponin I 0.361 H* B-Natriuretic Peptide SARS-CoV-2 Rap RNA(RT-PCR) Not Detected 01/13/20 01/13/20 02:36 02:36 WBC Hgb Neutrophils % Neutrophils % (Manual) 83 H Lactic Acid Troponin I 0.245 H B-Natriuretic Peptide SARS-CoV-2 Rap RNA(RT-PCR) EKG Reviewed by me: Yes (Tele - SR) Hospitalist ROS - Medication Medications: Active Medications Generic Name Dose Route Start Last Admin Trade Name Freq PRN Reason Stop Dose Admin Albuterol/Ipratropium 3 ml 01/13/20 18:30 01/14/20 19:30 Ipratropium/Albuterol Sulfate 3 Ml Neb NEB 3 ml [id number] BASSEM Administration Enoxaparin Sodium 40 mg 01/13/20 21:00 01/13/20 20:30 Enoxaparin Sodium 40 Mg/0.4 Ml Syringe SC 40 mg 2100 BASSEM Administration Sodium Chloride 1,000 mls @ 100 mls/hr 01/12/20 23:30 01/14/20 19:23 Normal Saline 0.9% IV 1,000 mls .Q10H BASSEM Administration Levofloxacin 750 mg/ Device 150 mls @ 100 mls/hr 01/13/20 20:00 01/13/20 20:29 IVPB 150 mls Q24HR BASSEM Administration Fentanyl Citrate 2,000 mcg/ 100 mls @ 0 mls/hr 01/13/20 13:00 01/14/20 11:13 Sodium Chloride IV 02/12/20 13:00 100 mls INF BASSEM Administration Protocol Per Protocol Lorazepam 2 mg 01/13/20 13:00 01/14/20 10:48 Lorazepam 2 Mg/Ml Vial SLOW IVP 02/12/20 13:00 2 mg Q1H PRN Administration Breakthrough agitation Tamsulosin HCl 0.4 mg 01/13/20 09:00 01/14/20 08:16 Tamsulosin Hcl 0.4 Mg Cap PO 0.4 mg DAILY BASSEM Administration Vecuronium [place] 10 mg 01/13/20 12:04 01/13/20 13:42 Vecuronium 10 Mg Vial IV 10 mg Q10MIN PRN Administration VENTILATION - Exam General - other findings: sedate on mech vent Eye: PERRL, anicteric sclera ENT: normocephalic atraumatic Neck: supple, no JVD Neck - other findings: trach in place with vent Heart: RRR, no gallops, no rubs, normal peripheral pulses Heart - other findings: S1, S2 Respiratory: no wheezes, no tachypnea Respiratory - other findings: diminished in bases Gastrointestinal: soft, non-tender, non-distended, normal bowel sounds, no palpable masses Extremities: no cyanosis, no clubbing, no edema Skin: normal turgor Neurological: no new deficit Musculoskeletal: generalized weakness, diffuse muscle atrophy Psychiatric: oriented to person, somnolent Hosp A/P (1) Acute and chronic respiratory failure with hypoxia Code(s): J96.21 - ACUTE AND CHRONIC RESPIRATORY FAILURE WITH HYPOXIA Status: Acute Plan: Continue mech ventilation, wean as clinically tolerated, will need larger tracheostomy tube (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 Code(s): 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
[2020-01-14] MEDS: Enoxaparin Sodium 40 MG/0.4 ML SYRINGE SC SCH (20:31)
[2020-01-14] MEDS: Morphine 2 MG/ML VIAL SLOW IVP PRN (22:37)
[2020-01-15] MEDS: Lorazepam 2 MG/ML VIAL SLOW IVP PRN (03:17)
[2020-01-15 04:13] LABS: Hemoglobin 8.8 g/dL (14.0-18.0); Platelet Count 344 thou/uL (130-400)
[2020-01-15] MEDS: Sodium Chloride 0.9% 1,000 ML IV SCH ×2 (04:33→17:27)
[2020-01-15 04:35] LABS: Anion Gap 8 mmol/L (10-20); BUN (Urea Nitrogen) 9 mg/dL (8.4-25.7); Calc. Creatinine Clearance 103 mL/min (70-130); Calcium 8.1 mg/dL (7.8-10.44); Carbon Dioxide 24 mmol/L (23-31); Chloride 110 mmol/L (98-107); Estimated GFR-MDRD Greater than 90; Glucose 139 mg/dL (80-115); Potassium 3.3 mmol/L (3.5-5.1); Sodium 139 mmol/L (136-145)
[2020-01-15] MEDS: fentaNYL Citrate/PF 2,000 MCG in Sodium Chloride 0.9% 60 ML IV SCH (09:06)
[2020-01-15] MEDS: Tamsulosin HCl 0.4 MG CAP PO SCH (09:14)
[2020-01-15] MEDS: Meropenem 2 GM, Admixture Fee 1 EACH in Sodium Chloride 0.9% 100 ML IVPB SCH ×2 (14:46→21:29)
--- NOTE | 2020-01-15 16:19 | PRG ---
DATE OF SERVICE: 01/15/2020 SUBJECTIVE: Brenden Mariscal remains mechanically ventilated. He has a #8 Shiley in now. We were able to turn down his ventilatory support significantly today. He has been started on Precedex drip. OBJECTIVE: LUNGS: He has rhonchi bilaterally, but his chest exam is improving each day. HEART: Regular rhythm. ABDOMEN: Soft. EXTREMITIES: Without asymmetry. LABORATORY DATA: White count 8.7 yesterday. There is no white count today. His hemoglobin is 8.8. Sodium 139, potassium 3.3, chloride 110, bicarb 24, BUN 9, creatinine 0.64. IMPRESSION AND PLAN: 1. Respiratory failure on presentation secondary to his inadvertent removal of his tracheostomy with an obstructed upper airway by cancer. 2. Pneumonia. 3. Respiratory failure, improving and possibly weanable to a trach collar tomorrow. 4. Underlying chronic obstructive pulmonary disease, which is not a significant part of his problem. Critical care time 30 min. Job ID: [id number] MTDD
--- NOTE | 2020-01-15 18:08 | PDOC.HOSPP ---
- Subjective Encounter Date: 01/15/20 Encounter Time: 17:30 Subjective: f/u for resp failure with dislodged trach and upper airway obstruction with eventual placement of #8 Shiley trach. Weaning off mech ventilation slowly. More awake and interactive. - Objective Vital Signs & Weight: Vital Signs (12 hours) Temp Pulse Resp BP Pulse Ox 01/15/20 16:00 98.8 F 22 H 01/15/20 14:48 92 99/60 01/15/20 14:46 88 22 H 100 01/15/20 14:00 19 01/15/20 12:00 98.9 F 13 01/15/20 11:21 80 22 H 100 01/15/20 11:19 75 103/63 01/15/20 10:00 11 L 01/15/20 09:00 98.4 F 01/15/20 08:00 57 L 14 127/77 100 Weight Admit Weight 145 lb Weight 145 lb Most Recent Monitor Data Heart Rate from ECG 79 NIBP 105/66 NIBP BP-Mean 79 Respiration from ECG 20 SpO2 100 I&O: 01/14/20 01/15/20 01/16/20 06:59 06:59 06:59 Intake Total 2955.4 3653.2 222.2 Output Total 2905 2600 1670 Balance 50.4 1053.2 -1447.8 Result Diagrams: 01/15/20 03:20 01/15/20 03:20 Additional Labs: Microbiology 01/13/20 00:45 Nasal swab Influenza Types A,B Direct EIA - Final 01/13/20 10:50 Sputum Respiratory Culture - Preliminary 01/12/20 18:55 Venous blood - Right Arm Blood Culture - Preliminary Specimen has been received and culture in progress. No Growth to date. 01/12/20 18:55 Venous blood - Left Arm Blood Culture - Preliminary Specimen has been received and culture in progress. No Growth to date. Laboratory Tests 01/12/20 01/12/20 01/12/20 18:55 18:55 18:55 WBC 11.1 H Hgb 10.3 L Neutrophils % 80.3 H Neutrophils % (Manual) Lactic Acid Troponin I 0.196 H B-Natriuretic Peptide 54.2 SARS-CoV-2 Rap RNA(RT-PCR) 01/12/20 01/12/20 01/12/20 18:55 21:50 23:44 WBC Hgb Neutrophils % Neutrophils % (Manual) Lactic Acid 1.0 Troponin I 0.361 H* B-Natriuretic Peptide SARS-CoV-2 Rap RNA(RT-PCR) Not Detected 01/13/20 01/13/20 02:36 02:36 WBC Hgb Neutrophils % Neutrophils % (Manual) 83 H Lactic Acid Troponin I 0.245 H B-Natriuretic Peptide SARS-CoV-2 Rap RNA(RT-PCR) EKG Reviewed by me: Yes (Tele - SR) Hospitalist ROS - Medication Medications: Active Medications Generic Name Dose Route Start Last Admin Trade Name Freq PRN Reason Stop Dose Admin Albuterol/Ipratropium 3 ml 01/13/20 18:30 01/15/20 14:46 Ipratropium/Albuterol Sulfate 3 Ml Neb NEB 3 ml [id number] BASSEM Administration Enoxaparin Sodium 40 mg 01/13/20 21:00 01/14/20 20:31 Enoxaparin Sodium 40 Mg/0.4 Ml Syringe SC 40 mg 2100 BASSEM Administration Sodium Chloride 1,000 mls @ 100 mls/hr 01/12/20 23:30 01/15/20 17:27 Normal Saline 0.9% IV 1,000 mls .Q10H BASSEM Administration Fentanyl Citrate 2,000 mcg/ 100 mls @ 0 mls/hr 01/13/20 13:00 01/15/20 09:06 Sodium Chloride IV 02/12/20 13:00 100 mls INF BASSEM Administration Protocol Per Protocol Meropenem 2 gm/ Miscellaneous 100 mls @ 0 mls/hr 01/15/20 14:00 01/15/20 14:46 Medication 1 each/ Sodium IVPB 100 mls Chloride Q8HR BASSEM Administration Dexmedetomidine HCl 400 mcg/ 100 mls @ 0 mls/hr 01/15/20 13:45 01/15/20 13:58 Sodium Chloride IVPB 100 mls INF BASSEM Administration Protocol Titrate Lorazepam 2 mg 01/13/20 13:00 01/15/20 03:17 Lorazepam 2 Mg/Ml Vial SLOW IVP 02/12/20 13:00 2 mg Q1H PRN Administration Breakthrough agitation Morphine Sulfate 2 mg 01/13/20 13:00 01/14/20 22:37 Morphine 2 Mg/Ml Vial SLOW IVP 02/12/20 13:00 2 mg Q1H PRN Administration Breakthrough Pain/Agitation Tamsulosin HCl 0.4 mg 01/13/20 09:00 01/15/20 09:14 Tamsulosin Hcl 0.4 Mg Cap PO 0.4 mg DAILY BASSEM Administration - Exam General Appearance: awake alert General - other findings: opens eyes to name, nods Eye: PERRL, anicteric sclera ENT: normocephalic atraumatic, no oropharyngeal lesions Neck: supple, symmetric, no JVD Neck - other findings: Trach in place with vent Heart: RRR, no gallops, no rubs, normal peripheral pulses Heart - other findings: S1, S2 Respiratory - other findings: diminished bilat, occ rhonchi Gastrointestinal: soft, non-tender, non-distended, normal bowel sounds, no p alpable masses Extremities: no cyanosis, no clubbing, no edema Skin: normal turgor, no lesions Neurological - other findings: non-verbal on vent Musculoskeletal: generalized weakness, diffuse muscle atrophy Psychiatric: oriented to person, somnolent Hosp A/P (1) Acute and chronic respiratory failure with hypoxia Code(s): J96.21 - ACUTE AND CHRONIC RESPIRATORY FAILURE WITH HYPOXIA Status: Acute Plan: Continue pulmonary support, slow wean off mech ventilation (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 Code(s): C32.0 - MALIGNANT NEOPLASM OF GLOTTIS Status: Chronic Plan: s/p #[address] (3) Malnutrition of moderate degree Code(s): E44.0 - MODERATE PROTEIN-CALORIE MALNUTRITION Status: Chronic Plan: Nutritional support with TF's (4) Type 2 myocardial infarction Code(s): I21.A1 - MYOCARDIAL INFARCTION TYPE 2 Status: Acute - Plan continue antibiotics, PT/OT, group social worker, speech therapy, respiratory therapy, DVT proph w/SCDs Continue pulmonary supportive mgmt Mech ventilation with SIMV, wean as clinically tolerated Continue Levaquin Nutritional support with TF's Dietitian consult CM for SNF options AM lab: BMP, ABG PCXR in am
[2020-01-15] MEDS: Famotidine 40 MG/5 ML Oral Suspension PER TUBE SCH (21:34)
[2020-01-15] MEDS: Enoxaparin Sodium 40 MG/0.4 ML SYRINGE SC SCH (21:34)
[2020-01-16] MEDS: Sodium Chloride 0.9% 1,000 ML IV SCH ×2 (03:11→18:27)
[2020-01-16 03:34] LABS: Anion Gap 10 mmol/L (10-20); BUN (Urea Nitrogen) 8 mg/dL (8.4-25.7); Calc. Creatinine Clearance 110 mL/min (70-130); Calcium 8.1 mg/dL (7.8-10.44); Carbon Dioxide 27 mmol/L (23-31); Chloride 104 mmol/L (98-107); Estimated GFR-MDRD Greater than 90; Glucose 101 mg/dL (80-115); Potassium 3.5 mmol/L (3.5-5.1); Sodium 137 mmol/L (136-145)
[2020-01-16] MEDS: Morphine 2 MG/ML VIAL SLOW IVP PRN ×4 (04:31→20:12)
[2020-01-16] MEDS: Meropenem 2 GM, Admixture Fee 1 EACH in Sodium Chloride 0.9% 100 ML IVPB SCH ×3 (06:32→21:18)
[2020-01-16] MEDS: Tamsulosin HCl 0.4 MG CAP PO SCH (08:16)
--- NOTE | 2020-01-16 09:02 | RAD ---
PORTABLE CHEST: Date: 01/16/2020 HISTORY: CCU follow-up. Ventilator follow-up. COMPARISON: 01/13/2020. FINDINGS/IMPRESSION: Tracheostomy device is noted. Lungs are well aerated. There is hazy atelectasis and/or infiltrate in the right lower lung. Otherwise no evidence of focal infiltrate or consolidation. POS: AGW
[2020-01-16] MEDS: Famotidine 40 MG/5 ML Oral Suspension PER TUBE SCH ×2 (09:31→20:11)
--- NOTE | 2020-01-16 11:15 | PRG ---
DATE OF SERVICE: 01/16/2020 SUBJECTIVE: Brenden Mariscal remained hemodynamically stable. He is complaining of neck pain. He has always had significant neck discomfort when a trach has been replaced. We would wean him to trach collar today. He appears to be doing reasonably well. OBJECTIVE: VITAL SIGNS: Blood pressure 91/44, heart rate 99. LUNGS: Unchanged. HEART: Unchanged. ABDOMEN: Unchanged. He is not wheezing. LABORATORY DATA: Hemoglobin 8.8 yesterday. There is no CBC today. Electrolytes are unremarkable today. Creatinine is 0.6. IMPRESSION: 1. Recurrent throat cancer. 2. Status post emergent replacement of tracheostomy. 3. Aspiration pneumonia. He is clinically stable at this time. We will continue with supportive care. Critical care time 30 min. Job ID: [id number] MTDD
--- NOTE | 2020-01-16 17:36 | PDOC.HOSPP ---
- Subjective Encounter Date: 01/16/20 Encounter Time: 17:00 Subjective: f/u for resp failure/dislodged trach with subsequent replacement/PNA. Off mech vent and tolerating T-collar. States he is in pain on his neck. - Objective Vital Signs & Weight: Vital Signs (12 hours) Temp Pulse Resp BP Pulse Ox 01/16/20 14:37 64 24 H 99 01/16/20 11:14 61 21 H 100 01/16/20 09:00 98.8 F 01/16/20 08:10 100 01/16/20 08:00 20 01/16/20 07:30 64 108/70 01/16/20 07:29 65 19 100 01/16/20 05:49 18 Weight Admit Weight 145 lb Weight 145 lb Most Recent Monitor Data Heart Rate from ECG 98 NIBP 109/63 NIBP BP-Mean 78 Respiration from ECG 31 SpO2 96 I&O: 01/15/20 01/16/20 01/17/20 06:59 06:59 06:59 Intake Total 3653.2 3944.1 Output Total 2600 2915 635 Balance 1053.2 1029.1 -635 Result Diagrams: 01/15/20 03:20 01/16/20 03:00 Additional Labs: Microbiology 01/13/20 00:45 Nasal swab Influenza Types A,B Direct EIA - Final 01/13/20 10:50 Sputum Respiratory Culture - Preliminary 01/12/20 18:55 Venous blood - Right Arm Blood Culture - Preliminary Specimen has been received and culture in progress. No Growth to date. 01/12/20 18:55 Venous blood - Left Arm Blood Culture - Preliminary Specimen has been received and culture in progress. No Growth to date. Laboratory Tests 01/12/20 01/12/20 01/12/20 18:55 18:55 18:55 WBC 11.1 H Hgb 10.3 L Neutrophils % 80.3 H Neutrophils % (Manual) Lactic Acid Troponin I 0.196 H B-Natriuretic Peptide 54.2 SARS-CoV-2 Rap RNA(RT-PCR) 01/12/20 01/12/20 01/12/20 18:55 21:50 23:44 WBC Hgb Neutrophils % Neutrophils % (Manual) Lactic Acid 1.0 Troponin I 0.361 H* B-Natriuretic Peptide SARS-CoV-2 Rap RNA(RT-PCR) Not Detected 01/13/20 01/13/20 02:36 02:36 WBC Hgb Neutrophils % Neutrophils % (Manual) 83 H Lactic Acid Troponin I 0.245 H B-Natriuretic Peptide SARS-CoV-2 Rap RNA(RT-PCR) Radiology Reviewed by me: Yes (PCXR - hazy infiltrate RLL, trach device in position) EKG Reviewed by me: Yes (Tele - SR) Hospitalist ROS - Medication Medications: Active Medications Generic Name Dose Route Start Last Admin Trade Name Freq PRN Reason Stop Dose Admin Albuterol/Ipratropium 3 ml 01/13/20 18:30 01/16/20 14:37 Ipratropium/Albuterol Sulfate 3 Ml Neb NEB 3 ml [id number] BASSEM Administration Enoxaparin Sodium 40 mg 01/13/20 21:00 01/15/20 21:34 Enoxaparin Sodium 40 Mg/0.4 Ml Syringe SC 40 mg 2100 BASSEM Administration Famotidine 20 mg 01/15/20 21:00 01/16/20 09:31 Famotidine 40 Mg/5 Ml Oral Suspension PER TUBE 20 mg BID BASSEM Administration Sodium Chloride 1,000 mls @ 100 mls/hr 01/12/20 23:30 01/16/20 03:11 Normal Saline 0.9% IV 1,000 mls .Q10H BASSEM Administration Fentanyl Citrate 2,000 mcg/ 100 mls @ 0 mls/hr 01/13/20 13:00 01/15/20 09:06 Sodium Chloride IV 02/12/20 13:00 100 mls INF BASSEM Administration Protocol Per Protocol Meropenem 2 gm/ Miscellaneous 100 mls @ 0 mls/hr 01/15/20 14:00 01/16/20 14:23 Medication 1 each/ Sodium IVPB 100 mls Chloride Q8HR BASSEM Administration Dexmedetomidine HCl 400 mcg/ 100 mls @ 0 mls/hr 01/15/20 13:45 01/16/20 03:27 Sodium Chloride IVPB 100 mls INF BASSEM Administration Protocol Titrate Lorazepam 2 mg 01/13/20 13:00 01/15/20 03:17 Lorazepam 2 Mg/Ml Vial SLOW IVP 02/12/20 13:00 2 mg Q1H PRN Administration Breakthrough agitation Morphine Sulfate 2 mg 01/13/20 13:00 01/16/20 12:33 Morphine 2 Mg/Ml Vial SLOW IVP 02/12/20 13:00 2 mg Q1H PRN Administration Breakthrough Pain/Agitation Tamsulosin HCl 0.4 mg 01/13/20 09:00 01/16/20 08:16 Tamsulosin Hcl 0.4 Mg Cap PO 0.4 mg DAILY BASSEM Administration - Exam General Appearance: NAD, awake alert Eye: PERRL, anicteric sclera ENT: normocephalic atraumatic, no oropharyngeal lesions Neck: supple, symmetric, no JVD, no thyromegaly Neck - other findings: trach in place with T-collar Heart: RRR, no gallops, no rubs, normal peripheral pulses Heart - other findings: S1, S2 Respiratory - other findings: diminished bilat, few scattered rhonchi Gastrointestinal: soft, non-tender, non-distended, normal bowel sounds, no palpable masses Extremities: no cyanosis, no clubbing, no edema Skin: normal turgor Neurological: cranial nerve grossly intact, no new deficit Musculoskeletal: normal tone, generalized weakness Psychiatric: flat affect Hosp A/P (1) Acute and chronic respiratory failure with hypoxia Code(s): J96.21 - ACUTE AND CHRONIC RESPIRATORY FAILURE WITH HYPOXIA Status: Acute Plan: Off mech ventilation and tolerating T-collar, continue O2 support (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
[2020-01-16] MEDS: Enoxaparin Sodium 40 MG/0.4 ML SYRINGE SC SCH (20:12)
[2020-01-17] MEDS: Morphine 2 MG/ML VIAL SLOW IVP PRN ×4 (01:04→10:09)
[2020-01-17] MEDS: Sodium Chloride 0.9% 1,000 ML IV SCH ×3 (05:04→23:47)
[2020-01-17] MEDS: Meropenem 2 GM, Admixture Fee 1 EACH in Sodium Chloride 0.9% 100 ML IVPB SCH ×2 (06:30→14:56)
--- NOTE | 2020-01-17 08:01 | RAD ---
Chest AP view INDICATION: History of intubation COMPARISON: January 16, 2020 FINDINGS: Lungs: There is worsening airspace disease in the right lung base. There is new subsegmental volume loss involving the left lower lobe. Diffuse interstitial prominence remains. Cardiac silhouette: Mild cardiomegaly is stable. Pulmonary vasculature: Mild pulmonary vascular congestion persists. Pleural spaces: Small bilateral pleural effusions are slightly larger. No pneumothorax. Upper abdomen: No abnormality seen. Osseous structures: No acute osseous abnormality. Additional findings: Tracheostomy tube is unchanged. IMPRESSION: 1. Worsening airspace disease of the right lung base may reflect worsening edema or pneumonia. 2. Mild cardiomegaly, pulmonary vascular congestion, interstitial prominence and bilateral pleural ef fusions suggest component of mild CHF which appears similar to slightly worse.
[2020-01-17] MEDS: Acetaminophen 325 MG TAB PO PRN (10:10)
[2020-01-17] MEDS: Tamsulosin HCl 0.4 MG CAP PO SCH (10:11)
[2020-01-17] MEDS: Famotidine 40 MG/5 ML Oral Suspension PER TUBE SCH ×2 (10:11→20:45)
[2020-01-17] MEDS ORDERED: Acetaminophen/Codeine 30-300mg Tablet PO PRN (15:52)
[2020-01-17] MEDS: traMADol HCl 50 MG TAB PO PRN (16:28)
--- NOTE | 2020-01-17 16:51 | PDOC.HOSPP ---
- Subjective Encounter Date: 01/17/20 Encounter Time: 16:40 Subjective: f/u for resp failure with dislodged tracheostomy now with replacmeent of trach tube[facility] and [facility]. c/p of neck and throat pain. - Objective Vital Signs & Weight: Vital Signs (12 hours) Temp Pulse Resp Pulse Ox 01/17/20 15:40 74 24 H 96 01/17/20 12:00 98.5 F 01/17/20 10:11 67 23 H 100 01/17/20 10:10 97 01/17/20 08:00 98.4 F 100 Weight Admit Weight 145 lb Weight 145 lb Most Recent Monitor Data Heart Rate from ECG 55 NIBP 104/48 NIBP BP-Mean 66 Respiration from ECG 22 SpO2 100 I&O: 01/16/20 01/17/20 01/18/20 06:59 06:59 06:59 Intake Total 3944.1 2678.4 1445 Output Total 2915 3835 1500 Balance 1029.1 -1156.6 -55 Result Diagrams: 01/15/20 03:20 01/16/20 03:00 Additional Labs: Microbiology 01/13/20 00:45 Nasal swab Influenza Types A,B Direct EIA - Final 01/13/20 10:50 Sputum Respiratory Culture - Preliminary 01/12/20 18:55 Venous blood - Right Arm Blood Culture - Preliminary Specimen has been received and culture in progress. No Growth to date. 01/12/20 18:55 Venous blood - Left Arm Blood Culture - Preliminary Specimen has been received and culture in progress. No Growth to date. Laboratory Tests 01/12/20 01/12/20 01/12/20 18:55 18:55 18:55 WBC 11.1 H Hgb 10.3 L Neutrophils % 80.3 H Neutrophils % (Manual) Lactic Acid Troponin I 0.196 H B-Natriuretic Peptide 54.2 SARS-CoV-2 Rap RNA(RT-PCR) 01/12/20 01/12/20 01/12/20 18:55 21:50 23:44 WBC Hgb Neutrophils % Neutrophils % (Manual) Lactic Acid 1.0 Troponin I 0.361 H* B-Natriuretic Peptide SARS-CoV-2 Rap RNA(RT-PCR) Not Detected 01/13/20 01/13/20 02:36 02:36 WBC Hgb Neutrophils % Neutrophils % (Manual) 83 H Lactic Acid Troponin I 0.245 H B-Natriuretic Peptide SARS-CoV-2 Rap RNA(RT-PCR) Radiology Reviewed by me: Yes (PCXR - increased densities in RLL, infiltrates bilat, chronic changes) Hospitalist ROS - Medication Medications: Active Medications Generic Name Dose Route Start Last Admin Trade Name Freq PRN Reason Stop Dose Admin Acetaminophen 650 mg 01/12/20 23:30 01/17/20 10:10 Acetaminophen 325 Mg Tab PO 650 mg Q4H PRN Administration Headache/Fever/Mild Pain (1-3) Albuterol/Ipratropium 3 ml 01/13/20 18:30 01/17/20 15:40 Ipratropium/Albuterol Sulfate 3 Ml Neb NEB 3 ml [id number] BASSEM Administration Enoxaparin Sodium 40 mg 01/13/20 21:00 01/16/20 20:12 Enoxaparin Sodium 40 Mg/0.4 Ml Syringe SC 40 mg 2100 BASSEM Administration Famotidine 20 mg 01/15/20 21:00 01/17/20 10:11 Famotidine 40 Mg/5 Ml Oral Suspension PER TUBE 20 mg BID BASSEM Administration Sodium Chloride 1,000 mls @ 100 mls/hr 01/12/20 23:30 01/17/20 14:56 Normal Saline 0.9% IV 1,000 mls .Q10H BASSEM Administration Ondansetron HCl 4 mg 01/12/20 23:30 01/17/20 10:09 Ondansetron Pf 4 Mg/2 Ml Vial IVP 4 mg Q6H PRN Administration Nausea/Vomiting Tamsulosin HCl 0.4 mg 01/13/20 09:00 01/17/20 10:11 Tamsulosin Hcl 0.4 Mg Cap PO 0.4 mg DAILY BASSEM Administration Tramadol HCl 50 mg 01/17/20 15:52 01/17/20 16:28 Tramadol Hcl 50 Mg Tab PO 50 mg Q6H PRN Administration Pain 4-6 - Exam General Appearance: NAD, awake alert Eye: PERRL, anicteric sclera ENT: normocephalic atraumatic, no oropharyngeal lesions Neck: supple, symmetric, no JVD Neck - other findings: Trach in place with T-collar Heart: RRR, no gallops, no rubs, normal peripheral pulses Heart - other findings: S1, S2 Respiratory - other findings: diminished bilat, coarse rhonchi scattered Gastrointestinal: soft, non-tender, non-distended, normal bowel sounds, no palpable masses Extremities: no cyanosis, no clubbing, no edema Skin: normal turgor Neurological: cranial nerve grossly intact, no new deficit Neurological - other findings: non-verbal(chronic) Musculoskeletal: normal tone, generalized weakness Psychiatric: A&O x 3 Hosp A/P (1) Pneumonia Code(s): J18.9 - PNEUMONIA, UNSPECIFIED ORGANISM Status: Acute Qualifiers: Pneumonia type: aspiration pneumonia Plan: Suspected aspiration component, continue Augmentin, general pulmonary support (2) Acute and chronic respiratory failure with hypoxia Code(s): J96.21 - ACUTE AND CHRONIC RESPIRATORY FAILURE WITH HYPOXIA Status: Acute Plan: secondary to dislodged trach tube now replaced, continue T-collar, pulmonary support, O2 supplementation (3) Squamous cell carcinoma of vocal cord Code(s): 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
[2020-01-17] MEDS: HYDROcodone/Acetaminophen 7.5/325 mg Tablet PO PRN (20:44)
[2020-01-17] MEDS: Enoxaparin Sodium 40 MG/0.4 ML SYRINGE SC SCH (20:45)
[2020-01-17] MEDS: Amoxicillin/Potassium Clav 875 MG TAB PER TUBE SCH (20:45)
[2020-01-18] MEDS: HYDROcodone/Acetaminophen 7.5/325 mg Tablet PO PRN ×3 (02:08→20:56)
--- NOTE | 2020-01-18 05:54 | PRG ---
DATE OF SERVICE: 01/17/2020 SUBJECTIVE: Brenden Mariscal is in no distress. He is on trach collar. He is stable to go to the 4th floor in my opinion. OBJECTIVE: LUNGS: His lungs are clear. HEART: Regular rhythm. ABDOMEN: Soft. He denies having any pain except in his neck. PLAN: We will adjust his pain medicines today and also giving something for anxiety. We will convert him to p.o. antimicrobial therapy today. He was not aware that he had recurrent cancer. I discussed this with him. He said he is willing to undergo any type of surgery that might be needed to treat this. This surgery would probably solve the problem of his tracheostomy tube coming out. I have explained to him that if his trach tube comes out again waiting for surgery, it is imperative that it gets put back in immediately. He nodded that he understood. His only complaint is pain. His pneumonia was probably adequately treated from an IV antibiotic standpoint. He will be switched to p.o. antibiotics. ADDENDUM: Looking back through records, there is an outpatient 01/08 CT of his neck that shows a persistent abnormality suggestive of soft tissue neck abscess inferior to the hyoid bone, coursing along the tracheal cartilage. This apparently was bigger than the last neck CT. There are no notes from the Ear, Nose, and Throat surgeon in the computer system defining what he thinks this is. This will need to be addressed here. I believe Dr. Bonds returns Monday and he should probably be consulted for that. I do not know if this truly is a neck abscess or something related to his recurrent tumor and just necrotic tissue. It would seem to be more likely a neck abscess. Job ID: [id number]
[2020-01-18] MEDS: Amoxicillin/Potassium Clav 875 MG TAB PER TUBE SCH ×2 (07:54→20:56)
[2020-01-18] MEDS: Tamsulosin HCl 0.4 MG CAP PO SCH (07:55)
[2020-01-18] MEDS: Sodium Chloride 0.9% 1,000 ML IV SCH (07:55)
[2020-01-18] MEDS: Famotidine 40 MG/5 ML Oral Suspension PER TUBE SCH ×2 (07:55→21:00)
[2020-01-18] MEDS: ALPRAZolam 0.25 MG TAB PO PRN ×2 (07:55→20:56)
--- NOTE | 2020-01-18 15:31 | EKG ---
Test Reason : Blood Pressure : / mmHG Vent. Rate : 108 BPM Atrial Rate : 108 BPM P-R Int : 182 ms QRS Dur : 082 ms QT Int : 324 ms P-R-T Axes : 062 072 061 degrees QTc Int : 434 ms Sinus tachycardia Otherwise normal ECG Confirmed by ALONDRA MCCLOUD ([id number]), desk editor THIERRY RAVI ([id number]) on 01/18/2020 3:31:25 PM Referred By: Confirmed By:ALONDRA Carter
--- NOTE | 2020-01-18 16:00 | PDOC.HOSPP ---
- Subjective Encounter Date: 01/18/20 Encounter Time: 11:30 Subjective: F/u: tracheostomy pain, soft tissue neck abscess The patient complained of some trouble breathing from the trach site and was requesting that he be suctioned. He denied shortness of breath otherwise. He has a mild cough The patient was discharged to rehab during his last admission. He states afterwards he went home and would like to go home on discharge - Objective Vital Signs & Weight: Vital Signs (12 hours) Temp Pulse Resp BP Pulse Ox 01/18/20 14:56 85 20 98 01/18/20 12:35 99.1 F 79 20 118/66 100 01/18/20 10:20 83 20 93 L 01/18/20 08:00 100 01/18/20 07:24 98.5 F 97 20 119/84 100 01/18/20 07:18 91 L 01/18/20 07:15 102 H 20 91 L Weight Admit Weight 145 lb Weight 145 lb Most Recent Monitor Data Heart Rate from ECG 55 NIBP 104/48 NIBP BP-Mean 66 Respiration from ECG 22 SpO2 100 I&O: 01/17/20 01/18/20 01/19/20 06:59 06:59 06:59 Intake Total 2678.4 3815 60 Output Total 3835 1500 Balance -1156.6 2315 60 Result Diagrams: 01/15/20 03:20 01/16/20 03:00 Hospitalist ROS - Review of Systems Constitutional: denies: fever, chills - Medication Medications: Active Medications Generic Name Dose Route Start Last Admin Trade Name Freq PRN Reason Stop Dose Admin Acetaminophen 650 mg 01/12/20 23:30 01/17/20 10:10 Acetaminophen 325 Mg Tab PO 650 mg Q4H PRN Administration Headache/Fever/Mild Pain (1-3) Hydrocodone Bitart/Acetaminophen 2 tab 01/17/20 16:21 01/18/20 02:08 Hydrocodone/Acetaminophen 7.5/325 Mg Tablet PO 2 tab Q4H PRN Administration Moderate Pain (4-6) Albuterol/Ipratropium 3 ml 01/13/20 18:30 01/18/20 14:56 Ipratropium/Albuterol Sulfate 3 Ml Neb NEB 3 ml [id number] BASSEM Administration Alprazolam 0.25 mg 01/17/20 16:20 01/18/20 07:55 Alprazolam 0.25 Mg Tab PO 0.25 mg TIDPRN PRN Administration Anxiety Amoxicillin/Clavulanate Potassium 875 mg 01/17/20 21:00 01/18/20 07:54 Amoxicillin/Potassium Clav 875 Mg Tab PER TUBE 875 mg Q12HR BASSEM Administration Enoxaparin Sodium 40 mg 01/13/20 21:00 01/17/20 20:45 Enoxaparin Sodium 40 Mg/0.4 Ml Syringe SC 40 mg 2100 BASSEM Administration Famotidine 20 mg 01/15/20 21:00 01/18/20 07:55 Famotidine 40 Mg/5 Ml Oral Suspension PER TUBE 20 mg BID BASSEM Administration Sodium Chloride 1,000 mls @ 100 mls/hr 01/12/20 23:30 01/18/20 07:55 Normal Saline 0.9% IV 1,000 mls .Q10H BASSEM Administration Ondansetron HCl 4 mg 01/12/20 23:30 01/17/20 10:09 Ondansetron Pf 4 Mg/2 Ml Vial IVP 4 mg Q6H PRN Administration Nausea/Vomiting Tamsulosin HCl 0.4 mg 01/13/20 09:00 01/18/20 07:55 Tamsulosin Hcl 0.4 Mg Cap PO 0.4 mg DAILY BASSEM Administration Tramadol HCl 50 mg 01/17/20 15:52 01/17/20 16:28 Tramadol Hcl 50 Mg Tab PO 50 mg Q6H PRN Administration Pain 4-6 - Exam General Appearance: NAD, awake alert Eye: PERRL, anicteric sclera ENT: normocephalic atraumatic, no oropharyngeal lesions Neck: no JVD Neck - other findings: trach in place with some rales heard Heart: RRR, no murmur, no gallops, no rubs Respiratory: CTAB, no wheezes, no rales, no ronchi Gastrointestinal: soft, non-tender, non-distended, normal bowel sounds Extremities: no cyanosis, no clubbing, no edema Skin: normal turgor, no lesions, no rashes Neurological: cranial nerve grossly intact, normal sensation to touch Musculoskeletal: normal tone, normal strength, no muscle wasting Psychiatric: normal affect, A&O x 3 Hosp A/P - Plan CT necK: extensive edema involving epiglottis, supraglottic, glottic and subglottic larynx. Soft tissue neck abscess inferior to hyoid bone. Chest X ray 01/16: worsening edema or pneumonia of right base This is a 69 year old male with history of laryngeal cancer s/p tracheostomy who presented with shortness of breath, fevers, chills and dislodgment of trach. He was originally admitted to the ICU and was intubated. He had bronchoscopy 01/12 showing purulent secretion in right lower lobe. He had placement of #6 Shiley. He was extubated 01/15 and transferred to the floor 01/16. Sepsis secondary to right lower lobe versus soft tissue neck abscess - he received vancomycin 01/12, levaquin 01/12 to 01/13, meropenem 01/14 to 01/16. He was switched to oral augmentin 01/16. Continue oral augmenitn for now - CT neck shows soft tissue neck abscess slightly increased in size. In October, ENT did not feel this was an abscess however will re consult them again on Monday Acute hypoxic respiratory failure - secondary to pneumonia and pleural effusions - continue augmentin - will give a dose of 20 mg IV lasix. Discontinue IV fluids - suction prn Chronic malnutrition - continue tube feedings Physical deconditioning - will place PT evaluation Anemia - Hb 8.8, stable. Will monitor. Last TSH 13, will recheck
[2020-01-18] MEDS ORDERED: Furosemide 20 MG/2 ML VIAL SLOW IVP SCH (16:15)
--- NOTE | 2020-01-18 18:21 | PRG ---
DATE OF SERVICE: 01/18/2020 SUBJECTIVE: Mr. Mariscal is comfortable. OBJECTIVE: VITAL SIGNS: He is afebrile, heart is in the 80s, respiratory rate is 20, oximetry is 100%, and blood pressure 99/61. LUNGS: Clear. HEART: Regular rhythm. ABDOMEN: Soft. IMPRESSION: 1. Aspiration pneumonia. 2. Recurrent throat cancer, waiting Ear, Nose, and Throat surgeon return. He needs to be consulted again tomorrow. PLAN: He always has complaints about his tracheostomy site, he has as long as I have known him. I have again explained to him that he can have his trach removed. He needs a laryngectomy/radical neck dissection most likely and says he is willing to go through this, although deconditioning is a big factor with him. He has a very poor understanding of health issues. We will continue to follow. Job ID: [id number]
[2020-01-18] MEDS: Enoxaparin Sodium 40 MG/0.4 ML SYRINGE SC SCH (20:55)
[2020-01-19 06:01] LABS: Hemoglobin 9.8 g/dL (14.0-18.0); Mean Corpuscular HGB CONC 31.6 g/dL (32.0-36.0); Mean Corpuscular Hemoglobin 30.6 pg (27.0-31.0); Mean Corpuscular Volume 96.9 fL (78.0-98.0); Platelet Count 418 thou/uL (130-400); RBC Distribution Width 15.3 % (11.5-14.5); White Blood Cell (WBC) Count 6.3 thou/uL (4.8-10.8)
[2020-01-19 06:13] LABS: Iron 29 ug/dL (65-175); Iron Binding Capacity, Total 160 mcg/dL (261-462)
[2020-01-19 06:15] LABS: Calc. Creatinine Clearance 110 mL/min (70-130); Estimated GFR-MDRD Greater than 90
[2020-01-19 06:34] LABS: Free T4 (Free Thyroxine) 0.68 ng/dL (0.70-1.48)
[2020-01-19] MEDS: ALPRAZolam 0.25 MG TAB PO PRN ×2 (06:38→13:08)
[2020-01-19] MEDS: HYDROcodone/Acetaminophen 7.5/325 mg Tablet PO PRN ×3 (06:38→21:20)
[2020-01-19 07:15] LABS: Ferritin 1996.85 ng/mL (22-322)
--- NOTE | 2020-01-19 09:36 | PRG ---
DATE OF SERVICE: 01/19/2020 SUBJECTIVE: Brenden Mariscal is resting comfortably. He has no complaints. OBJECTIVE: LUNGS: Clear. HEART: Regular rhythm. ABDOMEN: Soft. IMPRESSION: 1. Recurrent throat cancer with near-complete upper airway obstruction. 2. Status post inadvertent removal of his tracheostomy at home with emergent replacement the day after he was admitted. 3. Aspiration pneumonia, now on Augmentin. 4. Underlying chronic obstructive pulmonary disease, which is small part of his admissions. He has had multiple admissions similar to this. 5. Fluid collection in his retropharyngeal space. We will defer to the Ear, Nose, and Throat Surgery. This is larger than last admission and felt by Radiology to be an abscess. Ear, Nose, Throat physician saw him last admission, did not feel that this was significant. I will defer to Dr. Bonds when he gets back. Job ID: [id number]
[2020-01-19] MEDS: Levothyroxine Sodium 25 MCG TAB PO SCH (09:58)
[2020-01-19] MEDS: Tamsulosin HCl 0.4 MG CAP PO SCH (09:58)
[2020-01-19] MEDS: Amoxicillin/Potassium Clav 875 MG TAB PER TUBE SCH ×2 (09:58→21:20)
[2020-01-19] MEDS: Famotidine 40 MG/5 ML Oral Suspension PER TUBE SCH ×2 (09:58→21:22)
--- NOTE | 2020-01-19 15:21 | PDOC.HOSPP ---
- Subjective Encounter Date: 01/19/20 Encounter Time: 10:00 Subjective: F/u: trach dislodgement, shortness of breath The patient is doing better today. He is suctioning himself as needed. He d enies significant pain at the trach site today. No shortness of breath - Objective Vital Signs & Weight: Vital Signs (12 hours) Temp Pulse Resp BP Pulse Ox 01/19/20 14:43 105 H 20 97 01/19/20 11:31 98.2 F 81 20 101/66 98 01/19/20 10:24 87 20 96 01/19/20 08:00 95 01/19/20 07:36 98.3 F 94 20 100/67 95 01/19/20 07:08 96 01/19/20 07:07 75 20 96 Weight Admit Weight 145 lb Weight 145 lb Most Recent Monitor Data Heart Rate from ECG 55 NIBP 104/48 NIBP BP-Mean 66 Respiration from ECG 22 SpO2 100 I&O: 01/18/20 01/19/20 01/20/20 06:59 06:59 06:59 Intake Total 3815 2520 60 Output Total 1500 3250 Balance 2315 -730 60 Result Diagrams: 01/19/20 05:29 01/19/20 05:29 Hospitalist ROS - Review of Systems Constitutional: denies: fever, chills - Medication Medications: Active Medications Generic Name Dose Route Start Last Admin Trade Name Freq PRN Reason Stop Dose Admin Acetaminophen 650 mg 01/12/20 23:30 01/17/20 10:10 Acetaminophen 325 Mg Tab PO 650 mg Q4H PRN Administration Headache/Fever/Mild Pain (1-3) Hydrocodone Bitart/Acetaminophen 2 tab 01/17/20 16:21 01/19/20 06:38 Hydrocodone/Acetaminophen 7.5/325 Mg Tablet PO 2 tab Q4H PRN Administration Moderate Pain (4-6) Albuterol/Ipratropium 3 ml 01/13/20 18:30 01/19/20 14:43 Ipratropium/Albuterol Sulfate 3 Ml Neb NEB 3 ml [id number] BASSEM Administration Alprazolam 0.25 mg 01/17/20 16:20 01/19/20 13:08 Alprazolam 0.25 Mg Tab PO 0.25 mg TIDPRN PRN Administration Anxiety Amoxicillin/Clavulanate Potassium 875 mg 01/17/20 21:00 01/19/20 09:58 Amoxicillin/Potassium Clav 875 Mg Tab PER TUBE 875 mg Q12HR BASSEM Administration Enoxaparin Sodium 40 mg 01/13/20 21:00 01/18/20 20:55 Enoxaparin Sodium 40 Mg/0.4 Ml Syringe SC 40 mg 2100 BASSEM Administration Famotidine 20 mg 01/15/20 21:00 01/19/20 09:58 Famotidine 40 Mg/5 Ml Oral Suspension PER TUBE 20 mg BID BASSEM Administration Levothyroxine Sodium 25 mcg 01/19/20 06:00 01/19/20 09:58 Levothyroxine Sodium 25 Mcg Tab PO 25 mcg 0600 BASSEM Administration Ondansetron HCl 4 mg 01/12/20 23:30 01/17/20 10:09 Ondansetron Pf 4 Mg/2 Ml Vial IVP 4 mg Q6H PRN Administration Nausea/Vomiting Tamsulosin HCl 0.4 mg 01/13/20 09:00 01/19/20 09:58 Tamsulosin Hcl 0.4 Mg Cap PO 0.4 mg DAILY BASSEM Administration Tramadol HCl 50 mg 01/17/20 15:52 01/17/20 16:28 Tramadol Hcl 50 Mg Tab PO 50 mg Q6H PRN Administration Pain 4-6 - Exam General Appearance: NAD, awake alert Eye: PERRL, anicteric sclera ENT: normocephalic atraumatic, no oropharyngeal lesions Neck: no JVD Heart: RRR, no murmur, no gallops, no rubs Respiratory: CTAB, no wheezes, no rales, no ronchi Gastrointestinal: soft, non-tender, non-distended, normal bowel sounds Extremities: no cyanosis, no clubbing, no edema Skin: normal turgor, no lesions, no rashes Hosp A/P - Plan CT necK: extensive edema involving epiglottis, supraglottic, glottic and subglottic larynx. Soft tissue neck abscess inferior to hyoid bone. Chest X ray 01/16: worsening edema or pneumonia of right base This is a 69 year old male with history of laryngeal cancer s/p tracheostomy who presented with shortness of breath, fevers, chills and dislodgment of trach. He was originally admitted to the ICU and was intubated. He had bronchoscopy 01/12 showing purulent secretion in right lower lobe. He had placement of #6 Shiley. He was extubated 01/15 and transferred to the floor 01/16. Sepsis secondary to right lower lobe versus soft tissue neck abscess - he received vancomycin 01/12, levaquin 01/12 to 01/13, meropenem 01/14 to 01/16. He was switched to oral augmentin 01/16. Continue oral augmenitn for now - CT neck shows soft tissue neck abscess slightly increased in size. In October, ENT did not feel this was an abscess however will re consult them again on Monday Acute hypoxic respiratory failure - secondary to pneumonia and pleural effusions - continue augmentin . He got 20 mg IV lasix yesterday due to worsening edema vs pneumonia - will repeat chest Xray today Hypothyroidism - TSH has increased to 27 with low free T4. TSH was 13 on 07/2019. Will restart levothyroxine 25 mcg Chronic malnutrition - continue tube feedings Physical deconditioning - PT is following the patient. They recommend home with home health Anemia - Hb 8.8, stable. Will monitor. TSh high, started levothyroxine Dispo: pending ENT consult tomorrow
[2020-01-19] MEDS: Enoxaparin Sodium 40 MG/0.4 ML SYRINGE SC SCH (21:20)
[2020-01-20] MEDS: traMADol HCl 50 MG TAB PO PRN ×2 (05:11→13:03)
[2020-01-20] MEDS: Levothyroxine Sodium 25 MCG TAB PO SCH (05:12)
[2020-01-20] MEDS: HYDROcodone/Acetaminophen 7.5/325 mg Tablet PO PRN (08:29)
[2020-01-20] MEDS: Famotidine 40 MG/5 ML Oral Suspension PER TUBE SCH ×2 (08:30→21:01)
[2020-01-20] MEDS: Amoxicillin/Potassium Clav 875 MG TAB PER TUBE SCH ×2 (08:30→21:01)
[2020-01-20] MEDS: Tamsulosin HCl 0.4 MG CAP PO SCH (08:30)
--- NOTE | 2020-01-20 16:00 | PRG ---
DATE OF SERVICE: 01/20/2020 SUBJECTIVE: Brenden Mariscal remains stable. OBJECTIVE: VITAL SIGNS: Heart rate 72, respiratory rate 20, oximetry is in the high 90s. His O2 via trach collar can be weaned down to just over 90%. He is not wheezing. The next step is ear, nose and throat surgery. Recommendations regarding what to do with his cancers. Job ID: [id number]
--- NOTE | 2020-01-20 17:22 | PDOC.HOSPP ---
- Subjective Encounter Date: 01/20/20 Encounter Time: 07:00 Subjective: The patient is complaining of pain in his trach radiating to his right ear. No purulent discharge noted in his ear. ENT evaluated the patient. He had a recent biopsy that showed recurrent laryngeal cancer 01/08. ENT is recommending the patient have total laryngectomy with free flap reconstruction versus chemotherapy/immunotherapy palliative. Oncology has been consulted - Objective Vital Signs & Weight: Vital Signs (12 hours) Temp Pulse Pulse Resp BP Pulse Ox Pulse Ox 01/20/20 14:35 92 20 97 01/20/20 10:35 103 H 18 99 01/20/20 08:54 87 98 01/20/20 07:31 98.2 F 93 22 H 99/64 96 01/20/20 07:00 97 01/20/20 06:56 89 18 97 Weight Admit Weight 145 lb Weight 145 lb Most Recent Monitor Data Heart Rate from ECG 55 NIBP 104/48 NIBP BP-Mean 66 Respiration from ECG 22 SpO2 100 I&O: 01/19/20 01/20/20 01/21/20 06:59 06:59 06:59 Intake Total 2520 870 Output Total 3250 1250 350 Balance -730 -380 -350 Result Diagrams: 01/19/20 05:29 01/19/20 05:29 Hospitalist ROS - Review of Systems Constitutional: denies: fever, chills - Medication Medications: Active Medications Generic Name Dose Route Start Last Admin Trade Name Freq PRN Reason Stop Dose Admin Acetaminophen 650 mg 01/12/20 23:30 01/17/20 10:10 Acetaminophen 325 Mg Tab PO 650 mg Q4H PRN Administration Headache/Fever/Mild Pain (1-3) Hydrocodone Bitart/Acetaminophen 2 tab 01/17/20 16:21 01/20/20 08:29 Hydrocodone/Acetaminophen 7.5/325 Mg Tablet PO 2 tab Q4H PRN Administration Moderate Pain (4-6) Albuterol/Ipratropium 3 ml 01/13/20 18:30 01/20/20 14:35 Ipratropium/Albuterol Sulfate 3 Ml Neb NEB 3 ml C1IA-NO BASSEM Administration Alprazolam 0.25 mg 01/17/20 16:20 01/19/20 13:08 Alprazolam 0.25 Mg Tab PO 0.25 mg TIDPRN PRN Administration Anxiety Amoxicillin/Clavulanate Potassium 875 mg 01/17/20 21:00 01/20/20 08:30 Amoxicillin/Potassium Clav 875 Mg Tab PER TUBE 875 mg Q12HR BASSEM Administration Enoxaparin Sodium 40 mg 01/13/20 21:00 01/19/20 21:20 Enoxaparin Sodium 40 Mg/0.4 Ml Syringe SC 40 mg 2100 BASSEM Administration Famotidine 20 mg 01/15/20 21:00 01/20/20 08:30 Famotidine 40 Mg/5 Ml Oral Suspension PER TUBE 20 mg BID BASSEM Administration Levothyroxine Sodium 25 mcg 01/19/20 06:00 01/20/20 05:12 Levothyroxine Sodium 25 Mcg Tab PO 25 mcg 0600 BASSEM Administration Ondansetron HCl 4 mg 01/12/20 23:30 01/17/20 10:09 Ondansetron Pf 4 Mg/2 Ml Vial IVP 4 mg Q6H PRN Administration Nausea/Vomiting Tamsulosin HCl 0.4 mg 01/13/20 09:00 01/20/20 08:30 Tamsulosin Hcl 0.4 Mg Cap PO 0.4 mg DAILY BASSEM Administration Tramadol HCl 50 mg 01/17/20 15:52 01/20/20 13:03 Tramadol Hcl 50 Mg Tab PO 50 mg Q6H PRN Administration Pain 4-6 - Exam General Appearance: NAD, awake alert Eye: PERRL, anicteric sclera ENT: normocephalic atraumatic, no oropharyngeal lesions ENT - other findings: trach in place, no purulent secretions Neck: no JVD Heart: RRR, no murmur, no gallops, no rubs Respiratory: CTAB, no wheezes, no rales, no ronchi Gastrointestinal: soft, non-tender, non-distended, normal bowel sounds Extremities: no cyanosis, no clubbing, no edema Skin: normal turgor, no lesions, no rashes Hosp A/P - Plan CT necK: extensive edema involving epiglottis, supraglottic, glottic and subglottic larynx. Soft tissue neck abscess inferior to hyoid bone. Chest X ray 01/16: worsening edema or pneumonia of right base This is a 69 year old male with history of laryngeal cancer s/p tracheostomy who presented with shortness of breath, fevers, chills and dislodgment of trach. He was originally admitted to the ICU and was intubated. He had bronchoscopy 01/12 showing purulent secretion in right lower lobe. He had placement of #6 Shiley. He was extubated 01/15 and transferred to the floor 01/16. Sepsis secondary to right lower lobe versus soft tissue neck abscess - he received vancomycin 01/12, levaquin 01/12 to 01/13, meropenem 01/14 to 01/16. He was switched to oral augmentin 01/16. -Continue oral augmentin for two more days - CT neck shows soft tissue neck abscess slightly increased in size. 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 Alternatively he could have total laryngectomy with free flap reconstruction but that procedure is not done here and he'd have to go to [facility] Acute hypoxic respiratory failure - secondary to pneumonia and pleural effusions - continue augmentin . He got 20 mg IV lasix 01/17 due to worsening edema vs pneumonia - will repeat chest Xray today Hypothyroidism - TSH has increased to 27 with low free T4. TSH was 13 on 07/2019. Restarted levothyroxine 25 mcg - needs repeat TFT in 6 weeks Chronic malnutrition - continue tube feedings Physical deconditioning - PT is following the patient. They recommend home with home health Anemia - Hb 9.8, stable. Will monitor. TSh high, started levothyroxine Dispo: pending oncology consult
[2020-01-20] MEDS: Ketorolac Tromethamine 30 MG/ML VIAL IVP SCH (18:27)
--- NOTE | 2020-01-20 18:35 | CON ---
DATE OF CONSULTATION: REASON FOR CONSULTATION: Laryngeal cancer. HISTORY OF PRESENT ILLNESS: Mr. 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 He had sluggish cord with sublateral extension. He underwent radiation with 29 fractions completed in December 2017. He was followed by Dr. More and Dr. Bonds in December. He had a followup laryngoscopy, where a necrotic appearing area on the right vocal cord was noted. He saw Dr. Bonds and underwent biopsy of this area on January 08. It was positive for invasive moderately differentiated squamous cell carcinoma with ulceration and necrosis. He was discharged home. However, on January 11, he was admitted for progressive shortness of breath, likely pneumonia. He required intubation and has now been extubated. He was seen on medical floor. He complains of right ear and neck pain. He denies any shortness of breath. No chest pain. He is on tube feeds. He is able to answer questions with yes or no when he wrote his questions on paper. PAST MEDICAL HISTORY: 1. 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 2. History of benign pulmonary nodule. 3. 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 4. History of thoracentesis. PAST SURGICAL HISTORY: Multiple laryngoscopies with biopsies. ALLERGIES: NO KNOWN DRUG ALLERGIES. HOME MEDICATIONS: 1. Trazodone. 2. Tramadol. 3. Alprazolam. 4. Sertraline. 5. Prednisone. 6. Nebulizer. 7. Tylenol No. 3 p.r.n. FAMILY HISTORY: No family history of malignancy. SOCIAL HISTORY: Former smoker. Prior alcohol use. Lives with his sister. REVIEW OF SYSTEMS: 12-point review of systems is negative. PHYSICAL EXAMINATION: VITAL SIGNS: Temperature is 98.2, pulse is 92, respiratory rate 20, blood pressure is 99/64. He is 97% on 6 L, trach collar. GENERAL: This is a thin male, in no acute distress. HEENT: Normocephalic, atraumatic. Pupils are equal and reactive to light. NECK: Supple. He does have tenderness to palpation in his right submandibular area. He has no lymphadenopathy. LUNGS: Clear. CV: Regular rate and rhythm. ABDOMEN: Soft. He has a feeding tube in place. NEUROLOGIC: Nonfocal. PERTINENT LABORATORY DATA AND X-RAYS: WBCs are 6.3, hemoglobin 9.8, hematocrit 31.0, platelet count is 418,000, 83% neutrophils, 10% bands. Sodium 137, potassium 3.5, chloride 105, CO2 is 27, BUN is 8, creatinine 0.6, calcium 8.1. Iron is 29, TIBC is 160, iron saturation 18, ferritin is 1996. TSH is 27, bilirubin is 0.3, AST is 14, ALT is 20, alkaline phosphatase is 53, serum total protein 6.2, albumin 2.8, globulin 3.4. Urine was negative. PCR COVID negative. ASSESSMENT: Recurrent squamous cell carcinoma of the larynx. DISCUSSION: Case has been discussed with Dr. Rodriguez. The patient has necrosis and abscess formation. He would possibly benefit from a total laryngectomy with possible adjuvant radiation and/or systemic chemotherapy. We will ask Dr. More to see the patient for his opinion. The patient is requesting pain medicines as he continues to have discomfort. We will add Toradol. I have updated his sister, Lor, per his request and we will follow along with his hospitalization. Job ID: [id number] [facility]
--- NOTE | 2020-01-20 19:26 | RAD ---
CHEST ONE VIEW: History: Pleural effusion and pneumonia Comparison: 01-17-2020 FINDINGS: Slight interval size decrease in layering pleural effusions. There is scar within both lower lobes. S mall right pleural effusion persists. No pulmonary edema. No pneumothorax. Tracheostomy tube tip is in a similar location. Percutaneous gas trostomy tube is present. IMPRESSION: Improved lung aeration and slight decrease in pleural effusions. POS: HOME
[2020-01-20] MEDS: Enoxaparin Sodium 40 MG/0.4 ML SYRINGE SC SCH (21:01)
--- NOTE | 2020-01-20 21:49 | CON ---
DATE OF CONSULTATION: 01/20/2020 REASON FOR CONSULTATION: Mr. Mariscal is a 69-year-old gentleman known to me, who now has recurrent squamous cell carcinoma of the vocal cords. HISTORY OF PRESENT ILLNESS: Mr. Mariscal was diagnosed in 2018 with a stage II, T2 N0 M0 squamous cell carcinoma of the left true vocal cord. He was treated with 65.25 Gy in 29 fractions, which was completed on 01/05/2018. He persists in smoking after his treatment. Earlier this year, he developed laryngeal edema requiring tracheostomy. More recently, his exam was suspicious for recurrence. He underwent a biopsy by Dr. Bonds on 01/09/2020, which showed an invasive mildly differentiated squamous cell carcinoma with ulceration and necrosis. Last week, his tracheostomy tube became dislodged and he had trouble with his airway, which required emergent bronchoscopy and replacement of the tracheostomy tube. He was felt to have a right lower lobe pneumonia as he had purulent material in the right lower lobe. He was briefly intubated but has now improved from that and is on the medical luz. He had a CT scan of the neck, which has been interpreted as possible infection, although most likely this is tumor involving the supraglottic, glottic, and subglottic area. Per my conversation with Dr. oBnds last week, he did not think this was resectable. I have been asked by [facility] to see the patient to discuss his options with radiation. Presently, he is using a PEG tube for all his nutritional support. His only complaint is of pain in the neck, which radiates up into his right ear. His breathing is better. He voices no other complaints. PAST MEDICAL HISTORY: 1. Laryngeal cancer, as mentioned above. 2. Thoracentesis in 2009 for a parapneumonic effusion. 3. 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 4. He denies other medical or surgical problems. MEDICATIONS: 1. Augmentin. 2. Lovenox. 3. Pepcid. 4. [place]. 5. Toradol. 6. Synthroid. 7. Zofran. 8. Flomax. ALLERGIES: NO KNOWN MEDICAL ALLERGIES. SOCIAL HISTORY: He smoked up until the time of his tracheostomy. Previously, he smoked up to one pack of cigarettes per day. He has no cigarette use at the present. He did drink alcohol on a daily basis until his PEG tube placement. He has been living with his sister in [place], [place]. He is retired. FAMILY HISTORY: His mother at age 84, the cause of which was unknown to him. His father of pneumonia. There is no family history of malignancy. REVIEW OF SYSTEMS: A 10 system review of systems is otherwise negative. PHYSICAL EXAMINATION: VITAL SIGNS: Height is 6 feet 3 inches and weight is 145 pounds. Blood pressure is 99/64, pulse is 93, respirations are 22, temperature is 98.2, and O2 saturation is 96%. CONSTITUTIONAL: He is alert and oriented and in no apparent distress. Karnofsky performance status is a 60%. EYES: Right eye shows sclera to be opacified from trauma. Left eye, the pupil is reactive. Extraocular movements are intact. ENT: Oral cavity and oropharynx are normal without lesion. Palate elevates symmetrically. Gingiva is intact. NECK: No preauricular, submandibular, cervical, or supraclavicular adenopathy. Tracheostomy is in place. He does have some drainage from an open wound beneath the tracheostomy, which is possibly either from recurrent cancer. No thyromegaly. LUNGS: Breathing nonlabored. Clear to auscultation. CARDIOVASCULAR: Heart, regular rate and rhythm without murmur. No lower extremity edema. LYMPHATIC: No axillary or inguinal adenopathy. ABDOMEN: Soft, nontender, and nondistended without mass or hepatosplenomegaly. Liver percusses normal size. SKIN: Without rash or purpura. NEUROLOGIC: Motor strength is 5/5 in both upper and lower extremities in all muscle groups tested. Gait was not tested. LABORATORY: Biopsy on 01/09/2020 showed invasive mildly differentiated squamous cell carcinoma with ulceration and necrosis. CBC revealed a white blood cell count of 6300 with a hemoglobin of 9.8, hematocrit of 31.0, and platelet count of 418,000. Chemistry group showed fairly normal electrolytes. His ferritin is elevated and his TSH is elevated. RADIOLOGIC DATA: CT scan of the neck was personally reviewed. He has enhancement in the supraglottic, glottic, and subglottic region. There was no definite evidence of adenopathy. In the right upper level 5 with lymph node measuring 1.2 cm which is at the borderline of normal. ASSESSMENT: Mr. Mariscal is a 69-year-old gentleman, who has developed a recurrence of his previously known stage II, T2 N0 M0 squamous cell carcinoma of the glottic larynx. 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 PLAN: Per my discussion with Dr. Bonds last week, Dr. Bonds did not feel that he had resectable disease. He has previously been treated with radiation therapy about two years ago. Given the extent of his disease, the necrosis, and possible fistula, I do not think he is a candidate for a repeat course of radiation therapy. I think his options at this time would be either chemotherapy for palliation or hospice care. I do not know if he would be a candidate for chemotherapy. He is going to be evaluated by Medical Oncology. We will await their input. If he is not a candidate for chemotherapy, then hospice care would likely be his best option. Time was taken to answer all of his questions regarding his situation and again I explained to him that he is not a candidate for additional radiation therapy. Thank you for this interesting consultation. Job ID: [id number]
[2020-01-21] MEDS: Ketorolac Tromethamine 30 MG/ML VIAL IVP SCH ×4 (01:11→17:51)
[2020-01-21] MEDS: Levothyroxine Sodium 25 MCG TAB PO SCH (06:19)
[2020-01-21] MEDS: Amoxicillin/Potassium Clav 875 MG TAB PER TUBE SCH (09:45)
[2020-01-21] MEDS: Tamsulosin HCl 0.4 MG CAP PO SCH (09:45)
--- NOTE | 2020-01-21 11:28 | CON ---
DATE OF CONSULTATION: REASON FOR CONSULTATION: Tracheostomy and history of laryngeal cancer. HISTORY OF PRESENT ILLNESS: Mr. Mariscal is a 69-year-old male patient, who presented to the hospital emergently for trach dislodgement, this has happened multiple times and recently had trach dislodged and required a stat tracheostomy due to dislodgement of the trachea and respiratory distress. Patient had a significant history of squamous cell carcinoma of the larynx and underwent radiation therapy in 2018 and has been followed by Dr. More and Dr. Bonds. However, patient has had increasing dysfunction of his larynx and Dr. Bonds has taken the patient back to the OR for evaluation and for direct laryngoscopy and biopsy with recent biopsy showing recurrent squamous cell carcinoma and has radiographic findings and biopsy findings of chondroradionecrosis, necessitating patient to have a G-tube for adequate nutritional support as well as trach, given the patient was unable to take adequate p.o. safely by mouth. 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 PAST SURGICAL HISTORY: Direct laryngoscopy, tracheostomy, and biopsy. ALLERGIES: NO KNOWN DRUG ALLERGIES. MEDICATIONS: Please see electronic medical record. FAMILY AND SOCIAL HISTORY: Previous smoking history. Currently lives with his sister. REVIEW OF SYSTEMS: SKIN: Negative. EYES: Blindness in one eye, otherwise negative. EARS, NOSE, AND THROAT: See HPI, otherwise negative. RESPIRATORY: Respiratory distress without tracheostomy in place. CARDIOVASCULAR: Negative. GASTROINTESTINAL: Negative. MUSCULOSKELETAL: Negative. NEUROLOGIC: Negative. HEMATOLOGIC: Negative. LYMPHATIC: Negative. IMMUNOLOGIC: Negative. ENDOCRINE: Negative. PHYSICAL EXAMINATION: GENERAL: Patient is alert and oriented, in no acute distress. HEAD AND FACE: Normocephalic and atraumatic. No facial skin lesions. No maxillary tenderness. No frontal tenderness. No parotid gland masses or tenderness. No submandibular gland mass or tenderness. EYES: Extraocular movements are intact. Left eye, pupil is reactive and equally round. No nystagmus on lateral gaze. EARS: Right and left pinnae are normal. EAC is clear. TM is intact with normal landmarks. No evidence of effusion or infection. NOSE: External nose is normal. Nasal mucosa is healthy. Turbinates are healthy. No masses or lesions. Oral cavity, mucous membranes are moist without lesion. Palate with symmetric elevation. Tongue is soft and mobile with soft floor of mouth. NECK: No lymphadenopathy. Thin neck with midline tracheostomy tube in place. Surrounding tissue has mild crusting. There are no signs of infection. There is no cellulitis and no edema. NEUROLOGIC: Cranial nerves 2 through 12 are grossly intact. Mood and affect are normal. DATA: CT scan of the neck done previously shows soft tissue thickening of the larynx, small irregular fluid collection. And degradation of the thyroid and laryngeal cartilages representing chondroradionecrosis. 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 I was consulted to evaluate this patient for his tracheostomy tube today, there is significant confusion given this patient's medical course. In effort to elucidate that, I have evaluated the patient and again spoken to Dr. 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 Given the patient's tracheal stenosis, I do not believe that it is possible to fit an 8 Shiley comfortably. The patient has a history of frequent trach dislodgement as well which is likely from the patient removing the trach tube to increase his comfort. 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 If the patient does not desire a total laryngectomy as well as free flap reconstruction, then his options would be potential palliative radiation or chemoimmunotherapy options, and patient's assessment today has been discussed with Dr. Bonds who will formulate a plan with communication with Radiation and Medical Oncology going forward. Job ID: [id number] [facility]
[2020-01-21] MEDS: Famotidine 40 MG/5 ML Oral Suspension PER TUBE SCH ×2 (13:11→21:28)
--- NOTE | 2020-01-21 14:46 | PDOC.MOPN ---
Interval History: Pain improved with toradol. Consults reviewed. - Vital Signs Vital Signs: Vital Signs (12 hours) Temp Pulse Pulse Resp BP BP BP 01/21/20 11:30 100 93/62 01/21/20 11:10 99 18 01/21/20 10:00 01/21/20 08:05 95/62 01/21/20 08:00 01/21/20 07:31 98.1 F 77 17 89/62 L 01/21/20 07:12 86 18 01/21/20 04:00 98.2 F 89 20 92/60 Pulse Ox Pulse Ox 01/21/20 11:30 98 01/21/20 11:10 99 01/21/20 10:00 98 01/21/20 08:05 01/21/20 08:00 95 01/21/20 07:31 95 01/21/20 07:12 01/21/20 04:00 92 L Weight Admit Weight 145 lb Weight 145 lb Most Recent Monitor Data Heart Rate from ECG 55 NIBP 104/48 NIBP BP-Mean 66 Respiration from ECG 22 SpO2 100 - Physical Exam General: Alert Lungs: Clear to auscultation Cardiovascular: Regular rate Abdomen: Normal bowel sounds, Other (peg) Neurological: Other - Labs Result Diagrams: 01/19/20 05:29 01/19/20 05:29 Status: lab reviewed by me A/P - Problem (1) Hx of laryngeal cancer Current Visit: Yes Code(s): Z85.21 - PERSONAL HISTORY OF MALIGNANT NEOPLASM OF LARYNX Status: Acute (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 Current Visit: No Code(s): C32.0 - MALIGNANT NEOPLASM OF GLOTTIS Status: Chronic - Plan Plan: Considering laryngectomy if not candidate for surgery, would be candidate for Keytruda if PDL-1 positive if PDL-1 negative, chemotherapy only option If no inpatient transfer for surgery, he can follow-up in office.
--- NOTE | 2020-01-21 17:19 | PDOC.HOSPP ---
- Subjective Encounter Date: 01/21/20 Encounter Time: 11:45 Subjective: The patient denies pain in his trach. He denies shortness of breath. I have discussed with Dr. Bonds who recommends that the patient get a total laryngectomy with a free flap in [place]. I discussed this with the sister and the patient who are in agreement for transfer - Objective Vital Signs & Weight: Vital Signs (12 hours) Temp Pulse Pulse Resp BP BP Pulse Ox 01/21/20 15:35 92 16 01/21/20 11:30 100 93/62 01/21/20 11:10 99 18 99 01/21/20 10:00 01/21/20 08:05 95/62 01/21/20 08:00 95 01/21/20 07:31 98.1 F 77 17 89/62 L 95 01/21/20 07:12 86 18 Pulse Ox 01/21/20 15:35 01/21/20 11:30 98 01/21/20 11:10 01/21/20 10:00 98 01/21/20 08:05 01/21/20 08:00 01/21/20 07:31 01/21/20 07:12 Weight Admit Weight 145 lb Weight 145 lb Most Recent Monitor Data Heart Rate from ECG 55 NIBP 104/48 NIBP BP-Mean 66 Respiration from ECG 22 SpO2 100 I&O: 01/20/20 01/21/20 01/22/20 06:59 06:59 06:59 Intake Total 870 Output Total 1250 350 Balance -380 -350 Result Diagrams: 01/19/20 05:29 01/19/20 05:29 Hospitalist ROS - Review of Systems Constitutional: denies: fever, chills - Medication Medications: Active Medications Generic Name Dose Route Start Last Admin Trade Name Freq PRN Reason Stop Dose Admin Acetaminophen 650 mg 01/12/20 23:30 01/17/20 10:10 Acetaminophen 325 Mg Tab PO 650 mg Q4H PRN Administration Headache/Fever/Mild Pain (1-3) Hydrocodone Bitart/Acetaminophen 2 tab 01/17/20 16:21 01/20/20 08:29 Hydrocodone/Acetaminophen 7.5/325 Mg Tablet PO 2 tab Q4H PRN Administration Moderate Pain (4-6) Albuterol/Ipratropium 3 ml 01/13/20 18:30 01/21/20 15:35 Ipratropium/Albuterol Sulfate 3 Ml Neb NEB 3 ml [id number] BASSEM Administration Alprazolam 0.25 mg 01/17/20 16:20 01/19/20 13:08 Alprazolam 0.25 Mg Tab PO 0.25 mg TIDPRN PRN Administration Anxiety Amoxicillin/Clavulanate Potassium 875 mg 01/17/20 21:00 01/21/20 09:45 Amoxicillin/Potassium Clav 875 Mg Tab PER TUBE 875 mg Q12HR BASSEM Administration Enoxaparin Sodium 40 mg 01/13/20 21:00 01/20/20 21:01 Enoxaparin Sodium 40 Mg/0.4 Ml Syringe SC 40 mg 2100 BASSEM Administration Famotidine 20 mg 01/15/20 21:00 01/21/20 13:11 Famotidine 40 Mg/5 Ml Oral Suspension PER TUBE Not Given BID BASSEM Ketorolac Tromethamine 15 mg 01/20/20 18:00 01/21/20 13:30 Ketorolac Tromethamine 30 Mg/Ml Vial IVP 01/25/20 18:01 15 mg Q6HR BASSEM Administration Levothyroxine Sodium 25 mcg 01/19/20 06:00 01/21/20 06:19 Levothyroxine Sodium 25 Mcg Tab PO 25 mcg 0600 BASSEM Administration Ondansetron HCl 4 mg 01/12/20 23:30 01/17/20 10:09 Ondansetron Pf 4 Mg/2 Ml Vial IVP 4 mg Q6H PRN Administration Nausea/Vomiting Tamsulosin HCl 0.4 mg 01/13/20 09:00 01/21/20 09:45 Tamsulosin Hcl 0.4 Mg Cap PO 0.4 mg DAILY BASSEM Administration Tramadol HCl 50 mg 01/17/20 15:52 01/20/20 13:03 Tramadol Hcl 50 Mg Tab PO 50 mg Q6H PRN Administration Pain 4-6 - Exam General Appearance: NAD, awake alert Eye: PERRL, anicteric sclera ENT: no oropharyngeal lesions ENT - other findings: trach Neck: no JVD Heart: RRR, no murmur, no gallops, no rubs Respiratory: CTAB, no wheezes, no rales, no ronchi, normal chest expansion, no tachypnea, normal percussion Gastrointestinal: soft, non-tender, non-distended, normal bowel sounds Extremities: no cyanosis, no clubbing, no edema Skin: normal turgor, no lesions, no rashes Neurological: cranial nerve grossly intact, normal sensation to touch, no weakness Musculoskeletal: normal tone, normal strength, no muscle wasting Hosp A/P - Plan CT necK: extensive edema involving epiglottis, supraglottic, glottic and subglottic larynx. Soft tissue neck abscess inferior to hyoid bone. Chest X ray 01/16: worsening edema or pneumonia of right base Chest X ray 01/19: improved aeration and decrease in pleural effusions This is a 69 year old male with history of laryngeal cancer s/p tracheostomy who presented with shortness of breath, fevers, chills and dislodgment of trach. He was originally admitted to the ICU and was intubated. He had bronchoscopy 01/12 showing purulent secretion in right lower lobe. He had placement of #6 Shiley. He was extubated 01/15 and transferred to the floor 01/16. Sepsis secondary to right lower lobe versus soft tissue neck abscess - he received vancomycin 01/12, levaquin 01/12 to 01/13, meropenem 01/14 to 01/16. He was switched to oral augmentin 01/16. I will discontinue since the patient has received 7 days of therapy - CT neck shows soft tissue neck abscess slightly increased in size. 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 They have recommended transferring the patient to [place] for laryngectomy with a free flap. There is a risk of a fistula forming due to his history of prior radiation treatments, however the patient is in agreement in getting a second opinion there -Per oncology, if the patient is not a candidate for surgery then would consider Keytruda if PDL 1+ otherwise chemotherapy Acute hypoxic respiratory failure - secondary to pneumonia and pleural effusions - s/p 7 days of antibiotics. He got 20 mg IV lasix 01/17 due to worsening edema vs pneumonia. Repeat chest x ray 01/19 showed improvement in pleural effusions Hypothyroidism - TSH has increased to 27 with low free T4. TSH was 13 on 07/2019. - started levothyroxine 25 mcg - needs repeat TFT in 6 weeks Chronic malnutrition - continue tube feedings Physical deconditioning - PT is following the patient. They recommend home with home health Anemia - Hb 9.8, stable. Will monitor. TSh high, started levothyroxine Dispo: pending transfer to [facility] ([place])
[2020-01-21] MEDS: Enoxaparin Sodium 40 MG/0.4 ML SYRINGE SC SCH (21:28)
[2020-01-22] MEDS: Ketorolac Tromethamine 30 MG/ML VIAL IVP SCH ×4 (01:55→17:15)
[2020-01-22] MEDS: Levothyroxine Sodium 25 MCG TAB PO SCH (06:15)
--- NOTE | 2020-01-22 10:09 | CT ---
EXAM: CT chest, abdomen, and pelvis with IV contrast: HISTORY: Recurrent laryngeal cancer. Evaluate for metastatic disease. Staging workup evaluation. COMPARISON: CT abdomen and pelvis on 07/21/[address] thorax on 07/16/2019 FINDINGS: CT THORAX: Lungs: A thin-walled cavitary lesion is seen in the right lower lobe measuring 6.3 cm x 6 cm with air -fluid level present. Closely adjacent smaller cavitary lesion is also seen. Parenchymal densities are seen in the right lower lobe with minimal right pleural effusion present. Findings may be related to infectious process. Previously noted bilateral lower lobe consolidation has resolved. Tracheostomy device is again noted in place. Small filling defect is seen in the trachea just distal to the tracheostomy device likely related to secretions. Large airways are otherwise patent. Small 5 mm pulmonary nodule is seen in the right upper lobe (image 32, series 3). There is a tiny subcentimeter pleural-based nodular density in the right middle lobe adjacent to the minor fissure. This likely represents a tiny intrapleural lymph node. There is minimal linear density seen in the left lower lobe which is probably attributable to mild vo lume loss. Minimal bronchiectasis is seen in the lateral aspect left lower lobe. Lymph nodes: No enlarged lymph nodes are seen by CT size criteria. Mediastinum: Small pericardial effusion is now seen. Chest wall: No abnormalities CT ABDOMEN AND PELVIS: Liver: Small hepatic lobe cyst posterior dome of the liver is again present. Liver otherwise demonstr ates a normal CT appearance. Gallbladder: Decompressed.\ Pancreas: Within normal limits. Spleen: Within normal limits. Adrenal glands: Within normal limits. Kidneys: Bilateral renal cysts are again seen. Urinary Bladder: Colmenares catheter is present within the urinary bladder which is mostly decompressed. S mall focus of gas is present likely related to the catheterization Reproductive organs: Calcifications in the prostate gland. Bowel: Gastrostomy tube remains in place. Loops of small bowel are normal in caliber. Adenopathy:No lymphadenopathy within the abdomen or pelvis. Peritoneum: No free fluid or fluid collection is seen. No free intraperitoneal gas is identified. Aorta: Vascular calcifications and mild atherosclerotic plaque present. Abdominal wall: No abnormalities seen. Osseous structures: No suspicious lytic or sclerotic osseous lesion. IMPRESSION: 1. Thin-walled cavitary lesion right lung base with closely adjacent much smaller cavitary lesion wit h associated scattered parenchymal opacities in the right lower lobe. These findings are worrisome for infectious process with larger cavitary lesion possibly representing an intraparenchymal abscess. 2. Small 5 mm pulmonary nodule right upper lobe which was not seen on study on 07/16/2019. Small metast atic lesion is a possibility. No additional pulmonary nodule is seen. 3. Small pericardial effusion. 4. There is no evidence of lymphadenopathy seen in the chest, abdomen, or pelvis. 5. Additional incidental findings unchanged when compared to the prior exam.
[2020-01-22] MEDS: ALPRAZolam 0.25 MG TAB PO PRN ×2 (10:43→20:08)
[2020-01-22] MEDS: Tamsulosin HCl 0.4 MG CAP PO SCH (10:43)
[2020-01-22] MEDS: Famotidine 40 MG/5 ML Oral Suspension PER TUBE SCH ×2 (10:44→20:08)
--- NOTE | 2020-01-22 15:55 | PDOC.HOSPP ---
- Subjective Encounter Date: 01/22/20 Encounter Time: 09:00 Subjective: CC: laryngeal cancer, shortness of breath The patient states his shortness of breath has re-occurred and states that it started last night. Antibiotics discontinued last night. HE denies cough Spoke to Dr. Maravilla from ENT at [facility] last night. SHe recommended staging workup and outpatient follow up in their clinic prior to consideration of any surgery - Objective Vital Signs & Weight: Vital Signs (12 hours) Temp Pulse Resp BP BP Pulse Ox 01/22/20 15:27 97.8 F 85 16 106/61 99 01/22/20 15:25 85 20 98 01/22/20 11:41 98.2 F 85 16 95/62 99 01/22/20 10:30 79 16 100 01/22/20 08:00 99 01/22/20 07:23 98.1 F 90 16 98/64 99 01/22/20 07:12 82 16 97 01/22/20 04:31 98.1 F 78 20 102/59 L 97 Weight Admit Weight 145 lb Weight 145 lb Most Recent Monitor Data Heart Rate from ECG 55 NIBP 104/48 NIBP BP-Mean 66 Respiration from ECG 22 SpO2 100 I&O: 01/21/20 01/22/20 01/23/20 06:59 06:59 06:59 Intake Total 1842 247 Output Total 350 950 Balance -350 1842 703 Result Diagrams: 01/19/20 05:29 01/19/20 05:29 Hospitalist ROS - Review of Systems Constitutional: denies: fever, chills - Medication Medications: Active Medications Generic Name Dose Route Start Last Admin Trade Name Ria PRN Reason Stop Dose Admin Acetaminophen 650 mg 01/12/20 23:30 01/17/20 10:10 Acetaminophen 325 Mg Tab PO 650 mg Q4H PRN Administration Headache/Fever/Mild Pain (1-3) Hydrocodone Bitart/Acetaminophen 2 tab 01/17/20 16:21 01/20/20 08:29 Hydrocodone/Acetaminophen 7.5/325 Mg Tablet PO 2 tab Q4H PRN Administration Moderate Pain (4-6) Albuterol/Ipratropium 3 ml 01/13/20 18:30 01/22/20 15:25 Ipratropium/Albuterol Sulfate 3 Ml Neb NEB 3 ml [id number] BASSEM Administration Alprazolam 0.25 mg 01/17/20 16:20 01/22/20 10:43 Alprazolam 0.25 Mg Tab PO 0.25 mg TIDPRN PRN Administration Anxiety Enoxaparin Sodium 40 mg 01/13/20 21:00 01/21/20 21:28 Enoxaparin Sodium 40 Mg/0.4 Ml Syringe SC 40 mg 2100 BASSEM Administration Famotidine 20 mg 01/15/20 21:00 01/22/20 10:44 Famotidine 40 Mg/5 Ml Oral Suspension PER TUBE 20 mg BID BASSEM Administration Ketorolac Tromethamine 15 mg 01/20/20 18:00 01/22/20 14:27 Ketorolac Tromethamine 30 Mg/Ml Vial IVP 01/25/20 18:01 15 mg Q6HR BASSEM Administration Levothyroxine Sodium 25 mcg 01/19/20 06:00 01/22/20 06:15 Levothyroxine Sodium 25 Mcg Tab PO 25 mcg 0600 BASSEM Administration Ondansetron HCl 4 mg 01/12/20 23:30 01/17/20 10:09 Ondansetron Pf 4 Mg/2 Ml Vial IVP 4 mg Q6H PRN Administration Nausea/Vomiting Tamsulosin HCl 0.4 mg 01/13/20 09:00 01/22/20 10:43 Tamsulosin Hcl 0.4 Mg Cap PO 0.4 mg DAILY BASSEM Administration Tramadol HCl 50 mg 01/17/20 15:52 01/20/20 13:03 Tramadol Hcl 50 Mg Tab PO 50 mg Q6H PRN Administration Pain 4-6 - Exam General Appearance: NAD, awake alert Eye: PERRL, anicteric sclera ENT: normocephalic atraumatic, no oropharyngeal lesions Neck: no JVD Heart: RRR, no murmur, no gallops, no rubs Respiratory: CTAB, no wheezes, no rales, no ronchi Gastrointestinal: soft, non-tender, non-distended, normal bowel sounds Extremities: no cyanosis, no clubbing, no edema Skin: normal turgor, no lesions, no rashes Hosp A/P - Plan CT necK: extensive edema involving epiglottis, supraglottic, glottic and subglottic larynx. Soft tissue neck abscess inferior to hyoid bone. Chest X ray 01/16: worsening edema or pneumonia of right base Chest X ray 01/19: improved aeration and decrease in pleural effusions This is a 69 year old male with history of laryngeal cancer s/p tracheostomy who presented with shortness of breath, fevers, chills and dislodgment of trach. He was originally admitted to the ICU and was intubated. He had bronchoscopy 01/12 showing purulent secretion in right lower lobe. He had placement of #6 Shiley. He was extubated 01/15 and transferred to the floor 01/16. Sepsis secondary to right lower lobe pneumonia with lung abscess - he received vancomycin 01/12, levaquin 01/12 to 01/13, meropenem 01/14 to 01/16. He was switched to oral augmentin 01/16, discontinued 01/20. CT chest today shows cavitary lesion in right lung. Discussed with Dr. Regalado, will resume antibiotics for additional 14 days Recurrent Laryngeal Cancer - CT neck shows soft tissue neck abscess slightly increased in size. 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 He did have a biopsy 01/08 which showed recurrent laryngeal cancer. ENT has recommended total laryngectomy with free flap and recommended transfer to [place]. Dr. Maravilla in [place] recommended outpatient follow up - radiation therapy consulted, patient is not a candidate for further radiation treatments -Per oncology, PDL1 is pending, may be candidate for Keytruda Acute hypoxic respiratory failure - secondary to pneumonia and pleural effusions - s/p 7 days of antibiotics. He got 20 mg IV lasix 01/17 due to worsening edema vs pneumonia. Repeat chest x ray 01/19 showed improvement in pleural effusions . CT chest shows right lung abscess - will restart antibiotics for additional 14 days - start prednisone [address] Regalado Right pulmonary nodule - 5 mm in size, per pulmonary probably benign, not recommending a biopsy Hypothyroidism - TSH has increased to 27 with low free T4. TSH was 13 on 07/2019. - started levothyroxine 25 mcg - needs repeat TFT in 6 weeks Chronic malnutrition - continue tube feedings Physical deconditioning - PT is following the patient. They recommend home with home health Anemia - Hb 9.8, stable. Will monitor. TSh high, started levothyroxine Dispo: pending transfer to [facility]
--- NOTE | 2020-01-22 15:56 | PDOC.EVN ---
Event Note - Event Note Event Note: I did discuss with the patient's sister, she states she will be willing to Drive the patient to [place] on discharge for evaluation by ENT there
[2020-01-22] MEDS ORDERED: predniSONE 20 MG TAB PO SCH (16:00)
[2020-01-22] MEDS ORDERED: Amoxicillin/Potassium Clav 500 MG TAB PO SCH ×2 (16:00→21:00)
[2020-01-22] MEDS: Acetaminophen 325 MG TAB PO PRN (20:08)
[2020-01-22] MEDS: Enoxaparin Sodium 40 MG/0.4 ML SYRINGE SC SCH (20:08)
[2020-01-23] MEDS: Ketorolac Tromethamine 30 MG/ML VIAL IVP SCH ×3 (00:17→13:09)
[2020-01-23] MEDS: Levothyroxine Sodium 25 MCG TAB PO SCH (05:19)
[2020-01-23 07:40] VITALS: BP 105/68; TEMP 98.1
[2020-01-23] MEDS ORDERED: predniSONE 20 MG TAB PO SCH ×2 (08:00)
[2020-01-23] MEDS: ALPRAZolam 0.25 MG TAB PO PRN (08:13)
[2020-01-23] MEDS: Tamsulosin HCl 0.4 MG CAP PO SCH (08:13)
[2020-01-23] MEDS: Famotidine 40 MG/5 ML Oral Suspension PER TUBE SCH (08:14)
[2020-01-23] MEDS ORDERED: Amoxicillin/Potassium Clav 500 MG TAB PO SCH (09:00)
--- NOTE | 2020-01-23 22:19 | PDOC.DS.DS ---
Provider - Provider Date of Admission: 01/12/20 20:35 Date of Discharge: 01/23/20 Admitting Provider: Thong Ramirez Consultations: Pulmonary (Dr dutton), ENT (Dr Ratliff) Primary Care Physician: ELIUD Lu Course - Hospital Course Hospital Course: Sepsis with acute hypoxic respiratory failure secondary to right lower lobe pneumonia with lung abscess : the patient originally presented with fever, cough and shortness of breath. He was found to be tachycardic and febrile with WBC of 11.1. Chest X ray showed right lower lobe pneumonia. He was started on vancomycin and levaquin. He had abundant amount of secretions coming out of his trach. He was intubated on 01/12. He underwent fiberoptic bronchoscopy and was intubated. His trach was replaced to a [address] Perez. THe patient was treated with meropenem from 01/14 to 01/16, then augmentin until 01/20. He was extubated 01/15. He was transferred to the floor. He reported worsening shortness of breath when antibiotics were discontinued 01/21. CT chest showed a right lung abscess. I discussed with Dr. Dutton who recommended antibiotics for additional 14 days to complete a 21 day course of antibiotics. He was discharged with augmentin for an additional 14 days. He was discharged on prednisone [address] Dutton's recommendations and may need this indefinitely. He was weaned off oxygen at the time of discharge. Recurrent Laryngeal Cancer - CT neck shows soft tissue neck abscess slightly increased in size. ENT was consulted and did not think this is an abscess. He did have a biopsy of his larynx 01/08 which showed recurrent squamous cell cancer. 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 ENT Dr. Bonds has recommended a total laryngectomy with free flap and recommended transfer to [place]. Dr. Maravilla who is an ENT specialist in [place] recommended to follow up in their clinic first prior to scheduling any surgeries. Radiation oncology was consulted and it was determined that he was not a candidate for further radiation treatments. I provided the phone number to the ENT Clinic in [place] for the patient to call to set up an appointment. Oncology was also consulted who stated the patient may be a candidate for Keytruda if he tests positive for PDL1. Alternatively, hospice should be considered if he is PDL1 negative or is not a surgical candidate. Right pulmonary nodule: 5 mm in size, per pulmonary probably benign, not recommending a biopsy. Hypothyroidism: TSH has increased to 27 with low free T4. TSH was 13 on 07/2019. LEvothyroxine 25 mcg was started. The patient should have repeat TFT in 6 weeks Chronic malnutrition: continue tube feedings Physical deconditioning: the patient was seen by physical therapy who suggested home with home health. Pertinent Studies: CT chest/Abdomen/Pelvis 01/21: 1. "thin walled cavitary lesion right lung base with close adjacent much smaller cavitary lesion with associated scattered parenchymal opacities in the right lower lobe, worrisom for infectious process with larger cavitary lesion possibly representing intraparenchymal abscess. " 2. 5 mm pulmonary nodule right upper lobe . Metastatic lesion possiblity 3. Small pericardial effusion. Chest X ray 01/11: right lower lobe pneumonia Chest X ray 01/15: worsening airspace disease of the right lung. Mild pulmonary vascular congestion and cardiomegaly, interstitial prominence and bilateral effusions Chest X ray 01/19: improved aeration and slight decrease in pleural effusions Resuscitation Status: 01/12/20 23:30 Resuscitation Status Routine Resuscitation Status: FULL: Full Resuscitation - Labs Lab Results: 01/19/20 05:29 01/19/20 05:29 Microbiology - Entire Visit 01/12/20 18:55 Venous blood - Right Arm Blood Culture - Final NO GROWTH IN 5 DAYS 01/12/20 18:55 Venous blood - Left Arm Blood Culture - Final NO GROWTH IN 5 DAYS 01/13/20 10:50 Sputum Respiratory Culture - Final 01/13/20 00:45 Nasal swab Influenza Types A,B Direct EIA - Final - Physical Exam Vitals: Vital Signs (12 hours) Pulse Resp Pulse Ox 01/23/20 11:35 76 16 96 Weight Admit Weight 145 lb Weight 145 lb Most Recent Monitor Data Heart Rate from ECG 55 NIBP 104/48 NIBP BP-Mean 66 Respiration from ECG 22 SpO2 100 Physical Exam: The patient was seen and examined on the day of discharge. Problem - Discharge Plan Plan of Treatment: Repeat chest X ray after completing antibiotic course Follow up with ENT doctor in [facility] Follow up with oncology Dr. Rodriguez regarding PDL1 test results Consider further workup of anemia - Time spent with Patient (mins): 40 Plan - Discharge Medications Prescriptions: Amoxicillin/Potassium Clav [Augmentin] 500 mg PO Q12HR #13 tab predniSONE 20 mg PO QAM-WM #10 tab Levothyroxine Sodium [Synthroid] 25 mcg PO 0600 #30 tab Home Medications: Medication Instructions Recorded Confirmed Type Budesonide-Formoterol [Symbicort 1 puff IH QID PRN 07/02/19 01/08/20 History 80-4.5] Ipratropium/Albuterol Sulfate 3 ml NEB QID PRN 07/02/19 01/08/20 History [DuoNeb] Pantoprazole [Protonix] 40 mg PO BID #60 tab 10/31/19 01/08/20 Rx ALPRAZolam 0.25 mg PO BID PRN 01/08/20 01/08/20 History Acetaminophen With Codeine 1 tablet PO Q6HR PRN 01/08/20 01/08/20 History [Tylenol with Codeine #3] Albuterol Sulfate [Albuterol 2 puff INH QID PRN 01/08/20 01/08/20 History Sulfate Hfa] traMADol HCl [Tramadol HCl] 1 - 2 tab PO Q4HR PRN 01/08/20 01/08/20 History traZODone HCl [Trazodone HCl] 50 mg PO HS 01/08/20 01/08/20 History Amoxicillin/Potassium Clav 500 mg PO Q12HR #13 tab 01/23/20 Rx [Augmentin] Levothyroxine Sodium [Synthroid] 25 mcg PO 0600 #30 tab 01/23/20 Rx predniSONE 20 mg PO QAM-WM #10 tab 01/23/20 Rx Allergies: No Known Drug Allergies Allergy (Verified 01/13/20 00:21) - Discharge Instructions Discharge Instructions:: You were admitted with pneumonia. You were treated with antibiotics for seven days. Your CT of your chest showed a lung abscess. Continue antibiotics for two more weeks. Follow up with Dr. Dutton in two weeks. You have a pulmonary nodule that is 5 mm on the right lung. Dr. Dutton thinks this is probably not malignant. Please have this followed up in a few weeks. You also had recurrent laryngeal cancer. Please follow up with Dr. Erickson Burrell from ENT at [facility]. Call [phone] to make an appointment. The address is [address] [place] [address] in [place]. Bring copies of your CT scan, biopsy results , and ENT notes to the appointment. You also have hypothyroidism. Please take thyroid supplements daily. Repeat your thyroid function studies in 6 weeks. Follow up with your oncologist Dr. Rodriguez. If you have PDL1+ mutation, you may be a candidate for keytruda therapy. YOUR PRESCRIPTIONS WERE SENT TO: [facility] [address] [place] [id number] Activity:: Activity as Tolerated Nourishment:: Heart Healthy Diet - Follow up Plan Referrals: [facility] [Outside] Raymond More MD [Active] - Indy Cat APRN [Allied Health Professional] - Penelope Sanchez FNP [Primary Care Provider] - Derrick Ratliff MD [Active] - Italo Dutton MD [Active] - Disposition: HOME Quality - Care Measures CORE MEASURES:: N/A
== END 2020-01-23 14:55 | disposition home health service (06) | DRG 871 ==
LOC: ERS 18:35 → ERHOLD 20:35 → CCU 01-13 01:00 → T4-B 01-17 14:34
PROVIDERS: ADMIT Internal Medicine; ATTEND Family Medicine
PROC: 0BH18EZ Insertion of Endotracheal Airway into Trachea, Via Natural or Artificial Opening Endoscopic (ICD-10-PCS; principal; 2020-01-13)
PROC: 5A1945Z Respiratory Ventilation, 24-96 Consecutive Hours (ICD-10-PCS; 2020-01-13)
PROC: 0B21XFZ Change Tracheostomy Device in Trachea, External Approach (ICD-10-PCS; 2020-01-13)
DX: A41.9 Sepsis, unspecified organism (principal); J85.1 Abscess of lung with pneumonia; I21.A1 Myocardial infarction type 2; J96.01 Acute respiratory failure with hypoxia; J95.03 Malfunction of tracheostomy stoma; E44.0 Moderate protein-calorie malnutrition; Z68.1 Body mass index [BMI] 19.9 or less, adult; J44.0 Chronic obstructive pulmonary disease with (acute) lower respiratory infection; J90 Pleural effusion, not elsewhere classified; Z20.828 Contact with and (suspected) exposure to other viral communicable diseases; C32.0 Malignant neoplasm of glottis; R77.8 Other specified abnormalities of plasma proteins; Y83.8 Other surgical procedures as the cause of abnormal reaction of the patient, or of later complication, without mention of misadventure at the time of the procedure; R91.1 Solitary pulmonary nodule; D64.9 Anemia, unspecified; E03.9 Hypothyroidism, unspecified; H54.40 Blindness, one eye, unspecified eye; Z87.891 Personal history of nicotine dependence; Z85.21 Personal history of malignant neoplasm of larynx
CPT/HCPCS: 31624; 36415; 36430; 36600; 70491; 71045; 71260; 74177; 80048; 80053; 81003; 81015; 82553; 82565; 82728; 82805; 83540; 83550; 83605; 83690; 83880; 84439; 84443; 84484; 85007; 85014; 85018; 85025; 85027; 85049; 86850; 86900; 86901; 87040; 87070; 87205; 87804; 88305; 93005; 94002; 94003; 94640; 94660; 94760; 96361; 96365; 96366; 96375; J0461; J0696; J1100; J1650; J1885; J1940; J1956; J2060; J2185; J2250; J2270; J2405; J2704; J2930; J3010; J3370; J3490; J7512; J7620; P9016; Q9967; U0002

== ENCOUNTER 2020-01-27 02:29 | Emergency (ER) | payer MEDICARE, MEDICAID ==
--- NOTE | 2020-01-27 07:42 | RAD ---
Portable frontal chest radiograph: 01/27/2020 COMPARISON: 01/20/2020 HISTORY: Anxiety, tracheal suction FINDINGS: Stable tracheostomy tube. Heart and mediastinal contours are stable. There is hazy increase d density within the right lung base inferiorly suggesting volume loss or right basilar infiltrate. In addition, there is a round focal opacity within the right lung base suggesting a cavitary lesion w ith an air-fluid level, better assessed on CT examination of the chest performed 01/22/2020. IMPRESSION: Patchy airspace disease within the inferior right base with a stable nonspecific cavitary lesion, better assessed on prior chest CT.
== END 2020-01-27 03:39 | disposition home or self-care (01) ==
LOC: ERS 02:29
DX: R06.02 Shortness of breath (principal); Z79.899 Other long term (current) drug therapy; F41.9 Anxiety disorder, unspecified; Z87.891 Personal history of nicotine dependence
CPT/HCPCS: 71045; 93005

== ENCOUNTER 2020-05-22 14:53 | Outpatient (CLI) | payer MEDICARE, MEDICAID ==
[~2020-05-22 14:53] MED LIST changes: -EPINEPHrine 1 MG/ML AMP ONE; +Iopamidol-370 76% 500 ML 1 ML ONE
== END 2020-05-22 14:54 | disposition home or self-care (01) ==
LOC: BICCT 14:53
PROVIDERS: ATTEND Specialist
DX: C32.9 Malignant neoplasm of larynx, unspecified (principal); I31.3 Pericardial effusion (noninflammatory)
CPT/HCPCS: 70491; Q9967

== ENCOUNTER 2020-07-06 17:34 | Inpatient (IN) | payer MEDICARE, MEDICAID ==
[2020-07-06 19:08] LABS: #Basophils 0.1 thou/uL (0.0-0.2); #Eosinphils 0.5 thou/uL (0.0-0.7); #Lymphocytes 1.4 thou/uL (1.20-3.40); #Monocytes 0.6 thou/uL (0.11-0.59); #Neutrophils 3.3 thou/uL (1.40-6.50); %Basophils 1.4 % (0.0-1.0); %Eosinophils 8.4 % (0.0-10.0); %Lymphocytes 24.1 % (21.0-51.0); %Monocytes 10.3 % (0.0-10.0); %Neutrophils 55.9 % (42.0-75.0); Hemoglobin 8.5 g/dL (14.0-18.0); Mean Corpuscular HGB CONC 33.1 g/dL (32.0-36.0); Mean Corpuscular Hemoglobin 32.9 pg (27.0-31.0); Mean Corpuscular Volume 99.5 fL (78.0-98.0); Mean Platelet Volume 6.9 fL (7.4-10.4); Platelet Count 236 thou/uL (130-400); RBC Distribution Width 13.8 % (11.5-14.5); Red Blood Cell (RBC) Count 2.59 mill/uL (4.70-6.10); White Blood Cell (WBC) Count 5.8 thou/uL (4.8-10.8)
[2020-07-06 19:24] LABS: ALT (SGPT) 19 U/L (8-55); AST (SGOT) 42 U/L (5-34); Albumin 3.9 g/dL (3.4-4.8); Alkaline Phosphatase 38 U/L (40-110); Anion Gap 11 mmol/L (10-20); BUN (Urea Nitrogen) 13 mg/dL (8.4-25.7); Bilirubin, Total 0.4 mg/dL (0.2-1.2); Calc. Creatinine Clearance 0 mL/min (70-130); Calcium 7.5 mg/dL (7.8-10.44); Carbon Dioxide 30 mmol/L (23-31); Chloride 104 mmol/L (98-107); Globulin 3.4 g/dL (2.4-3.5); Glucose 105 mg/dL (80-115); Potassium 3.2 mmol/L (3.5-5.1); Protein, Total 7.3 g/dL (5.8-8.1); Sodium 142 mmol/L (136-145)
[2020-07-06] MEDS ORDERED: Cefepime 2 GM VIAL ONE (21:43)
[2020-07-06] MEDS ORDERED: Ondansetron PF 4 MG/2 ML Vial IVP PRN (22:59)
[2020-07-06] MEDS ORDERED: Vancomycin 1 GM in Premix Bag 1 BAG IVPB SCH (23:15)
[2020-07-06] MEDS ORDERED: Vancomycin 1 GM/200 ML BAG ONE (23:37)
[2020-07-07 01:07] VITALS: BMI 22.5
[2020-07-07] MEDS: HYDROcodone/Acetaminophen 5/325 mg Tablet PO PRN ×4 (01:18→21:00)
[2020-07-07] MEDS: Potassium Chloride 10 MEQ in Dextrose 5%-Lactated Ringers 1,000 ML IV SCH ×3 (01:19→21:00)
[2020-07-07] MEDS: Levothyroxine Sodium 25 MCG TAB PO SCH (05:23)
[2020-07-07 07:11] LABS: #Eosinphils 0.4 thou/uL (0.0-0.7); #Lymphocytes 1.3 thou/uL (1.20-3.40); #Monocytes 0.5 thou/uL (0.11-0.59); #Neutrophils 2.4 thou/uL (1.40-6.50); %Basophils 0.8 % (0.0-1.0); %Eosinophils 9.1 % (0.0-10.0); %Lymphocytes 28.2 % (21.0-51.0); %Monocytes 10.7 % (0.0-10.0); %Neutrophils 51.2 % (42.0-75.0); Hemoglobin 9.1 g/dL (14.0-18.0); Mean Corpuscular HGB CONC 32.5 g/dL (32.0-36.0); Mean Corpuscular Hemoglobin 32.1 pg (27.0-31.0); Mean Corpuscular Volume 98.6 fL (78.0-98.0); Mean Platelet Volume 7.3 fL (7.4-10.4); Platelet Count 255 thou/uL (130-400); RBC Distribution Width 13.6 % (11.5-14.5); Red Blood Cell (RBC) Count 2.82 mill/uL (4.70-6.10); White Blood Cell (WBC) Count 4.6 thou/uL (4.8-10.8)
[2020-07-07 07:28] LABS: Anion Gap 12 mmol/L (10-20); BUN (Urea Nitrogen) 10 mg/dL (8.4-25.7); Calc. Creatinine Clearance 70 mL/min (70-130); Calcium 7.6 mg/dL (7.8-10.44); Carbon Dioxide 27 mmol/L (23-31); Chloride 103 mmol/L (98-107); Glucose 86 mg/dL (80-115); Sodium 139 mmol/L (136-145)
[2020-07-07 07:40] LABS: Bacteria/HPF None Seen HPF (None Seen); Bilirubin Negative (Negative); Blood, Urine Negative (Negative); Clarity Clear (Clear); Creatinine, Urine 45.66 mg/dL (63-166); Glucose, Urine (Dipstick) Normal (Negative); Ketone, Urine Negative (Negative); Leukocyte Negative Leu/uL (Negative); Nitrite Negative (Negative); Protein, Urine (Dipstick) Negative (Neg-Trace); Protein, Urine Random Quant Less than 10 mg/dL (1-14); RBC/HPF 0-3 HPF (0-3); Sodium, Urine 178 mmol/L (Not Available); Specific Gravity, Urine 1.018 (1.002-1.036); Squamous Epithelial None Seen HPF (0-3); Urobilinogen Normal mg/dL (Less than 2); WBC/HPF 0-3 HPF (0-3)
[2020-07-07] MEDS ORDERED: Potassium Chloride 20 MEQ TAB PO SCH (07:45)
[2020-07-07 07:46] LABS: Urine Culture Reflex No No
[2020-07-07] MEDS ORDERED: Potassium Chloride 20 MEQ in Premix Bag 1 BAG IVPB SCH (08:15)
[2020-07-07] MEDS: Enoxaparin Sodium 30 MG/0.3 ML SYRINGE SC SCH (08:53)
[2020-07-07] MEDS: Saccharomyces boulardii 250 MG CAP PO SCH (08:54)
[2020-07-07 09:00] LABS: SARS-CoV-2 PCR by NAA Not Detected (NotDetected)
[2020-07-07] MEDS ORDERED: Amlodipine 10 MG TAB PO SCH (14:15)
[2020-07-07] MEDS ORDERED: Acetaminophen/Codeine 30-300mg Tablet PO PRN (15:19)
[2020-07-07] MEDS ORDERED: hydrALAZINE 25 MG TAB PO PRN (15:20)
[2020-07-07 16:09] LABS: Anion Gap 15 mmol/L (10-20); BUN (Urea Nitrogen) 11 mg/dL (8.4-25.7); Calc. Creatinine Clearance 64 mL/min (70-130); Calcium 7.6 mg/dL (7.8-10.44); Carbon Dioxide 26 mmol/L (23-31); Chloride 103 mmol/L (98-107); Glucose 98 mg/dL (80-115); Potassium 3.6 mmol/L (3.5-5.1); Sodium 140 mmol/L (136-145)
[2020-07-07] MEDS ORDERED: Vancomycin 1.5 GRAM/300 ML BAG 1.5 GM in Premix Bag 1 BAG IVPB SCH (18:00)
[2020-07-07] MEDS: Mometasone 100 MCG/Formoterol 5 MCG 120 PUFF INHALER INH SCH (20:20)
[2020-07-07] MEDS: traZODone HCl 50 MG TAB PO SCH (21:00)
[2020-07-08] MEDS: Levothyroxine Sodium 25 MCG TAB PO SCH (06:03)
[2020-07-08 06:29] LABS: Hemoglobin 9.5 g/dL (14.0-18.0); Mean Corpuscular HGB CONC 32.8 g/dL (32.0-36.0); Mean Corpuscular Hemoglobin 32.4 pg (27.0-31.0); Mean Corpuscular Volume 98.8 fL (78.0-98.0); Platelet Count 272 thou/uL (130-400); RBC Distribution Width 13.6 % (11.5-14.5); Red Blood Cell (RBC) Count 2.94 mill/uL (4.70-6.10); White Blood Cell (WBC) Count 5.1 thou/uL (4.8-10.8)
[2020-07-08 06:54] LABS: Albumin 3.7 g/dL (3.4-4.8); Anion Gap 12 mmol/L (10-20); BUN (Urea Nitrogen) 9 mg/dL (8.4-25.7); BUN/Creatinine Ratio 7.38; Calc. Creatinine Clearance 66 mL/min (70-130); Calcium 7.8 mg/dL (7.8-10.44); Carbon Dioxide 30 mmol/L (23-31); Chloride 101 mmol/L (98-107); Glucose 99 mg/dL (80-115); Phosphorus 3.1 mg/dL (2.3-4.7); Potassium 3.8 mmol/L (3.5-5.1); Sodium 139 mmol/L (136-145)
[2020-07-08] MEDS: Mometasone 100 MCG/Formoterol 5 MCG 120 PUFF INHALER INH SCH ×2 (07:08→18:18)
[2020-07-08] MEDS: Enoxaparin Sodium 30 MG/0.3 ML SYRINGE SC SCH (09:55)
[2020-07-08] MEDS: Amlodipine 10 MG TAB PO SCH (09:55)
[2020-07-08] MEDS: Saccharomyces boulardii 250 MG CAP PO SCH (09:55)
[2020-07-08] MEDS: Potassium Chloride 10 MEQ in Dextrose 5%-Lactated Ringers 1,000 ML IV SCH ×3 (09:55→23:55)
[2020-07-08] MEDS: HYDROcodone/Acetaminophen 5/325 mg Tablet PO PRN ×2 (10:00→15:57)
[2020-07-08 17:34] LABS: Vancomycin, Trough 7.6 ug/mL
[2020-07-08] MEDS: Vancomycin 1 GM in Premix Bag 1 BAG IVPB SCH (18:39)
[2020-07-08] MEDS: traZODone HCl 50 MG TAB PO SCH (20:47)
[2020-07-08] MEDS: HYDROcodone/Acetaminophen 10/325 mg Tablet PO PRN (20:47)
[2020-07-09] MEDS: HYDROcodone/Acetaminophen 10/325 mg Tablet PO PRN ×3 (04:49→20:50)
[2020-07-09] MEDS: Vancomycin 1 GM in Premix Bag 1 BAG IVPB SCH ×2 (05:12→18:30)
[2020-07-09] MEDS: Levothyroxine Sodium 25 MCG TAB PO SCH (05:13)
[2020-07-09 06:49] LABS: Albumin 3.7 g/dL (3.4-4.8); Anion Gap 12 mmol/L (10-20); BUN (Urea Nitrogen) 7 mg/dL (8.4-25.7); BUN/Creatinine Ratio 6.48; Calc. Creatinine Clearance 75 mL/min (70-130); Carbon Dioxide 30 mmol/L (23-31); Chloride 98 mmol/L (98-107); Glucose 106 mg/dL (80-115); Potassium 3.4 mmol/L (3.5-5.1); Sodium 137 mmol/L (136-145)
[2020-07-09] MEDS: Mometasone 100 MCG/Formoterol 5 MCG 120 PUFF INHALER INH SCH ×2 (06:56→18:19)
[2020-07-09] MEDS ORDERED: Potassium Chloride 20 MEQ TAB PO SCH (07:15)
[2020-07-09] MEDS: Amlodipine 10 MG TAB PO SCH (09:28)
[2020-07-09] MEDS: Saccharomyces boulardii 250 MG CAP PO SCH (09:28)
[2020-07-09] MEDS: Enoxaparin Sodium 30 MG/0.3 ML SYRINGE SC SCH (09:29)
[2020-07-09] MEDS: Morphine 4 MG/ML VIAL SLOW IVP PRN (09:30)
[2020-07-09] MEDS: Ergocalciferol 1.25 MG(50,000 UNITS) CAP PO SCH (09:36)
[2020-07-09] MEDS: Potassium Chloride 10 MEQ in Dextrose 5%-Lactated Ringers 1,000 ML IV SCH (17:17)
[2020-07-09] MEDS: traZODone HCl 50 MG TAB PO SCH (20:48)
[2020-07-10] MEDS: Potassium Chloride 10 MEQ in Dextrose 5%-Lactated Ringers 1,000 ML IV SCH ×5 (01:24→21:25)
[2020-07-10] MEDS: HYDROcodone/Acetaminophen 10/325 mg Tablet PO PRN ×3 (02:44→14:10)
[2020-07-10] MEDS: Levothyroxine Sodium 25 MCG TAB PO SCH (05:12)
[2020-07-10] MEDS: Vancomycin 1 GM in Premix Bag 1 BAG IVPB SCH ×2 (05:12→17:28)
[2020-07-10 06:52] LABS: Albumin 3.7 g/dL (3.4-4.8); Anion Gap 12 mmol/L (10-20); BUN (Urea Nitrogen) 8 mg/dL (8.4-25.7); BUN/Creatinine Ratio 7.02; Calc. Creatinine Clearance 71 mL/min (70-130); Calcium 8.1 mg/dL (7.8-10.44); Carbon Dioxide 28 mmol/L (23-31); Chloride 99 mmol/L (98-107); Glucose 98 mg/dL (80-115); Magnesium 1.9 mg/dL (1.6-2.6); Phosphorus 3.4 mg/dL (2.3-4.7); Potassium 3.8 mmol/L (3.5-5.1); Sodium 135 mmol/L (136-145)
[2020-07-10] MEDS: Saccharomyces boulardii 250 MG CAP PO SCH (08:06)
[2020-07-10] MEDS: Enoxaparin Sodium 30 MG/0.3 ML SYRINGE SC SCH (08:06)
[2020-07-10] MEDS: Amlodipine 10 MG TAB PO SCH (08:06)
[2020-07-10] MEDS: Mometasone 100 MCG/Formoterol 5 MCG 120 PUFF INHALER INH SCH ×2 (08:26→18:29)
[2020-07-10] MEDS: Cefepime 1 GM in Sodium Chloride 0.9% 100 ML IVPB SCH (14:10)
[2020-07-10] MEDS ORDERED: LIDOCAINE 4% Topical Sol 4 ML SOLN.PK.G. TP PRN (14:15)
[2020-07-10] MEDS ORDERED: Lidocaine 4% Topical Sol 50 ML BOT TOP PRN (15:39)
[2020-07-10] MEDS: traZODone HCl 50 MG TAB PO SCH (21:20)
[2020-07-11] MEDS: Cefepime 1 GM in Sodium Chloride 0.9% 100 ML IVPB SCH ×2 (01:20→14:19)
[2020-07-11] MEDS: Potassium Chloride 10 MEQ in Dextrose 5%-Lactated Ringers 1,000 ML IV SCH ×4 (01:21→23:56)
[2020-07-11] MEDS: Vancomycin 1 GM in Premix Bag 1 BAG IVPB SCH ×2 (04:35→18:33)
[2020-07-11] MEDS: Levothyroxine Sodium 25 MCG TAB PO SCH (04:36)
[2020-07-11] MEDS: Morphine 4 MG/ML VIAL SLOW IVP PRN ×4 (06:32→22:58)
[2020-07-11] MEDS: Mometasone 100 MCG/Formoterol 5 MCG 120 PUFF INHALER INH SCH ×2 (07:01→18:55)
[2020-07-11 07:19] LABS: Albumin 3.6 g/dL (3.4-4.8); Anion Gap 12 mmol/L (10-20); BUN (Urea Nitrogen) 6 mg/dL (8.4-25.7); BUN/Creatinine Ratio 5.13; Calc. Creatinine Clearance 69 mL/min (70-130); Calcium 8.6 mg/dL (7.8-10.44); Carbon Dioxide 28 mmol/L (23-31); Chloride 100 mmol/L (98-107); Glucose 110 mg/dL (80-115); Phosphorus 3.4 mg/dL (2.3-4.7); Potassium 3.9 mmol/L (3.5-5.1); Sodium 136 mmol/L (136-145)
[2020-07-11] MEDS: Saccharomyces boulardii 250 MG CAP PO SCH (08:02)
[2020-07-11] MEDS: Enoxaparin Sodium 30 MG/0.3 ML SYRINGE SC SCH (08:02)
[2020-07-11] MEDS: HYDROcodone/Acetaminophen 10/325 mg Tablet PO PRN (08:02)
[2020-07-11] MEDS: Amlodipine 10 MG TAB PO SCH (08:03)
[2020-07-11 11:32] LABS: #Basophils 0.1 thou/uL (0.0-0.2); #Eosinphils 0.4 thou/uL (0.0-0.7); #Lymphocytes 1.5 thou/uL (1.20-3.40); #Monocytes 0.5 thou/uL (0.11-0.59); #Neutrophils 2.1 thou/uL (1.40-6.50); %Basophils 1.7 % (0.0-1.0); %Lymphocytes 33.6 % (21.0-51.0); %Neutrophils 46.6 % (42.0-75.0); Hemoglobin 9.5 g/dL (14.0-18.0); Mean Corpuscular HGB CONC 32.7 g/dL (32.0-36.0); Mean Corpuscular Hemoglobin 32.5 pg (27.0-31.0); Mean Corpuscular Volume 99.6 fL (78.0-98.0); Mean Platelet Volume 6.6 fL (7.4-10.4); Platelet Count 285 thou/uL (130-400); RBC Distribution Width 13.4 % (11.5-14.5); Red Blood Cell (RBC) Count 2.93 mill/uL (4.70-6.10); White Blood Cell (WBC) Count 4.4 thou/uL (4.8-10.8)
[2020-07-11 17:41] LABS: Vancomycin, Trough 22.6 ug/mL
[2020-07-11] MEDS: traZODone HCl 50 MG TAB PO SCH (20:55)
[2020-07-12] MEDS: Cefepime 1 GM in Sodium Chloride 0.9% 100 ML IVPB SCH ×2 (01:03→15:11)
[2020-07-12] MEDS: Morphine 4 MG/ML VIAL SLOW IVP PRN ×3 (04:25→22:32)
[2020-07-12] MEDS: Levothyroxine Sodium 25 MCG TAB PO SCH (04:26)
[2020-07-12] MEDS: Vancomycin HCl 750 MG in Sodium Chloride 0.9% 250 ML 250 ML IVPB SCH ×2 (04:26→18:28)
[2020-07-12 08:25] LABS: Anion Gap 11 mmol/L (10-20); BUN (Urea Nitrogen) 5 mg/dL (8.4-25.7); Calc. Creatinine Clearance 63 mL/min (70-130); Calcium 8.7 mg/dL (7.8-10.44); Carbon Dioxide 29 mmol/L (23-31); Chloride 99 mmol/L (98-107); Glucose 92 mg/dL (80-115); Potassium 4.2 mmol/L (3.5-5.1); Sodium 135 mmol/L (136-145)
[2020-07-12] MEDS: Amlodipine 10 MG TAB PO SCH (08:26)
[2020-07-12] MEDS: Saccharomyces boulardii 250 MG CAP PO SCH (08:26)
[2020-07-12] MEDS: Enoxaparin Sodium 30 MG/0.3 ML SYRINGE SC SCH (08:26)
[2020-07-12] MEDS: Mometasone 100 MCG/Formoterol 5 MCG 120 PUFF INHALER INH SCH ×2 (10:37→18:13)
[2020-07-12] MEDS ORDERED: Aluminum & Magnesium Hydroxide 60 ML, Lidocaine 2% Viscous Solution 30 ML, diphenhydrAM... SSW PRN (13:05)
[2020-07-12] MEDS: Potassium Chloride 10 MEQ in Dextrose 5%-Lactated Ringers 1,000 ML IV SCH (14:39)
[2020-07-12] MEDS: ALPRAZolam 0.25 MG TAB PO PRN (15:11)
[2020-07-12] MEDS: traZODone HCl 50 MG TAB PO SCH (20:34)
[2020-07-13] MEDS: Cefepime 1 GM in Sodium Chloride 0.9% 100 ML IVPB SCH ×2 (02:28→13:46)
[2020-07-13] MEDS: Morphine 4 MG/ML VIAL SLOW IVP PRN ×3 (04:29→20:54)
[2020-07-13] MEDS: Levothyroxine Sodium 25 MCG TAB PO SCH (04:30)
[2020-07-13] MEDS: Vancomycin HCl 750 MG in Sodium Chloride 0.9% 250 ML 250 ML IVPB SCH (04:51)
[2020-07-13 05:41] LABS: #Basophils 0.1 thou/uL (0.0-0.2); #Eosinphils 0.3 thou/uL (0.0-0.7); #Lymphocytes 1.4 thou/uL (1.20-3.40); #Monocytes 0.5 thou/uL (0.11-0.59); #Neutrophils 1.6 thou/uL (1.40-6.50); %Basophils 2.3 % (0.0-1.0); %Eosinophils 7.6 % (0.0-10.0); %Lymphocytes 35.9 % (21.0-51.0); %Monocytes 13.2 % (0.0-10.0); %Neutrophils 40.9 % (42.0-75.0); Mean Corpuscular HGB CONC 32.4 g/dL (32.0-36.0); Mean Corpuscular Hemoglobin 32.1 pg (27.0-31.0); Mean Corpuscular Volume 99.2 fL (78.0-98.0); Platelet Count 290 thou/uL (130-400); RBC Distribution Width 13.3 % (11.5-14.5); Red Blood Cell (RBC) Count 2.79 mill/uL (4.70-6.10)
[2020-07-13 06:05] LABS: Anion Gap 10 mmol/L (10-20); BUN (Urea Nitrogen) 8 mg/dL (8.4-25.7); Calc. Creatinine Clearance 61 mL/min (70-130); Calcium 8.9 mg/dL (7.8-10.44); Carbon Dioxide 30 mmol/L (23-31); Chloride 99 mmol/L (98-107); Glucose 90 mg/dL (80-115); Sodium 135 mmol/L (136-145)
[2020-07-13] MEDS: Saccharomyces boulardii 250 MG CAP PO SCH (07:49)
[2020-07-13] MEDS: ALPRAZolam 0.25 MG TAB PO PRN (07:49)
[2020-07-13] MEDS: Amlodipine 10 MG TAB PO SCH (07:49)
[2020-07-13] MEDS: Enoxaparin Sodium 30 MG/0.3 ML SYRINGE SC SCH (07:50)
[2020-07-13] MEDS: Mometasone 100 MCG/Formoterol 5 MCG 120 PUFF INHALER INH SCH ×2 (10:02→18:48)
[2020-07-13 17:33] LABS: Vancomycin, Trough 22.8 ug/mL
[2020-07-13] MEDS: Vancomycin HCl 500 MG in Sodium Chloride 0.9% 100 ML IVPB SCH (18:22)
[2020-07-13] MEDS: traZODone HCl 50 MG TAB PO SCH (20:47)
[2020-07-14] MEDS: Cefepime 1 GM in Sodium Chloride 0.9% 100 ML IVPB SCH ×2 (02:34→13:19)
[2020-07-14] MEDS: Morphine 4 MG/ML VIAL SLOW IVP PRN (03:47)
[2020-07-14 06:19] LABS: #Basophils 0.1 thou/uL (0.0-0.2); #Eosinphils 0.3 thou/uL (0.0-0.7); #Monocytes 0.7 thou/uL (0.11-0.59); #Neutrophils 1.5 thou/uL (1.40-6.50); %Basophils 1.3 % (0.0-1.0); %Lymphocytes 43.7 % (21.0-51.0); %Monocytes 14.9 % (0.0-10.0); %Neutrophils 33.1 % (42.0-75.0); Mean Corpuscular HGB CONC 32.4 g/dL (32.0-36.0); Mean Corpuscular Hemoglobin 32.1 pg (27.0-31.0); Mean Corpuscular Volume 99.1 fL (78.0-98.0); Mean Platelet Volume 6.9 fL (7.4-10.4); Platelet Count 273 thou/uL (130-400); RBC Distribution Width 13.2 % (11.5-14.5); Red Blood Cell (RBC) Count 2.81 mill/uL (4.70-6.10); White Blood Cell (WBC) Count 4.5 thou/uL (4.8-10.8)
[2020-07-14] MEDS: Vancomycin HCl 500 MG in Sodium Chloride 0.9% 100 ML IVPB SCH ×2 (06:57→17:36)
[2020-07-14] MEDS: Levothyroxine Sodium 25 MCG TAB PO SCH (06:57)
[2020-07-14] MEDS: Mometasone 100 MCG/Formoterol 5 MCG 120 PUFF INHALER INH SCH ×2 (07:08→18:32)
[2020-07-14 07:48] LABS: Anion Gap 11 mmol/L (10-20); BUN (Urea Nitrogen) 11 mg/dL (8.4-25.7); Calc. Creatinine Clearance 63 mL/min (70-130); Calcium 9.3 mg/dL (7.8-10.44); Carbon Dioxide 29 mmol/L (23-31); Chloride 99 mmol/L (98-107); Glucose 78 mg/dL (80-115); Potassium 4.2 mmol/L (3.5-5.1); Sodium 135 mmol/L (136-145)
[2020-07-14] MEDS: Saccharomyces boulardii 250 MG CAP PO SCH (08:20)
[2020-07-14] MEDS: Amlodipine 10 MG TAB PO SCH (08:20)
[2020-07-14] MEDS: Enoxaparin Sodium 30 MG/0.3 ML SYRINGE SC SCH (08:21)
[2020-07-14] MEDS ORDERED: Amlodipine 5 MG TAB PO SCH (09:00)
[2020-07-14] MEDS ORDERED: Bacitracin 1 PK TOP PRN (09:51)
[2020-07-14] MEDS: HYDROcodone/Acetaminophen 10/325 mg Tablet PO PRN (13:18)
[2020-07-14] MEDS: traZODone HCl 50 MG TAB PO SCH (21:27)
[2020-07-15] MEDS: Cefepime 1 GM in Sodium Chloride 0.9% 100 ML IVPB SCH (01:29)
[2020-07-15] MEDS: Levothyroxine Sodium 25 MCG TAB PO SCH (05:13)
[2020-07-15] MEDS: HYDROcodone/Acetaminophen 5/325 mg Tablet PO PRN (05:13)
[2020-07-15] MEDS: Vancomycin HCl 500 MG in Sodium Chloride 0.9% 100 ML IVPB SCH (05:30)
[2020-07-15 06:24] LABS: #Basophils 0.1 thou/uL (0.0-0.2); #Eosinphils 0.3 thou/uL (0.0-0.7); #Lymphocytes 1.4 thou/uL (1.20-3.40); #Monocytes 0.5 thou/uL (0.11-0.59); #Neutrophils 1.8 thou/uL (1.40-6.50); %Basophils 1.2 % (0.0-1.0); %Eosinophils 7.5 % (0.0-10.0); %Lymphocytes 34.5 % (21.0-51.0); %Monocytes 11.9 % (0.0-10.0); %Neutrophils 44.9 % (42.0-75.0); Hemoglobin 9.4 g/dL (14.0-18.0); Mean Corpuscular HGB CONC 31.6 g/dL (32.0-36.0); Mean Corpuscular Hemoglobin 31.2 pg (27.0-31.0); Mean Corpuscular Volume 98.9 fL (78.0-98.0); Mean Platelet Volume 7.2 fL (7.4-10.4); Platelet Count 299 thou/uL (130-400); RBC Distribution Width 13.5 % (11.5-14.5); White Blood Cell (WBC) Count 4.1 thou/uL (4.8-10.8)
[2020-07-15 06:46] LABS: Anion Gap 14 mmol/L (10-20); BUN (Urea Nitrogen) 11 mg/dL (8.4-25.7); Calc. Creatinine Clearance 57 mL/min (70-130); Calcium 9.3 mg/dL (7.8-10.44); Carbon Dioxide 27 mmol/L (23-31); Chloride 99 mmol/L (98-107); Glucose 86 mg/dL (80-115); Sodium 136 mmol/L (136-145)
[2020-07-15] MEDS: Mometasone 100 MCG/Formoterol 5 MCG 120 PUFF INHALER INH SCH ×2 (07:15→18:47)
[2020-07-15] MEDS: Enoxaparin Sodium 30 MG/0.3 ML SYRINGE SC SCH (08:15)
[2020-07-15] MEDS: HYDROcodone/Acetaminophen 10/325 mg Tablet PO PRN ×3 (08:16→20:42)
[2020-07-15] MEDS: Saccharomyces boulardii 250 MG CAP PO SCH (08:16)
[2020-07-15 10:57] LABS: Bacteria/HPF None Seen HPF (None Seen); Bilirubin Negative (Negative); Blood, Urine Negative (Negative); Clarity Clear (Clear); Glucose, Urine (Dipstick) Normal (Negative); Ketone, Urine Negative (Negative); Leukocyte Negative Leu/uL (Negative); Nitrite Negative (Negative); Protein, Urine (Dipstick) Negative (Neg-Trace); RBC/HPF None Seen HPF (0-3); Specific Gravity, Urine 1.016 (1.002-1.036); Squamous Epithelial None Seen HPF (0-3); Urobilinogen Normal mg/dL (Less than 2); WBC/HPF 0-3 HPF (0-3)
[2020-07-15 11:39] LABS: Creatinine, Urine 135.09 mg/dL (63-166)
[2020-07-15] MEDS: Morphine 4 MG/ML VIAL SLOW IVP PRN (18:11)
[2020-07-15] MEDS: Amoxicillin/Potassium Clav 875 MG TAB PO SCH (20:37)
[2020-07-15] MEDS: traZODone HCl 50 MG TAB PO SCH (20:37)
[2020-07-16] MEDS: HYDROcodone/Acetaminophen 10/325 mg Tablet PO PRN (02:53)
[2020-07-16] MEDS: Morphine 4 MG/ML VIAL SLOW IVP PRN (04:43)
[2020-07-16] MEDS: Levothyroxine Sodium 25 MCG TAB PO SCH (05:34)
[2020-07-16 05:50] LABS: #Eosinphils 0.3 thou/uL (0.0-0.7); #Lymphocytes 1.7 thou/uL (1.20-3.40); #Monocytes 0.5 thou/uL (0.11-0.59); #Neutrophils 1.7 thou/uL (1.40-6.50); %Basophils 0.9 % (0.0-1.0); %Eosinophils 6.7 % (0.0-10.0); %Lymphocytes 40.3 % (21.0-51.0); %Monocytes 11.4 % (0.0-10.0); %Neutrophils 40.8 % (42.0-75.0); Hemoglobin 8.7 g/dL (14.0-18.0); Mean Corpuscular HGB CONC 31.6 g/dL (32.0-36.0); Mean Corpuscular Hemoglobin 31.3 pg (27.0-31.0); Mean Corpuscular Volume 99.1 fL (78.0-98.0); Platelet Count 280 thou/uL (130-400); RBC Distribution Width 13.4 % (11.5-14.5); Red Blood Cell (RBC) Count 2.78 mill/uL (4.70-6.10); White Blood Cell (WBC) Count 4.1 thou/uL (4.8-10.8)
[2020-07-16 06:08] LABS: Anion Gap 13 mmol/L (10-20); BUN (Urea Nitrogen) 16 mg/dL (8.4-25.7); Calc. Creatinine Clearance 56 mL/min (70-130); Carbon Dioxide 26 mmol/L (23-31); Chloride 101 mmol/L (98-107); Glucose 89 mg/dL (80-115); Potassium 4.1 mmol/L (3.5-5.1); Sodium 136 mmol/L (136-145)
[2020-07-16] MEDS: Mometasone 100 MCG/Formoterol 5 MCG 120 PUFF INHALER INH SCH ×2 (07:34→18:11)
[2020-07-16] MEDS: Saccharomyces boulardii 250 MG CAP PO SCH (09:34)
[2020-07-16] MEDS: Enoxaparin Sodium 30 MG/0.3 ML SYRINGE SC SCH (09:34)
[2020-07-16] MEDS: Amoxicillin/Potassium Clav 875 MG TAB PO SCH ×2 (09:34→20:39)
[2020-07-16] MEDS: Ergocalciferol 1.25 MG(50,000 UNITS) CAP PO SCH (09:35)
[2020-07-16] MEDS ORDERED: Sodium Chloride 0.9% 1,000 ML IV SCH (10:15)
[2020-07-16] MEDS: Sodium Bicarbonate Tab 325 MG TAB PO SCH ×2 (14:39→20:39)
[2020-07-16] MEDS: ALPRAZolam 0.25 MG TAB PO PRN (14:40)
[2020-07-16] MEDS: traZODone HCl 50 MG TAB PO SCH (20:39)
[2020-07-17] MEDS: HYDROcodone/Acetaminophen 10/325 mg Tablet PO PRN (01:58)
[2020-07-17] MEDS: Levothyroxine Sodium 25 MCG TAB PO SCH (05:08)
[2020-07-17] MEDS: Morphine 4 MG/ML VIAL SLOW IVP PRN ×3 (05:08→22:32)
[2020-07-17 06:41] LABS: #Basophils 0.1 thou/uL (0.0-0.2); #Eosinphils 0.3 thou/uL (0.0-0.7); #Lymphocytes 1.4 thou/uL (1.20-3.40); #Monocytes 0.5 thou/uL (0.11-0.59); #Neutrophils 1.9 thou/uL (1.40-6.50); %Basophils 1.6 % (0.0-1.0); %Eosinophils 7.6 % (0.0-10.0); %Lymphocytes 33.2 % (21.0-51.0); %Monocytes 11.9 % (0.0-10.0); %Neutrophils 45.7 % (42.0-75.0); Hemoglobin 8.7 g/dL (14.0-18.0); Mean Corpuscular HGB CONC 31.5 g/dL (32.0-36.0); Mean Corpuscular Hemoglobin 31.4 pg (27.0-31.0); Mean Corpuscular Volume 99.6 fL (78.0-98.0); Mean Platelet Volume 7.3 fL (7.4-10.4); Platelet Count 276 thou/uL (130-400); RBC Distribution Width 13.3 % (11.5-14.5); Red Blood Cell (RBC) Count 2.77 mill/uL (4.70-6.10); White Blood Cell (WBC) Count 4.2 thou/uL (4.8-10.8)
[2020-07-17 07:03] LABS: Anion Gap 10 mmol/L (10-20); BUN (Urea Nitrogen) 17 mg/dL (8.4-25.7); Calc. Creatinine Clearance 66 mL/min (70-130); Calcium 9.2 mg/dL (7.8-10.44); Carbon Dioxide 29 mmol/L (23-31); Chloride 101 mmol/L (98-107); Glucose 85 mg/dL (80-115); Potassium 4.2 mmol/L (3.5-5.1); Sodium 136 mmol/L (136-145)
[2020-07-17] MEDS: Mometasone 100 MCG/Formoterol 5 MCG 120 PUFF INHALER INH SCH ×2 (07:47→20:44)
[2020-07-17] MEDS: Sodium Chloride 1 GM TAB PO SCH ×3 (09:13→22:00)
[2020-07-17] MEDS: Sodium Bicarbonate Tab 325 MG TAB PO SCH ×3 (09:13→22:00)
[2020-07-17] MEDS: Amoxicillin/Potassium Clav 875 MG TAB PO SCH ×2 (09:14→22:00)
[2020-07-17] MEDS: Saccharomyces boulardii 250 MG CAP PO SCH (09:14)
[2020-07-17] MEDS: Enoxaparin Sodium 30 MG/0.3 ML SYRINGE SC SCH (09:14)
[2020-07-17] MEDS: ALPRAZolam 0.25 MG TAB PO PRN (14:50)
[2020-07-17] MEDS: traZODone HCl 50 MG TAB PO SCH (22:00)
[2020-07-18] MEDS: Levothyroxine Sodium 25 MCG TAB PO SCH (06:05)
[2020-07-18] MEDS: HYDROcodone/Acetaminophen 10/325 mg Tablet PO PRN ×3 (06:06→12:25)
[2020-07-18] MEDS: Mometasone 100 MCG/Formoterol 5 MCG 120 PUFF INHALER INH SCH ×2 (06:35→20:43)
[2020-07-18] MEDS: Amoxicillin/Potassium Clav 875 MG TAB PO SCH ×2 (09:16→20:25)
[2020-07-18] MEDS: Sodium Bicarbonate Tab 325 MG TAB PO SCH ×3 (09:16→20:24)
[2020-07-18] MEDS: Sodium Chloride 1 GM TAB PO SCH ×3 (09:16→20:25)
[2020-07-18] MEDS: Saccharomyces boulardii 250 MG CAP PO SCH (09:16)
[2020-07-18] MEDS: Enoxaparin Sodium 30 MG/0.3 ML SYRINGE SC SCH (09:16)
[2020-07-18] MEDS: Morphine 4 MG/ML VIAL SLOW IVP PRN (20:12)
[2020-07-18] MEDS: traZODone HCl 50 MG TAB PO SCH (20:24)
[2020-07-19 05:38] LABS: #Basophils 0.1 thou/uL (0.0-0.2); #Eosinphils 0.4 thou/uL (0.0-0.7); #Lymphocytes 1.4 thou/uL (1.20-3.40); #Monocytes 0.5 thou/uL (0.11-0.59); #Neutrophils 1.8 thou/uL (1.40-6.50); %Basophils 1.7 % (0.0-1.0); %Eosinophils 9.1 % (0.0-10.0); %Lymphocytes 33.8 % (21.0-51.0); %Monocytes 11.6 % (0.0-10.0); %Neutrophils 43.7 % (42.0-75.0); Hemoglobin 8.7 g/dL (14.0-18.0); Mean Corpuscular HGB CONC 31.7 g/dL (32.0-36.0); Mean Corpuscular Hemoglobin 31.6 pg (27.0-31.0); Mean Corpuscular Volume 99.5 fL (78.0-98.0); Platelet Count 281 thou/uL (130-400); RBC Distribution Width 13.5 % (11.5-14.5); Red Blood Cell (RBC) Count 2.76 mill/uL (4.70-6.10); White Blood Cell (WBC) Count 4.2 thou/uL (4.8-10.8)
[2020-07-19 05:51] LABS: Anion Gap 12 mmol/L (10-20); BUN (Urea Nitrogen) 13 mg/dL (8.4-25.7); Calc. Creatinine Clearance 63 mL/min (70-130); Calcium 9.4 mg/dL (7.8-10.44); Carbon Dioxide 29 mmol/L (23-31); Chloride 99 mmol/L (98-107); Glucose 87 mg/dL (80-115); Potassium 4.2 mmol/L (3.5-5.1); Sodium 136 mmol/L (136-145)
[2020-07-19] MEDS: HYDROcodone/Acetaminophen 10/325 mg Tablet PO PRN ×4 (05:55→21:23)
[2020-07-19] MEDS: Levothyroxine Sodium 25 MCG TAB PO SCH (05:55)
[2020-07-19] MEDS: Mometasone 100 MCG/Formoterol 5 MCG 120 PUFF INHALER INH SCH ×2 (06:48→18:20)
[2020-07-19] MEDS: Amoxicillin/Potassium Clav 875 MG TAB PO SCH ×2 (10:19→21:23)
[2020-07-19] MEDS: Saccharomyces boulardii 250 MG CAP PO SCH (10:20)
[2020-07-19] MEDS: Sodium Bicarbonate Tab 325 MG TAB PO SCH ×3 (10:20→21:23)
[2020-07-19] MEDS: Sodium Chloride 1 GM TAB PO SCH ×3 (10:22→21:23)
[2020-07-19] MEDS: Enoxaparin Sodium 30 MG/0.3 ML SYRINGE SC SCH (10:22)
[2020-07-19] MEDS: traZODone HCl 50 MG TAB PO SCH (21:23)
[2020-07-20] MEDS: Levothyroxine Sodium 25 MCG TAB PO SCH (06:14)
[2020-07-20] MEDS: HYDROcodone/Acetaminophen 10/325 mg Tablet PO PRN (06:14)
[2020-07-20] MEDS: Mometasone 100 MCG/Formoterol 5 MCG 120 PUFF INHALER INH SCH (07:13)
[2020-07-20 07:31] LABS: Albumin 3.9 g/dL (3.4-4.8); Anion Gap 12 mmol/L (10-20); BUN (Urea Nitrogen) 16 mg/dL (8.4-25.7); Calc. Creatinine Clearance 64 mL/min (70-130); Calcium 9.4 mg/dL (7.8-10.44); Carbon Dioxide 29 mmol/L (23-31); Chloride 99 mmol/L (98-107); Glucose 80 mg/dL (80-115); Iron 70 ug/dL (65-175); Iron Binding Capacity, Total 279 mcg/dL (261-462); Phosphorus 3.2 mg/dL (2.3-4.7); Potassium 4.3 mmol/L (3.5-5.1); Sodium 136 mmol/L (136-145)
[2020-07-20] MEDS: Saccharomyces boulardii 250 MG CAP PO SCH (09:02)
[2020-07-20] MEDS: Sodium Chloride 1 GM TAB PO SCH ×2 (09:02→14:30)
[2020-07-20] MEDS: Sodium Bicarbonate Tab 325 MG TAB PO SCH ×2 (09:02→14:30)
[2020-07-20] MEDS: Enoxaparin Sodium 30 MG/0.3 ML SYRINGE SC SCH (09:02)
[2020-07-20] MEDS: Amoxicillin/Potassium Clav 875 MG TAB PO SCH (09:02)
[2020-07-20 16:59] VITALS: BP 120/76; TEMP 98
== END 2020-07-20 17:18 | disposition home or self-care (01) | DRG 205 ==
LOC: EDBD → ERS 17:34 → ERHOLD 21:57 → T4-A 07-07 00:47
PROVIDERS: ADMIT Internal Medicine; ATTEND Internal Medicine
PROC: 0BB Respiratory System, Excision (ICD-10-PCS; principal; 2020-07-15)
DX: J95.02 Infection of tracheostomy stoma (principal); I21.A1 Myocardial infarction type 2; N17.9 Acute kidney failure, unspecified; E87.1 Hypo-osmolality and hyponatremia; L02.11 Cutaneous abscess of neck; Y83.3 Surgical operation with formation of external stoma as the cause of abnormal reaction of the patient, or of later complication, without mention of misadventure at the time of the procedure; Z20.822 Contact with and (suspected) exposure to COVID-19; C32.9 Malignant neoplasm of larynx, unspecified; E87.6 Hypokalemia; B96.5 Pseudomonas (aeruginosa) (mallei) (pseudomallei) as the cause of diseases classified elsewhere; N28.1 Cyst of kidney, acquired; J38.7 Other diseases of larynx; R13.10 Dysphagia, unspecified; F41.9 Anxiety disorder, unspecified; J39.8 Other specified diseases of upper respiratory tract; E86.9 Volume depletion, unspecified; J44.9 Chronic obstructive pulmonary disease, unspecified; C32.0 Malignant neoplasm of glottis; D53.9 Nutritional anemia, unspecified; E55.9 Vitamin D deficiency, unspecified; E03.9 Hypothyroidism, unspecified; B96.89 Other specified bacterial agents as the cause of diseases classified elsewhere; L98.499 Non-pressure chronic ulcer of skin of other sites with unspecified severity; I95.9 Hypotension, unspecified; K04.7 Periapical abscess without sinus; Z92.3 Personal history of irradiation; Z87.891 Personal history of nicotine dependence; Z87.01 Personal history of pneumonia (recurrent); Z79.899 Other long term (current) drug therapy; Z79.890 Hormone replacement therapy; Z79.52 Long term (current) use of systemic steroids; Z90.02 Acquired absence of larynx; Z91.19 Patient's noncompliance with other medical treatment and regimen
CPT/HCPCS: 36415; 70491; 76770; 80048; 80053; 80069; 80202; 81001; 82306; 82570; 82728; 83540; 83550; 83735; 84156; 84300; 85025; 85027; 87070; 87077; 87186; 87205; 88305; 94640; 94760; 96365; 96375; J0692; J1650; J2270; J3370; J3480; J3490; J7050; J7620; U0003; U0005

== ENCOUNTER 2020-08-18 12:06 | Outpatient (CLI) | payer MEDICARE, MEDICAID | END 2020-08-18 12:07 | disposition home or self-care (01) | LOC: EDBD → PET 12:06 | PROVIDERS: ATTEND Internal Medicine Hematology & Oncology | DX: C76.0 Malignant neoplasm of head, face and neck (principal); M79.89 Other specified soft tissue disorders | CPT/HCPCS: 78815; A9552 ==

== ENCOUNTER 2020-11-17 11:01 | Outpatient (CLI) | payer MEDICARE, MEDICAID | END 2020-11-17 11:02 | disposition home or self-care (01) | LOC: EDBD → PET 11:01 | PROVIDERS: ATTEND Internal Medicine Hematology & Oncology | DX: C32.9 Malignant neoplasm of larynx, unspecified (principal); C76.0 Malignant neoplasm of head, face and neck | CPT/HCPCS: 78815; A9552 ==

== ENCOUNTER 2020-11-23 12:00 | Outpatient (CLI) | payer MEDICARE, MEDICAID ==
[2020-11-23 13:11] LABS: Hemoglobin 9.9 g/dL (13.5-17.5)
[2020-11-23 13:28] LABS: Anion Gap 18 mmol/L (10-20); BUN (Urea Nitrogen) 9 mg/dL (8.4-25.7); Calc. Creatinine Clearance 0 mL/min (70-130); Calcium 9.6 mg/dL (7.8-10.44); Carbon Dioxide 25 mmol/L (23-31); Chloride 101 mmol/L (98-107); Glucose 111 mg/dL (80-115); Potassium 3.7 mmol/L (3.5-5.1); Sodium 140 mmol/L (136-145)
[2020-11-23 22:23] LABS: SARS-CoV-2 PCR by NAA Not Detected (NotDetected)
== END 2020-11-23 12:01 | disposition home or self-care (01) ==
LOC: EDBD → LABBT 12:00
PROVIDERS: ATTEND Specialist
DX: Z01.818 Encounter for other preprocedural examination (principal); J02.9 Acute pharyngitis, unspecified; Z85.21 Personal history of malignant neoplasm of larynx; Z20.822 Contact with and (suspected) exposure to COVID-19
CPT/HCPCS: 80048; 85014; 85018; 93005; U0003; U0005; 93010

== ENCOUNTER 2020-11-26 09:15 | Day surgery (SDC) | payer MEDICARE, MEDICAID ==
[2020-11-25 15:01] VITALS: BMI 21.7
[2020-11-26] MEDS ORDERED: Lidocaine 1% w/Epinephrine 1:100K 20 ML VIAL ONE (10:38)
[2020-11-26] MEDS ORDERED: Fentanyl 100 MCG/2 ML VIAL ONE (10:48)
[2020-11-26] MEDS ORDERED: Albuterol Sulfate 2.5 mg/3 ml Neb NEB SCH (11:15)
[2020-11-26] MEDS ORDERED: Lidocaine 1% PF 5 ML VIAL ONE (11:27)
[2020-11-26] MEDS ORDERED: PROPOFOL 200 MG/20 ML VIAL ONE (11:27)
[2020-11-26] MEDS ORDERED: Ondansetron PF 4 MG/2 ML Vial ONE (11:27)
[2020-11-26] MEDS ORDERED: Albuterol Sulfate 1.25 MG/3 ML NEB ONE (12:50)
[2020-11-26] MEDS ORDERED: Sodium Chloride 0.9% 10 ML ONE (12:53)
== END 2020-11-26 14:10 | disposition home or self-care (01) ==
LOC: SDC 09:15 → EDBD 15:15
PROVIDERS: ATTEND Specialist
PROC: 0CJS8ZZ Inspection of Larynx, Via Natural or Artificial Opening Endoscopic (ICD-10-PCS; principal; 2020-11-26)
PROC: 0HB4XZX Excision of Neck Skin, External Approach, Diagnostic (ICD-10-PCS; 2020-11-26)
DX: C32.9 Malignant neoplasm of larynx, unspecified (principal); C44.42 Squamous cell carcinoma of skin of scalp and neck; J45.909 Unspecified asthma, uncomplicated; E03.9 Hypothyroidism, unspecified; M19.90 Unspecified osteoarthritis, unspecified site; T30.0 Burn of unspecified body region, unspecified degree; F17.210 Nicotine dependence, cigarettes, uncomplicated; Z79.2 Long term (current) use of antibiotics; Z79.899 Other long term (current) drug therapy; Z90.02 Acquired absence of larynx; Z93.0 Tracheostomy status
CPT/HCPCS: 87070; 87077; 87186; 87205; 88305; J2405; J2704; J3010; J7620

== ENCOUNTER 2020-12-28 13:32 | Outpatient (CLI) | payer MEDICARE, MEDICAID ==
[~2020-12-28 13:32] MED LIST changes: +Iopamidol 370 76% 100 ML VIAL ONE; -Iopamidol-370 76% 500 ML 1 ML ONE
== END 2020-12-28 13:33 | disposition home or self-care (01) ==
LOC: BICCT 13:32
PROVIDERS: ATTEND Internal Medicine Hematology & Oncology
DX: D02.0 Carcinoma in situ of larynx (principal); R22.1 Localized swelling, mass and lump, neck; Z93.0 Tracheostomy status
CPT/HCPCS: 70491; Q9967

== ENCOUNTER 2021-01-05 20:40 | Inpatient (IN) | payer MEDICARE, MEDICAID ==
[~2021-01-05 20:40] MED LIST changes: -Iopamidol 370 76% 100 ML VIAL ONE; +Iopamidol-370 76% 500 ML 1 ML ONE
[2021-01-05] MEDS ORDERED: Cefepime 2 GM VIAL ONE (20:56)
[2021-01-05] MEDS ORDERED: Ondansetron PF 4 MG/2 ML Vial ONE (21:01)
[2021-01-05] MEDS ORDERED: Morphine 4 MG/ML VIAL ONE ×2 (21:01→23:13)
[2021-01-05] MEDS ORDERED: Clindamycin/D5W 900 mg/50 ml Premix Bag ONE (21:25)
[2021-01-05 21:44] LABS: #Basophils 0.1 thou/uL (0.0-0.2); #Eosinphils 0.5 thou/uL (0.0-0.7); #Lymphocytes 1.9 thou/uL (1.20-3.40); #Monocytes 1.1 thou/uL (0.11-0.59); #Neutrophils 6.3 thou/uL (1.40-6.50); %Basophils 0.6 % (0.0-1.0); %Eosinophils 5.3 % (0.0-10.0); %Lymphocytes 19.4 % (21.0-51.0); %Monocytes 11.3 % (0.0-10.0); %Neutrophils 63.4 % (42.0-75.0); Mean Corpuscular HGB CONC 32.3 g/dL (32.0-36.0); Mean Corpuscular Hemoglobin 29.7 pg (27.0-31.0); Platelet Count 437 thou/uL (130-400); RBC Distribution Width 14.8 % (11.5-14.5); Red Blood Cell (RBC) Count 3.03 mill/uL (4.70-6.10); White Blood Cell (WBC) Count 9.9 thou/uL (4.8-10.8)
[2021-01-05] MEDS ORDERED: Vancomycin 1.5 GRAM/300 ML BAG 1.5 GM in Premix Bag 1 BAG IVPB SCH (21:45)
[2021-01-05 22:04] LABS: ALT (SGPT) 11 U/L (8-55); AST (SGOT) 14 U/L (5-34); Albumin 3.6 g/dL (3.4-4.8); Alkaline Phosphatase 80 U/L (40-110); Anion Gap 18 mmol/L (10-20); BUN (Urea Nitrogen) 22 mg/dL (8.4-25.7); Bilirubin, Total 0.4 mg/dL (0.2-1.2); Calc. Creatinine Clearance 0 mL/min (70-130); Calcium 10.1 mg/dL (7.8-10.44); Carbon Dioxide 25 mmol/L (23-31); Chloride 104 mmol/L (98-107); Globulin 4.4 g/dL (2.4-3.5); Glucose 123 mg/dL (80-115); Potassium 4.7 mmol/L (3.5-5.1); Sodium 142 mmol/L (136-145)
[2021-01-06] MEDS: Lactated Ringer's 1,000 ML IV SCH ×3 (01:45→18:18)
[2021-01-06] MEDS ORDERED: Morphine 4 MG/ML VIAL ONE (03:54)
[2021-01-06 04:15] LABS: Troponin I Less than 0.010 ng/mL (< 0.028)
[2021-01-06] MEDS ORDERED: Ondansetron ODT 4 MG TAB SL PRN ×2 (04:18→04:21)
[2021-01-06] MEDS ORDERED: Ondansetron PF 4 MG/2 ML Vial IVP PRN ×2 (04:18→04:21)
[2021-01-06] MEDS ORDERED: Morphine 4 MG/ML VIAL SLOW IVP PRN ×5 (04:19→06:03)
[2021-01-06] MEDS ORDERED: Acetaminophen 325 MG TAB PO PRN ×2 (04:19→04:21)
[2021-01-06] MEDS ORDERED: Acetaminophen 650 MG Suppository PR PRN ×2 (04:20→04:22)
[2021-01-06 04:49] VITALS: BMI 21.2
[2021-01-06] MEDS ORDERED: Electrolyte Replacement Protocol 1 EACH FS PRN (06:00)
[2021-01-06 06:35] LABS: #Basophils 0.1 thou/uL (0.0-0.2); #Eosinphils 0.5 thou/uL (0.0-0.7); #Lymphocytes 1.9 thou/uL (1.20-3.40); #Monocytes 1.2 thou/uL (0.11-0.59); #Neutrophils 5.7 thou/uL (1.40-6.50); %Eosinophils 5.7 % (0.0-10.0); %Lymphocytes 20.3 % (21.0-51.0); %Neutrophils 59.9 % (42.0-75.0); Hemoglobin 8.4 g/dL (14.0-18.0); Mean Corpuscular HGB CONC 32.7 g/dL (32.0-36.0); Mean Corpuscular Hemoglobin 30.3 pg (27.0-31.0); Mean Corpuscular Volume 92.8 fL (78.0-98.0); Mean Platelet Volume 6.7 fL (7.4-10.4); Platelet Count 414 thou/uL (130-400); RBC Distribution Width 14.6 % (11.5-14.5); Red Blood Cell (RBC) Count 2.75 mill/uL (4.70-6.10); White Blood Cell (WBC) Count 9.5 thou/uL (4.8-10.8)
[2021-01-06 06:52] LABS: Anion Gap 15 mmol/L (10-20); BUN (Urea Nitrogen) 19 mg/dL (8.4-25.7); Calc. Creatinine Clearance 67 mL/min (70-130); Calcium 9.2 mg/dL (7.8-10.44); Carbon Dioxide 23 mmol/L (23-31); Chloride 107 mmol/L (98-107); Glucose 100 mg/dL (80-115); Potassium 4.4 mmol/L (3.5-5.1); Sodium 141 mmol/L (136-145)
[2021-01-06 06:59] LABS: Troponin I Less than 0.010 ng/mL (< 0.028)
[2021-01-06 07:40] LABS: SARS-CoV-2 NAA Rapid Test Not Detected (NotDetected)
[2021-01-06] MEDS: Enoxaparin Sodium 40 MG/0.4 ML SYRINGE SC SCH (09:32)
[2021-01-06] MEDS: Cefepime 2 GM in Sodium Chloride 0.9% 100 ML IVPB SCH ×2 (09:32→20:46)
[2021-01-06] MEDS: Morphine 4 MG/ML VIAL SLOW IVP PRN ×4 (09:34→22:29)
[2021-01-06] MEDS: methylPREDNISolone Sod Succ 40 MG VIAL IVP SCH ×2 (13:15→18:14)
[2021-01-06] MEDS ORDERED: fentaNYL 75 mcg/hour Patch TD SCH (14:00)
[2021-01-06] MEDS: Ketorolac Tromethamine 30 MG/ML VIAL IVP PRN (20:50)
[2021-01-06] MEDS ORDERED: Vancomycin 1.5 GRAM/300 ML BAG 1.5 GM in Premix Bag 1 BAG IVPB SCH (22:00)
[2021-01-07] MEDS: methylPREDNISolone Sod Succ 40 MG VIAL IVP SCH ×5 (00:10→23:58)
[2021-01-07] MEDS: Morphine 4 MG/ML VIAL SLOW IVP PRN ×5 (02:18→18:20)
[2021-01-07] MEDS: Ketorolac Tromethamine 30 MG/ML VIAL IVP PRN ×2 (03:19→09:05)
[2021-01-07] MEDS: Lactated Ringer's 1,000 ML IV SCH ×3 (03:20→20:26)
[2021-01-07] MEDS: Enoxaparin Sodium 40 MG/0.4 ML SYRINGE SC SCH (09:05)
[2021-01-07] MEDS: Cefepime 2 GM in Sodium Chloride 0.9% 100 ML IVPB SCH ×2 (09:05→20:26)
[2021-01-07] MEDS: Fentanyl 100 MCG/2 ML VIAL SLOW IVP PRN (20:26)
[2021-01-07] MEDS: Vancomycin 1 GM in Premix Bag 1 BAG IVPB SCH (21:53)
[2021-01-07] MEDS ORDERED: Lorazepam 2 MG/ML VIAL SLOW IVP SCH (22:30)
[2021-01-07] MEDS ORDERED: Scopolamine 1.5 mg/72 hour Patch TOP SCH (22:30)
[2021-01-08] MEDS: Fentanyl 100 MCG/2 ML VIAL SLOW IVP PRN ×3 (01:45→09:15)
[2021-01-08 04:09] LABS: #Lymphocytes 1.1 thou/uL (1.20-3.40); #Monocytes 0.3 thou/uL (0.11-0.59); #Neutrophils 10.1 thou/uL (1.40-6.50); %Basophils 0.1 % (0.0-1.0); %Lymphocytes 9.5 % (21.0-51.0); %Monocytes 2.8 % (0.0-10.0); %Neutrophils 87.6 % (42.0-75.0); Mean Corpuscular HGB CONC 31.4 g/dL (32.0-36.0); Mean Corpuscular Hemoglobin 29.5 pg (27.0-31.0); Mean Corpuscular Volume 93.9 fL (78.0-98.0); Platelet Count 462 thou/uL (130-400); RBC Distribution Width 14.6 % (11.5-14.5); Red Blood Cell (RBC) Count 3.06 mill/uL (4.70-6.10); White Blood Cell (WBC) Count 11.6 thou/uL (4.8-10.8)
[2021-01-08 04:43] LABS: ALT (SGPT) 12 U/L (8-55); AST (SGOT) 13 U/L (5-34); Albumin 3.4 g/dL (3.4-4.8); Alkaline Phosphatase 69 U/L (40-110); Anion Gap 12 mmol/L (10-20); BUN (Urea Nitrogen) 24 mg/dL (8.4-25.7); Bilirubin, Total 0.3 mg/dL (0.2-1.2); Calc. Creatinine Clearance 83 mL/min (70-130); Calcium 9.6 mg/dL (7.8-10.44); Carbon Dioxide 27 mmol/L (23-31); Chloride 102 mmol/L (98-107); Globulin 3.9 g/dL (2.4-3.5); Glucose 150 mg/dL (80-115); Potassium 4.4 mmol/L (3.5-5.1); Protein, Total 7.3 g/dL (5.8-8.1); Sodium 137 mmol/L (136-145)
[2021-01-08] MEDS: Lactated Ringer's 1,000 ML IV SCH ×2 (05:29→22:30)
[2021-01-08] MEDS: Ketorolac Tromethamine 30 MG/ML VIAL IVP PRN (05:30)
[2021-01-08] MEDS: methylPREDNISolone Sod Succ 40 MG VIAL IVP SCH ×3 (05:30→17:52)
[2021-01-08] MEDS ORDERED: Bisacodyl 10 MG SUPP PR PRN (09:06)
[2021-01-08] MEDS: Cefepime 2 GM in Sodium Chloride 0.9% 100 ML IVPB SCH ×2 (09:15→17:52)
[2021-01-08] MEDS: Enoxaparin Sodium 40 MG/0.4 ML SYRINGE SC SCH (09:15)
[2021-01-08] MEDS: Vancomycin 1 GM in Premix Bag 1 BAG IVPB SCH (09:15)
[2021-01-08] MEDS: Morphine 4 MG/ML VIAL SLOW IVP PRN ×4 (12:46→22:29)
[2021-01-08] MEDS ORDERED: Lorazepam 2 MG/ML VIAL SLOW IVP PRN (21:37)
[2021-01-09] MEDS: methylPREDNISolone Sod Succ 40 MG VIAL IVP SCH ×2 (00:16→05:29)
[2021-01-09] MEDS: Morphine 4 MG/ML VIAL SLOW IVP PRN ×3 (00:31→05:29)
[2021-01-09] MEDS: Cefepime 2 GM in Sodium Chloride 0.9% 100 ML IVPB SCH ×2 (01:40→10:29)
[2021-01-09 03:52] VITALS: TEMP 98.7
[2021-01-09 09:07] LABS: Vancomycin, Trough 9.7 ug/mL
[2021-01-09] MEDS: Lactated Ringer's 1,000 ML IV SCH (10:29)
[2021-01-09] MEDS: Enoxaparin Sodium 40 MG/0.4 ML SYRINGE SC SCH (10:29)
== END 2021-01-09 12:56 | disposition hospice, home (50) | DRG 146 ==
LOC: ERS 20:40 → ERHOLD 01-06 00:10 → IMCU/EMU 01-06 04:18
PROVIDERS: ADMIT Family Medicine; ATTEND Family Medicine
DX: C32.9 Malignant neoplasm of larynx, unspecified (principal); Z20.822 Contact with and (suspected) exposure to COVID-19; Z51.5 Encounter for palliative care; Z66 Do not resuscitate; J15.1 Pneumonia due to Pseudomonas; J96.21 Acute and chronic respiratory failure with hypoxia; N17.9 Acute kidney failure, unspecified; J44.0 Chronic obstructive pulmonary disease with (acute) lower respiratory infection; R64 Cachexia; E44.0 Moderate protein-calorie malnutrition; C32.0 Malignant neoplasm of glottis; E03.9 Hypothyroidism, unspecified; I10 Essential (primary) hypertension; F41.9 Anxiety disorder, unspecified; D63.8 Anemia in other chronic diseases classified elsewhere; Z87.01 Personal history of pneumonia (recurrent); Z87.891 Personal history of nicotine dependence; Z68.24 Body mass index [BMI] 24.0-24.9, adult; Z85.819 Personal history of malignant neoplasm of unspecified site of lip, oral cavity, and pharynx; Z93.0 Tracheostomy status; Z93.1 Gastrostomy status; Z79.899 Other long term (current) drug therapy; Z79.51 Long term (current) use of inhaled steroids; Z79.890 Hormone replacement therapy
CPT/HCPCS: 36415; 70491; 71045; 71275; 80048; 80053; 80202; 83605; 84145; 84484; 85025; 87040; 87070; 87077; 87186; 93005; 94640; 96365; 96366; 96367; 96368; 96375; 96376; J0692; J1650; J1885; J2060; J2270; J2405; J2920; J2997; J3010; J3370; J3490; J7120; Q9967; U0002